=== PATIENT | female | born 1955 | race Caucasian/White ===

== ENCOUNTER 2017-10-26 09:30 | Outpatient (RCR) | payer BC, SELFPAY ==
[2017-10-19 09:32] VITALS: BP 163/73; PULSE 61; RESP 18; TEMP 36.6; BMI 48.4
[2017-10-19 13:07] LABS: Hematocrit 41.7 % (37-47); Hemoglobin 13.5 g/dl (12.0-15.0); Mean Corp Hgb Conc 32.4 g/gl (32-36); Mean Corpuscular Hgb 28.6 pg (27.0-32.0); Mean Corpuscular Volume 88.3 fL (81-99); Mean Platelet Vol. 11.4 fl (6.2-12.0); Platelet Count 340 K/mm3 (150-450); RBC Distribution Width SD 44.8 fl (35.1-43.9); Red Blood Count 4.72 M/mm3 (4.2-5.4); Scan Indicated on CBC? Y/N NO; White Blood Count 7.7 K/mm3 (4.4-11.0)
--- NOTE | 2017-10-19 13:34 | PCM.WC.HP ---
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 History of Wound: Ms. Antony is a 62yo with PMH of Venous Insufficiencys/p vein Stripping in 2005 who present here due to non healing right lower extremity ulcer. She reports right lower extremity blisters which opened up into an ulcer a couple of weeks ago. Initially 2 however they have progressed to 1 big ulcer. She was managed by her primary care physician and was started on antibiotics and Silvadene cream. She was taking these as prescribed however wound healing has not been obtained. Currently uses her compression stockings but not as often because she states that they are tight and impede her circulation. She works at [employer] where she has to stand for long periods of time. She feels well otherwise denies chills, fever, purulent discharge from the site, nausea or vomiting. 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 (Chronic) Morbid (severe) obesity due to excess calories (Chronic) Venous insufficiency (Chronic) Surgical History: no surgical history Allergies/Adverse Reactions: Allergies latex Allergy (Verified 10/19/17 09:50) Rash Home Medications: Ambulatory Orders Medication Instructions Recorded Ergocalciferol [Vitamin D] 50,000 unit PO 11/16/16 Calcium Carb/Vitamin D 1 tab PO DAILY 10/19/17 [Caltrate-600 With Vit D Tab] Clindamycin [Cleocin] 150 mg PO 4X/DAY 10/19/17 Hydrochlorothiazide [Hctz] 25 mg PO DAILY 10/19/17 Ibuprofen 200 mg PO PRN PRN 10/19/17 Loperamide [Imodium] 2 mg PO 4X/DAY PRN PRN 10/19/17 Multivitamin [Daily Multiple 1 each PO DAILY 10/19/17 Vitamin] Sandwich-3 Fatty Acids/Fish Oil 1 each PO DAILY 10/19/17 [Sandwich 3 Fish Oil Softgel] Silver Sulfadiazine 1% Crm 1 applic TOPICAL DAILY 10/19/17 [Silvadene ([facility])] Vit C/E/Zn/Coppr/Lutein/Zeaxan 1 each PO DAILY 10/19/17 [Preservision Areds 2 Softgel] - Family History Maternal No pertinent history Smoking Status: Never smoker Review of Systems Constitutional: Denies: Anorexia, Chills, Fever, Malaise Eyes: Denies: Pain, Redness HEENT: Denies: Difficulty Hearing, Difficulty Swallowing Cardiovascular: Denies: Chest Pain, Chest Pressure, Palpitations Respiratory: Denies: Cough, Hemoptysis Gastrointestinal: Denies: Abdominal Pain, Hematemesis, Vomiting Skin: Denies: Jaundice - Physical Exam Vital Signs Temp Pulse Resp BP 97.8 F 61 18 163/73 H 10/19/17 09:32 10/19/17 09:32 10/19/17 09:32 10/19/17 09:32 General: Alert, Oriented x3, Cooperative, No apparent distress HEENT: Atraumatic, Normocephalic Oral: Moist Mucosa Neck: Supple, No JVD Lungs: Normal air movement Cardiovascular: Regular rate, Regular Rhythm, Normal S1, Normal S2 Abdomen: Soft, Non Tender Extremities: No cyanosis, - - barely pitting edema extending to the knee bilaterally. Stasis Dermatitis. Wound Measurements and Assessment - Nurse 1 - General Ulcer Measurement Start: 10/19/17 09:32 Freq: Status: Active Protocol: Activity Type Activity Date Activity User E-Sign Co-Sign Detail Recorded Client Recorded Date Recorded By Document 10/19/17 09:32 [id number] 10/19/17 09:47 10/19/17 09:32 Wound Center Nurse 1 [Ulcer Assessment Protocol: MAGNOLIA.WD.LOC] #1 Lower Right Leyva -Combined with other wound No -Current Size (cm) - Length 2.6 -Current Size (cm) - Width 2.5 -Current Size (cm) - Depth 0.2 -Total Square Cm 6.50 -Date of Last Picture (Recall this 10/19/17 field) -Photo Taken Yes -Epithelialization None Present -Tunneling No -Undermining/Tunneling No -Circular Undermining No -Classification - Thickness Full Thickness without Exposed Support Structure -Exudate Amt Large (67-100%) -Exudate Type Serous -Wound Margin Fibrotic Scar, Thickened Scar -Granulation Amt None Present (0 %) -Granulation Quality N/A -Slough/Fibrin Yes -Necrosis Amt Large (67-100%) -Necrotic Tissue Type Adherent Slough -Structure Exposed Fascia Fat Layer Exposed -Texture (Jessica-wound Skin Appearance) Localized Edema Scarring -Moisture (Jessica-wound Skin Appearance Weeping ) -Color (Jessica-wound Skin Appearance) Erythema Hemosiderin Staining -Temperature (Jessica-wound Skin No Abnormality Appearance) (Pt Warm) -Tenderness on Palpation (Jessica-wound No Skin Appearance) -Ulcer Cleansing Rinsed/ Irrigated with Saline -Foul Odor after Cleansing No -Anesthetic Used 4% Lidocaine Solution [Edema Assessment] -Lower Limb Edema Present Yes -Right Calf (cm) 42.0 -Right Ankle (cm) 28.0 -Left Calf (cm) 42.0 -Left Ankle (cm) 27.0 WC - Nurse 2 - General Ulcer CM Notes Start: 10/19/17 09:32 Freq: Status: Active Protocol: Activity Type Activity Date Activity User E-Sign Co-Sign Detail Recorded Client Recorded Date Recorded By Document 10/19/17 10:08 DV [id number] 10/19/17 10:21 DV 10/19/17 10:08 Wound Center Nurse 2 [Procedure/Treatment] #1 Lower Right Leyva -Time 10:14 -Correct Patient Yes -Correct Side, Site, Position Yes -Correct Procedure Yes -Procedure Performed Yes -Type of Procedure Debridement -Clinical Debridement Subcutaneous -Post Debridement Size (cm) - Length 2.6 -Post Debridement Size (cm) - Width 2.6 -Post Debridement Size (cm) - Depth 0.2 -Total Square Cm 6.76 -Wound/Ulcer Outcome Not Healed -Ulcer Cleansing Rinsed/ Irrigated with Saline -Foul Odor after Cleansing No -Bioengineered Tissue No -Cetacaine [place] No -Bleeding Controlled with Pressure -Treatment Response Procedure Tolerated Well [See Physician Procedure note for Specifics] Musculoskeletal: No Muscle Wasting Neurological: Cranial nerves II-XII grossly intact Psych/Mental Status: Normal Affect Debridement Note Post-Debridement Measurements/Treatment WC - Nurse 2 - General Ulcer CM Notes Start: 10/19/17 09:32 Freq: Status: Active Protocol: Activity Type Activity Date Activity User E-Sign Co-Sign Detail Recorded Client Recorded Date Recorded By Document 12/21/17 10:08 DV [id number] 10/19/17 10:21 DV 10/19/17 10:08 Wound Center Nurse 2 #1 Lower Right Leyva -Time 10:14 -Correct Patient Yes -Correct Side, Site, Position Yes -Correct Procedure Yes -Procedure Performed Yes -Type of Procedure Debridement -Clinical Debridement Subcutaneous -Post Debridement Size (cm) - Length 2.6 -Post Debridement Size (cm) - Width 2.6 -Post Debridement Size (cm) - Depth 0.2 -Total Square Cm 6.76 -Wound/Ulcer Outcome Not Healed -Ulcer Cleansing Rinsed/ Irrigated with Saline -Foul Odor after Cleansing No -Bioengineered Tissue No -Cetacaine [place] No -Bleeding Controlled with Pressure -Treatment Response Procedure Tolerated Well Wound debrided: Right Lower extremity wound Type of Debridement: Excisional debridement Anesthesia Used: 4% Lidocaine Solution Depth: Down to and including healthy tissue, in the subcutaneous layer Percentage of wound debrided: 100 Instrument Used: 5mm curette Tissue Removed: Slough,Fibrin Amount of bleeding with debridement: Mild Bleeding Controlled with: Pressure Patient tolerated procedure well Assessment/Plan Assessment: Right Lower extremity Ulcer, Possibly venous. Venous Insufficiency Plan: Ms. Antony has a chronic history of venous insufficiency and is s/p vein stripping in 2005. Due to the nature of her job, she has experienced increased leg swelling lately. Conservative measures have not been helpful. Wound debridement was done today. Cultures were also taken. Labs including a CBC, prealbumin and CRP were ordered. I have also ordered venous studies. Apply santyl to wound daily with ABD covering. Light compresison with GILMA wraps. Patient was advised on a high protein diet, elevate lower extremity when in bed and when sitting and to walk around at work instead of standing for long periods. Follow up in 1 week. This note was generated with [employer] dictation software. It may contain incorrect words, spelling, and punctuation that were not noted in checking the note before signing.
--- NOTE | 2017-10-19 13:44 | HP.PCM_ITS ---
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 History of Wound: Ms. Antony is a 62yo with PMH of Venous Insufficiencys/p vein Stripping in 2005 who present here due to non healing right lower extremity ulcer. She reports right lower extremity blisters which opened up into an ulcer a couple of weeks ago. Initially 2 however they have progressed to 1 big ulcer. She was managed by her primary care physician and was started on antibiotics and Silvadene cream. She was taking these as prescribed however wound healing has not been obtained. Currently uses her compression stockings but not as often because she states that they are tight and impede her circulation. She works at [email or web address] where she has to stand for long periods of time. She feels well otherwise denies chills, fever, purulent discharge from the site, nausea or vomiting. 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 (Chronic) Morbid (severe) obesity due to excess calories (Chronic) Venous insufficiency (Chronic) Surgical History: no surgical history Allergies/Adverse Reactions: Allergies latex Allergy (Verified 10/19/17 09:50) Rash Home Medications: Ambulatory Orders Medication Instructions Recorded Ergocalciferol [Vitamin D] 50,000 unit PO 11/16/16 Calcium Carb/Vitamin D 1 tab PO DAILY 10/19/17 [Caltrate-600 With Vit D Tab] Clindamycin [Cleocin] 150 mg PO 4X/DAY 10/19/17 Hydrochlorothiazide [Hctz] 25 mg PO DAILY 10/19/17 Ibuprofen 200 mg PO PRN PRN 10/19/17 Loperamide [Imodium] 2 mg PO 4X/DAY PRN PRN 10/19/17 Multivitamin [Daily Multiple 1 each PO DAILY 10/19/17 Vitamin] [place]ahan-3 Fatty Acids/Fish Oil 1 each PO DAILY 10/19/17 [[place]ahan 3 Fish Oil Softgel] Silver Sulfadiazine 1% Crm 1 applic TOPICAL DAILY 10/19/17 [Silvadene ([facility])] Vit C/E/Zn/Coppr/Lutein/Zeaxan 1 each PO DAILY 10/19/17 [Preservision Areds 2 Softgel] - Family History Maternal No pertinent history Smoking Status: Never smoker Review of Systems Constitutional: Denies: Anorexia, Chills, Fever, Malaise Eyes: Denies: Pain, Redness HEENT: Denies: Difficulty Hearing, Difficulty Swallowing Cardiovascular: Denies: Chest Pain, Chest Pressure, Palpitations Respiratory: Denies: Cough, Hemoptysis Gastrointestinal: Denies: Abdominal Pain, Hematemesis, Vomiting Skin: Denies: Jaundice - Physical Exam Vital Signs Temp Pulse Resp BP 97.8 F 61 18 163/73 H 10/19/17 09:32 10/19/17 09:32 10/19/17 09:32 10/19/17 09:32 General: Alert, Oriented x3, Cooperative, No apparent distress HEENT: Atraumatic, Normocephalic Oral: Moist Mucosa Neck: Supple, No JVD Lungs: Normal air movement Cardiovascular: Regular rate, Regular Rhythm, Normal S1, Normal S2 Abdomen: Soft, Non Tender Extremities: No cyanosis, - - barely pitting edema extending to the knee bilaterally. Stasis Dermatitis. Wound Measurements and Assessment - Nurse 1 - General Ulcer Measurement Start: 10/19/17 09:32 Freq: Status: Active Protocol: Activity Type Activity Date Activity User E-Sign Co-Sign Detail Recorded Client Recorded Date Recorded By Document 10/19/17 09:32 [id number] 10/19/17 09:47 10/19/17 09:32 Wound Center Nurse 1 [Ulcer Assessment Protocol: MAGNOLIA.WD.LOC] #1 Lower Right Leyva -Combined with other wound No -Current Size (cm) - Length 2.6 -Current Size (cm) - Width 2.5 -Current Size (cm) - Depth 0.2 -Total Square Cm 6.50 -Date of Last Picture (Recall this 10/19/17 field) -Photo Taken Yes -Epithelialization None Present -Tunneling No -Undermining/Tunneling No -Circular Undermining No -Classification - Thickness Full Thickness without Exposed Support Structure -Exudate Amt Large (67-100%) -Exudate Type Serous -Wound Margin Fibrotic Scar, Thickened Scar -Granulation Amt None Present (0 %) -Granulation Quality N/A -Slough/Fibrin Yes -Necrosis Amt Large (67-100%) -Necrotic Tissue Type Adherent Slough -Structure Exposed Fascia Fat Layer Exposed -Texture (Jessica-wound Skin Appearance) Localized Edema Scarring -Moisture (Jessica-wound Skin Appearance Weeping ) -Color (Jessica-wound Skin Appearance) Erythema Hemosiderin Staining -Temperature (Jessica-wound Skin No Abnormality Appearance) (Pt Warm) -Tenderness on Palpation (Jessica-wound No Skin Appearance) -Ulcer Cleansing Rinsed/ Irrigated with Saline -Foul Odor after Cleansing No -Anesthetic Used 4% Lidocaine Solution [Edema Assessment] -Lower Limb Edema Present Yes -Right Calf (cm) 42.0 -Right Ankle (cm) 28.0 -Left Calf (cm) 42.0 -Left Ankle (cm) 27.0 WC - Nurse 2 - General Ulcer CM Notes Start: 10/19/17 09:32 Freq: Status: Active Protocol: Activity Type Activity Date Activity User E-Sign Co-Sign Detail Recorded Client Recorded Date Recorded By Document 10/19/17 10:08 DV [id number] 10/19/17 10:21 DV 10/19/17 10:08 Wound Center Nurse 2 [Procedure/Treatment] #1 Lower Right Leyva -Time 10:14 -Correct Patient Yes -Correct Side, Site, Position Yes -Correct Procedure Yes -Procedure Performed Yes -Type of Procedure Debridement -Clinical Debridement Subcutaneous -Post Debridement Size (cm) - Length 2.6 -Post Debridement Size (cm) - Width 2.6 -Post Debridement Size (cm) - Depth 0.2 -Total Square Cm 6.76 -Wound/Ulcer Outcome Not Healed -Ulcer Cleansing Rinsed/ Irrigated with Saline -Foul Odor after Cleansing No -Bioengineered Tissue No -Cetacaine [place] No -Bleeding Controlled with Pressure -Treatment Response Procedure Tolerated Well [See Physician Procedure note for Specifics] Musculoskeletal: No Muscle Wasting Neurological: Cranial nerves II-XII grossly intact Psych/Mental Status: Normal Affect Debridement Note Post-Debridement Measurements/Treatment WC - Nurse 2 - General Ulcer CM Notes Start: 10/19/17 09:32 Freq: Status: Active Protocol: Activity Type Activity Date Activity User E-Sign Co-Sign Detail Recorded Client Recorded Date Recorded By Document 12/21/17 10:08 DV [id number] 10/19/17 10:21 DV 10/19/17 10:08 Wound Center Nurse 2 #1 Lower Right Leyva -Time 10:14 -Correct Patient Yes -Correct Side, Site, Position Yes -Correct Procedure Yes -Procedure Performed Yes -Type of Procedure Debridement -Clinical Debridement Subcutaneous -Post Debridement Size (cm) - Length 2.6 -Post Debridement Size (cm) - Width 2.6 -Post Debridement Size (cm) - Depth 0.2 -Total Square Cm 6.76 -Wound/Ulcer Outcome Not Healed -Ulcer Cleansing Rinsed/ Irrigated with Saline -Foul Odor after Cleansing No -Bioengineered Tissue No -Cetacaine [place] No -Bleeding Controlled with Pressure -Treatment Response Procedure Tolerated Well Wound debrided: Right Lower extremity wound Type of Debridement: Excisional debridement Anesthesia Used: 4% Lidocaine Solution Depth: Down to and including healthy tissue, in the subcutaneous layer Percentage of wound debrided: 100 Instrument Used: 5mm curette Tissue Removed: Slough,Fibrin Amount of bleeding with debridement: Mild Bleeding Controlled with: Pressure Patient tolerated procedure well Assessment/Plan Assessment: Right Lower extremity Ulcer, Possibly venous. Venous Insufficiency Plan: Ms. Antony has a chronic history of venous insufficiency and is s/p vein stripping in 2005. Due to the nature of her job, she has experienced increased leg swelling lately. Conservative measures have not been helpful. Wound debridement was done today. Cultures were also taken. Labs including a CBC, prealbumin and CRP were ordered. I have also ordered venous studies. Apply santyl to wound daily with ABD covering. Light compresison with GILMA wraps. Patient was advised on a high protein diet, elevate lower extremity when in bed and when sitting and to walk around at work instead of standing for long periods. Follow up in 1 week. This note was generated with [employer] dictation software. It may contain incorrect words, spelling, and punctuation that were not noted in checking the note before signing.
[2017-10-19 13:50] LABS: Prealbumin 24.4 mg/dL (20.0-40.0)
[2017-10-26 09:57] VITALS: BP 123/73; PULSE 62; RESP 16; TEMP 36.4; BMI 48.4
== END 2017-10-29 23:59 ==
LOC: WC 09:30
PROVIDERS: Family Provider Internal Medicine; PCP Internal Medicine; Visit Provider Internal Medicine
DX: I83.11 Varicose veins of right lower extremity with inflammation (principal); L97.919 Non-pressure chronic ulcer of unspecified part of right lower leg with unspecified severity; E66.01 Morbid (severe) obesity due to excess calories; Z68.42 Body mass index [BMI] 45.0-49.9, adult; Z71.3 Dietary counseling and surveillance; Z79.899 Other long term (current) drug therapy; I87.2 Venous insufficiency (chronic) (peripheral); M79.89 Other specified soft tissue disorders
CPT/HCPCS: 11042; 84134; 85027; 86140; 87070; 87075; 87077; 87186; 87205; 97602; 99213; G0463

== ENCOUNTER 2017-11-29 09:30 | Outpatient (RCR) | payer BC, SELFPAY ==
[2017-10-30 01:41] VITALS: BP 123/73; PULSE 62; RESP 16; TEMP 36.4; BMI 48.4
[2017-11-02 08:47] VITALS: BP 167/84; PULSE 77; RESP 20; TEMP 36.6; BMI 48.4
--- NOTE | 2017-11-02 10:29 | PCM.WC.PN ---
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 History of Wound: Ms. Antony is a 62yo with PMH of Venous Insufficiencys/p vein Stripping in 2005 who present here due to non healing right lower extremity ulcer. She reports right lower extremity blisters which opened up into an ulcer a couple of weeks ago. Initially 2 however they have progressed to 1 big ulcer. She was managed by her primary care physician and was started on antibiotics and Silvadene cream. She was taking these as prescribed however wound healing has not been obtained. Currently uses her compression stockings but not as often because she states that they are tight and impede her circulation. She works at [employer] where she has to stand for long periods of time. She feels well otherwise denies chills, fever, purulent discharge from the site, nausea or vomiting. Progress of Wound: Stable. No new complaints at this time. Yet to get venous studies done. Still has significant lower extremity edema. - Physical Exam Vital Signs Temp Pulse Resp BP 97.8 F 77 20 H 167/84 H 11/02/17 08:47 11/02/17 08:47 11/02/17 08:47 11/02/17 08:47 General: Alert, Oriented x3, Cooperative, No apparent distress HEENT: Atraumatic, Normocephalic Oral: Moist Mucosa Neck: Supple Lungs: Normal air movement Cardiovascular: Regular rate Extremities: No cyanosis, Edema Skin: Ulcer/ Wound - Right lower extremity Wound Measurements and Assessment WC - Nurse 1 - General Ulcer Measurement Start: 11/02/17 08:47 Freq: Status: Active Protocol: Activity Type Activity Date Activity User E-Sign Co-Sign Detail Recorded Client Recorded Date Recorded By Document 11/02/17 08:47 DL [id number] 11/02/17 08:56 DL 11/02/17 08:47 Wound Center Nurse 1 [Ulcer Assessment Protocol: WC.WD.LOC] #1 Lower Right Leyva -Current Size (cm) - Length 3.2 -Current Size (cm) - Width 2.3 -Current Size (cm) - Depth 0.2 -Total Square Cm 7.36 -Photo Taken No -Exudate Amt Medium (34-66%) -Exudate Type Serosanguineous -Wound Margin Distinct, Outline Attached -Granulation Amt Small (1-33%) -Granulation Quality [place] -Necrosis Amt Large (67-100%) -Necrotic Tissue Type Adherent Slough -Structure Exposed N/A -Texture (Jessica-wound Skin Appearance) Excoriation -Moisture (Jessica-wound Skin Appearance Weeping ) -Color (Jessica-wound Skin Appearance) Hemosiderin Staining -Temperature (Jessica-wound Skin No Abnormality Appearance) (Pt Warm) -Ulcer Cleansing Rinsed/ Irrigated with Saline -Foul Odor after Cleansing No -Anesthetic Used 4% Lidocaine Solution [Edema Assessment] -Right Calf (cm) 45.6 -Right Ankle (cm) 26.5 - Nurse 2 - General Ulcer CM Notes Start: 11/02/17 08:47 Freq: Status: Active Protocol: Activity Type Activity Date Activity User E-Sign Co-Sign Detail Recorded Client Recorded Date Recorded By Document 11/02/17 09:20 DV [id number] 11/02/17 09:23 DV 11/02/17 09:20 Wound Center Nurse 2 [Procedure/Treatment] #1 Lower Right Leyva -Time 09:21 -Correct Patient Yes -Correct Side, Site, Position Yes -Correct Procedure Yes -Procedure Performed Yes -Type of Procedure Debridement -Clinical Debridement Subcutaneous -Post Debridement Size (cm) - Length 3.1 -Post Debridement Size (cm) - Width 2.0 -Post Debridement Size (cm) - Depth 0.2 -Total Square Cm 6.20 -Wound/Ulcer Outcome Not Healed -Ulcer Cleansing Rinsed/ Irrigated with Saline -Foul Odor after Cleansing No -Bioengineered Tissue No -Cetacaine [place] No -Bleeding Controlled with Pressure -Treatment Response Procedure Tolerated Well [See Physician Procedure note for Specifics] Pain Scale: 0-10 Numeric [Pain] -Is Patient Pain Free? Yes Musculoskeletal: No Muscle Wasting Neurological: Cranial nerves II-XII grossly intact Debridement Note Post-Debridement Measurements/Treatment WC - Nurse 2 - General Ulcer CM Notes Start: 11/02/17 08:47 Freq: Status: Active Protocol: Activity Type Activity Date Activity User E-Sign Co-Sign Detail Recorded Client Recorded Date Recorded By Document 11/02/17 09:20 DV [id number] 11/02/17 09:23 DV 11/02/17 09:20 Wound Center Nurse 2 #1 Lower Right Leyva -Time 09:21 -Correct Patient Yes -Correct Side, Site, Position Yes -Correct Procedure Yes -Procedure Performed Yes -Type of Procedure Debridement -Clinical Debridement Subcutaneous -Post Debridement Size (cm) - Length 3.1 -Post Debridement Size (cm) - Width 2.0 -Post Debridement Size (cm) - Depth 0.2 -Total Square Cm 6.20 -Wound/Ulcer Outcome Not Healed -Ulcer Cleansing Rinsed/ Irrigated with Saline -Foul Odor after Cleansing No -Bioengineered Tissue No -Cetacaine [place] No -Bleeding Controlled with Pressure -Treatment Response Procedure Tolerated Well Pain Scale: 0-10 Numeric Is Patient Pain Free? Yes Wound debrided: Right Leg Venous Ulcer Anesthesia Used: 4% Lidocaine Solution Depth: Down to and including healthy tissue, in the subcutaneous layer Percentage of wound debrided: 100 Instrument Used: 5mm curette Tissue Removed: Slough, Biofilm Amount of bleeding with debridement: Mild Bleeding Controlled with: Compression and gauze Patient tolerated procedure well Assessment/Plan Active Problems Chronic venous stasis dermatitis of right lower extremity (Chronic) Venous insufficiency (Chronic) Ulcer of right lower leg (Acute) Assessment: Right Lower extremity Ulcer, Possibly venous. Venous Insufficiency Plan: No significant changes in the wound today. Still has significant slough present on wound. She is yet to have her venous studies done. She is also not dressing the wound as recommended. Continue Santyl with annie thick application to the wound daily with ABD covering due to significant amount of wound seepage. Light compression Rupert wraps until venous studies. Protein supplements daily. A protein rich diet also recommended. Reassess need for antibiotic at next visit, culture with rare growth of organisms. ? Contaminant. Avoid hiatal standing. Exercise and weight loss recommended. Elevate legs while sitting and in bed. Follow-up in 1 week. This note was generated with [employer] software. It may contain incorrect words, spelling, and punctuation that were not noted in checking the note before signing.
--- NOTE | 2017-11-02 10:37 | PN.PCM_ITS ---
(1) Ulcer of right lower leg Status: Acute Current Visit: Yes Code(s): L97.919 - Non-pressure chronic ulcer of unspecified part of right lower leg with unspecified severity (2) Chronic venous stasis dermatitis of right lower extremity Status: Chronic Current Visit: Yes Code(s): I83.11 - Varicose veins of right lower extremity with inflammation (3) Venous insufficiency Status: Chronic Current Visit: Yes Code(s): I87.2 - Venous insufficiency ( chronic) (peripheral) Type of Wound Date of Service: 11/02/17 Chief Complaint: Right Non healing lower extremity ulcer. History of Wound: Ms. Antony is a 62yo with PMH of Venous Insufficiencys/p vein Stripping in 2005 who present here due to non healing right lower extremity ulcer. She reports right lower extremity blisters which opened up into an ulcer a couple of weeks ago. Initially 2 however they have progressed to 1 big ulcer. She was managed by her primary care physician and was started on antibiotics and Silvadene cream. She was taking these as prescribed however wound healing has not been obtained. Currently uses her compression stockings but not as often because she states that they are tight and impede her circulation. She works at [employer] where she has to stand for long periods of time. She feels well otherwise denies chills, fever, purulent discharge from the site, nausea or vomiting. Progress of Wound: Stable. No new complaints at this time. Yet to get venous studies done. Still has significant lower extremity edema. - Physical Exam Vital Signs Temp Pulse Resp BP 97.8 F 77 20 H 167/84 H 11/02/17 08:47 11/02/17 08:47 11/02/17 08:47 11/02/17 08:47 General: Alert, Oriented x3, Cooperative, No apparent distress HEENT: Atraumatic, Normocephalic Oral: Moist Mucosa Neck: Supple Lungs: Normal air movement Cardiovascular: Regular rate Extremities: No cyanosis, Edema Skin: Ulcer/ Wound - Right lower extremity Wound Measurements and Assessment WC - Nurse 1 - General Ulcer Measurement Start: 11/02/17 08:47 Freq: Status: Active Protocol: Activity Type Activity Date Activity User E-Sign Co-Sign Detail Recorded Client Recorded Date Recorded By Document 11/02/17 08:47 DL [id number] 11/02/17 08:56 DL 11/02/17 08:47 Wound Center Nurse 1 [Ulcer Assessment Protocol: WC.WD.LOC] #1 Lower Right Ley[place] -Current Size (cm) - Length 3.2 -Current Size (cm) - Width 2.3 -Current Size (cm) - Depth 0.2 -Total Square Cm 7.36 -Photo Taken No -Exudate Amt Medium (34-66%) -Exudate Type Serosanguineous -Wound Margin Distinct, Outline Attached -Granulation Amt Small (1-33%) -Granulation Quality [place] -Necrosis Amt Large (67-100%) -Necrotic Tissue Type Adherent Slough -Structure Exposed N/A -Texture (Jessica-wound Skin Appearance) Excoriation -Moisture (Jessica-wound Skin Appearance Weeping ) -Color (Jessica-wound Skin Appearance) Hemosiderin Staining -Temperature (Jessica-wound Skin No Abnormality Appearance) (Pt Warm) -Ulcer Cleansing Rinsed/ Irrigated with Saline -Foul Odor after Cleansing No -Anesthetic Used 4% Lidocaine Solution [Edema Assessment] -Right Calf (cm) 45.6 -Right Ankle (cm) 26.5 - Nurse 2 - General Ulcer CM Notes Start: 11/02/17 08:47 Freq: Status: Active Protocol: Activity Type Activity Date Activity User E-Sign Co-Sign Detail Recorded Client Recorded Date Recorded By Document 11/02/17 09:20 DV [id number] 11/02/17 09:23 DV 11/02/17 09:20 Wound Center Nurse 2 [Procedure/Treatment] #1 Lower Right Leyva -Time 09:21 -Correct Patient Yes -Correct Side, Site, Position Yes -Correct Procedure Yes -Procedure Performed Yes -Type of Procedure Debridement -Clinical Debridement Subcutaneous -Post Debridement Size (cm) - Length 3.1 -Post Debridement Size (cm) - Width 2.0 -Post Debridement Size (cm) - Depth 0.2 -Total Square Cm 6.20 -Wound/Ulcer Outcome Not Healed -Ulcer Cleansing Rinsed/ Irrigated with Saline -Foul Odor after Cleansing No -Bioengineered Tissue No -Cetacaine [place] No -Bleeding Controlled with Pressure -Treatment Response Procedure Tolerated Well [See Physician Procedure note for Specifics] Pain Scale: 0-10 Numeric [Pain] -Is Patient Pain Free? Yes Musculoskeletal: No Muscle Wasting Neurological: Cranial nerves II-XII grossly intact Debridement Note Post-Debridement Measurements/Treatment WC - Nurse 2 - General Ulcer CM Notes Start: 11/02/17 08:47 Freq: Status: Active Protocol: Activity Type Activity Date Activity User E-Sign Co-Sign Detail Recorded Client Recorded Date Recorded By Document 11/02/17 09:20 DV [id number] 11/02/17 09:23 DV 11/02/17 09:20 Wound Center Nurse 2 #1 Lower Right [place] -Time 09:21 -Correct Patient Yes -Correct Side, Site, Position Yes -Correct Procedure Yes -Procedure Performed Yes -Type of Procedure Debridement -Clinical Debridement Subcutaneous -Post Debridement Size (cm) - Length 3.1 -Post Debridement Size (cm) - Width 2.0 -Post Debridement Size (cm) - Depth 0.2 -Total Square Cm 6.20 -Wound/Ulcer Outcome Not Healed -Ulcer Cleansing Rinsed/ Irrigated with Saline -Foul Odor after Cleansing No -Bioengineered Tissue No -Cetacaine [place] No -Bleeding Controlled with Pressure -Treatment Response Procedure Tolerated Well Pain Scale: 0-10 Numeric Is Patient Pain Free? Yes Wound debrided: Right Leg Venous Ulcer Anesthesia Used: 4% Lidocaine Solution Depth: Down to and including healthy tissue, in the subcutaneous layer Percentage of wound debrided: 100 Instrument Used: 5mm curette Tissue Removed: Slough, Biofilm Amount of bleeding with debridement: Mild Bleeding Controlled with: Compression and gauze Patient tolerated procedure well Assessment/Plan Active Problems Chronic venous stasis dermatitis of right lower extremity (Chronic) Venous insufficiency (Chronic) Ulcer of right lower leg (Acute) Assessment: Right Lower extremity Ulcer, Possibly venous. Venous Insufficiency Plan: No significant changes in the wound today. Still has significant slough present on wound. She is yet to have her venous studies done. She is also not dressing the wound as recommended. Continue Santyl with annie thick application to the wound daily with ABD covering due to significant amount of wound seepage. Light compression Rupert wraps until venous studies. Protein supplements daily. A protein rich diet also recommended. Reassess need for antibiotic at next visit, culture with rare growth of organisms. ? Contaminant. Avoid hiatal standing. Exercise and weight loss recommended. Elevate legs while sitting and in bed. Follow-up in 1 week. This note was generated with [employer] software. It may contain incorrect words, spelling, and punctuation that were not noted in checking the note before signing.
[2017-11-09 08:52] VITALS: BP 150/80; PULSE 67; RESP 18; TEMP 36.6; BMI 48.4
--- NOTE | 2017-11-09 13:03 | VDLE_ITS ---
Reason For Study: Non-healing wound RIGHT LEFT CFV is compressible, spontaneous, phasic, CFV is compressible, spontaneous, phasic, competent and demonstrates normal competent, and demonstrates normal augmentation. augmentation. FV is compressible, spontaneous, phasic, FV is compressible, spontaneous, phasic, competent and demonstrates normal competent and demonstrates normal augmentation. augmentation. POP V is compressible, spontaneous, phasic, POP V is compressible, spontaneous, phasic, competent and demonstrates normal competent and demonstrates normal augmentation. augmentation. T/P Trunk is compressible. T/P Trunk is compressible. PTV is compressible. PTV is compressible. RT PerV is compressible. LT PerV is compressible. SFJ is INCOMPETENT SFJ INCOMPETENT GSV is INCOMPETENT with reflux greater GSV INCOMPETENT with reflux greater than .5 than .5 sec for short segment mid thigh sec and diameter of .43 x .41 cm remainder of GSV in thigh not visualized. ASV at SFJ is INCOMPETENT with reflux GSV is INCOMPETENTin calf with reflux greater than .5 sec and diameter of .61 greater than .5 sec and diameter of .63 x .64 cm x .65 cm. SSV is not visualized. ASV at SFJ is INCOMPETENT with reflux greater than .5 sec and diameter of .90 x 1.0 cm SSV is competent. Procedure Exam performed in department. A preliminary report was called and/or faxed to [facility]. Interpretation Summary Deep veins of the lower extremities are bilaterally patent and compressible segmentally. There is no evidence of deep vein thrombosis on either side. Valvular competence appears intact within the proximal deep venous systems bilaterally. Sapheno-femoral junctions are bilaterally incompetent . A short segment of the right greater saphenous vein in the thigh is incompetent, though the remainder of the right greater saphenous vein in the thigh is not visualized. The right greater saphenous vein appears incompetent below the knee. The left greater saphenous vein appears segmentally incompetent. The right small saphenous vein is patent and competent. The left small saphenous vein was not visualized. The right accessory saphenous vein at the right sapheno-femoral junction is incompetent. The left accessory saphenous vein at the left sapheno-femoral junction is incompetent. Ordering Physician: Lisseth Briggs Referring Physician: Lisseth Briggs Performed By: Rossi Eubanks RVT
--- NOTE | 2017-11-09 15:37 | PCM.WC.PN ---
(1) Ulcer of right lower leg Status: Acute Current Visit: Yes Code(s): L97.919 - Non-pressure chronic ulcer of unspecified part of right lower leg with unspecified severity (2) Chronic venous stasis dermatitis of right lower extremity Status: Chronic Current Visit: Yes Code(s): I83.11 - Varicose veins of right lower extremity with inflammation (3) Venous insufficiency Status: Chronic Current Visit: Yes Code(s): I87.2 - Venous insufficiency (chronic) (peripheral) Type of Wound Date of Service: 11/09/17 Chief Complaint: Right Non healing lower extremity ulcer. History of Wound: Ms. Antony is a 62yo with PMH of Venous Insufficiencys/p vein Stripping in 2005 who present here due to non healing right lower extremity ulcer. She reports right lower extremity blisters which opened up into an ulcer a couple of weeks ago. Initially 2 however they have progressed to 1 big ulcer. She was managed by her primary care physician and was started on antibiotics and Silvadene cream. She was taking these as prescribed however wound healing has not been obtained. Currently uses her compression stockings but not as often because she states that they are tight and impede her circulation. She works at [employer] where she has to stand for long periods of time. She feels well otherwise denies chills, fever, purulent discharge from the site, nausea or vomiting. Progress of Wound: Stable. No new complaints at this time. Scheduled to have a venous studies done today. - Physical Exam Vital Signs Temp Pulse Resp BP 97.8 F 67 18 150/80 H 11/09/17 08:52 11/09/17 08:52 11/09/17 08:52 11/09/17 08:52 General: Alert, Oriented x3, Cooperative, No apparent distress HEENT: Atraumatic, Normocephalic Oral: Moist Mucosa Neck: Supple Lungs: Normal air movement Cardiovascular: Regular rate Extremities: Edema Skin: Ulcer/ Wound Wound Measurements and Assessment MAGNOLIA - Nurse 1 - General Ulcer Measurement Start: 11/02/17 08:47 Freq: Status: Active Protocol: Activity Type Activity Date Activity User E-Sign Co-Sign Detail Recorded Client Recorded Date Recorded By Document 11/09/17 08:52 DL [id number] 11/09/17 08:59 DL 11/09/17 08:52 Wound Center Nurse 1 [Ulcer Assessment Protocol: MAGNOLIA.WD.LOC] #1 Lower Right [place] -Current Size (cm) - Length 3.2 -Current Size (cm) - Width 2.2 -Current Size (cm) - Depth 0.2 -Total Square Cm 7.04 -Photo Taken No -Exudate Amt Medium (34-66%) -Exudate Type Serosanguineous -Wound Margin Distinct, Outline Attached -Granulation Amt Medium (34-66%) -Granulation Quality Red -Necrosis Amt Medium (34-66%) -Necrotic Tissue Type Adherent Slough -Structure Exposed N/A -Texture (Jessica-wound Skin Appearance) Scarring -Moisture (Jessica-wound Skin Appearance No Abnormality ) -Color (Jessica-wound Skin Appearance) Hemosiderin Staining -Temperature (Jessica-wound Skin No Abnormality Appearance) (Pt Warm) -Ulcer Cleansing Rinsed/ Irrigated with Saline -Foul Odor after Cleansing No -Anesthetic Used 4% Lidocaine Solution [Edema Assessment] -Right Calf (cm) 46.2 -Right Ankle (cm) 24.4 - Nurse 2 - General Ulcer CM Notes Start: 11/02/17 08:47 Freq: Status: Active Protocol: Activity Type Activity Date Activity User E-Sign Co-Sign Detail Recorded Client Recorded Date Recorded By Document 11/09/17 09:37 DV [id number] 11/09/17 09:40 DV 11/09/17 09:37 Wound Center Nurse 2 [Procedure/Treatment] #1 Lower Right Ley[place] -Time 09:39 -Correct Patient Yes -Correct Side, Site, Position Yes -Correct Procedure Yes -Procedure Performed Yes -Type of Procedure Debridement -Clinical Debridement Subcutaneous -Post Debridement Size (cm) - Length 3.1 -Post Debridement Size (cm) - Width 1.6 -Post Debridement Size (cm) - Depth 0.2 -Total Square Cm 4.96 -Wound/Ulcer Outcome Not Healed -Ulcer Cleansing Rinsed/ Irrigated with Saline -Foul Odor after Cleansing No -Bioengineered Tissue No -Cetacaine [place] No -Bleeding Controlled with Pressure -Treatment Response Procedure Tolerated Well [See Physician Procedure note for Specifics] Pain Scale: 0-10 Numeric [Pain] -Is Patient Pain Free? Yes Musculoskeletal: No Muscle Wasting Neurological: Cranial nerves II-XII grossly intact Debridement Note Post-Debridement Measurements/Treatment - Nurse 2 - General Ulcer CM Notes Start: 11/02/17 08:47 Freq: Status: Active Protocol: Activity Type Activity Date Activity User E-Sign Co-Sign Detail Recorded Client Recorded Date Recorded By Document 11/02/17 09:20 DV [id number] 11/02/17 09:23 DV Document 11/09/17 09:37 DV [id number] 11/09/17 09:40 DV 11/02/17 11/09/17 09:20 09:37 Wound Center Nurse 2 #1 Lower Right Ley[place] -Time 09:21 09:39 -Correct Patient Yes Yes -Correct Side, Site, Position Yes Yes -Correct Procedure Yes Yes -Procedure Performed Yes Yes -Type of Procedure Debridement Debridement -Clinical Debridement Subcutaneous Subcutaneous -Post Debridement Size (cm) - Length 3.1 3.1 -Post Debridement Size (cm) - Width 2.0 1.6 -Post Debridement Size (cm) - Depth 0.2 0.2 -Total Square Cm 6.20 4.96 -Wound/Ulcer Outcome Not Healed Not Healed -Ulcer Cleansing Rinsed/ Rinsed/ Irrigated with Irrigated with Saline Saline -Foul Odor after Cleansing No No -Bioengineered Tissue No No -Cetacaine [place] No No -Bleeding Controlled with Pressure Pressure -Treatment Response Procedure Procedure Tolerated Well Tolerated Well Pain Scale: 0-10 Numeric Is Patient Pain Free? Yes Yes Wound debrided: Right leg venous ulcers Type of Debridement: Excisional debridement Anesthesia Used: 4% Lidocaine Solution Depth: Down to and including healthy tissue, in the subcutaneous layer Percentage of wound debrided: 100 Instrument Used: 5mm curette Tissue Removed: Slough, subcutaneous tissue Severity: Fat Layer Exposed Amount of bleeding with debridement: Mild Bleeding Controlled with: Pressure Patient tolerated procedure well Assessment/Plan Active Problems Chronic venous stasis dermatitis of right lower extremity (Chronic) Venous insufficiency (Chronic) Ulcer of right lower leg (Acute) Assessment: Right Lower extremity Ulcer, Possibly venous. Venous Insufficiency Plan: Mild reduction in right lower extremity edema today. Also moderate reduction in wound size. Scheduled to have a venous studies done today. Continue Santyl for 1 more week. Continue ABD over Santyl due to seepage. Avoid idle standing. Exercise and weight loss recommended. Elevate legs while sitting and in bed. Daily protein supplements and protein rich diet. Follow-up in 1 week. This note was generated with [employer] software. It may contain incorrect words, spelling, and punctuation that were not noted in checking the note before signing.
--- NOTE | 2017-11-09 15:42 | PN.PCM_ITS ---
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 History of Wound: Ms. Antony is a 62yo with PMH of Venous Insufficiencys/p vein Stripping in 2005 who present here due to non healing right lower extremity ulcer. She reports right lower extremity blisters which opened up into an ulcer a couple of weeks ago. Initially 2 however they have progressed to 1 big ulcer. She was managed by her primary care physician and was started on antibiotics and Silvadene cream. She was taking these as prescribed however wound healing has not been obtained. Currently uses her compression stockings but not as often because she states that they are tight and impede her circulation. She works at [employer] where she has to stand for long periods of time. She feels well otherwise denies chills, fever, purulent discharge from the site, nausea or vomiting. Progress of Wound: Stable. No new complaints at this time. Scheduled to have a venous studies done today. - Physical Exam Vital Signs Temp Pulse Resp BP 97.8 F 67 18 150/80 H 11/09/17 08:52 11/09/17 08:52 11/09/17 08:52 11/09/17 08:52 General: Alert, Oriented x3, Cooperative, No apparent distress HEENT: Atraumatic, Normocephalic Oral: Moist Mucosa Neck: Supple Lungs: Normal air movement Cardiovascular: Regular rate Extremities: Edema Skin: Ulcer/ Wound Wound Measurements and Assessment MAGNOLIA - Nurse 1 - General Ulcer Measurement Start: 11/02/17 08:47 Freq: Status: Active Protocol: Activity Type Activity Date Activity User E-Sign Co-Sign Detail Recorded Client Recorded Date Recorded By Document 11/09/17 08:52 DL [id number] 11/09/17 08:59 DL 11/09/17 08:52 Wound Center Nurse 1 [Ulcer Assessment Protocol: MAGNOLIA.WD.LOC] #1 Lower Right Ley[place] -Current Size (cm) - Length 3.2 -Current Size (cm) - Width 2.2 -Current Size (cm) - Depth 0.2 -Total Square Cm 7.04 -Photo Taken No -Exudate Amt Medium (34-66%) -Exudate Type Serosanguineous -Wound Margin Distinct, Outline Attached -Granulation Amt Medium (34-66%) -Granulation Quality Red -Necrosis Amt Medium (34-66%) -Necrotic Tissue Type Adherent Slough -Structure Exposed N/A -Texture (Jessica-wound Skin Appearance) Scarring -Moisture (Jessica-wound Skin Appearance No Abnormality ) -Color (Jessica-wound Skin Appearance) Hemosiderin Staining -Temperature (Jessica-wound Skin No Abnormality Appearance) (Pt Warm) -Ulcer Cleansing Rinsed/ Irrigated with Saline -Foul Odor after Cleansing No -Anesthetic Used 4% Lidocaine Solution [Edema Assessment] -Right Calf (cm) 46.2 -Right Ankle (cm) 24.4 - Nurse 2 - General Ulcer CM Notes Start: 11/02/17 08:47 Freq: Status: Active Protocol: Activity Type Activity Date Activity User E-Sign Co-Sign Detail Recorded Client Recorded Date Recorded By Document 11/09/17 09:37 DV [id number] 11/09/17 09:40 DV 11/09/17 09:37 Wound Center Nurse 2 [Procedure/Treatment] #1 Lower Right Leyva -Time 09:39 -Correct Patient Yes -Correct Side, Site, Position Yes -Correct Procedure Yes -Procedure Performed Yes -Type of Procedure Debridement -Clinical Debridement Subcutaneous -Post Debridement Size (cm) - Length 3.1 -Post Debridement Size (cm) - Width 1.6 -Post Debridement Size (cm) - Depth 0.2 -Total Square Cm 4.96 -Wound/Ulcer Outcome Not Healed -Ulcer Cleansing Rinsed/ Irrigated with Saline -Foul Odor after Cleansing No -Bioengineered Tissue No -Cetacaine [place] No -Bleeding Controlled with Pressure -Treatment Response Procedure Tolerated Well [See Physician Procedure note for Specifics] Pain Scale: 0-10 Numeric [Pain] -Is Patient Pain Free? Yes Musculoskeletal: No Muscle Wasting Neurological: Cranial nerves II-XII grossly intact Debridement Note Post-Debridement Measurements/Treatment - Nurse 2 - General Ulcer CM Notes Start: 11/02/17 08:47 Freq: Status: Active Protocol: Activity Type Activity Date Activity User E-Sign Co-Sign Detail Recorded Client Recorded Date Recorded By Document 11/02/17 09:20 DV [id number] 11/02/17 09:23 DV Document 11/09/17 09:37 DV [id number] 11/09/17 09:40 DV 11/02/17 11/09/17 09:20 09:37 Wound Center Nurse 2 #1 Lower Right Leyva -Time 09:21 09:39 -Correct Patient Yes Yes -Correct Side, Site, Position Yes Yes -Correct Procedure Yes Yes -Procedure Performed Yes Yes -Type of Procedure Debridement Debridement -Clinical Debridement Subcutaneous Subcutaneous -Post Debridement Size (cm) - Length 3.1 3.1 -Post Debridement Size (cm) - Width 2.0 1.6 -Post Debridement Size (cm) - Depth 0.2 0.2 -Total Square Cm 6.20 4.96 -Wound/Ulcer Outcome Not Healed Not Healed -Ulcer Cleansing Rinsed/ Rinsed/ Irrigated with Irrigated with Saline Saline -Foul Odor after Cleansing No No -Bioengineered Tissue No No -Cetacaine [place] No No -Bleeding Controlled with Pressure Pressure -Treatment Response Procedure Procedure Tolerated Well Tolerated Well Pain Scale: 0-10 Numeric Is Patient Pain Free? Yes Yes Wound debrided: Right leg venous ulcers Type of Debridement: Excisional debridement Anesthesia Used: 4% Lidocaine Solution Depth: Down to and including healthy tissue, in the subcutaneous layer Percentage of wound debrided: 100 Instrument Used: 5mm curette Tissue Removed: Slough, subcutaneous tissue Severity: Fat Layer Exposed Amount of bleeding with debridement: Mild Bleeding Controlled with: Pressure Patient tolerated procedure well Assessment/Plan Active Problems Chronic venous stasis dermatitis of right lower extremity (Chronic) Venous insufficiency (Chronic) Ulcer of right lower leg (Acute) Assessment: Right Lower extremity Ulcer, Possibly venous. Venous Insufficiency Plan: Mild reduction in right lower extremity edema today. Also moderate reduction in wound size. Scheduled to have a venous studies done today. Continue Santyl for 1 more week. Continue ABD over Santyl due to seepage. Avoid idle standing. Exercise and weight loss recommended. Elevate legs while sitting and in bed. Daily protein supplements and protein rich diet. Follow- up in 1 week. This note was generated with [employer] software. It may contain incorrect words, spelling, and punctuation that were not noted in checking the note before signing.
--- NOTE | 2017-11-11 15:46 | LEAS_ITS ---
Arterial Study - Arterial Study Arterial Study: This is a 62-year-old female with a history of chronic venous insufficiency, morbid obesity, and prior vein stripping and ablation procedures. She presents with a chronic nonhealing wound to the right lower extremity. Suspecting the presence of atherosclerotic peripheral arterial occlusive disease, the patient was brought to the noninvasive vascular laboratory at this time for the purpose of bilateral noninvasive lower extremity arterial assessment. Doppler signal assessment was used to evaluate the pulses at ankle level bilaterally. The posterior tibial and dorsalis pedis pulses were triphasic bilaterally. Segmental limb pressures were obtained at ankle level bilaterally. The right ankle pressure, as determined the posterior tibial pulse, was measured at 157 mmHg. The right ankle pressure, as determined by dorsalis pedis pulse, was measured at 176 mmHg. The left ankle pressure, as determined the posterior tibial pulse, was measured at 180 mmHg. The left ankle pressure, as determined by dorsalis pedis pulse, was measured at 177 mmHg. Pulse-volume recordings were obtained bilaterally and segmentally. Waveform amplitudes appeared to be satisfactory at all levels bilaterally, including low thigh, calf, ankle, and digital levels. Resting ankle-brachial indices were calculated bilaterally. The resting right ankle-brachial index was calculated to be 1.14. The resting left ankle- brachial index was calculated to be 1.17. Impression: Based on the findings of this resting noninvasive lower extremity arterial study, there is no evidence of significant atherosclerotic peripheral arterial occlusive disease in the lower extremities bilaterally. Triphasic waveforms are noted at ankle level bilaterally. Resting ankle-brachial indices were bilaterally normal. In summary, this represents a normal resting noninvasive lower extremity arterial study bilaterally.
[2017-11-16 11:47] VITALS: BP 165/75; PULSE 77; RESP 20; TEMP 36.6; BMI 48.4
--- NOTE | 2017-11-16 12:00 | WC ---
Patient experienced a fall by tripping and injuring Right second toe. Patient did not get the toe examined and the appearance of the toe is completely black and blue
--- NOTE | 2017-11-16 12:29 | PCM.WC.PN ---
(1) Ulcer of right lower leg Status: Acute Code(s): L97.919 - Non-pressure chronic ulcer of unspecified part of right lower leg with unspecified severity (2) Chronic venous stasis dermatitis of right lower extremity Status: Chronic Code(s): I83.11 - Varicose veins of right lower extremity with inflammation (3) Venous insufficiency Status: Chronic Code(s): I87.2 - Venous insufficiency (chronic) (peripheral) Type of Wound Date of Service: 11/16/17 Chief Complaint: Right Non healing lower extremity ulcer. History of Wound: Ms. Antony is a 62yo with PMH of Venous Insufficiencys/p vein Stripping in 2005 who present here due to non healing right lower extremity ulcer. She reports right lower extremity blisters which opened up into an ulcer a couple of weeks ago. Initially 2 however they have progressed to 1 big ulcer. She was managed by her primary care physician and was started on antibiotics and Silvadene cream. She was taking these as prescribed however wound healing has not been obtained. Currently uses her compression stockings but not as often because she states that they are tight and impede her circulation. She works at [employer] where she has to stand for long periods of time. She feels well otherwise denies chills, fever, purulent discharge from the site, nausea or vomiting. Progress of Wound: Stable. Had venous studies last week suggestive of venous incompetence. Normal arterial studies. - Physical Exam Vital Signs Temp Pulse Resp BP 97.8 F 77 20 H 165/75 H 11/16/17 11:47 11/16/17 11:47 11/16/17 11:47 11/16/17 11:47 General: Alert, Oriented x3, Cooperative, No apparent distress HEENT: Atraumatic, Normocephalic Oral: Moist Mucosa Neck: Supple Lungs: Normal air movement Cardiovascular: Regular rate Extremities: No cyanosis, Edema Skin: Ulcer/ Wound Wound Measurements and Assessment MAGNOLIA - Nurse 1 - General Ulcer Measurement Start: 11/02/17 08:47 Freq: Status: Active Protocol: Activity Type Activity Date Activity User E-Sign Co-Sign Detail Recorded Client Recorded Date Recorded By Document 11/16/17 11:47 RB [id number] 11/16/17 11:59 RB 11/16/17 11:47 Wound Center Nurse 1 [Ulcer Assessment Protocol: MAGNOLIA.WD.LOC] #1 Lower Right [place]yva -Combined with other wound No -Current Size (cm) - Length 3 -Current Size (cm) - Width 1.2 -Current Size (cm) - Depth 0.1 -Total Square Cm 3.6 -Photo Taken No -Tunneling No -Circular Undermining No -Classification - Thickness Full Thickness without Exposed Support Structure -Exudate Amt Small (1-33%) -Exudate Type Serosanguineous -Wound Margin Distinct, Outline Attached -Granulation Amt Large (67-100%) -Granulation Quality [place] Red -Slough/Fibrin Yes -Necrosis Amt Small (1-33%) -Necrotic Tissue Type Adherent Slough -Structure Exposed N/A -Texture (Jessica-wound Skin Appearance) Assessed -Moisture (Jessica-wound Skin Appearance Assessed ) -Color (Jessica-wound Skin Appearance) Hemosiderin Staining -Temperature (Jessica-wound Skin No Abnormality Appearance) (Pt Warm) -Tenderness on Palpation (Jessica-wound No Skin Appearance) -Ulcer Cleansing Wound Cleanser -Foul Odor after Cleansing No -Anesthetic Used 4% Lidocaine Solution [Edema Assessment] -Lower Limb Edema Present Yes -Right Calf (cm) 46.5 -Right Ankle (cm) 25.5 11/16/17 12:00 Wound Center by Estelle Santamaria Patient experienced a fall by tripping and injuring Right second toe. Patient did not get the toe examined and the appearance of the toe is completely black and blue Initialized on 11/16/17 12:00 - END OF NOTE WC - Nurse 2 - General Ulcer CM Notes Start: 11/02/17 08:47 Freq: Status: Active Protocol: Activity Type Activity Date Activity User E-Sign Co-Sign Detail Recorded Client Recorded Date Recorded By Document 11/16/17 12:10 DV [id number] 11/16/17 12:13 DV 11/16/17 12:10 Wound Center Nurse 2 [Procedure/Treatment] #1 Lower Right Leyva -Time 12:11 -Correct Patient Yes -Correct Side, Site, Position Yes -Correct Procedure Yes -Procedure Performed Yes -Type of Procedure Debridement -Clinical Debridement Subcutaneous -Post Debridement Size (cm) - Length 3.0 -Post Debridement Size (cm) - Width 1.8 -Post Debridement Size (cm) - Depth 0.2 -Total Square Cm 5.40 -Wound/Ulcer Outcome Not Healed -Ulcer Cleansing Rinsed/ Irrigated with Saline -Foul Odor after Cleansing No -Bioengineered Tissue No -Cetacaine [place] No -Bleeding Controlled with Pressure -Treatment Response Procedure Tolerated Well [See Physician Procedure note for Specifics] Pain Scale: 0-10 Numeric [Pain] -Is Patient Pain Free? Yes Musculoskeletal: No Muscle Wasting Neurological: Cranial nerves II-XII grossly intact Psych/Mental Status: Normal Affect Debridement Note Post-Debridement Measurements/Treatment WC - Nurse 2 - General Ulcer CM Notes Start: 11/02/17 08:47 Freq: Status: Active Protocol: Activity Type Activity Date Activity User E-Sign Co-Sign Detail Recorded Client Recorded Date Recorded By Document 11/02/17 09:20 DV [id number] 11/02/17 09:23 DV Document 11/09/17 09:37 DV [id number] 11/09/17 09:40 DV Document 11/16/17 12:10 DV [id number] 11/16/17 12:13 DV 11/02/17 11/09/17 11/16/17 09:20 09:37 12:10 Wound Center Nurse 2 #1 Lower Right Leyva -Time 09:21 09:39 12:11 -Correct Patient Yes Yes Yes -Correct Side, Site, Position Yes Yes Yes -Correct Procedure Yes Yes Yes -Procedure Performed Yes Yes Yes -Type of Procedure Debridement Debridement Debridement -Clinical Debridement Subcutaneous Subcutaneous Subcutaneous -Post Debridement Size (cm) - Length 3.1 3.1 3.0 -Post Debridement Size (cm) - Width 2.0 1.6 1.8 -Post Debridement Size (cm) - Depth 0.2 0.2 0.2 -Total Square Cm 6.20 4.96 5.40 -Wound/Ulcer Outcome Not Healed Not Healed Not Healed -Ulcer Cleansing Rinsed/ Rinsed/ Rinsed/ Irrigated with Irrigated with Irrigated with Saline Saline Saline -Foul Odor after Cleansing No No No -Bioengineered Tissue No No No -Cetacaine [place] No No No -Bleeding Controlled with Pressure Pressure Pressure -Treatment Response Procedure Procedure Procedure Tolerated Well Tolerated Well Tolerated Well Pain Scale: 0-10 Numeric Is Patient Pain Free? Yes Yes Yes Wound debrided: Right Lower Extremity Type of Debridement: Excisional debridement Anesthesia Used: 4% Lidocaine Solution Depth: Down to and including healthy tissue, in the subcutaneous layer Percentage of wound debrided: 100 Instrument Used: 5mm curette Tissue Removed: Slough Amount of bleeding with debridement: Mild Bleeding Controlled with: Pressure Patient tolerated procedure well Assessment/Plan Assessment: Right Lower extremity Ulcer, Possibly venous. Venous Insufficiency Plan: Venous studies done last week suggestive of venous insufficiency bilaterally. Good granulation tissue formation in the wound. Will switch dressing from Santyl to Aquacel extra with Adaptic over the top. Double layer Tubigrip's bilaterally. Avoid idle standing. Exercise and weight loss recommended. Elevate legs when sitting and in bed. Daily protein supplements and protein rich diet. Follow-up in 1 week. This note was generated with [employer] dictation software. It may contain incorrect words, spelling, and punctuation that were not noted in checking the note before signing.
--- NOTE | 2017-11-16 12:32 | PN.PCM_ITS ---
(1) Ulcer of right lower leg Status: Acute Code(s): L97.919 - Non-pressure chronic ulcer of unspecified part of right lower leg with unspecified severity (2) Chronic venous stasis dermatitis of right lower extremity Status: Chronic Code(s): I83.11 - Varicose veins of right lower extremity with inflammation (3) Venous insufficiency Status: Chronic Code(s): I87.2 - Venous insufficiency (chronic) (peripheral) Type of Wound Date of Service: 11/16/17 Chief Complaint: Right Non healing lower extremity ulcer. History of Wound: Ms. Antony is a 62yo with PMH of Venous Insufficiencys/p vein Stripping in 2005 who present here due to non healing right lower extremity ulcer. She reports right lower extremity blisters which opened up into an ulcer a couple of weeks ago. Initially 2 however they have progressed to 1 big ulcer. She was managed by her primary care physician and was started on antibiotics and Silvadene cream. She was taking these as prescribed however wound healing has not been obtained. Currently uses her compression stockings but not as often because she states that they are tight and impede her circulation. She works at [employer] where she has to stand for long periods of time. She feels well otherwise denies chills, fever, purulent discharge from the site, nausea or vomiting. Progress of Wound: Stable. Had venous studies last week suggestive of venous incompetence. Normal arterial studies. - Physical Exam Vital Signs Temp Pulse Resp BP 97.8 F 77 20 H 165/75 H 11/16/17 11:47 11/16/17 11:47 11/16/17 11:47 11/16/17 11:47 General: Alert, Oriented x3, Cooperative, No apparent distress HEENT: Atraumatic, Normocephalic Oral: Moist Mucosa Neck: Supple Lungs: Normal air movement Cardiovascular: Regular rate Extremities: No cyanosis, Edema Skin: Ulcer/ Wound Wound Measurements and Assessment MAGNOLIA - Nurse 1 - General Ulcer Measurement Start: 11/02/17 08:47 Freq: Status: Active Protocol: Activity Type Activity Date Activity User E-Sign Co-Sign Detail Recorded Client Recorded Date Recorded By Document 11/16/17 11:47 RB [id number] 11/16/17 11:59 RB 11/16/17 11:47 Wound Center Nurse 1 [Ulcer Assessment Protocol: MAGNOLIA.WD.LOC] #1 Lower Right [place]va -Combined with other wound No -Current Size (cm) - Length 3 -Current Size (cm) - Width 1.2 -Current Size (cm) - Depth 0.1 -Total Square Cm 3.6 -Photo Taken No -Tunneling No -Circular Undermining No -Classification - Thickness Full Thickness without Exposed Support Structure -Exudate Amt Small (1-33%) -Exudate Type Serosanguineous -Wound Margin Distinct, Outline Attached -Granulation Amt Large (67-100%) -Granulation Quality [place] Red -Slough/Fibrin Yes -Necrosis Amt Small (1-33%) -Necrotic Tissue Type Adherent Slough -Structure Exposed N/A -Texture (Jessica-wound Skin Appearance) Assessed -Moisture (Jessica-wound Skin Appearance Assessed ) -Color (Jessica-wound Skin Appearance) Hemosiderin Staining -Temperature (Jessica-wound Skin No Abnormality Appearance) (Pt Warm) -Tenderness on Palpation (Jessica-wound No Skin Appearance) -Ulcer Cleansing Wound Cleanser -Foul Odor after Cleansing No -Anesthetic Used 4% Lidocaine Solution [Edema Assessment] -Lower Limb Edema Present Yes -Right Calf (cm) 46.5 -Right Ankle (cm) 25.5 11/16/17 12:00 Wound Center by Estelle Santamaria Patient experienced a fall by tripping and injuring Right second toe. Patient did not get the toe examined and the appearance of the toe is completely black and blue Initialized on 11/16/17 12:00 - END OF NOTE WC - Nurse 2 - General Ulcer CM Notes Start: 11/02/17 08:47 Freq: Status: Active Protocol: Activity Type Activity Date Activity User E-Sign Co-Sign Detail Recorded Client Recorded Date Recorded By Document 11/16/17 12:10 DV [id number] 11/16/17 12:13 DV 11/16/17 12:10 Wound Center Nurse 2 [Procedure/Treatment] #1 Lower Right [place] -Time 12:11 -Correct Patient Yes -Correct Side, Site, Position Yes -Correct Procedure Yes -Procedure Performed Yes -Type of Procedure Debridement -Clinical Debridement Subcutaneous -Post Debridement Size (cm) - Length 3.0 -Post Debridement Size (cm) - Width 1.8 -Post Debridement Size (cm) - Depth 0.2 -Total Square Cm 5.40 -Wound/Ulcer Outcome Not Healed -Ulcer Cleansing Rinsed/ Irrigated with Saline -Foul Odor after Cleansing No -Bioengineered Tissue No -Cetacaine [place] No -Bleeding Controlled with Pressure -Treatment Response Procedure Tolerated Well [See Physician Procedure note for Specifics] Pain Scale: 0-10 Numeric [Pain] -Is Patient Pain Free? Yes Musculoskeletal: No Muscle Wasting Neurological: Cranial nerves II-XII grossly intact Psych/Mental Status: Normal Affect Debridement Note Post-Debridement Measurements/Treatment WC - Nurse 2 - General Ulcer CM Notes Start: 11/02/17 08:47 Freq: Status: Active Protocol: Activity Type Activity Date Activity User E-Sign Co-Sign Detail Recorded Client Recorded Date Recorded By Document 11/02/17 09:20 DV [id number] 11/02/17 09:23 DV Document 11/09/17 09:37 DV [id number] 11/09/17 09:40 DV Document 11/16/17 12:10 DV [id number] 11/16/17 12:13 DV 11/02/17 11/09/17 11/16/17 09:20 09:37 12:10 Wound Center Nurse 2 #1 Lower Right Leyva -Time 09:21 09:39 12:11 -Correct Patient Yes Yes Yes -Correct Side, Site, Position Yes Yes Yes -Correct Procedure Yes Yes Yes -Procedure Performed Yes Yes Yes -Type of Procedure Debridement Debridement Debridement -Clinical Debridement Subcutaneous Subcutaneous Subcutaneous -Post Debridement Size (cm) - Length 3.1 3.1 3.0 -Post Debridement Size (cm) - Width 2.0 1.6 1.8 -Post Debridement Size (cm) - Depth 0.2 0.2 0.2 -Total Square Cm 6.20 4.96 5.40 -Wound/Ulcer Outcome Not Healed Not Healed Not Healed -Ulcer Cleansing Rinsed/ Rinsed/ Rinsed/ Irrigated with Irrigated with Irrigated with Saline Saline Saline -Foul Odor after Cleansing No No No -Bioengineered Tissue No No No -Cetacaine [place] No No No -Bleeding Controlled with Pressure Pressure Pressure -Treatment Response Procedure Procedure Procedure Tolerated Well Tolerated Well Tolerated Well Pain Scale: 0-10 Numeric Is Patient Pain Free? Yes Yes Yes Wound debrided: Right Lower Extremity Type of Debridement: Excisional debridement Anesthesia Used: 4% Lidocaine Solution Depth: Down to and including healthy tissue, in the subcutaneous layer Percentage of wound debrided: 100 Instrument Used: 5mm curette Tissue Removed: Slough Amount of bleeding with debridement: Mild Bleeding Controlled with: Pressure Patient tolerated procedure well Assessment/Plan Assessment: Right Lower extremity Ulcer, Possibly venous. Venous Insufficiency Plan: Venous studies done last week suggestive of venous insufficiency bilaterally. Good granulation tissue formation in the wound. Will switch dressing from Santyl to Aquacel extra with Adaptic over the top. Double layer Tubigrip's bilaterally. Avoid idle standing. Exercise and weight loss recommended. Elevate legs when sitting and in bed. Daily protein supplements and protein rich diet. Follow-up in 1 week. This note was generated with [employer] dictation software. It may contain incorrect words, spelling, and punctuation that were not noted in checking the note before signing.
[2017-11-23 11:31] VITALS: BP 194/92; PULSE 71; RESP 20; TEMP 36.4; BMI 48.4
--- NOTE | 2017-11-23 13:52 | PCM.WC.PN ---
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 History of Wound: Ms. Antony is a 62yo with PMH of Venous Insufficiencys/p vein Stripping in 2005 who present here due to non healing right lower extremity ulcer. She reports right lower extremity blisters which opened up into an ulcer a couple of weeks ago. Initially 2 however they have progressed to 1 big ulcer. She was managed by her primary care physician and was started on antibiotics and Silvadene cream. She was taking these as prescribed however wound healing has not been obtained. Currently uses her compression stockings but not as often because she states that they are tight and impede her circulation. She works at [employer] where she has to stand for long periods of time. She feels well otherwise denies chills, fever, purulent discharge from the site, nausea or vomiting. Progress of Wound: Improving. - Physical Exam Vital Signs Temp Pulse Resp BP 97.5 F L 71 20 H 194/92 H 11/23/17 11:31 11/23/17 11:31 11/23/17 11:31 11/23/17 11:31 General: Alert, Oriented x3, Cooperative, No apparent distress HEENT: Atraumatic, Normocephalic Oral: Moist Mucosa Neck: Supple Lungs: Normal air movement Cardiovascular: Regular rate Abdomen: Non Tender, Obese Extremities: Edema Skin: Ulcer/ Wound Wound Measurements and Assessment MAGNOLIA - Nurse 1 - General Ulcer Measurement Start: 11/02/17 08:47 Freq: Status: Active Protocol: Activity Type Activity Date Activity User E-Sign Co-Sign Detail Recorded Client Recorded Date Recorded By Document 11/23/17 11:31 DL [id number] 11/23/17 11:39 DL 11/23/17 11:31 Wound Center Nurse 1 [Ulcer Assessment Protocol: MAGNOLIA.WD.LOC] #1 Lower Right [place] -Current Size (cm) - Length 2.4 -Current Size (cm) - Width 1.5 -Current Size (cm) - Depth 0.1 -Total Square Cm 3.60 -Photo Taken No -Exudate Amt Small (1-33%) -Exudate Type Serosanguineous -Wound Margin Distinct, Outline Attached -Granulation Amt Medium (34-66%) -Granulation Quality Red -Necrosis Amt Small (1-33%) -Necrotic Tissue Type Adherent Slough -Structure Exposed N/A -Texture (Jessica-wound Skin Appearance) Scarring -Moisture (Jessica-wound Skin Appearance Dry/Scaly ) -Color (Jessica-wound Skin Appearance) Hemosiderin Staining Rubor -Temperature (Jessica-wound Skin No Abnormality Appearance) (Pt Warm) -Tenderness on Palpation (Jessica-wound No Skin Appearance) -Ulcer Cleansing Not Cleansed -Foul Odor after Cleansing No -Anesthetic Used 4% Lidocaine Solution [Edema Assessment] -Right Calf (cm) 40.5 -Right Ankle (cm) 25.5 WC - Nurse 2 - General Ulcer CM Notes Start: 11/02/17 08:47 Freq: Status: Active Protocol: Activity Type Activity Date Activity User E-Sign Co-Sign Detail Recorded Client Recorded Date Recorded By Document 11/23/17 12:37 DV [id number] 11/23/17 12:43 DV 11/23/17 12:37 Wound Center Nurse 2 [Procedure/Treatment] #1 Lower Right Leyva -Time 12:38 -Correct Patient Yes -Correct Side, Site, Position Yes -Correct Procedure Yes -Procedure Performed Yes -Type of Procedure Debridement -Clinical Debridement Subcutaneous -Post Debridement Size (cm) - Length 2.0 -Post Debridement Size (cm) - Width 1.0 -Post Debridement Size (cm) - Depth 0.2 -Total Square Cm 2.00 -Wound/Ulcer Outcome Not Healed -Ulcer Cleansing Rinsed/ Irrigated with Saline -Foul Odor after Cleansing No -Bioengineered Tissue No -Cetacaine [place] No -Bleeding Controlled with Pressure -Treatment Response Procedure Tolerated Well [See Physician Procedure note for Specifics] Pain Scale: 0-10 Numeric [Pain] -Is Patient Pain Free? Yes Musculoskeletal: No Muscle Wasting Neurological: Cranial nerves II-XII grossly intact Psych/Mental Status: Normal Affect Debridement Note Post-Debridement Measurements/Treatment - Nurse 2 - General Ulcer CM Notes Start: 11/02/17 08:47 Freq: Status: Active Protocol: Activity Type Activity Date Activity User E-Sign Co-Sign Detail Recorded Client Recorded Date Recorded By Document 11/02/17 09:20 DV [id number] 11/02/17 09:23 DV Document 11/09/17 09:37 DV [id number] 11/09/17 09:40 DV Document 11/16/17 12:10 DV [id number] 11/16/17 12:13 DV Document 11/23/17 12:37 DV [id number] 11/23/17 12:43 DV 11/02/17 11/09/17 11/16/17 09:20 09:37 12:10 Wound Center Nurse 2 #1 Lower Right Leyva -Time 09:21 09:39 12:11 -Correct Patient Yes Yes Yes -Correct Side, Site, Position Yes Yes Yes -Correct Procedure Yes Yes Yes -Procedure Performed Yes Yes Yes -Type of Procedure Debridement Debridement Debridement -Clinical Debridement Subcutaneous Subcutaneous Subcutaneous -Post Debridement Size (cm) - Length 3.1 3.1 3.0 -Post Debridement Size (cm) - Width 2.0 1.6 1.8 -Post Debridement Size (cm) - Depth 0.2 0.2 0.2 -Total Square Cm 6.20 4.96 5.40 -Wound/Ulcer Outcome Not Healed Not Healed Not Healed -Ulcer Cleansing Rinsed/ Rinsed/ Rinsed/ Irrigated with Irrigated with Irrigated with Saline Saline Saline -Foul Odor after Cleansing No No No -Bioengineered Tissue No No No -Cetacaine Bath No No No -Bleeding Controlled with Pressure Pressure Pressure -Treatment Response Procedure Procedure Procedure Tolerated Well Tolerated Well Tolerated Well Pain Scale: 0-10 Numeric Is Patient Pain Free? Yes Yes Yes 11/23/17 12:37 Wound Center Nurse 2 #1 Lower Right Ley[place] -Time 12:38 -Correct Patient Yes -Correct Side, Site, Position Yes -Correct Procedure Yes -Procedure Performed Yes -Type of Procedure Debridement -Clinical Debridement Subcutaneous -Post Debridement Size (cm) - Length 2.0 -Post Debridement Size (cm) - Width 1.0 -Post Debridement Size (cm) - Depth 0.2 -Total Square Cm 2.00 -Wound/Ulcer Outcome Not Healed -Ulcer Cleansing Rinsed/ Irrigated with Saline -Foul Odor after Cleansing No -Bioengineered Tissue No -Cetacaine Bath No -Bleeding Controlled with Pressure -Treatment Response Procedure Tolerated Well Pain Scale: 0-10 Numeric Is Patient Pain Free? Yes Wound debrided: Right Lower Leg Cluster Ulcer Type of Debridement: Excisional debridement Anesthesia Used: 4% Lidocaine Solution Depth: Down to and including healthy tissue, in the subcutaneous layer Percentage of wound debrided: 100 Instrument Used: 5mm curette Tissue Removed: Slough, Fibrin Severity: Fat Layer Exposed Amount of bleeding with debridement: Mild Bleeding Controlled with: Pressure Patient tolerated procedure well Assessment/Plan Active Problems Chronic venous stasis dermatitis of right lower extremity (Chronic) Venous insufficiency (Chronic) Ulcer of right lower leg (Acute) Assessment: Right Lower extremity Ulcer. Venous Insufficiency Plan: Wound showing continous improvement. Edema also gradually subsiding. Continue aquacel daily with adaptic covering. Continue double layer Tubigrip's bilaterally. Avoid idle standing. Exercise and weight loss recommended. Elevate legs when sitting and in bed. Daily protein supplements and protein rich diet. Follow-up in 1 week. This note was generated with [employer] dictation software. It may contain incorrect words, spelling, and punctuation that were not noted in checking the note before signing.
--- NOTE | 2017-11-23 13:57 | PN.PCM_ITS ---
(1) Ulcer of right lower leg Status: Acute Current Visit: Yes Code(s): L97.919 - Non-pressure chronic ulcer of unspecified part of right lower leg with unspecified severity (2) Chronic venous stasis dermatitis of right lower extremity Status: Chronic Current Visit: Yes Code(s): I83.11 - Varicose veins of right lower extremity with inflammation (3) Venous insufficiency Status: Chronic Current Visit: Yes Code(s): I87.2 - Venous insufficiency ( chronic) (peripheral) Type of Wound Date of Service: 11/23/17 Chief Complaint: Right Non healing lower extremity ulcer. History of Wound: Ms. Antony is a 62yo with PMH of Venous Insufficiencys/p vein Stripping in 2005 who present here due to non healing right lower extremity ulcer. She reports right lower extremity blisters which opened up into an ulcer a couple of weeks ago. Initially 2 however they have progressed to 1 big ulcer. She was managed by her primary care physician and was started on antibiotics and Silvadene cream. She was taking these as prescribed however wound healing has not been obtained. Currently uses her compression stockings but not as often because she states that they are tight and impede her circulation. She works at [employer] where she has to stand for long periods of time. She feels well otherwise denies chills, fever, purulent discharge from the site, nausea or vomiting. Progress of Wound: Improving. - Physical Exam Vital Signs Temp Pulse Resp BP 97.5 F L 71 20 H 194/92 H 11/23/17 11:31 11/23/17 11:31 11/23/17 11:31 11/23/17 11:31 General: Alert, Oriented x3, Cooperative, No apparent distress HEENT: Atraumatic, Normocephalic Oral: Moist Mucosa Neck: Supple Lungs: Normal air movement Cardiovascular: Regular rate Abdomen: Non Tender, Obese Extremities: Edema Skin: Ulcer/ Wound Wound Measurements and Assessment MAGNOLIA - Nurse 1 - General Ulcer Measurement Start: 11/02/17 08:47 Freq: Status: Active Protocol: Activity Type Activity Date Activity User E-Sign Co-Sign Detail Recorded Client Recorded Date Recorded By Document 11/23/17 11:31 DL [id number] 11/23/17 11:39 DL 11/23/17 11:31 Wound Center Nurse 1 [Ulcer Assessment Protocol: MAGNOLIA.WD.LOC] #1 Lower Right [place] -Current Size (cm) - Length 2.4 -Current Size (cm) - Width 1.5 -Current Size (cm) - Depth 0.1 -Total Square Cm 3.60 -Photo Taken No -Exudate Amt Small (1-33%) -Exudate Type Serosanguineous -Wound Margin Distinct, Outline Attached -Granulation Amt Medium (34-66%) -Granulation Quality Red -Necrosis Amt Small (1-33%) -Necrotic Tissue Type Adherent Slough -Structure Exposed N/A -Texture (Jessica-wound Skin Appearance) Scarring -Moisture (Jessica-wound Skin Appearance Dry/Scaly ) -Color (Jessica-wound Skin Appearance) Hemosiderin Staining Rubor -Temperature (Jessica-wound Skin No Abnormality Appearance) (Pt Warm) -Tenderness on Palpation (Jessica-wound No Skin Appearance) -Ulcer Cleansing Not Cleansed -Foul Odor after Cleansing No -Anesthetic Used 4% Lidocaine Solution [Edema Assessment] -Right Calf (cm) 40.5 -Right Ankle (cm) 25.5 WC - Nurse 2 - General Ulcer CM Notes Start: 11/02/17 08:47 Freq: Status: Active Protocol: Activity Type Activity Date Activity User E-Sign Co-Sign Detail Recorded Client Recorded Date Recorded By Document 11/23/17 12:37 DV [id number] 11/23/17 12:43 DV 11/23/17 12:37 Wound Center Nurse 2 [Procedure/Treatment] #1 Lower Right Ley[place] -Time 12:38 -Correct Patient Yes -Correct Side, Site, Position Yes -Correct Procedure Yes -Procedure Performed Yes -Type of Procedure Debridement -Clinical Debridement Subcutaneous -Post Debridement Size (cm) - Length 2.0 -Post Debridement Size (cm) - Width 1.0 -Post Debridement Size (cm) - Depth 0.2 -Total Square Cm 2.00 -Wound/Ulcer Outcome Not Healed -Ulcer Cleansing Rinsed/ Irrigated with Saline -Foul Odor after Cleansing No -Bioengineered Tissue No -Cetacaine [place] No -Bleeding Controlled with Pressure -Treatment Response Procedure Tolerated Well [See Physician Procedure note for Specifics] Pain Scale: 0-10 Numeric [Pain] -Is Patient Pain Free? Yes Musculoskeletal: No Muscle Wasting Neurological: Cranial nerves II-XII grossly intact Psych/Mental Status: Normal Affect Debridement Note Post-Debridement Measurements/Treatment - Nurse 2 - General Ulcer CM Notes Start: 11/02/17 08:47 Freq: Status: Active Protocol: Activity Type Activity Date Activity User E-Sign Co-Sign Detail Recorded Client Recorded Date Recorded By Document 11/02/17 09:20 DV [id number] 11/02/17 09:23 DV Document 11/09/17 09:37 DV [id number] 11/09/17 09:40 DV Document 11/16/17 12:10 DV [id number] 11/16/17 12:13 DV Document 11/23/17 12:37 DV [id number] 11/23/17 12:43 DV 11/02/17 11/09/17 11/16/17 09:20 09:37 12:10 Wound Center Nurse 2 #1 Lower Right [place] -Time 09:21 09:39 12:11 -Correct Patient Yes Yes Yes -Correct Side, Site, Position Yes Yes Yes -Correct Procedure Yes Yes Yes -Procedure Performed Yes Yes Yes -Type of Procedure Debridement Debridement Debridement -Clinical Debridement Subcutaneous Subcutaneous Subcutaneous -Post Debridement Size (cm) - Length 3.1 3.1 3.0 -Post Debridement Size (cm) - Width 2.0 1.6 1.8 -Post Debridement Size (cm) - Depth 0.2 0.2 0.2 -Total Square Cm 6.20 4.96 5.40 -Wound/Ulcer Outcome Not Healed Not Healed Not Healed -Ulcer Cleansing Rinsed/ Rinsed/ Rinsed/ Irrigated with Irrigated with Irrigated with Saline Saline Saline -Foul Odor after Cleansing No No No -Bioengineered Tissue No No No -Cetacaine [place] No No No -Bleeding Controlled with Pressure Pressure Pressure -Treatment Response Procedure Procedure Procedure Tolerated Well Tolerated Well Tolerated Well Pain Scale: 0-10 Numeric Is Patient Pain Free? Yes Yes Yes 11/23/17 12:37 Wound Center Nurse 2 #1 Lower Right Ley[place] -Time 12:38 -Correct Patient Yes -Correct Side, Site, Position Yes -Correct Procedure Yes -Procedure Performed Yes -Type of Procedure Debridement -Clinical Debridement Subcutaneous -Post Debridement Size (cm) - Length 2.0 -Post Debridement Size (cm) - Width 1.0 -Post Debridement Size (cm) - Depth 0.2 -Total Square Cm 2.00 -Wound/Ulcer Outcome Not Healed -Ulcer Cleansing Rinsed/ Irrigated with Saline -Foul Odor after Cleansing No -Bioengineered Tissue No -Cetacaine [place] No -Bleeding Controlled with Pressure -Treatment Response Procedure Tolerated Well Pain Scale: 0-10 Numeric Is Patient Pain Free? Yes Wound debrided: Right Lower Leg Cluster Ulcer Type of Debridement: Excisional debridement Anesthesia Used: 4% Lidocaine Solution Depth: Down to and including healthy tissue, in the subcutaneous layer Percentage of wound debrided: 100 Instrument Used: 5mm curette Tissue Removed: Slough, Fibrin Severity: Fat Layer Exposed Amount of bleeding with debridement: Mild Bleeding Controlled with: Pressure Patient tolerated procedure well Assessment/Plan Active Problems Chronic venous stasis dermatitis of right lower extremity (Chronic) Venous insufficiency (Chronic) Ulcer of right lower leg (Acute) Assessment: Right Lower extremity Ulcer. Venous Insufficiency Plan: Wound showing continous improvement. Edema also gradually subsiding. Continue aquacel daily with adaptic covering. Continue double layer Tubigrip's bilaterally. Avoid idle standing. Exercise and weight loss recommended. Elevate legs when sitting and in bed. Daily protein supplements and protein rich diet. Follow-up in 1 week. This note was generated with [employer] dictation software. It may contain incorrect words, spelling, and punctuation that were not noted in checking the note before signing.
[2017-11-29 09:45] VITALS: BP 130/75; PULSE 64; RESP 20; TEMP 35.8; BMI 48.4
--- NOTE | 2017-11-29 12:04 | PCM.WC.PN ---
(1) Ulcer of right lower leg Status: Acute Current Visit: Yes Code(s): L97.919 - Non-pressure chronic ulcer of unspecified part of right lower leg with unspecified severity (2) Chronic venous stasis dermatitis of right lower extremity Status: Chronic Current Visit: Yes Code(s): I83.11 - Varicose veins of right lower extremity with inflammation (3) Venous insufficiency Status: Chronic Current Visit: Yes Code(s): I87.2 - Venous insufficiency (chronic) (peripheral) Type of Wound Date of Service: 11/29/17 Chief Complaint: Right Non healing lower extremity ulcer. History of Wound: Ms. Antony is a 62yo with PMH of Venous Insufficiencys/p vein Stripping in 2005 who present here due to non healing right lower extremity ulcer. She reports right lower extremity blisters which opened up into an ulcer a couple of weeks ago. Initially 2 however they have progressed to 1 big ulcer. She was managed by her primary care physician and was started on antibiotics and Silvadene cream. She was taking these as prescribed however wound healing has not been obtained. Currently uses her compression stockings but not as often because she states that they are tight and impede her circulation. She works at [employer] where she has to stand for long periods of time. She feels well otherwise denies chills, fever, purulent discharge from the site, nausea or vomiting. Progress of Wound: Improving. - Physical Exam Vital Signs Temp Pulse Resp BP 96.4 F L 64 20 H 130/75 H 11/29/17 09:45 11/29/17 09:45 11/29/17 09:45 11/29/17 09:45 General: Alert, Oriented x3, Cooperative, No apparent distress HEENT: Atraumatic, Normocephalic Oral: Moist Mucosa Neck: Supple Lungs: Normal air movement Cardiovascular: Regular rate Extremities: No cyanosis, Edema Skin: Ulcer/ Wound - Right Leg Wound Measurements and Assessment MAGNOLIA - Nurse 1 - General Ulcer Measurement Start: 11/02/17 08:47 Freq: Status: Active Protocol: Activity Type Activity Date Activity User E-Sign Co-Sign Detail Recorded Client Recorded Date Recorded By Document 11/29/17 09:45 [facility] [id number] 11/29/17 09:54 [facility] 11/29/17 09:45 Wound Center Nurse 1 [Ulcer Assessment Protocol: MAGNOLIA.WD.LOC] #1 Lower Right Ley[place] -Combined with other wound No -Current Size (cm) - Length 1.7 -Current Size (cm) - Width 1.4 -Current Size (cm) - Depth 0.1 -Total Square Cm 2.38 -Epithelialization Small 1-33% -Tunneling No -Undermining/Tunneling No -Exudate Amt Small (1-33%) -Exudate Type Serosanguineous -Wound Margin Distinct, Outline Attached -Granulation Amt Medium (34-66%) -Granulation Quality Red -Slough/Fibrin Yes -Necrosis Amt Small (1-33%) -Necrotic Tissue Type Adherent Slough -Structure Exposed None/Limited to Skin Breakdown -Texture (Jessica-wound Skin Appearance) Scarring -Moisture (Jessica-wound Skin Appearance Dry/Scaly ) -Color (Jessica-wound Skin Appearance) Erythema Hemosiderin Staining -Temperature (Jessica-wound Skin No Abnormality Appearance) (Pt Warm) -Tenderness on Palpation (Jessica-wound No Skin Appearance) -Ulcer Cleansing Rinsed/ Irrigated with Saline -Foul Odor after Cleansing No -Anesthetic Used 5% Lidocaine Gel [Edema Assessment] -Lower Limb Edema Present Yes -Right Calf (cm) 42.5 -Right Ankle (cm) 25 -Left Calf (cm) 44.7 -Left Ankle (cm) 26.4 - Nurse 2 - General Ulcer CM Notes Start: 11/02/17 08:47 Freq: Status: Active Protocol: Activity Type Activity Date Activity User E-Sign Co-Sign Detail Recorded Client Recorded Date Recorded By Document 11/29/17 11:02 DV [id number] 11/29/17 11:07 DV 11/29/17 11:02 Wound Center Nurse 2 [Procedure/Treatment] #1 Lower Right Ley[place] -Time 11:02 -Correct Patient Yes -Correct Side, Site, Position Yes -Correct Procedure Yes -Procedure Performed Yes -Type of Procedure Debridement -Clinical Debridement Subcutaneous -Post Debridement Size (cm) - Length 1.6 -Post Debridement Size (cm) - Width 1.1 -Post Debridement Size (cm) - Depth 0.1 -Total Square Cm 1.76 -Wound/Ulcer Outcome Not Healed -Ulcer Cleansing Rinsed/ Irrigated with Saline -Foul Odor after Cleansing No -Bioengineered Tissue No -Cetacaine [place] No -Bleeding Controlled with Pressure -Treatment Response Procedure Tolerated Well [See Physician Procedure note for Specifics] Pain Scale: 0-10 Numeric [Pain] -Is Patient Pain Free? Yes Musculoskeletal: No Muscle Wasting Neurological: Cranial nerves II-XII grossly intact Psych/Mental Status: Normal Affect Debridement Note Post-Debridement Measurements/Treatment WC - Nurse 2 - General Ulcer CM Notes Start: 11/02/17 08:47 Freq: Status: Active Protocol: Activity Type Activity Date Activity User E-Sign Co-Sign Detail Recorded Client Recorded Date Recorded By Document 11/02/17 09:20 DV [id number] 11/02/17 09:23 DV Document 11/09/17 09:37 DV [id number] 11/09/17 09:40 DV Document 11/16/17 12:10 DV [id number] 11/16/17 12:13 DV Document 11/23/17 12:37 DV [id number] 11/23/17 12:43 DV Document 11/29/17 11:02 DV [id number] 11/29/17 11:07 DV 11/02/17 11/09/17 11/16/17 09:20 09:37 12:10 Wound Center Nurse 2 #1 Lower Right Ley[place] -Time 09:21 09:39 12:11 -Correct Patient Yes Yes Yes -Correct Side, Site, Position Yes Yes Yes -Correct Procedure Yes Yes Yes -Procedure Performed Yes Yes Yes -Type of Procedure Debridement Debridement Debridement -Clinical Debridement Subcutaneous Subcutaneous Subcutaneous -Post Debridement Size (cm) - Length 3.1 3.1 3.0 -Post Debridement Size (cm) - Width 2.0 1.6 1.8 -Post Debridement Size (cm) - Depth 0.2 0.2 0.2 -Total Square Cm 6.20 4.96 5.40 -Wound/Ulcer Outcome Not Healed Not Healed Not Healed -Ulcer Cleansing Rinsed/ Rinsed/ Rinsed/ Irrigated with Irrigated with Irrigated with Saline Saline Saline -Foul Odor after Cleansing No No No -Bioengineered Tissue No No No -Cetacaine [place] No No No -Bleeding Controlled with Pressure Pressure Pressure -Treatment Response Procedure Procedure Procedure Tolerated Well Tolerated Well Tolerated Well Pain Scale: 0-10 Numeric Is Patient Pain Free? Yes Yes Yes 11/23/17 11/29/17 12:37 11:02 Wound Center Nurse 2 #1 Lower Right Ley[place] -Time 12:38 11:02 -Correct Patient Yes Yes -Correct Side, Site, Position Yes Yes -Correct Procedure Yes Yes -Procedure Performed Yes Yes -Type of Procedure Debridement Debridement -Clinical Debridement Subcutaneous Subcutaneous -Post Debridement Size (cm) - Length 2.0 1.6 -Post Debridement Size (cm) - Width 1.0 1.1 -Post Debridement Size (cm) - Depth 0.2 0.1 -Total Square Cm 2.00 1.76 -Wound/Ulcer Outcome Not Healed Not Healed -Ulcer Cleansing Rinsed/ Rinsed/ Irrigated with Irrigated with Saline Saline -Foul Odor after Cleansing No No -Bioengineered Tissue No No -Cetacaine [place] No No -Bleeding Controlled with Pressure Pressure -Treatment Response Procedure Procedure Tolerated Well Tolerated Well Pain Scale: 0-10 Numeric Is Patient Pain Free? Yes Yes Wound debrided: Right Leg Wound Grade/Stage: Stage 2 Type of Debridement: Excisional debridement Anesthesia Used: 5% Lidocaine Gel Depth: Down to and including healthy tissue, in the subcutaneous layer Percentage of wound debrided: 100 Instrument Used: 5mm curette Tissue Removed: Slough, devitalized subcutaneous tissue Severity: Fat Layer Exposed Amount of bleeding with debridement: Mild Bleeding Controlled with: Pressure Patient tolerated procedure well Assessment/Plan Active Problems Chronic venous stasis dermatitis of right lower extremity (Chronic) Venous insufficiency (Chronic) Ulcer of right lower leg (Acute) Assessment: Right Lower extremity Ulcer. Venous Insufficiency Plan: Wound continues to do well with progressive wound healing. Continue moistened Aquacel daily with adaptic covering. Continue double layer Tubigrip's bilaterally. Avoid idle standing. Exercise and weight loss recommended. Elevate legs when sitting and in bed. Daily protein supplements and protein rich diet. Follow-up in 1 week. This note was generated with [employer] dictation software. It may contain incorrect words, spelling, and punctuation that were not noted in checking the note before signing.
--- NOTE | 2017-11-29 12:07 | PN.PCM_ITS ---
(1) Ulcer of right lower leg Status: Acute Current Visit: Yes Code(s): L97.919 - Non-pressure chronic ulcer of unspecified part of right lower leg with unspecified severity (2) Chronic venous stasis dermatitis of right lower extremity Status: Chronic Current Visit: Yes Code(s): I83.11 - Varicose veins of right lower extremity with inflammation (3) Venous insufficiency Status: Chronic Current Visit: Yes Code(s): I87.2 - Venous insufficiency ( chronic) (peripheral) Type of Wound Date of Service: 11/29/17 Chief Complaint: Right Non healing lower extremity ulcer. History of Wound: Ms. Antony is a 62yo with PMH of Venous Insufficiencys/p vein Stripping in 2005 who present here due to non healing right lower extremity ulcer. She reports right lower extremity blisters which opened up into an ulcer a couple of weeks ago. Initially 2 however they have progressed to 1 big ulcer. She was managed by her primary care physician and was started on antibiotics and Silvadene cream. She was taking these as prescribed however wound healing has not been obtained. Currently uses her compression stockings but not as often because she states that they are tight and impede her circulation. She works at [employer] where she has to stand for long periods of time. She feels well otherwise denies chills, fever, purulent discharge from the site, nausea or vomiting. Progress of Wound: Improving. - Physical Exam Vital Signs Temp Pulse Resp BP 96.4 F L 64 20 H 130/75 H 11/29/17 09:45 11/29/17 09:45 11/29/17 09:45 11/29/17 09:45 General: Alert, Oriented x3, Cooperative, No apparent distress HEENT: Atraumatic, Normocephalic Oral: Moist Mucosa Neck: Supple Lungs: Normal air movement Cardiovascular: Regular rate Extremities: No cyanosis, Edema Skin: Ulcer/ Wound - Right Leg Wound Measurements and Assessment MAGNOLIA - Nurse 1 - General Ulcer Measurement Start: 11/02/17 08:47 Freq: Status: Active Protocol: Activity Type Activity Date Activity User E-Sign Co-Sign Detail Recorded Client Recorded Date Recorded By Document 11/29/17 09:45 [facility] [id number] 11/29/17 09:54 [facility] 11/29/17 09:45 Wound Center Nurse 1 [Ulcer Assessment Protocol: MAGNOLIA.WD.LOC] #1 Lower Right Leyva -Combined with other wound No -Current Size (cm) - Length 1.7 -Current Size (cm) - Width 1.4 -Current Size (cm) - Depth 0.1 -Total Square Cm 2.38 -Epithelialization Small 1-33% -Tunneling No -Undermining/Tunneling No -Exudate Amt Small (1-33%) -Exudate Type Serosanguineous -Wound Margin Distinct, Outline Attached -Granulation Amt Medium (34-66%) -Granulation Quality Red -Slough/Fibrin Yes -Necrosis Amt Small (1-33%) -Necrotic Tissue Type Adherent Slough -Structure Exposed None/Limited to Skin Breakdown -Texture (Jessica-wound Skin Appearance) Scarring -Moisture (Jessica-wound Skin Appearance Dry/Scaly ) -Color (Jessica-wound Skin Appearance) Erythema Hemosiderin Staining -Temperature (Jessica-wound Skin No Abnormality Appearance) (Pt Warm) -Tenderness on Palpation (Jessica-wound No Skin Appearance) -Ulcer Cleansing Rinsed/ Irrigated with Saline -Foul Odor after Cleansing No -Anesthetic Used 5% Lidocaine Gel [Edema Assessment] -Lower Limb Edema Present Yes -Right Calf (cm) 42.5 -Right Ankle (cm) 25 -Left Calf (cm) 44.7 -Left Ankle (cm) 26.4 - Nurse 2 - General Ulcer CM Notes Start: 11/02/17 08:47 Freq: Status: Active Protocol: Activity Type Activity Date Activity User E-Sign Co-Sign Detail Recorded Client Recorded Date Recorded By Document 11/29/17 11:02 DV [id number] 11/29/17 11:07 DV 11/29/17 11:02 Wound Center Nurse 2 [Procedure/Treatment] #1 Lower Right Ley[place] -Time 11:02 -Correct Patient Yes -Correct Side, Site, Position Yes -Correct Procedure Yes -Procedure Performed Yes -Type of Procedure Debridement -Clinical Debridement Subcutaneous -Post Debridement Size (cm) - Length 1.6 -Post Debridement Size (cm) - Width 1.1 -Post Debridement Size (cm) - Depth 0.1 -Total Square Cm 1.76 -Wound/Ulcer Outcome Not Healed -Ulcer Cleansing Rinsed/ Irrigated with Saline -Foul Odor after Cleansing No -Bioengineered Tissue No -Cetacaine [place] No -Bleeding Controlled with Pressure -Treatment Response Procedure Tolerated Well [See Physician Procedure note for Specifics] Pain Scale: 0-10 Numeric [Pain] -Is Patient Pain Free? Yes Musculoskeletal: No Muscle Wasting Neurological: Cranial nerves II-XII grossly intact Psych/Mental Status: Normal Affect Debridement Note Post-Debridement Measurements/Treatment WC - Nurse 2 - General Ulcer CM Notes Start: 11/02/17 08:47 Freq: Status: Active Protocol: Activity Type Activity Date Activity User E-Sign Co-Sign Detail Recorded Client Recorded Date Recorded By Document 11/02/17 09:20 DV [id number] 11/02/17 09:23 DV Document 11/09/17 09:37 DV [id number] 11/09/17 09:40 DV Document 11/16/17 12:10 DV [id number] 11/16/17 12:13 DV Document 11/23/17 12:37 DV [id number] 11/23/17 12:43 DV Document 11/29/17 11:02 DV [id number] 11/29/17 11:07 DV 11/02/17 11/09/17 11/16/17 09:20 09:37 12:10 Wound Center Nurse 2 #1 Lower Right [place] -Time 09:21 09:39 12:11 -Correct Patient Yes Yes Yes -Correct Side, Site, Position Yes Yes Yes -Correct Procedure Yes Yes Yes -Procedure Performed Yes Yes Yes -Type of Procedure Debridement Debridement Debridement -Clinical Debridement Subcutaneous Subcutaneous Subcutaneous -Post Debridement Size (cm) - Length 3.1 3.1 3.0 -Post Debridement Size (cm) - Width 2.0 1.6 1.8 -Post Debridement Size (cm) - Depth 0.2 0.2 0.2 -Total Square Cm 6.20 4.96 5.40 -Wound/Ulcer Outcome Not Healed Not Healed Not Healed -Ulcer Cleansing Rinsed/ Rinsed/ Rinsed/ Irrigated with Irrigated with Irrigated with Saline Saline Saline -Foul Odor after Cleansing No No No -Bioengineered Tissue No No No -Cetacaine [place] No No No -Bleeding Controlled with Pressure Pressure Pressure -Treatment Response Procedure Procedure Procedure Tolerated Well Tolerated Well Tolerated Well Pain Scale: 0-10 Numeric Is Patient Pain Free? Yes Yes Yes 11/23/17 11/29/17 12:37 11:02 Wound Center Nurse 2 #1 Lower Right [place] -Time 12:38 11:02 -Correct Patient Yes Yes -Correct Side, Site, Position Yes Yes -Correct Procedure Yes Yes -Procedure Performed Yes Yes -Type of Procedure Debridement Debridement -Clinical Debridement Subcutaneous Subcutaneous -Post Debridement Size (cm) - Length 2.0 1.6 -Post Debridement Size (cm) - Width 1.0 1.1 -Post Debridement Size (cm) - Depth 0.2 0.1 -Total Square Cm 2.00 1.76 -Wound/Ulcer Outcome Not Healed Not Healed -Ulcer Cleansing Rinsed/ Rinsed/ Irrigated with Irrigated with Saline Saline -Foul Odor after Cleansing No No -Bioengineered Tissue No No -Cetacaine [place] No No -Bleeding Controlled with Pressure Pressure -Treatment Response Procedure Procedure Tolerated Well Tolerated Well Pain Scale: 0-10 Numeric Is Patient Pain Free? Yes Yes Wound debrided: Right Leg Wound Grade/Stage: Stage 2 Type of Debridement: Excisional debridement Anesthesia Used: 5% Lidocaine Gel Depth: Down to and including healthy tissue, in the subcutaneous layer Percentage of wound debrided: 100 Instrument Used: 5mm curette Tissue Removed: Slough, devitalized subcutaneous tissue Severity: Fat Layer Exposed Amount of bleeding with debridement: Mild Bleeding Controlled with: Pressure Patient tolerated procedure well Assessment/Plan Active Problems Chronic venous stasis dermatitis of right lower extremity (Chronic) Venous insufficiency (Chronic) Ulcer of right lower leg (Acute) Assessment: Right Lower extremity Ulcer. Venous Insufficiency Plan: Wound continues to do well with progressive wound healing. Continue moistened Aquacel daily with adaptic covering. Continue double layer Tubigrip' s bilaterally. Avoid idle standing. Exercise and weight loss recommended. Elevate legs when sitting and in bed. Daily protein supplements and protein rich diet. Follow-up in 1 week. This note was generated with [employer] dictation software. It may contain incorrect words, spelling, and punctuation that were not noted in checking the note before signing.
== END 2017-11-29 23:59 ==
LOC: WC 09:30
PROVIDERS: Family Provider Internal Medicine; PCP Internal Medicine; Visit Provider Internal Medicine
DX: I83.218 Varicose veins of right lower extremity with both ulcer of other part of lower extremity and inflammation (principal); L97.812 Non-pressure chronic ulcer of other part of right lower leg with fat layer exposed; R60.0 Localized edema; R09.89 Other specified symptoms and signs involving the circulatory and respiratory systems; E66.01 Morbid (severe) obesity due to excess calories; Z68.42 Body mass index [BMI] 45.0-49.9, adult; Z71.3 Dietary counseling and surveillance
CPT/HCPCS: 11042; 93923; 93970

== ENCOUNTER 2017-12-27 10:45 | Outpatient (RCR) | payer BC, SELFPAY ==
[2017-11-29 09:45] VITALS: BP 130/75
[2017-11-30 00:56] VITALS: PULSE 64; RESP 20; TEMP 35.8
[2017-12-06 10:37] VITALS: BP 147/78; PULSE 68; RESP 18; TEMP 36.3; BMI 48.4
--- NOTE | 2017-12-06 14:14 | PCM.WC.PN ---
(1) Ulcer of right lower leg Status: Acute Code(s): L97.919 - Non-pressure chronic ulcer of unspecified part of right lower leg with unspecified severity (2) Chronic venous stasis dermatitis of right lower extremity Status: Chronic Code(s): I83.11 - Varicose veins of right lower extremity with inflammation (3) Venous insufficiency Status: Chronic Code(s): I87.2 - Venous insufficiency (chronic) (peripheral) Type of Wound Date of Service: 12/06/17 Chief Complaint: Right Non healing lower extremity ulcer. History of Wound: Ms. Antony is a 62yo with PMH of Venous Insufficiencys/p vein Stripping in 2005 who present here due to non healing right lower extremity ulcer. She reports right lower extremity blisters which opened up into an ulcer a couple of weeks ago. Initially 2 however they have progressed to 1 big ulcer. She was managed by her primary care physician and was started on antibiotics and Silvadene cream. She was taking these as prescribed however wound healing has not been obtained. Currently uses her compression stockings but not as often because she states that they are tight and impede her circulation. She works at [employer] where she has to stand for long periods of time. She feels well otherwise denies chills, fever, purulent discharge from the site, nausea or vomiting. Progress of Wound: Improving. - Physical Exam Vital Signs Temp Pulse Resp BP 97.3 F L 68 18 147/78 H 12/06/17 10:37 12/06/17 10:37 12/06/17 10:37 12/06/17 10:37 General: Alert, Oriented x3, Cooperative, No apparent distress HEENT: Atraumatic, Normocephalic Oral: Moist Mucosa Neck: Supple Lungs: Normal air movement Cardiovascular: Regular rate Extremities: No cyanosis, Edema Skin: Ulcer/ Wound - Right lower extremity. Wound Measurements and Assessment MAGNOLIA - Nurse 1 - General Ulcer Measurement Start: 12/06/17 10:37 Freq: Status: Active Protocol: Activity Type Activity Date Activity User E-Sign Co-Sign Detail Recorded Client Recorded Date Recorded By Document 12/06/17 10:37 [facility] [id number] 12/06/17 10:47 [facility] 12/06/17 10:37 Wound Center Nurse 1 [Ulcer Assessment Protocol: MAGNOLIA.WD.LOC] #1 Lower Right Leyva -Combined with other wound No -Current Size (cm) - Length 0.6 -Current Size (cm) - Width 0.2 -Current Size (cm) - Depth 0.1 -Total Square Cm 0.12 -Photo Taken No -Epithelialization Medium 34-66% -Tunneling No -Undermining/Tunneling No -Exudate Amt Small (1-33%) -Exudate Type Serosanguineous -Wound Margin Distinct, Outline Attached -Granulation Amt Large (67-100%) -Granulation Quality Red -Slough/Fibrin No -Necrosis Amt None Present (0 %) -Structure Exposed N/A -Texture (Jessica-wound Skin Appearance) Scarring -Moisture (Jessica-wound Skin Appearance Dry/Scaly ) -Color (Jessica-wound Skin Appearance) Hemosiderin Staining -Temperature (Jessica-wound Skin No Abnormality Appearance) (Pt Warm) -Tenderness on Palpation (Jessica-wound No Skin Appearance) -Ulcer Cleansing Rinsed/ Irrigated with Saline -Foul Odor after Cleansing No -Anesthetic Used 5% Lidocaine Gel [Edema Assessment] -Lower Limb Edema Present Yes -Right Calf (cm) 44 -Right Ankle (cm) 25.5 -Left Calf (cm) 44.2 -Left Ankle (cm) 26 Musculoskeletal: No Muscle Wasting Neurological: Cranial nerves II-XII grossly intact Psych/Mental Status: Normal Affect Debridement Note Wound debrided: Right lowr Extremity Ulcer Wound Grade/Stage: Stage II Type of Debridement: Excisional debridement Anesthesia Used: 5% Lidocaine Gel Depth: Down to and including healthy tissue, in the subcutaneous layer Percentage of wound debrided: 100 Instrument Used: 3mm curette Tissue Removed: Slough and Devitalized tisue Severity: Fat Layer Exposed Amount of bleeding with debridement: Mild Bleeding Controlled with: Pressure Patient tolerated procedure well Assessment/Plan Assessment: Right Lower extremity Ulcer. Venous Insufficiency Plan: Wound continues to do well with continous wound healing. Please refer to clinical panel. Debridement done as documeneted above. Procedure was well tolerated. Continue moistened Aquacel daily with adaptic covering. Continue double layer Tubigrip's bilaterally. Avoid idle standing. Exercise and weight loss recommended. Elevate legs when sitting and in bed. Daily protein supplements and protein rich diet. Follow-up in 1 week for Nurse visit and in 3 weeks with me. Scheduled to have shoulder surgery next wednesday. This note was generated with [employer] software. It may contain incorrect words, spelling, and punctuation that were not noted in checking the note before signing.
--- NOTE | 2017-12-06 14:20 | PN.PCM_ITS ---
(1) Ulcer of right lower leg Status: Acute Code(s): L97.919 - Non-pressure chronic ulcer of unspecified part of right lower leg with unspecified severity (2) Chronic venous stasis dermatitis of right lower extremity Status: Chronic Code(s): I83.11 - Varicose veins of right lower extremity with inflammation (3) Venous insufficiency Status: Chronic Code(s): I87.2 - Venous insufficiency (chronic) (peripheral) Type of Wound Date of Service: 12/06/17 Chief Complaint: Right Non healing lower extremity ulcer. History of Wound: Ms. Antony is a 62yo with PMH of Venous Insufficiencys/p vein Stripping in 2005 who present here due to non healing right lower extremity ulcer. She reports right lower extremity blisters which opened up into an ulcer a couple of weeks ago. Initially 2 however they have progressed to 1 big ulcer. She was managed by her primary care physician and was started on antibiotics and Silvadene cream. She was taking these as prescribed however wound healing has not been obtained. Currently uses her compression stockings but not as often because she states that they are tight and impede her circulation. She works at [employer] where she has to stand for long periods of time. She feels well otherwise denies chills, fever, purulent discharge from the site, nausea or vomiting. Progress of Wound: Improving. - Physical Exam Vital Signs Temp Pulse Resp BP 97.3 F L 68 18 147/78 H 12/06/17 10:37 12/06/17 10:37 12/06/17 10:37 12/06/17 10:37 General: Alert, Oriented x3, Cooperative, No apparent distress HEENT: Atraumatic, Normocephalic Oral: Moist Mucosa Neck: Supple Lungs: Normal air movement Cardiovascular: Regular rate Extremities: No cyanosis, Edema Skin: Ulcer/ Wound - Right lower extremity. Wound Measurements and Assessment MAGNOLIA - Nurse 1 - General Ulcer Measurement Start: 12/06/17 10:37 Freq: Status: Active Protocol: Activity Type Activity Date Activity User E-Sign Co-Sign Detail Recorded Client Recorded Date Recorded By Document 12/06/17 10:37 [facility] [id number] 12/06/17 10:47 [facility] 12/06/17 10:37 Wound Center Nurse 1 [Ulcer Assessment Protocol: MAGNOLIA.WD.LOC] #1 Lower Right Leyva -Combined with other wound No -Current Size (cm) - Length 0.6 -Current Size (cm) - Width 0.2 -Current Size (cm) - Depth 0.1 -Total Square Cm 0.12 -Photo Taken No -Epithelialization Medium 34-66% -Tunneling No -Undermining/Tunneling No -Exudate Amt Small (1-33%) -Exudate Type Serosanguineous -Wound Margin Distinct, Outline Attached -Granulation Amt Large (67-100%) -Granulation Quality Red -Slough/Fibrin No -Necrosis Amt None Present (0 %) -Structure Exposed N/A -Texture (Jessica-wound Skin Appearance) Scarring -Moisture (Jessica-wound Skin Appearance Dry/Scaly ) -Color (Jessica-wound Skin Appearance) Hemosiderin Staining -Temperature (Jessica-wound Skin No Abnormality Appearance) (Pt Warm) -Tenderness on Palpation (Jessica-wound No Skin Appearance) -Ulcer Cleansing Rinsed/ Irrigated with Saline -Foul Odor after Cleansing No -Anesthetic Used 5% Lidocaine Gel [Edema Assessment] -Lower Limb Edema Present Yes -Right Calf (cm) 44 -Right Ankle (cm) 25.5 -Left Calf (cm) 44.2 -Left Ankle (cm) 26 Musculoskeletal: No Muscle Wasting Neurological: Cranial nerves II-XII grossly intact Psych/Mental Status: Normal Affect Debridement Note Wound debrided: Right lowr Extremity Ulcer Wound Grade/Stage: Stage II Type of Debridement: Excisional debridement Anesthesia Used: 5% Lidocaine Gel Depth: Down to and including healthy tissue, in the subcutaneous layer Percentage of wound debrided: 100 Instrument Used: 3mm curette Tissue Removed: Slough and Devitalized tisue Severity: Fat Layer Exposed Amount of bleeding with debridement: Mild Bleeding Controlled with: Pressure Patient tolerated procedure well Assessment/Plan Assessment: Right Lower extremity Ulcer. Venous Insufficiency Plan: Wound continues to do well with continous wound healing. Please refer to clinical panel. Debridement done as documeneted above. Procedure was well tolerated. Continue moistened Aquacel daily with adaptic covering. Continue double layer Tubigrip's bilaterally. Avoid idle standing. Exercise and weight loss recommended. Elevate legs when sitting and in bed. Daily protein supplements and protein rich diet. Follow-up in 1 week for Nurse visit and in 3 weeks with me. Scheduled to have shoulder surgery next wednesday. This note was generated with [employer] software. It may contain incorrect words, spelling, and punctuation that were not noted in checking the note before signing.
[2017-12-12 11:09] VITALS: BP 147/69; PULSE 70; RESP 18; TEMP 37; BMI 48.4
[2017-12-27 11:20] VITALS: BP 158/92; PULSE 71; RESP 18; TEMP 35.9; BMI 48.4
--- NOTE | 2017-12-27 17:38 | PCM.WC.PN ---
(1) Ulcer of right lower leg Status: Chronic Code(s): L97.919 - Non-pressure chronic ulcer of unspecified part of right lower leg with unspecified severity (2) Chronic venous stasis dermatitis of right lower extremity Status: Chronic Code(s): I83.11 - Varicose veins of right lower extremity with inflammation (3) Venous insufficiency Status: Chronic Code(s): I87.2 - Venous insufficiency (chronic) (peripheral) Type of Wound Date of Service: 12/27/17 Chief Complaint: Right Non healing lower extremity ulcer. History of Wound: Ms. Antony is a 62yo with PMH of Venous Insufficiencys/p vein Stripping in 2005 who present here due to non healing right lower extremity ulcer. She reports right lower extremity blisters which opened up into an ulcer a couple of weeks ago. Initially 2 however they have progressed to 1 big ulcer. She was managed by her primary care physician and was started on antibiotics and Silvadene cream. She was taking these as prescribed however wound healing has not been obtained. Currently uses her compression stockings but not as often because she states that they are tight and impede her circulation. She works at [employer] where she has to stand for long periods of time. She feels well otherwise denies chills, fever, purulent discharge from the site, nausea or vomiting. Progress of Wound: Healed. - Physical Exam Vital Signs Temp Pulse Resp BP 96.7 F L 71 18 158/92 H 12/27/17 11:20 12/27/17 11:20 12/27/17 11:20 12/27/17 11:20 General: Alert, Oriented x3, Cooperative, No apparent distress HEENT: Atraumatic, Normocephalic Oral: Moist Mucosa Neck: Supple Lungs: Normal air movement Cardiovascular: Regular rate Extremities: Edema Wound Measurements and Assessment WC - Nurse 1 - General Ulcer Measurement Start: 12/06/17 10:37 Freq: Status: Active Protocol: Activity Type Activity Date Activity User E-Sign Co-Sign Detail Recorded Client Recorded Date Recorded By Document 12/27/17 11:20 RB [id number] 12/27/17 11:28 RB 12/27/17 11:20 Wound Center Nurse 1 [Ulcer Assessment] #1 Lower Right Leyva -Combined with other wound No -Current Size (cm) - Length 0.1 -Current Size (cm) - Width 0.1 -Current Size (cm) - Depth 0.1 -Total Square Cm 0.01 -Photo Taken Yes -Epithelialization Large 67-100% -Tunneling No -Undermining/Tunneling No -Circular Undermining No -Classification - Thickness Full Thickness without Exposed Support Structure -Exudate Amt None Present (0 %) -Wound Margin Distinct, Outline Attached -Granulation Amt Large (67-100%) -Granulation Quality [place] -Slough/Fibrin No -Structure Exposed N/A -Texture (Jessica-wound Skin Appearance) Assessed Scarring -Moisture (Jessica-wound Skin Appearance Assessed ) -Color (Jessica-wound Skin Appearance) Assessed Hemosiderin Staining -Temperature (Jessica-wound Skin No Abnormality Appearance) (Pt Warm) -Ulcer Cleansing Rinsed/ Irrigated with Saline -Foul Odor after Cleansing No [Edema Assessment] -Lower Limb Edema Present Yes -Right Calf (cm) 47.5 -Right Ankle (cm) 28 WC - Nurse 2 - General Ulcer CM Notes Start: 12/06/17 10:37 Freq: Status: Active Protocol: Activity Type Activity Date Activity User E-Sign Co-Sign Detail Recorded Client Recorded Date Recorded By Document 12/27/17 11:58 DV [id number] 12/27/17 12:00 DV 12/27/17 11:58 Wound Center Nurse 2 [Procedure/Treatment] #1 Lower Right Leyva -Time 11:59 -Correct Patient Yes -Correct Side, Site, Position Yes -Procedure Performed No -Post Debridement Size (cm) - Length 0 -Post Debridement Size (cm) - Width 0 -Post Debridement Size (cm) - Depth 0 -Total Square Cm 0 -Wound/Ulcer Outcome Healed- Epithelialized [See Physician Procedure note for Specifics] Pain Scale: 0-10 Numeric [Pain] -Is Patient Pain Free? Yes Musculoskeletal: No Muscle Wasting Neurological: Cranial nerves II-XII grossly intact Debridement Note Post-Debridement Measurements/Treatment WC - Nurse 2 - General Ulcer CM Notes Start: 12/06/17 10:37 Freq: Status: Active Protocol: Activity Type Activity Date Activity User E-Sign Co-Sign Detail Recorded Client Recorded Date Recorded By Document 12/06/17 10:20 DV [id number] 12/08/17 14:55 DV Document 12/27/17 11:58 DV [id number] 12/27/17 12:00 DV 12/06/17 12/27/17 10:20 11:58 Wound Center Nurse 2 #1 Lower Right Leyva -Time 14:51 11:59 -Correct Patient Yes Yes -Correct Side, Site, Position Yes Yes -Correct Procedure Yes -Procedure Performed Yes No -Type of Procedure Debridement -Clinical Debridement Subcutaneous -Post Debridement Size (cm) - Length 1.4 0 -Post Debridement Size (cm) - Width 0.4 0 -Post Debridement Size (cm) - Depth 0.1 0 -Total Square Cm 0.56 0 -Wound/Ulcer Outcome Not Healed Healed- Epithelialized -Ulcer Cleansing Rinsed/ Irrigated with Saline -Foul Odor after Cleansing No -Bioengineered Tissue No -Bleeding Controlled with NA -Treatment Response Procedure Tolerated Well Pain Scale: 0-10 Numeric Is Patient Pain Free? Yes Yes No debridement was completed today Assessment/Plan Assessment: Right Lower extremity Ulcer.- Healed. Venous Insufficiency Plan: Wound has healed however, patient still has significant lower extremity edema. 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 Right extremity is in a sling. She also admits to not being complaint with her diet lately as she has not been able to cook. My concern is a re opening of the ulcer due to increased edema. Patient expressed limitaions with all the modalities of edema managmenent discussed. She however is willing to try out [employer] hopefully with help from her sister. She was encouraged to do this. Avoid idle standing. Exercise and weight loss recommended. Elevate legs when sitting and in bed. Daily protein supplements and protein rich diet. Follow up in 1 week. This note was generated with [employer] dictation software. It may contain incorrect words, spelling, and punctuation that were not noted in checking the note before signing.
--- NOTE | 2017-12-27 17:44 | PN.PCM_ITS ---
(1) Ulcer of right lower leg Status: Chronic Code(s): L97.919 - Non-pressure chronic ulcer of unspecified part of right lower leg with unspecified severity (2) Chronic venous stasis dermatitis of right lower extremity Status: Chronic Code(s): I83.11 - Varicose veins of right lower extremity with inflammation (3) Venous insufficiency Status: Chronic Code(s): I87.2 - Venous insufficiency (chronic) (peripheral) Type of Wound Date of Service: 12/27/17 Chief Complaint: Right Non healing lower extremity ulcer. History of Wound: Ms. Antony is a 62yo with PMH of Venous Insufficiencys/p vein Stripping in 2005 who present here due to non healing right lower extremity ulcer. She reports right lower extremity blisters which opened up into an ulcer a couple of weeks ago. Initially 2 however they have progressed to 1 big ulcer. She was managed by her primary care physician and was started on antibiotics and Silvadene cream. She was taking these as prescribed however wound healing has not been obtained. Currently uses her compression stockings but not as often because she states that they are tight and impede her circulation. She works at [employer] where she has to stand for long periods of time. She feels well otherwise denies chills, fever, purulent discharge from the site, nausea or vomiting. Progress of Wound: Healed. - Physical Exam Vital Signs Temp Pulse Resp BP 96.7 F L 71 18 158/92 H 12/27/17 11:20 12/27/17 11:20 12/27/17 11:20 12/27/17 11:20 General: Alert, Oriented x3, Cooperative, No apparent distress HEENT: Atraumatic, Normocephalic Oral: Moist Mucosa Neck: Supple Lungs: Normal air movement Cardiovascular: Regular rate Extremities: Edema Wound Measurements and Assessment WC - Nurse 1 - General Ulcer Measurement Start: 12/06/17 10:37 Freq: Status: Active Protocol: Activity Type Activity Date Activity User E-Sign Co-Sign Detail Recorded Client Recorded Date Recorded By Document 12/27/17 11:20 RB [id number] 12/27/17 11:28 RB 12/27/17 11:20 Wound Center Nurse 1 [Ulcer Assessment] #1 Lower Right Leyva -Combined with other wound No -Current Size (cm) - Length 0.1 -Current Size (cm) - Width 0.1 -Current Size (cm) - Depth 0.1 -Total Square Cm 0.01 -Photo Taken Yes -Epithelialization Large 67-100% -Tunneling No -Undermining/Tunneling No -Circular Undermining No -Classification - Thickness Full Thickness without Exposed Support Structure -Exudate Amt None Present (0 %) -Wound Margin Distinct, Outline Attached -Granulation Amt Large (67-100%) -Granulation Quality [place] -Slough/Fibrin No -Structure Exposed N/A -Texture (Jessica-wound Skin Appearance) Assessed Scarring -Moisture (Jessica-wound Skin Appearance Assessed ) -Color (Jessica-wound Skin Appearance) Assessed Hemosiderin Staining -Temperature (Jessica-wound Skin No Abnormality Appearance) (Pt Warm) -Ulcer Cleansing Rinsed/ Irrigated with Saline -Foul Odor after Cleansing No [Edema Assessment] -Lower Limb Edema Present Yes -Right Calf (cm) 47.5 -Right Ankle (cm) 28 WC - Nurse 2 - General Ulcer CM Notes Start: 12/06/17 10:37 Freq: Status: Active Protocol: Activity Type Activity Date Activity User E-Sign Co-Sign Detail Recorded Client Recorded Date Recorded By Document 12/27/17 11:58 DV [id number] 12/27/17 12:00 DV 12/27/17 11:58 Wound Center Nurse 2 [Procedure/Treatment] #1 Lower Right Leyva -Time 11:59 -Correct Patient Yes -Correct Side, Site, Position Yes -Procedure Performed No -Post Debridement Size (cm) - Length 0 -Post Debridement Size (cm) - Width 0 -Post Debridement Size (cm) - Depth 0 -Total Square Cm 0 -Wound/Ulcer Outcome Healed- Epithelialized [See Physician Procedure note for Specifics] Pain Scale: 0-10 Numeric [Pain] -Is Patient Pain Free? Yes Musculoskeletal: No Muscle Wasting Neurological: Cranial nerves II-XII grossly intact Debridement Note Post-Debridement Measurements/Treatment WC - Nurse 2 - General Ulcer CM Notes Start: 12/06/17 10:37 Freq: Status: Active Protocol: Activity Type Activity Date Activity User E-Sign Co-Sign Detail Recorded Client Recorded Date Recorded By Document 12/06/17 10:20 DV [id number] 12/08/17 14:55 DV Document 12/27/17 11:58 DV [id number] 12/27/17 12:00 DV 12/06/17 12/27/17 10:20 11:58 Wound Center Nurse 2 #1 Lower Right Leyva -Time 14:51 11:59 -Correct Patient Yes Yes -Correct Side, Site, Position Yes Yes -Correct Procedure Yes -Procedure Performed Yes No -Type of Procedure Debridement -Clinical Debridement Subcutaneous -Post Debridement Size (cm) - Length 1.4 0 -Post Debridement Size (cm) - Width 0.4 0 -Post Debridement Size (cm) - Depth 0.1 0 -Total Square Cm 0.56 0 -Wound/Ulcer Outcome Not Healed Healed- Epithelialized -Ulcer Cleansing Rinsed/ Irrigated with Saline -Foul Odor after Cleansing No -Bioengineered Tissue No -Bleeding Controlled with NA -Treatment Response Procedure Tolerated Well Pain Scale: 0-10 Numeric Is Patient Pain Free? Yes Yes No debridement was completed today Assessment/Plan Assessment: Right Lower extremity Ulcer.- Healed. Venous Insufficiency Plan: Wound has healed however, patient still has significant lower extremity edema. 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 Right extremity is in a sling. She also admits to not being complaint with her diet lately as she has not been able to cook. My concern is a re opening of the ulcer due to increased edema. Patient expressed limitaions with all the modalities of edema managmenent discussed. She however is willing to try out [employer] hopefully with help from her sister. She was encouraged to do this. Avoid idle standing. Exercise and weight loss recommended. Elevate legs when sitting and in bed. Daily protein supplements and protein rich diet. Follow up in 1 week. This note was generated with [employer] dictation software. It may contain incorrect words, spelling, and punctuation that were not noted in checking the note before signing.
== END 2017-12-27 23:59 ==
LOC: WC 10:45
PROVIDERS: Family Provider Internal Medicine; PCP Internal Medicine; Visit Provider Internal Medicine
DX: I83.218 Varicose veins of right lower extremity with both ulcer of other part of lower extremity and inflammation (principal); L97.812 Non-pressure chronic ulcer of other part of right lower leg with fat layer exposed; R60.0 Localized edema
CPT/HCPCS: 11042; 99212; 99213; G0463

== ENCOUNTER 2018-07-26 10:00 | Outpatient (RCR) | payer BC, SELFPAY ==
[2018-07-12 10:40] VITALS: BP 168/94; PULSE 74; RESP 18; TEMP 36.6; BMI 55.0
--- NOTE | 2018-07-12 12:24 | PCM.WC.HP ---
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 History of Wound: Ms. Antony is a 63yo with PMH of Venous Insufficiencys/p vein Stripping in 2005 who presents here due to non healing right lower extremity ulcer. She was last seen here about 8 months ago for right lower extremity ulcer which is healed out. She however failed to return for her compression stockings. She noted reopening of the ulcer in April. She has not been using compression since her last visit. Since reopening in April, she has inconsistently applied Santyl to the wound. She also states that she was recently seen by her primary care physician and was started on clindamycin for possible cellulitis. She feels well otherwise and denies chills, fever, nausea, vomiting or change in her bowel habit. 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 (Chronic) Surgical History: no surgical history Allergies/Adverse Reactions: Allergies latex Allergy (Verified 07/12/18 10:57) Rash Home Medications: Ambulatory Orders Medication Instructions Recorded Ergocalciferol [Vitamin D] 50,000 unit PO 11/16/16 Calcium Carb/Vitamin D 1 tab PO DAILY 10/19/17 [Caltrate-600 With Vit D Tab] Clindamycin [Cleocin] 150 mg PO 4X/DAY 10/19/17 Hydrochlorothiazide [Hctz] 25 mg PO DAILY 10/19/17 Loperamide [Imodium] 2 mg PO 4X/DAY PRN PRN 10/19/17 Multivitamin [Daily Multiple 1 each PO DAILY 10/19/17 Vitamin] [place]-3 Fatty Acids/Fish Oil 1 each PO DAILY 10/19/17 [[place] 3 Fish Oil Softgel] Silver Sulfadiazine 1% Crm 1 applic TOPICAL DAILY 10/19/17 [Silvadene ([facility])] Vit C/E/Zn/Coppr/Lutein/Zeaxan 1 each PO DAILY 10/19/17 [Preservision Areds 2 Softgel] Tramadol HCl [Ultram] 50 mg PO Q6H PRN PRN 11/16/17 - Family History Maternal No pertinent history Smoking Status: Never smoker Review of Systems Constitutional: Denies: Anorexia, Malaise, Weakness Eyes: Denies: Blurred vision, Pain, Redness HEENT: Denies: Difficulty Hearing, Difficulty Swallowing Cardiovascular: Denies: Chest Pain, Chest Tightness Respiratory: Denies: Cough, Hemoptysis Gastrointestinal: Denies: Abdominal Pain, Hematemesis, Vomiting Genitourinary: Denies: Hematuria Skin: Denies: Jaundice - Physical Exam Vital Signs Temp Pulse Resp BP 97.8 F 74 18 168/94 H 07/12/18 10:40 07/12/18 10:40 07/12/18 10:40 07/12/18 10:40 General: Alert, Oriented x3, Cooperative, No apparent distress HEENT: Atraumatic Oral: Moist Mucosa Neck: Supple Lungs: Normal air movement Cardiovascular: Regular rate, Regular Rhythm Abdomen: Soft, Non Tender, Obese Extremities: No cyanosis, Edema Skin: Ulcer/ Wound Wound Measurements and Assessment WC - Nurse 1 - General Ulcer Measurement Start: 07/12/18 10:40 Freq: Status: Active Protocol: Activity Type Activity Date Activity User E-Sign Co-Sign Detail Recorded Client Recorded Date Recorded By Document 07/12/18 10:40 DL [id number] 07/12/18 10:54 DL 07/12/18 10:40 Wound Center Nurse 1 [Ulcer Assessment] #2 R Med LE cluster -Current Size (cm) - Length 4 -Current Size (cm) - Width 5.6 -Current Size (cm) - Depth 0.2 -Total Square Cm 22.4 -Photo Taken Yes -Classification - Thickness Full Thickness without Exposed Support Structure -Exudate Amt Large (67-100%) -Exudate Type Serosanguineous -Wound Margin Distinct, Outline Attached -Granulation Amt Small (1-33%) -Granulation Quality [place] -Necrosis Amt Large (67-100%) -Necrotic Tissue Type Adherent Slough -Structure Exposed N/A -Texture (Jessica-wound Skin Appearance) Localized Edema Scarring -Moisture (Jessica-wound Skin Appearance Weeping ) -Color (Jessica-wound Skin Appearance) Erythema Hemosiderin Staining -Temperature (Jessica-wound Skin No Abnormality Appearance) (Pt Warm) -Ulcer Cleansing Wound Cleanser -Foul Odor after Cleansing No -Anesthetic Used 4% Lidocaine Solution [Edema Assessment] -Right Calf (cm) 53 -Right Ankle (cm) 27 -Left Calf (cm) 48.5 -Left Ankle (cm) 28.5 WC - Nurse 2 - General Ulcer CM Notes Start: 07/12/18 10:40 Freq: Status: Active Protocol: Activity Type Activity Date Activity User E-Sign Co-Sign Detail Recorded Client Recorded Date Recorded By Document 07/12/18 11:10 MW [id number] 07/12/18 11:23 MW 07/12/18 11:10 Wound Center Nurse 2 [Procedure/Treatment] #2 R apiOmat cluster -Time 11:10 -Correct Patient Yes -Correct Side, Site, Position Yes -Correct Procedure Yes -Procedure Performed Yes -Type of Procedure Debridement -Clinical Debridement Subcutaneous -Post Debridement Size (cm) - Length 8.0 -Post Debridement Size (cm) - Width 7.0 -Post Debridement Size (cm) - Depth 0.3 -Total Square Cm 56.00 -Wound/Ulcer Outcome Not Healed -Ulcer Cleansing Rinsed/ Irrigated with Saline -Foul Odor after Cleansing No -Bioengineered Tissue No -Bleeding Controlled with Pressure -Treatment Response Procedure Tolerated Well [See Physician Procedure note for Specifics] Pain Scale: 0-10 Numeric [Pain] -Is Patient Pain Free? Yes Musculoskeletal: No Muscle Wasting Neurological: Cranial nerves II-XII grossly intact Psych/Mental Status: Normal Affect Debridement Note Post-Debridement Measurements/Treatment WC - Nurse 2 - General Ulcer CM Notes Start: 07/12/18 10:40 Freq: Status: Active Protocol: Activity Type Activity Date Activity User E-Sign Co-Sign Detail Recorded Client Recorded Date Recorded By Document 07/12/18 11:10 MW [id number] 07/12/18 11:23 MW 07/12/18 11:10 Wound Center Nurse 2 #2 R apiOmat cluster -Time 11:10 -Correct Patient Yes -Correct Side, Site, Position Yes -Correct Procedure Yes -Procedure Performed Yes -Type of Procedure Debridement -Clinical Debridement Subcutaneous -Post Debridement Size (cm) - Length 8.0 -Post Debridement Size (cm) - Width 7.0 -Post Debridement Size (cm) - Depth 0.3 -Total Square Cm 56.00 -Wound/Ulcer Outcome Not Healed -Ulcer Cleansing Rinsed/ Irrigated with Saline -Foul Odor after Cleansing No -Bioengineered Tissue No -Bleeding Controlled with Pressure -Treatment Response Procedure Tolerated Well Pain Scale: 0-10 Numeric Is Patient Pain Free? Yes Wound debrided: Right lower extremity cluster Wound Grade/Stage: Stage III Type of Debridement: Excisional debridement Anesthesia Used: 4% Lidocaine Solution Depth: Down to and including healthy tissue, in the subcutaneous layer Instrument Used: 5mm curette Tissue Removed: Slough and devitalized tissue Severity: Fat Layer Exposed Amount of bleeding with debridement: Mild Bleeding Controlled with: Pressure Patient tolerated procedure well Assessment/Plan Active Problems Ulcer of right lower extremity with fat layer exposed (Chronic) Assessment: Recurrent right lower extremity ulcer due to chronic venous insufficiency and noncompliance with compression. Obesity. Plan: Ms. Antony returns with right lower extremity ulcer likely due to poor compliance with her compression and management of her lower extremity edema. Prior to discharge during her last visit to the wound center, she was strongly advised/ counselled on management of her lower extremity edema however, she failed to follow-up for compression stockings. Debridement done as documented above. Procedure was well-tolerated. Cultures taken. Will request records from her primary care physician. Apply Fibracol with Adaptic over top. Change twice daily due to increased Seepage/drainage from the wound. Double layer Tubigrip for edema management. Advised to elevate lower extremities when seated and in bed. Exercise and weight loss also recommended. Increase protein intake and supplements. She was advised to call with any questions or concerns. Follow-up in 1 week. This note was generated with [employer] software. It may contain incorrect words, spelling, and punctuation that were not noted in checking the note before signing.
--- NOTE | 2018-07-12 12:28 | HP.PCM_ITS ---
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 History of Wound: Ms. Antony is a 63yo with PMH of Venous Insufficiencys/p vein Stripping in 2005 who presents here due to non healing right lower extremity ulcer. She was last seen here about 8 months ago for right lower extremity ulcer which is healed out. She however failed to return for her compression stockings. She noted reopening of the ulcer in April. She has not been using compression since her last visit. Since reopening in April, she has inconsistently applied Santyl to the wound. She also states that she was recently seen by her primary care physician and was started on clindamycin for possible cellulitis. She feels well otherwise and denies chills, fever, nausea , vomiting or change in her bowel habit. 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 (Chronic) Surgical History: no surgical history Allergies/Adverse Reactions: Allergies latex Allergy (Verified 07/12/18 10:57) Rash Home Medications: Ambulatory Orders Medication Instructions Recorded Ergocalciferol [Vitamin D] 50,000 unit PO 11/16/16 Calcium Carb/Vitamin D 1 tab PO DAILY 10/19/17 [Caltrate-600 With Vit D Tab] Clindamycin [Cleocin] 150 mg PO 4X/DAY 10/19/17 Hydrochlorothiazide [Hctz] 25 mg PO DAILY 10/19/17 Loperamide [Imodium] 2 mg PO 4X/DAY PRN PRN 10/19/17 Multivitamin [Daily Multiple 1 each PO DAILY 10/19/17 Vitamin] [place]-3 Fatty Acids/Fish Oil 1 each PO DAILY 10/19/17 [[place] 3 Fish Oil Softgel] Silver Sulfadiazine 1% Crm 1 applic TOPICAL DAILY 10/19/17 [Silvadene ([facility])] Vit C/E/Zn/Coppr/Lutein/Zeaxan 1 each PO DAILY 10/19/17 [Preservision Areds 2 Softgel] Tramadol HCl [Ultram] 50 mg PO Q6H PRN PRN 11/16/17 - Family History Maternal No pertinent history Smoking Status: Never smoker Review of Systems Constitutional: Denies: Anorexia, Malaise, Weakness Eyes: Denies: Blurred vision, Pain, Redness HEENT: Denies: Difficulty Hearing, Difficulty Swallowing Cardiovascular: Denies: Chest Pain, Chest Tightness Respiratory: Denies: Cough, Hemoptysis Gastrointestinal: Denies: Abdominal Pain, Hematemesis, Vomiting Genitourinary: Denies: Hematuria Skin: Denies: Jaundice - Physical Exam Vital Signs Temp Pulse Resp BP 97.8 F 74 18 168/94 H 07/12/18 10:40 07/12/18 10:40 07/12/18 10:40 07/12/18 10:40 General: Alert, Oriented x3, Cooperative, No apparent distress HEENT: Atraumatic Oral: Moist Mucosa Neck: Supple Lungs: Normal air movement Cardiovascular: Regular rate, Regular Rhythm Abdomen: Soft, Non Tender, Obese Extremities: No cyanosis, Edema Skin: Ulcer/ Wound Wound Measurements and Assessment WC - Nurse 1 - General Ulcer Measurement Start: 07/12/18 10:40 Freq: Status: Active Protocol: Activity Type Activity Date Activity User E-Sign Co-Sign Detail Recorded Client Recorded Date Recorded By Document 07/12/18 10:40 DL [id number] 07/12/18 10:54 DL 07/12/18 10:40 Wound Center Nurse 1 [Ulcer Assessment] #2 R Med LE cluster -Current Size (cm) - Length 4 -Current Size (cm) - Width 5.6 -Current Size (cm) - Depth 0.2 -Total Square Cm 22.4 -Photo Taken Yes -Classification - Thickness Full Thickness without Exposed Support Structure -Exudate Amt Large (67-100%) -Exudate Type Serosanguineous -Wound Margin Distinct, Outline Attached -Granulation Amt Small (1-33%) -Granulation Quality [place] -Necrosis Amt Large (67-100%) -Necrotic Tissue Type Adherent Slough -Structure Exposed N/A -Texture (Jessica-wound Skin Appearance) Localized Edema Scarring -Moisture (Jessica-wound Skin Appearance Weeping ) -Color (Jessica-wound Skin Appearance) Erythema Hemosiderin Staining -Temperature (Jessica-wound Skin No Abnormality Appearance) (Pt Warm) -Ulcer Cleansing Wound Cleanser -Foul Odor after Cleansing No -Anesthetic Used 4% Lidocaine Solution [Edema Assessment] -Right Calf (cm) 53 -Right Ankle (cm) 27 -Left Calf (cm) 48.5 -Left Ankle (cm) 28.5 WC - Nurse 2 - General Ulcer CM Notes Start: 07/12/18 10:40 Freq: Status: Active Protocol: Activity Type Activity Date Activity User E-Sign Co-Sign Detail Recorded Client Recorded Date Recorded By Document 07/12/18 11:10 MW [id number] 07/12/18 11:23 MW 07/12/18 11:10 Wound Center Nurse 2 [Procedure/Treatment] #2 R Remember The Member cluster -Time 11:10 -Correct Patient Yes -Correct Side, Site, Position Yes -Correct Procedure Yes -Procedure Performed Yes -Type of Procedure Debridement -Clinical Debridement Subcutaneous -Post Debridement Size (cm) - Length 8.0 -Post Debridement Size (cm) - Width 7.0 -Post Debridement Size (cm) - Depth 0.3 -Total Square Cm 56.00 -Wound/Ulcer Outcome Not Healed -Ulcer Cleansing Rinsed/ Irrigated with Saline -Foul Odor after Cleansing No -Bioengineered Tissue No -Bleeding Controlled with Pressure -Treatment Response Procedure Tolerated Well [See Physician Procedure note for Specifics] Pain Scale: 0-10 Numeric [Pain] -Is Patient Pain Free? Yes Musculoskeletal: No Muscle Wasting Neurological: Cranial nerves II-XII grossly intact Psych/Mental Status: Normal Affect Debridement Note Post-Debridement Measurements/Treatment WC - Nurse 2 - General Ulcer CM Notes Start: 07/12/18 10:40 Freq: Status: Active Protocol: Activity Type Activity Date Activity User E-Sign Co-Sign Detail Recorded Client Recorded Date Recorded By Document 07/12/18 11:10 MW [id number] 07/12/18 11:23 MW 07/12/18 11:10 Wound Center Nurse 2 #2 R Remember The Member cluster -Time 11:10 -Correct Patient Yes -Correct Side, Site, Position Yes -Correct Procedure Yes -Procedure Performed Yes -Type of Procedure Debridement -Clinical Debridement Subcutaneous -Post Debridement Size (cm) - Length 8.0 -Post Debridement Size (cm) - Width 7.0 -Post Debridement Size (cm) - Depth 0.3 -Total Square Cm 56.00 -Wound/Ulcer Outcome Not Healed -Ulcer Cleansing Rinsed/ Irrigated with Saline -Foul Odor after Cleansing No -Bioengineered Tissue No -Bleeding Controlled with Pressure -Treatment Response Procedure Tolerated Well Pain Scale: 0-10 Numeric Is Patient Pain Free? Yes Wound debrided: Right lower extremity cluster Wound Grade/Stage: Stage III Type of Debridement: Excisional debridement Anesthesia Used: 4% Lidocaine Solution Depth: Down to and including healthy tissue, in the subcutaneous layer Instrument Used: 5mm curette Tissue Removed: Slough and devitalized tissue Severity: Fat Layer Exposed Amount of bleeding with debridement: Mild Bleeding Controlled with: Pressure Patient tolerated procedure well Assessment/Plan Active Problems Ulcer of right lower extremity with fat layer exposed (Chronic) Assessment: Recurrent right lower extremity ulcer due to chronic venous insufficiency and noncompliance with compression. Obesity. Plan: Ms. Antony returns with right lower extremity ulcer likely due to poor compliance with her compression and management of her lower extremity edema. Prior to discharge during her last visit to the wound center, she was strongly advised/ counselled on management of her lower extremity edema however, she failed to follow-up for compression stockings. Debridement done as documented above. Procedure was well-tolerated. Cultures taken. Will request records from her primary care physician. Apply Fibracol with Adaptic over top. Change twice daily due to increased Seepage/drainage from the wound. Double layer Tubigrip for edema management. Advised to elevate lower extremities when seated and in bed. Exercise and weight loss also recommended. Increase protein intake and supplements. She was advised to call with any questions or concerns. Follow-up in 1 week. This note was generated with [employer] software. It may contain incorrect words, spelling, and punctuation that were not noted in checking the note before signing.
[2018-07-19 10:39] VITALS: BP 164/79; PULSE 72; RESP 18; TEMP 36.5; BMI 55.0
--- NOTE | 2018-07-19 12:01 | PCM.WC.PN ---
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 History of Wound: Ms. Antony is a 63yo with PMH of Venous Insufficiencys/p vein Stripping in 2005 who presents here due to non healing right lower extremity ulcer. She was last seen here about 8 months ago for right lower extremity ulcer which is healed out. She however failed to return for her compression stockings. She noted reopening of the ulcer in April. She has not been using compression since her last visit. Since reopening in April, she has inconsistently applied Santyl to the wound. She also states that she was recently seen by her primary care physician and was started on clindamycin for possible cellulitis. She feels well otherwise and denies chills, fever, nausea, vomiting or change in her bowel habit. Progress of Wound: Stable Ulcer. Cultures grew Pseudomonas. - Physical Exam Vital Signs Temp Pulse Resp BP 97.7 F L 72 18 164/79 H 07/19/18 10:39 07/19/18 10:39 07/19/18 10:39 07/19/18 10:39 General: Alert, Oriented x3, Cooperative, No apparent distress HEENT: Atraumatic Oral: Moist Mucosa Neck: Supple Lungs: Normal air movement Cardiovascular: Regular rate Abdomen: Non Tender, Obese Extremities: No cyanosis, Edema Skin: Ulcer/ Wound Wound Measurements and Assessment WC - Nurse 1 - General Ulcer Measurement Start: 07/12/18 10:40 Freq: Status: Active Protocol: Activity Type Activity Date Activity User E-Sign Co-Sign Detail Recorded Client Recorded Date Recorded By Document 07/19/18 10:39 [id number] 07/19/18 10:41 TM 07/19/18 10:39 Wound Center Nurse 1 [Ulcer Assessment] #2 R Med LE cluster -Combined with other wound No -Current Size (cm) - Length 3.8 -Current Size (cm) - Width 3.7 -Current Size (cm) - Depth 0.2 -Total Square Cm 14.06 -Photo Taken No -Epithelialization Small 1-33% -Tunneling No -Undermining/Tunneling No -Circular Undermining No -Classification - Thickness Full Thickness without Exposed Support Structure -Exudate Amt Large (67-100%) -Exudate Type Serosanguineous -Wound Margin Distinct, Outline Attached -Granulation Amt None Present (0 %) -Granulation Quality N/A -Slough/Fibrin Yes -Necrosis Amt Large (67-100%) -Necrotic Tissue Type Adherent Slough -Structure Exposed Fascia Fat Layer Exposed -Texture (Jessica-wound Skin Appearance) Assessed Friable Localized Edema -Moisture (Jessica-wound Skin Appearance No Abnormality ) Assessed -Color (Jessica-wound Skin Appearance) Assessed Erythema Hemosiderin Staining -Temperature (Jessica-wound Skin No Abnormality Appearance) (Pt Warm) -Tenderness on Palpation (Jessica-wound Yes Skin Appearance) -Ulcer Cleansing Rinsed/ Irrigated with Saline -Foul Odor after Cleansing No -Anesthetic Used 5% Lidocaine Gel [Edema Assessment] -Lower Limb Edema Present Yes -Right Calf (cm) 42.0 -Right Ankle (cm) 28.5 WC - Nurse 2 - General Ulcer CM Notes Start: 07/12/18 10:40 Freq: Status: Active Protocol: Activity Type Activity Date Activity User E-Sign Co-Sign Detail Recorded Client Recorded Date Recorded By Document 07/19/18 10:47 MW [email or web address] 07/19/18 10:51 MW 07/19/18 10:47 Wound Center Nurse 2 [Procedure/Treatment] #2 R Med LE cluster -Time 10:48 -Correct Patient Yes -Correct Side, Site, Position Yes -Correct Procedure Yes -Procedure Performed Yes -Type of Procedure Debridement -Clinical Debridement Subcutaneous -Post Debridement Size (cm) - Length 5.5 -Post Debridement Size (cm) - Width 6.0 -Post Debridement Size (cm) - Depth 0.3 -Total Square Cm 33.00 -Wound/Ulcer Outcome Not Healed -Ulcer Cleansing Rinsed/ Irrigated with Saline -Foul Odor after Cleansing No -Bioengineered Tissue No -Bleeding Controlled with Pressure -Treatment Response Procedure Tolerated Well [See Physician Procedure note for Specifics] Pain Scale: 0-10 Numeric [Pain] -Is Patient Pain Free? Yes Musculoskeletal: No Muscle Wasting Neurological: Cranial nerves II-XII grossly intact Psych/Mental Status: Normal Affect Debridement Note Post-Debridement Measurements/Treatment WC - Nurse 2 - General Ulcer CM Notes Start: 07/12/18 10:40 Freq: Status: Active Protocol: Activity Type Activity Date Activity User E-Sign Co-Sign Detail Recorded Client Recorded Date Recorded By Document 07/12/18 11:10 MW [id number] 07/12/18 11:23 MW Document 07/19/18 10:47 MW [id number] 07/19/18 10:51 MW 07/12/18 07/19/18 11:10 10:47 Wound Center Nurse 2 #2 R Med LE cluster -Time 11:10 10:48 -Correct Patient Yes Yes -Correct Side, Site, Position Yes Yes -Correct Procedure Yes Yes -Procedure Performed Yes Yes -Type of Procedure Debridement Debridement -Clinical Debridement Subcutaneous Subcutaneous -Post Debridement Size (cm) - Length 8.0 5.5 -Post Debridement Size (cm) - Width 7.0 6.0 -Post Debridement Size (cm) - Depth 0.3 0.3 -Total Square Cm 56.00 33.00 -Wound/Ulcer Outcome Not Healed Not Healed -Ulcer Cleansing Rinsed/ Rinsed/ Irrigated with Irrigated with Saline Saline -Foul Odor after Cleansing No No -Bioengineered Tissue No No -Bleeding Controlled with Pressure Pressure -Treatment Response Procedure Procedure Tolerated Well Tolerated Well Pain Scale: 0-10 Numeric Is Patient Pain Free? Yes Yes Wound debrided: Right lower extremity Wound Grade/Stage: Stage III Type of Debridement: Excisional debridement Anesthesia Used: 4% Lidocaine Solution Depth: Down to and including healthy tissue, in the subcutaneous layer Percentage of wound debrided: 100 Instrument Used: 7mm curette Tissue Removed: Slough and devitalized tissue Severity: Fat Layer Exposed Amount of bleeding with debridement: Mild Bleeding Controlled with: Pressure Patient tolerated procedure well Assessment/Plan Active Problems Ulcer of right lower extremity with fat layer exposed (Chronic) Assessment: Recurrent right lower extremity ulcer due to chronic venous insufficiency and noncompliance with compression. Obesity. Plan: Improving ulcer however, still significant drainage. Continue Fibracol with Adaptic over top. Change twice daily due to increased drainage from the wound. Double layer Tubigrip for edema management. Prescription for Levofloxacin sent for culture growth. Advised to elevate lower extremities when seated and in bed. Exercise and weight loss also recommended. Increase protein intake and supplements. She was advised to call with any questions or concerns. Follow-up in 1 week. This note was generated with [employer] dictation software. It may contain incorrect words, spelling, and punctuation that were not noted in checking the note before signing.
--- NOTE | 2018-07-19 12:09 | PN.PCM_ITS ---
(1) Ulcer of right lower extremity with fat layer exposed Status: Chronic Current Visit: Yes Code(s): L97.912 - Non-pressure chronic ulcer of unspecified part of right lower leg with fat layer exposed (2) Chronic venous stasis dermatitis of right lower extremity Status: Chronic Current Visit: No Code(s): I83.11 - Varicose veins of right lower extremity with inflammation (3) Venous insufficiency Status: Chronic Current Visit: No Code(s): I87.2 - Venous insufficiency ( chronic) (peripheral) Type of Wound Date of Service: 07/19/18 Chief Complaint: Right Non healing lower extremity ulcer. History of Wound: Ms. Antony is a 63yo with PMH of Venous Insufficiencys/p vein Stripping in 2005 who presents here due to non healing right lower extremity ulcer. She was last seen here about 8 months ago for right lower extremity ulcer which is healed out. She however failed to return for her compression stockings. She noted reopening of the ulcer in April. She has not been using compression since her last visit. Since reopening in April, she has inconsistently applied Santyl to the wound. She also states that she was recently seen by her primary care physician and was started on clindamycin for possible cellulitis. She feels well otherwise and denies chills, fever, nausea , vomiting or change in her bowel habit. Progress of Wound: Stable Ulcer. Cultures grew Pseudomonas. - Physical Exam Vital Signs Temp Pulse Resp BP 97.7 F L 72 18 164/79 H 07/19/18 10:39 07/19/18 10:39 07/19/18 10:39 07/19/18 10:39 General: Alert, Oriented x3, Cooperative, No apparent distress HEENT: Atraumatic Oral: Moist Mucosa Neck: Supple Lungs: Normal air movement Cardiovascular: Regular rate Abdomen: Non Tender, Obese Extremities: No cyanosis, Edema Skin: Ulcer/ Wound Wound Measurements and Assessment WC - Nurse 1 - General Ulcer Measurement Start: 07/12/18 10:40 Freq: Status: Active Protocol: Activity Type Activity Date Activity User E-Sign Co-Sign Detail Recorded Client Recorded Date Recorded By Document 07/19/18 10:39 [id number] 07/19/18 10:41 TM 07/19/18 10:39 Wound Center Nurse 1 [Ulcer Assessment] #2 R Med LE cluster -Combined with other wound No -Current Size (cm) - Length 3.8 -Current Size (cm) - Width 3.7 -Current Size (cm) - Depth 0.2 -Total Square Cm 14.06 -Photo Taken No -Epithelialization Small 1-33% -Tunneling No -Undermining/Tunneling No -Circular Undermining No -Classification - Thickness Full Thickness without Exposed Support Structure -Exudate Amt Large (67-100%) -Exudate Type Serosanguineous -Wound Margin Distinct, Outline Attached -Granulation Amt None Present (0 %) -Granulation Quality N/A -Slough/Fibrin Yes -Necrosis Amt Large (67-100%) -Necrotic Tissue Type Adherent Slough -Structure Exposed Fascia Fat Layer Exposed -Texture (Jessica-wound Skin Appearance) Assessed Friable Localized Edema -Moisture (Jessica-wound Skin Appearance No Abnormality ) Assessed -Color (Jessica-wound Skin Appearance) Assessed Erythema Hemosiderin Staining -Temperature (Jessica-wound Skin No Abnormality Appearance) (Pt Warm) -Tenderness on Palpation (Jessica-wound Yes Skin Appearance) -Ulcer Cleansing Rinsed/ Irrigated with Saline -Foul Odor after Cleansing No -Anesthetic Used 5% Lidocaine Gel [Edema Assessment] -Lower Limb Edema Present Yes -Right Calf (cm) 42.0 -Right Ankle (cm) 28.5 WC - Nurse 2 - General Ulcer CM Notes Start: 07/12/18 10:40 Freq: Status: Active Protocol: Activity Type Activity Date Activity User E-Sign Co-Sign Detail Recorded Client Recorded Date Recorded By Document 07/19/18 10:47 MW [id number] 07/19/18 10:51 MW 07/19/18 10:47 Wound Center Nurse 2 [Procedure/Treatment] #2 R Med LE cluster -Time 10:48 -Correct Patient Yes -Correct Side, Site, Position Yes -Correct Procedure Yes -Procedure Performed Yes -Type of Procedure Debridement -Clinical Debridement Subcutaneous -Post Debridement Size (cm) - Length 5.5 -Post Debridement Size (cm) - Width 6.0 -Post Debridement Size (cm) - Depth 0.3 -Total Square Cm 33.00 -Wound/Ulcer Outcome Not Healed -Ulcer Cleansing Rinsed/ Irrigated with Saline -Foul Odor after Cleansing No -Bioengineered Tissue No -Bleeding Controlled with Pressure -Treatment Response Procedure Tolerated Well [See Physician Procedure note for Specifics] Pain Scale: 0-10 Numeric [Pain] -Is Patient Pain Free? Yes Musculoskeletal: No Muscle Wasting Neurological: Cranial nerves II-XII grossly intact Psych/Mental Status: Normal Affect Debridement Note Post-Debridement Measurements/Treatment WC - Nurse 2 - General Ulcer CM Notes Start: 07/12/18 10:40 Freq: Status: Active Protocol: Activity Type Activity Date Activity User E-Sign Co-Sign Detail Recorded Client Recorded Date Recorded By Document 07/12/18 11:10 MW [id number] 07/12/18 11:23 MW Document 07/19/18 10:47 MW [id number] 07/19/18 10:51 MW 07/12/18 07/19/18 11:10 10:47 Wound Center Nurse 2 #2 R Med LE cluster -Time 11:10 10:48 -Correct Patient Yes Yes -Correct Side, Site, Position Yes Yes -Correct Procedure Yes Yes -Procedure Performed Yes Yes -Type of Procedure Debridement Debridement -Clinical Debridement Subcutaneous Subcutaneous -Post Debridement Size (cm) - Length 8.0 5.5 -Post Debridement Size (cm) - Width 7.0 6.0 -Post Debridement Size (cm) - Depth 0.3 0.3 -Total Square Cm 56.00 33.00 -Wound/Ulcer Outcome Not Healed Not Healed -Ulcer Cleansing Rinsed/ Rinsed/ Irrigated with Irrigated with Saline Saline -Foul Odor after Cleansing No No -Bioengineered Tissue No No -Bleeding Controlled with Pressure Pressure -Treatment Response Procedure Procedure Tolerated Well Tolerated Well Pain Scale: 0-10 Numeric Is Patient Pain Free? Yes Yes Wound debrided: Right lower extremity Wound Grade/Stage: Stage III Type of Debridement: Excisional debridement Anesthesia Used: 4% Lidocaine Solution Depth: Down to and including healthy tissue, in the subcutaneous layer Percentage of wound debrided: 100 Instrument Used: 7mm curette Tissue Removed: Slough and devitalized tissue Severity: Fat Layer Exposed Amount of bleeding with debridement: Mild Bleeding Controlled with: Pressure Patient tolerated procedure well Assessment/Plan Active Problems Ulcer of right lower extremity with fat layer exposed (Chronic) Assessment: Recurrent right lower extremity ulcer due to chronic venous insufficiency and noncompliance with compression. Obesity. Plan: Improving ulcer however, still significant drainage. Continue Fibracol with Adaptic over top. Change twice daily due to increased drainage from the wound. Double layer Tubigrip for edema management. Prescription for Levofloxacin sent for culture growth. Advised to elevate lower extremities when seated and in bed. Exercise and weight loss also recommended. Increase protein intake and supplements. She was advised to call with any questions or concerns. Follow-up in 1 week. This note was generated with [employer] dictation software. It may contain incorrect words, spelling, and punctuation that were not noted in checking the note before signing.
[2018-07-26 10:22] VITALS: BP 158/83; PULSE 56; RESP 18; TEMP 36.6; BMI 55.0
--- NOTE | 2018-07-26 10:39 | PCM.WC.PN ---
(1) Ulcer of right lower extremity with fat layer exposed Status: Chronic Current Visit: Yes Code(s): L97.912 - Non-pressure chronic ulcer of unspecified part of right lower leg with fat layer exposed (2) Chronic venous stasis dermatitis of right lower extremity Status: Chronic Current Visit: No Code(s): I83.11 - Varicose veins of right lower extremity with inflammation (3) Venous insufficiency Status: Chronic Current Visit: No Code(s): I87.2 - Venous insufficiency (chronic) (peripheral) Type of Wound Chief Complaint: Right Non healing lower extremity ulcer. History of Wound: Ms. Antony is a 63yo with PMH of Venous Insufficiencys/p vein Stripping in 2005 who presents here due to non healing right lower extremity ulcer. She was last seen here about 8 months ago for right lower extremity ulcer which is healed out. She however failed to return for her compression stockings. She noted reopening of the ulcer in April. She has not been using compression since her last visit. Since reopening in April, she has inconsistently applied Santyl to the wound. She also states that she was recently seen by her primary care physician and was started on clindamycin for possible cellulitis. She feels well otherwise and denies chills, fever, nausea, vomiting or change in her bowel habit. Progress of Wound: Stable Ulcer. No new complaint at this time. - Physical Exam Vital Signs Temp Pulse Resp BP 98 F 56 L 18 158/83 H 07/26/18 10:22 07/26/18 10:22 07/26/18 10:22 07/26/18 10:22 General: Alert, Oriented x3, Cooperative, No apparent distress HEENT: Atraumatic, Normocephalic Oral: Moist Mucosa Neck: Supple Lungs: Normal air movement Abdomen: Soft, Non Tender, Obese Extremities: No cyanosis, Edema Skin: Ulcer/ Wound Wound Measurements and Assessment WC - Nurse 1 - General Ulcer Measurement Start: 07/12/18 10:40 Freq: Status: Active Protocol: Activity Type Activity Date Activity User E-Sign Co-Sign Detail Recorded Client Recorded Date Recorded By Document 07/26/18 10:22 AN [id number] 07/26/18 10:28 AN 07/26/18 10:22 Wound Center Nurse 1 [Ulcer Assessment] #2 R Med LE cluster -Combined with other wound No -Current Size (cm) - Length 5.3 -Current Size (cm) - Width 5.1 -Current Size (cm) - Depth 0.2 -Total Square Cm 27.03 -Tunneling No -Undermining/Tunneling No -Circular Undermining No -Classification - Thickness Full Thickness without Exposed Support Structure -Exudate Amt Medium (34-66%) -Exudate Type Serosanguineous -Wound Margin Thickened & Rolled Under -Granulation Amt Small (1-33%) -Granulation Quality [place] -Slough/Fibrin Yes -Necrosis Amt Large (67-100%) -Necrotic Tissue Type Adherent Slough -Structure Exposed N/A -Texture (Jessica-wound Skin Appearance) Assessed -Moisture (Jessica-wound Skin Appearance Assessed ) -Color (Jessica-wound Skin Appearance) Hemosiderin Staining -Temperature (Jessica-wound Skin No Abnormality Appearance) (Pt Warm) -Tenderness on Palpation (Jessica-wound No Skin Appearance) -Ulcer Cleansing Wound Cleanser -Foul Odor after Cleansing No -Anesthetic Used 5% Lidocaine Gel [Edema Assessment] -Lower Limb Edema Present Yes -Right Calf (cm) 52 -Right Ankle (cm) 27 WC - Nurse 2 - General Ulcer CM Notes Start: 07/12/18 10:40 Freq: Status: Active Protocol: Activity Type Activity Date Activity User E-Sign Co-Sign Detail Recorded Client Recorded Date Recorded By Document 07/26/18 10:34 MW [id number] 07/26/18 10:36 MW 07/26/18 10:34 Wound Center Nurse 2 [Procedure/Treatment] #2 R Med LE cluster -Time 10:35 -Correct Patient Yes -Correct Side, Site, Position Yes -Correct Procedure Yes -Procedure Performed Yes -Type of Procedure Debridement -Clinical Debridement Subcutaneous -Post Debridement Size (cm) - Length 4.2 -Post Debridement Size (cm) - Width 5.5 -Post Debridement Size (cm) - Depth 0.2 -Total Square Cm 23.10 -Wound/Ulcer Outcome Not Healed -Ulcer Cleansing Rinsed/ Irrigated with Saline -Foul Odor after Cleansing No -Bioengineered Tissue No -Bleeding Controlled with Pressure -Treatment Response Procedure Tolerated Well [See Physician Procedure note for Specifics] Pain Scale: 0-10 Numeric [Pain] -Is Patient Pain Free? Yes Musculoskeletal: No Muscle Wasting Neurological: Cranial nerves II-XII grossly intact Psych/Mental Status: Normal Affect Debridement Note Post-Debridement Measurements/Treatment WC - Nurse 2 - General Ulcer CM Notes Start: 07/12/18 10:40 Freq: Status: Active Protocol: Activity Type Activity Date Activity User E-Sign Co-Sign Detail Recorded Client Recorded Date Recorded By Document 07/12/18 11:10 MW [id number] 07/12/18 11:23 MW Document 07/19/18 10:47 MW [id number] 07/19/18 10:51 MW Document 07/26/18 10:34 MW [id number] 07/26/18 10:36 MW 07/12/18 07/19/18 07/26/18 11:10 10:47 10:34 Wound Center Nurse 2 #2 R Med LE cluster -Time 11:10 10:48 10:35 -Correct Patient Yes Yes Yes -Correct Side, Site, Position Yes Yes Yes -Correct Procedure Yes Yes Yes -Procedure Performed Yes Yes Yes -Type of Procedure Debridement Debridement Debridement -Clinical Debridement Subcutaneous Subcutaneous Subcutaneous -Post Debridement Size (cm) - Length 8.0 5.5 4.2 -Post Debridement Size (cm) - Width 7.0 6.0 5.5 -Post Debridement Size (cm) - Depth 0.3 0.3 0.2 -Total Square Cm 56.00 33.00 23.10 -Wound/Ulcer Outcome Not Healed Not Healed Not Healed -Ulcer Cleansing Rinsed/ Rinsed/ Rinsed/ Irrigated with Irrigated with Irrigated with Saline Saline Saline -Foul Odor after Cleansing No No No -Bioengineered Tissue No No No -Bleeding Controlled with Pressure Pressure Pressure -Treatment Response Procedure Procedure Procedure Tolerated Well Tolerated Well Tolerated Well Pain Scale: 0-10 Numeric Is Patient Pain Free? Yes Yes Yes Wound debrided: Right lower extremity Wound Grade/Stage: Stage III Type of Debridement: Excisional debridement Anesthesia Used: 4% Lidocaine Solution, 5% Lidocaine Gel Depth: Down to and including healthy tissue, in the subcutaneous layer Percentage of wound debrided: 100 Instrument Used: 7mm curette Tissue Removed: Slough and devitalized tissue Severity: Fat Layer Exposed Amount of bleeding with debridement: Mild Bleeding Controlled with: Pressure Patient tolerated procedure well Assessment/Plan Active Problems Ulcer of right lower extremity with fat layer exposed (Chronic) Assessment: Recurrent right lower extremity ulcer due to chronic venous insufficiency and noncompliance with compression. Obesity. Plan: Improving ulcer however, minimal drainage. Continue Fibracol with Adaptic over top. Change daily. Double layer Tubigrip for edema management. I believe patient will benefit from Purapply due to chronicity of wound, infection and slough burden. Continue and complete 10 days of levofloxacin. Advised to elevate lower extremities when seated and in bed. Exercise and weight loss also recommended. Increase protein intake and supplements. She was advised to call with any questions or concerns. Follow-up in 1 week. This note was generated with [employer] dictation software. It may contain incorrect words, spelling, and punctuation that were not noted in checking the note before signing.
--- NOTE | 2018-07-26 10:43 | PN.PCM_ITS ---
(1) Ulcer of right lower extremity with fat layer exposed Status: Chronic Current Visit: Yes Code(s): L97.912 - Non-pressure chronic ulcer of unspecified part of right lower leg with fat layer exposed (2) Chronic venous stasis dermatitis of right lower extremity Status: Chronic Current Visit: No Code(s): I83.11 - Varicose veins of right lower extremity with inflammation (3) Venous insufficiency Status: Chronic Current Visit: No Code(s): I87.2 - Venous insufficiency (chronic) (peripheral) Type of Wound Chief Complaint: Right Non healing lower extremity ulcer. History of Wound: Ms. Antony is a 63yo with PMH of Venous Insufficiencys/p vein Stripping in 2005 who presents here due to non healing right lower extremity ulcer. She was last seen here about 8 months ago for right lower extremity ulcer which is healed out. She however failed to return for her compression stockings. She noted reopening of the ulcer in April. She has not been using compression since her last visit. Since reopening in April, she has inconsistently applied Santyl to the wound. She also states that she was recently seen by her primary care physician and was started on clindamycin for possible cellulitis. She feels well otherwise and denies chills, fever, nausea, vomiting or change in her bowel habit. Progress of Wound: Stable Ulcer. No new complaint at this time. - Physical Exam Vital Signs Temp Pulse Resp BP 98 F 56 L 18 158/83 H 07/26/18 10:22 07/26/18 10:22 07/26/18 10:22 07/26/18 10:22 General: Alert, Oriented x3, Cooperative, No apparent distress HEENT: Atraumatic, Normocephalic Oral: Moist Mucosa Neck: Supple Lungs: Normal air movement Abdomen: Soft, Non Tender, Obese Extremities: No cyanosis, Edema Skin: Ulcer/ Wound Wound Measurements and Assessment WC - Nurse 1 - General Ulcer Measurement Start: 07/12/18 10:40 Freq: Status: Active Protocol: Activity Type Activity Date Activity User E-Sign Co-Sign Detail Recorded Client Recorded Date Recorded By Document 07/26/18 10:22 AN [id number] 07/26/18 10:28 AN 07/26/18 10:22 Wound Center Nurse 1 [Ulcer Assessment] #2 R Med LE cluster -Combined with other wound No -Current Size (cm) - Length 5.3 -Current Size (cm) - Width 5.1 -Current Size (cm) - Depth 0.2 -Total Square Cm 27.03 -Tunneling No -Undermining/Tunneling No -Circular Undermining No -Classification - Thickness Full Thickness without Exposed Support Structure -Exudate Amt Medium (34-66%) -Exudate Type Serosanguineous -Wound Margin Thickened & Rolled Under -Granulation Amt Small (1-33%) -Granulation Quality [place] -Slough/Fibrin Yes -Necrosis Amt Large (67-100%) -Necrotic Tissue Type Adherent Slough -Structure Exposed N/A -Texture (Jessica-wound Skin Appearance) Assessed -Moisture (Jessica-wound Skin Appearance Assessed ) -Color (Jessica-wound Skin Appearance) Hemosiderin Staining -Temperature (Jessica-wound Skin No Abnormality Appearance) (Pt Warm) -Tenderness on Palpation (Jessica-wound No Skin Appearance) -Ulcer Cleansing Wound Cleanser -Foul Odor after Cleansing No -Anesthetic Used 5% Lidocaine Gel [Edema Assessment] -Lower Limb Edema Present Yes -Right Calf (cm) 52 -Right Ankle (cm) 27 WC - Nurse 2 - General Ulcer CM Notes Start: 07/12/18 10:40 Freq: Status: Active Protocol: Activity Type Activity Date Activity User E-Sign Co-Sign Detail Recorded Client Recorded Date Recorded By Document 07/26/18 10:34 MW [id number] 07/26/18 10:36 MW 07/26/18 10:34 Wound Center Nurse 2 [Procedure/Treatment] #2 R Med LE cluster -Time 10:35 -Correct Patient Yes -Correct Side, Site, Position Yes -Correct Procedure Yes -Procedure Performed Yes -Type of Procedure Debridement -Clinical Debridement Subcutaneous -Post Debridement Size (cm) - Length 4.2 -Post Debridement Size (cm) - Width 5.5 -Post Debridement Size (cm) - Depth 0.2 -Total Square Cm 23.10 -Wound/Ulcer Outcome Not Healed -Ulcer Cleansing Rinsed/ Irrigated with Saline -Foul Odor after Cleansing No -Bioengineered Tissue No -Bleeding Controlled with Pressure -Treatment Response Procedure Tolerated Well [See Physician Procedure note for Specifics] Pain Scale: 0-10 Numeric [Pain] -Is Patient Pain Free? Yes Musculoskeletal: No Muscle Wasting Neurological: Cranial nerves II-XII grossly intact Psych/Mental Status: Normal Affect Debridement Note Post-Debridement Measurements/Treatment WC - Nurse 2 - General Ulcer CM Notes Start: 07/12/18 10:40 Freq: Status: Active Protocol: Activity Type Activity Date Activity User E-Sign Co-Sign Detail Recorded Client Recorded Date Recorded By Document 07/12/18 11:10 MW [id number] 07/12/18 11:23 MW Document 07/19/18 10:47 MW [id number] 07/19/18 10:51 MW Document 07/26/18 10:34 MW [id number] 07/26/18 10:36 MW 07/12/18 07/19/18 07/26/18 11:10 10:47 10:34 Wound Center Nurse 2 #2 R Med LE cluster -Time 11:10 10:48 10:35 -Correct Patient Yes Yes Yes -Correct Side, Site, Position Yes Yes Yes -Correct Procedure Yes Yes Yes -Procedure Performed Yes Yes Yes -Type of Procedure Debridement Debridement Debridement -Clinical Debridement Subcutaneous Subcutaneous Subcutaneous -Post Debridement Size (cm) - Length 8.0 5.5 4.2 -Post Debridement Size (cm) - Width 7.0 6.0 5.5 -Post Debridement Size (cm) - Depth 0.3 0.3 0.2 -Total Square Cm 56.00 33.00 23.10 -Wound/Ulcer Outcome Not Healed Not Healed Not Healed -Ulcer Cleansing Rinsed/ Rinsed/ Rinsed/ Irrigated with Irrigated with Irrigated with Saline Saline Saline -Foul Odor after Cleansing No No No -Bioengineered Tissue No No No -Bleeding Controlled with Pressure Pressure Pressure -Treatment Response Procedure Procedure Procedure Tolerated Well Tolerated Well Tolerated Well Pain Scale: 0-10 Numeric Is Patient Pain Free? Yes Yes Yes Wound debrided: Right lower extremity Wound Grade/Stage: Stage III Type of Debridement: Excisional debridement Anesthesia Used: 4% Lidocaine Solution, 5% Lidocaine Gel Depth: Down to and including healthy tissue, in the subcutaneous layer Percentage of wound debrided: 100 Instrument Used: 7mm curette Tissue Removed: Slough and devitalized tissue Severity: Fat Layer Exposed Amount of bleeding with debridement: Mild Bleeding Controlled with: Pressure Patient tolerated procedure well Assessment/Plan Active Problems Ulcer of right lower extremity with fat layer exposed (Chronic) Assessment: Recurrent right lower extremity ulcer due to chronic venous insufficiency and noncompliance with compression. Obesity. Plan: Improving ulcer however, minimal drainage. Continue Fibracol with Adaptic over top. Change daily. Double layer Tubigrip for edema management. I believe patient will benefit from Purapply due to chronicity of wound, infection and slough burden. Continue and complete 10 days of levofloxacin. Advised to elevate lower extremities when seated and in bed. Exercise and weight loss also recommended. Increase protein intake and supplements. She was advised to call with any questions or concerns. Follow-up in 1 week. This note was generated with [employer] dictation software. It may contain incorrect words, spelling, and punctuation that were not noted in checking the note before signing.
== END 2018-07-29 23:59 ==
LOC: WC 10:00
PROVIDERS: Family Provider Internal Medicine; PCP Internal Medicine; Visit Provider Internal Medicine
DX: I83.218 Varicose veins of right lower extremity with both ulcer of other part of lower extremity and inflammation (principal); I87.2 Venous insufficiency (chronic) (peripheral); L97.812 Non-pressure chronic ulcer of other part of right lower leg with fat layer exposed; Z68.43 Body mass index [BMI] 50.0-59.9, adult; Z71.3 Dietary counseling and surveillance; E66.01 Morbid (severe) obesity due to excess calories; Z79.899 Other long term (current) drug therapy; Z91.19 Patient's noncompliance with other medical treatment and regimen
CPT/HCPCS: 11042; 11045; 87070; 87075; 87077; 87186; 87205; 99213; G0463

== ENCOUNTER 2018-08-23 11:30 | Outpatient (RCR) | payer BC, SELFPAY ==
[2018-07-30 01:33] VITALS: BP 158/83; PULSE 56; RESP 18; TEMP 36.6
[2018-08-01 11:01] VITALS: BP 152/72; PULSE 73; RESP 18; TEMP 34.4
--- NOTE | 2018-08-01 11:32 | PCM.WC.PN ---
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 History of Wound: Ms. Antony is a 63yo with PMH of Venous Insufficiencys/p vein Stripping in 2005 who presents here due to non healing right lower extremity ulcer. She was last seen here about 8 months ago for right lower extremity ulcer which is healed out. She however failed to return for her compression stockings. She noted reopening of the ulcer in April. She has not been using compression since her last visit. Since reopening in April, she has inconsistently applied Santyl to the wound. She also states that she was recently seen by her primary care physician and was started on clindamycin for possible cellulitis. She feels well otherwise and denies chills, fever, nausea, vomiting or change in her bowel habit. Progress of Wound: Stable Ulcer. No new complaint at this time. - Physical Exam Vital Signs Temp Pulse Resp BP 93.9 F L 73 18 152/72 H 08/01/18 11:01 08/01/18 11:01 08/01/18 11:01 08/01/18 11:01 General: Alert, Oriented x3, Cooperative, No apparent distress HEENT: Atraumatic Oral: Moist Mucosa Neck: Supple Lungs: Normal air movement Abdomen: Non Tender, Obese Extremities: No cyanosis, Edema Skin: Ulcer/ Wound Wound Measurements and Assessment WC - Nurse 1 - General Ulcer Measurement Start: 08/01/18 11:01 Freq: Status: Active Protocol: Activity Type Activity Date Activity User E-Sign Co-Sign Detail Recorded Client Recorded Date Recorded By Document 08/01/18 11:01 DV [id number] 08/01/18 11:06 DV 08/01/18 11:01 Wound Center Nurse 1 [Ulcer Assessment] #2 R Med LE cluster -Combined with other wound No -Current Size (cm) - Length 4.5 -Current Size (cm) - Width 5.5 -Current Size (cm) - Depth 0.2 -Total Square Cm 24.75 -Photo Taken No -Epithelialization Small 1-33% -Tunneling No -Undermining/Tunneling No -Classification - Thickness Full Thickness without Exposed Support Structure -Exudate Amt Medium (34-66%) -Exudate Type Yellow/Green -Wound Margin Distinct, Outline Attached -Granulation Amt Small (1-33%) -Granulation Quality Pale [place] -Slough/Fibrin Yes -Necrosis Amt Large (67-100%) -Necrotic Tissue Type Adherent Slough -Structure Exposed None/Limited to Skin Breakdown -Texture (Jessica-wound Skin Appearance) Assessed Localized Edema Scarring -Moisture (Jessica-wound Skin Appearance Assessed ) Weeping -Color (Jessica-wound Skin Appearance) Assessed Erythema Hemosiderin Staining -Temperature (Jessica-wound Skin No Abnormality Appearance) (Pt Warm) -Tenderness on Palpation (Jessica-wound Yes Skin Appearance) -Ulcer Cleansing Rinsed/ Irrigated with Saline -Foul Odor after Cleansing No -Anesthetic Used 4% Lidocaine Solution [Edema Assessment] -Lower Limb Edema Present Yes -Right Calf (cm) 54.0 -Right Ankle (cm) 27.5 WC - Nurse 2 - General Ulcer CM Notes Start: 08/01/18 11:01 Freq: Status: Active Protocol: Activity Type Activity Date Activity User E-Sign Co-Sign Detail Recorded Client Recorded Date Recorded By Document 08/01/18 11:19 MW [id number] 08/01/18 11:24 MW 08/01/18 11:19 Wound Center Nurse 2 [Procedure/Treatment] #2 R Med LE cluster -Time 11:20 -Correct Patient Yes -Correct Side, Site, Position Yes -Correct Procedure Yes -Procedure Performed Yes -Type of Procedure Debridement -Clinical Debridement Subcutaneous -Post Debridement Size (cm) - Length 4.2 -Post Debridement Size (cm) - Width 5.5 -Post Debridement Size (cm) - Depth 0.3 -Total Square Cm 23.10 -Wound/Ulcer Outcome Not Healed -Ulcer Cleansing Rinsed/ Irrigated with Saline -Foul Odor after Cleansing No -Bioengineered Tissue No -Bleeding Controlled with Pressure -Treatment Response Procedure Tolerated Well [See Physician Procedure note for Specifics] Pain Scale: 0-10 Numeric [Pain] -Is Patient Pain Free? Yes Musculoskeletal: No Muscle Wasting Neurological: Cranial nerves II-XII grossly intact Psych/Mental Status: Normal Affect Debridement Note Post-Debridement Measurements/Treatment WC - Nurse 2 - General Ulcer CM Notes Start: 08/01/18 11:01 Freq: Status: Active Protocol: Activity Type Activity Date Activity User E-Sign Co-Sign Detail Recorded Client Recorded Date Recorded By Document 08/01/18 11:19 MW [id number] 08/01/18 11:24 MW 08/01/18 11:19 Wound Center Nurse 2 #2 R Med LE cluster -Time 11:20 -Correct Patient Yes -Correct Side, Site, Position Yes -Correct Procedure Yes -Procedure Performed Yes -Type of Procedure Debridement -Clinical Debridement Subcutaneous -Post Debridement Size (cm) - Length 4.2 -Post Debridement Size (cm) - Width 5.5 -Post Debridement Size (cm) - Depth 0.3 -Total Square Cm 23.10 -Wound/Ulcer Outcome Not Healed -Ulcer Cleansing Rinsed/ Irrigated with Saline -Foul Odor after Cleansing No -Bioengineered Tissue No -Bleeding Controlled with Pressure -Treatment Response Procedure Tolerated Well Pain Scale: 0-10 Numeric Is Patient Pain Free? Yes Wound debrided: Right lower extremity Wound Grade/Stage: Stage III Type of Debridement: Excisional debridement Anesthesia Used: 4% Lidocaine Solution Depth: Down to and including healthy tissue, in the subcutaneous layer Percentage of wound debrided: 100 Instrument Used: 5mm curette Tissue Removed: Slough and devitalized tissue Severity: Fat Layer Exposed Amount of bleeding with debridement: Mild Bleeding Controlled with: Pressure Patient tolerated procedure well Assessment/Plan Active Problems Ulcer of right lower extremity with fat layer exposed (Chronic) 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 Obesity. Plan: Stable ulcer. No new complaints at this time. Debridement done as documented above. Procedure was well-tolerated. Now approved for Apligraf however. PurApply was denied. Will hold of Apligraf for now due to significant slough burden. Switch to Santyl. Apply nickel thick daily with Adaptic over top. Advised to elevate lower extremities when seated and in bed. Exercise, weight loss, Increased protein intake and supplements also recommended. She was advised to call with any questions or concerns. Follow-up in 1 week. This note was generated with [employer] software. It may contain incorrect words, spelling, and punctuation that were not noted in checking the note before signing.
--- NOTE | 2018-08-01 11:36 | PN.PCM_ITS ---
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 History of Wound: Ms. Antony is a 63yo with PMH of Venous Insufficiencys/p vein Stripping in 2005 who presents here due to non healing right lower extremity ulcer. She was last seen here about 8 months ago for right lower extremity ulcer which is healed out. She however failed to return for her compression stockings. She noted reopening of the ulcer in April. She has not been using compression since her last visit. Since reopening in April, she has inconsistent ly applied Santyl to the wound. She also states that she was recently seen by her primary care physician and was started on clindamycin for possible cellulitis. She feels well otherwise and denies chills, fever, nausea, vomiting or change in her bowel habit. Progress of Wound: Stable Ulcer. No new complaint at this time. - Physical Exam Vital Signs Temp Pulse Resp BP 93.9 F L 73 18 152/72 H 08/01/18 11:01 08/01/18 11:01 08/01/18 11:01 08/01/18 11:01 General: Alert, Oriented x3, Cooperative, No apparent distress HEENT: Atraumatic Oral: Moist Mucosa Neck: Supple Lungs: Normal air movement Abdomen: Non Tender, Obese Extremities: No cyanosis, Edema Skin: Ulcer/ Wound Wound Measurements and Assessment WC - Nurse 1 - General Ulcer Measurement Start: 08/01/18 11:01 Freq: Status: Active Protocol: Activity Type Activity Date Activity User E-Sign Co-Sign Detail Recorded Client Recorded Date Recorded By Document 08/01/18 11:01 DV [id number] 08/01/18 11:06 DV 08/01/18 11:01 Wound Center Nurse 1 [Ulcer Assessment] #2 R Med LE cluster -Combined with other wound No -Current Size (cm) - Length 4.5 -Current Size (cm) - Width 5.5 -Current Size (cm) - Depth 0.2 -Total Square Cm 24.75 -Photo Taken No -Epithelialization Small 1-33% -Tunneling No -Undermining/Tunneling No -Classification - Thickness Full Thickness without Exposed Support Structure -Exudate Amt Medium (34-66%) -Exudate Type Yellow/Green -Wound Margin Distinct, Outline Attached -Granulation Amt Small (1-33%) -Granulation Quality Pale [place] -Slough/Fibrin Yes -Necrosis Amt Large (67-100%) -Necrotic Tissue Type Adherent Slough -Structure Exposed None/Limited to Skin Breakdown -Texture (Jessica-wound Skin Appearance) Assessed Localized Edema Scarring -Moisture (Jessica-wound Skin Appearance Assessed ) Weeping -Color (Jessica-wound Skin Appearance) Assessed Erythema Hemosiderin Staining -Temperature (Jessica-wound Skin No Abnormality Appearance) (Pt Warm) -Tenderness on Palpation (Jessica-wound Yes Skin Appearance) -Ulcer Cleansing Rinsed/ Irrigated with Saline -Foul Odor after Cleansing No -Anesthetic Used 4% Lidocaine Solution [Edema Assessment] -Lower Limb Edema Present Yes -Right Calf (cm) 54.0 -Right Ankle (cm) 27.5 WC - Nurse 2 - General Ulcer CM Notes Start: 08/01/18 11:01 Freq: Status: Active Protocol: Activity Type Activity Date Activity User E-Sign Co-Sign Detail Recorded Client Recorded Date Recorded By Document 08/01/18 11:19 MW [id number] 08/01/18 11:24 MW 08/01/18 11:19 Wound Center Nurse 2 [Procedure/Treatment] #2 R Med LE cluster -Time 11:20 -Correct Patient Yes -Correct Side, Site, Position Yes -Correct Procedure Yes -Procedure Performed Yes -Type of Procedure Debridement -Clinical Debridement Subcutaneous -Post Debridement Size (cm) - Length 4.2 -Post Debridement Size (cm) - Width 5.5 -Post Debridement Size (cm) - Depth 0.3 -Total Square Cm 23.10 -Wound/Ulcer Outcome Not Healed -Ulcer Cleansing Rinsed/ Irrigated with Saline -Foul Odor after Cleansing No -Bioengineered Tissue No -Bleeding Controlled with Pressure -Treatment Response Procedure Tolerated Well [See Physician Procedure note for Specifics] Pain Scale: 0-10 Numeric [Pain] -Is Patient Pain Free? Yes Musculoskeletal: No Muscle Wasting Neurological: Cranial nerves II-XII grossly intact Psych/Mental Status: Normal Affect Debridement Note Post-Debridement Measurements/Treatment WC - Nurse 2 - General Ulcer CM Notes Start: 08/01/18 11:01 Freq: Status: Active Protocol: Activity Type Activity Date Activity User E-Sign Co-Sign Detail Recorded Client Recorded Date Recorded By Document 08/01/18 11:19 MW [id number] 08/01/18 11:24 MW 08/01/18 11:19 Wound Center Nurse 2 #2 R Med LE cluster -Time 11:20 -Correct Patient Yes -Correct Side, Site, Position Yes -Correct Procedure Yes -Procedure Performed Yes -Type of Procedure Debridement -Clinical Debridement Subcutaneous -Post Debridement Size (cm) - Length 4.2 -Post Debridement Size (cm) - Width 5.5 -Post Debridement Size (cm) - Depth 0.3 -Total Square Cm 23.10 -Wound/Ulcer Outcome Not Healed -Ulcer Cleansing Rinsed/ Irrigated with Saline -Foul Odor after Cleansing No -Bioengineered Tissue No -Bleeding Controlled with Pressure -Treatment Response Procedure Tolerated Well Pain Scale: 0-10 Numeric Is Patient Pain Free? Yes Wound debrided: Right lower extremity Wound Grade/Stage: Stage III Type of Debridement: Excisional debridement Anesthesia Used: 4% Lidocaine Solution Depth: Down to and including healthy tissue, in the subcutaneous layer Percentage of wound debrided: 100 Instrument Used: 5mm curette Tissue Removed: Slough and devitalized tissue Severity: Fat Layer Exposed Amount of bleeding with debridement: Mild Bleeding Controlled with: Pressure Patient tolerated procedure well Assessment/Plan Active Problems Ulcer of right lower extremity with fat layer exposed (Chronic) 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 Obesity. Plan: Stable ulcer. No new complaints at this time. Debridement done as documented above. Procedure was well-tolerated. Now approved for Apligraf however. PurApply was denied. Will hold of Apligraf for now due to significant slough burden. Switch to Santyl. Apply nickel thick daily with Adaptic over top. Advised to elevate lower extremities when seated and in bed. Exercise, weight loss, Increased protein intake and supplements also recommended. She was advised to call with any questions or concerns. Follow-up in 1 week. This note was generated with [employer] software. It may contain incorrect words, spelling, and punctuation that were not noted in checking the note before signing.
[2018-08-09 11:19] VITALS: BP 150/72; PULSE 67; RESP 18; TEMP 37
--- NOTE | 2018-08-09 12:18 | PCM.WC.PN ---
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 History of Wound: Ms. Antony is a 63yo with PMH of Venous Insufficiencys/p vein Stripping in 2005 who presents here due to non healing right lower extremity ulcer. She was last seen here about 8 months ago for right lower extremity ulcer which is healed out. She however failed to return for her compression stockings. She noted reopening of the ulcer in April. She has not been using compression since her last visit. Since reopening in April, she has inconsistently applied Santyl to the wound. She also states that she was recently seen by her primary care physician and was started on clindamycin for possible cellulitis. She feels well otherwise and denies chills, fever, nausea, vomiting or change in her bowel habit. Progress of Wound: Stable Ulcer. No new complaint at this time. - Physical Exam Vital Signs Temp Pulse Resp BP 98.6 F 67 18 150/72 H 08/09/18 11:19 08/09/18 11:19 08/09/18 11:19 08/09/18 11:19 General: Alert, Oriented x3, Cooperative, No apparent distress HEENT: Atraumatic Oral: Moist Mucosa Neck: Supple Lungs: Normal air movement Abdomen: Non Tender, Obese Skin: Ulcer/ Wound Wound Measurements and Assessment WC - Nurse 1 - General Ulcer Measurement Start: 08/01/18 11:01 Freq: Status: Active Protocol: Activity Type Activity Date Activity User E-Sign Co-Sign Detail Recorded Client Recorded Date Recorded By Document 08/09/18 11:19 RB [id number] 08/09/18 11:25 RB 08/09/18 11:19 Wound Center Nurse 1 [Ulcer Assessment] #2 R Med LE cluster -Combined with other wound No -Current Size (cm) - Length 5.3 -Current Size (cm) - Width 5.5 -Current Size (cm) - Depth 0.2 -Total Square Cm 29.15 -Photo Taken No -Tunneling No -Undermining/Tunneling No -Circular Undermining No -Exudate Amt Small (1-33%) -Exudate Type Serosanguineous -Wound Margin Thickened & Rolled Under -Granulation Amt Medium (34-66%) -Granulation Quality [place] -Slough/Fibrin Yes -Necrosis Amt Medium (34-66%) -Necrotic Tissue Type Adherent Slough -Structure Exposed N/A -Texture (Jessica-wound Skin Appearance) Assessed -Moisture (Jessica-wound Skin Appearance Assessed ) -Color (Jessica-wound Skin Appearance) Hemosiderin Staining -Temperature (Jessica-wound Skin No Abnormality Appearance) (Pt Warm) -Tenderness on Palpation (Jessica-wound No Skin Appearance) -Ulcer Cleansing Rinsed/ Irrigated with Saline -Foul Odor after Cleansing Yes -Anesthetic Used 5% Lidocaine Gel [Edema Assessment] -Lower Limb Edema Present Yes -Right Calf (cm) 51.5 -Right Ankle (cm) 27 - Nurse 2 - General Ulcer CM Notes Start: 08/01/18 11:01 Freq: Status: Active Protocol: Activity Type Activity Date Activity User E-Sign Co-Sign Detail Recorded Client Recorded Date Recorded By Document 08/09/18 12:06 MW [id number] 08/09/18 12:07 MW 08/09/18 12:06 Wound Center Nurse 2 [Procedure/Treatment] #2 R Med LE cluster -Time 12:06 -Correct Patient Yes -Correct Side, Site, Position Yes -Correct Procedure Yes -Procedure Performed Yes -Type of Procedure Debridement -Clinical Debridement Subcutaneous -Post Debridement Size (cm) - Length 4.3 -Post Debridement Size (cm) - Width 5.6 -Post Debridement Size (cm) - Depth 0.3 -Total Square Cm 24.08 -Wound/Ulcer Outcome Not Healed -Ulcer Cleansing Rinsed/ Irrigated with Saline -Foul Odor after Cleansing No -Bioengineered Tissue No -Bleeding Controlled with Pressure -Treatment Response Procedure Tolerated Well [See Physician Procedure note for Specifics] Pain Scale: 0-10 Numeric [Pain] -Is Patient Pain Free? Yes Musculoskeletal: No Muscle Wasting Neurological: Cranial nerves II-XII grossly intact Psych/Mental Status: Normal Affect Debridement Note Post-Debridement Measurements/Treatment - Nurse 2 - General Ulcer CM Notes Start: 08/01/18 11:01 Freq: Status: Active Protocol: Activity Type Activity Date Activity User E-Sign Co-Sign Detail Recorded Client Recorded Date Recorded By Document 08/01/18 11:19 MW [id number] 08/01/18 11:24 MW Document 08/09/18 12:06 MW [id number] 08/09/18 12:07 MW 08/01/18 08/09/18 11:19 12:06 Wound Center Nurse 2 #2 R Med LE cluster -Time 11:20 12:06 -Correct Patient Yes Yes -Correct Side, Site, Position Yes Yes -Correct Procedure Yes Yes -Procedure Performed Yes Yes -Type of Procedure Debridement Debridement -Clinical Debridement Subcutaneous Subcutaneous -Post Debridement Size (cm) - Length 4.2 4.3 -Post Debridement Size (cm) - Width 5.5 5.6 -Post Debridement Size (cm) - Depth 0.3 0.3 -Total Square Cm 23.10 24.08 -Wound/Ulcer Outcome Not Healed Not Healed -Ulcer Cleansing Rinsed/ Rinsed/ Irrigated with Irrigated with Saline Saline -Foul Odor after Cleansing No No -Bioengineered Tissue No No -Bleeding Controlled with Pressure Pressure -Treatment Response Procedure Procedure Tolerated Well Tolerated Well Pain Scale: 0-10 Numeric Is Patient Pain Free? Yes Yes Wound debrided: Right lower extremity cluster Wound Grade/Stage: Stage II Type of Debridement: Excisional debridement Anesthesia Used: 4% Lidocaine Solution Depth: Down to and including healthy tissue, in the subcutaneous layer Percentage of wound debrided: 100 Instrument Used: 7mm curette Tissue Removed: Slough and devitalized tissue Severity: Fat Layer Exposed Amount of bleeding with debridement: Mild Bleeding Controlled with: Pressure Patient tolerated procedure well Assessment/Plan Active Problems Ulcer of right lower extremity with fat layer exposed (Chronic) 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 Obesity. Plan: Better granulation tissue however still moderate slough. Debridement done as documented above, procedure was well-tolerated. Continue Santyl with nickel thick application daily. Adaptic over top. Advised to elevate lower extremities when seated and in bed. Continue to Tubigrip for edema management. Exercise, weight loss, Increased protein intake and supplements also recommended. She was advised to call with any questions or concerns. Follow-up in 2 weeks. This note was generated with [employer] dictation software. It may contain incorrect words, spelling, and punctuation that were not noted in checking the note before signing.
--- NOTE | 2018-08-09 12:21 | PN.PCM_ITS ---
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 History of Wound: Ms. Antony is a 63yo with PMH of Venous Insufficiencys/p vein Stripping in 2005 who presents here due to non healing right lower extremity ulcer. She was last seen here about 8 months ago for right lower extremity ulcer which is healed out. She however failed to return for her compression stockings. She noted reopening of the ulcer in April. She has not been using compression since her last visit. Since reopening in April, she has inconsistent ly applied Santyl to the wound. She also states that she was recently seen by her primary care physician and was started on clindamycin for possible cellulitis. She feels well otherwise and denies chills, fever, nausea, vomiting or change in her bowel habit. Progress of Wound: Stable Ulcer. No new complaint at this time. - Physical Exam Vital Signs Temp Pulse Resp BP 98.6 F 67 18 150/72 H 08/09/18 11:19 08/09/18 11:19 08/09/18 11:19 08/09/18 11:19 General: Alert, Oriented x3, Cooperative, No apparent distress HEENT: Atraumatic Oral: Moist Mucosa Neck: Supple Lungs: Normal air movement Abdomen: Non Tender, Obese Skin: Ulcer/ Wound Wound Measurements and Assessment WC - Nurse 1 - General Ulcer Measurement Start: 08/01/18 11:01 Freq: Status: Active Protocol: Activity Type Activity Date Activity User E-Sign Co-Sign Detail Recorded Client Recorded Date Recorded By Document 08/09/18 11:19 RB [id number] 08/09/18 11:25 RB 08/09/18 11:19 Wound Center Nurse 1 [Ulcer Assessment] #2 R Med LE cluster -Combined with other wound No -Current Size (cm) - Length 5.3 -Current Size (cm) - Width 5.5 -Current Size (cm) - Depth 0.2 -Total Square Cm 29.15 -Photo Taken No -Tunneling No -Undermining/Tunneling No -Circular Undermining No -Exudate Amt Small (1-33%) -Exudate Type Serosanguineous -Wound Margin Thickened & Rolled Under -Granulation Amt Medium (34-66%) -Granulation Quality [place] -Slough/Fibrin Yes -Necrosis Amt Medium (34-66%) -Necrotic Tissue Type Adherent Slough -Structure Exposed N/A -Texture (Jessica-wound Skin Appearance) Assessed -Moisture (Jessica-wound Skin Appearance Assessed ) -Color (Jessica-wound Skin Appearance) Hemosiderin Staining -Temperature (Jessica-wound Skin No Abnormality Appearance) (Pt Warm) -Tenderness on Palpation (Jessica-wound No Skin Appearance) -Ulcer Cleansing Rinsed/ Irrigated with Saline -Foul Odor after Cleansing Yes -Anesthetic Used 5% Lidocaine Gel [Edema Assessment] -Lower Limb Edema Present Yes -Right Calf (cm) 51.5 -Right Ankle (cm) 27 - Nurse 2 - General Ulcer CM Notes Start: 08/01/18 11:01 Freq: Status: Active Protocol: Activity Type Activity Date Activity User E-Sign Co-Sign Detail Recorded Client Recorded Date Recorded By Document 08/09/18 12:06 MW [id number] 08/09/18 12:07 MW 08/09/18 12:06 Wound Center Nurse 2 [Procedure/Treatment] #2 R Med LE cluster -Time 12:06 -Correct Patient Yes -Correct Side, Site, Position Yes -Correct Procedure Yes -Procedure Performed Yes -Type of Procedure Debridement -Clinical Debridement Subcutaneous -Post Debridement Size (cm) - Length 4.3 -Post Debridement Size (cm) - Width 5.6 -Post Debridement Size (cm) - Depth 0.3 -Total Square Cm 24.08 -Wound/Ulcer Outcome Not Healed -Ulcer Cleansing Rinsed/ Irrigated with Saline -Foul Odor after Cleansing No -Bioengineered Tissue No -Bleeding Controlled with Pressure -Treatment Response Procedure Tolerated Well [See Physician Procedure note for Specifics] Pain Scale: 0-10 Numeric [Pain] -Is Patient Pain Free? Yes Musculoskeletal: No Muscle Wasting Neurological: Cranial nerves II-XII grossly intact Psych/Mental Status: Normal Affect Debridement Note Post-Debridement Measurements/Treatment - Nurse 2 - General Ulcer CM Notes Start: 08/01/18 11:01 Freq: Status: Active Protocol: Activity Type Activity Date Activity User E-Sign Co-Sign Detail Recorded Client Recorded Date Recorded By Document 08/01/18 11:19 MW [id number] 08/01/18 11:24 MW Document 08/09/18 12:06 MW [id number] 08/09/18 12:07 MW 08/01/18 08/09/18 11:19 12:06 Wound Center Nurse 2 #2 R Med LE cluster -Time 11:20 12:06 -Correct Patient Yes Yes -Correct Side, Site, Position Yes Yes -Correct Procedure Yes Yes -Procedure Performed Yes Yes -Type of Procedure Debridement Debridement -Clinical Debridement Subcutaneous Subcutaneous -Post Debridement Size (cm) - Length 4.2 4.3 -Post Debridement Size (cm) - Width 5.5 5.6 -Post Debridement Size (cm) - Depth 0.3 0.3 -Total Square Cm 23.10 24.08 -Wound/Ulcer Outcome Not Healed Not Healed -Ulcer Cleansing Rinsed/ Rinsed/ Irrigated with Irrigated with Saline Saline -Foul Odor after Cleansing No No -Bioengineered Tissue No No -Bleeding Controlled with Pressure Pressure -Treatment Response Procedure Procedure Tolerated Well Tolerated Well Pain Scale: 0-10 Numeric Is Patient Pain Free? Yes Yes Wound debrided: Right lower extremity cluster Wound Grade/Stage: Stage II Type of Debridement: Excisional debridement Anesthesia Used: 4% Lidocaine Solution Depth: Down to and including healthy tissue, in the subcutaneous layer Percentage of wound debrided: 100 Instrument Used: 7mm curette Tissue Removed: Slough and devitalized tissue Severity: Fat Layer Exposed Amount of bleeding with debridement: Mild Bleeding Controlled with: Pressure Patient tolerated procedure well Assessment/Plan Active Problems Ulcer of right lower extremity with fat layer exposed (Chronic) 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 Obesity. Plan: Better granulation tissue however still moderate slough. Debridement done as documented above, procedure was well-tolerated. Continue Santyl with nickel thick application daily. Adaptic over top. Advised to elevate lower extremities when seated and in bed. Continue to Tubigrip for edema management. Exercise, weight loss, Increased protein intake and supplements also recommended. She was advised to call with any questions or concerns. Follow-up in 2 weeks. This note was generated with [employer] dictation software. It may contain incorrect words, spelling, and punctuation that were not noted in checking the note before signing.
[2018-08-23 11:26] VITALS: BP 161/78; PULSE 63; RESP 16; TEMP 36.6
--- NOTE | 2018-08-23 12:18 | PN.PCM_ITS ---
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 History of Wound: Ms. Antony is a 63yo with PMH of Venous Insufficiencys/p vein Stripping in 2005 who presents here due to non healing right lower extremity ulcer. She was last seen here about 8 months ago for right lower extremity ulcer which is healed out. She however failed to return for her compression stockings. She noted reopening of the ulcer in April. She has not been using compression since her last visit. Since reopening in April, she has inconsistent ly applied Santyl to the wound. She also states that she was recently seen by her primary care physician and was started on clindamycin for possible cellulitis. She feels well otherwise and denies chills, fever, nausea, vomiting or change in her bowel habit. Progress of Wound: Stable Ulcer. No new complaint at this time. - Physical Exam Vital Signs Temp Pulse Resp BP 97.8 F 63 16 161/78 H 08/23/18 11:26 08/23/18 11:26 08/23/18 11:26 08/23/18 11:26 General: Alert, Oriented x3, Cooperative, No apparent distress HEENT: Atraumatic Oral: Moist Mucosa Neck: Supple Lungs: Normal air movement Abdomen: Non Tender, Obese Extremities: No cyanosis, Edema Skin: Ulcer/ Wound Wound Measurements and Assessment WC - Nurse 1 - General Ulcer Measurement Start: 08/01/18 11:01 Freq: Status: Active Protocol: Activity Type Activity Date Activity User E-Sign Co-Sign Detail Recorded Client Recorded Date Recorded By Document 08/23/18 11:26 [id number] 08/23/18 11:32 CS 08/23/18 11:26 Wound Center Nurse 1 [Ulcer Assessment] #2 R Med LE cluster -Combined with other wound No -Current Size (cm) - Length 5.2 -Current Size (cm) - Width 4.2 -Current Size (cm) - Depth 0.1 -Total Square Cm 21.84 -Photo Taken No -Epithelialization None Present -Tunneling No -Undermining/Tunneling No -Circular Undermining No -Classification - Thickness Full Thickness without Exposed Support Structure -Exudate Amt Medium (34-66%) -Exudate Type Yellow/Green -Wound Margin Flat & Intact -Granulation Amt Medium (34-66%) -Granulation Quality Pale [place] -Slough/Fibrin Yes -Necrosis Amt Medium (34-66%) -Necrotic Tissue Type Adherent Slough -Structure Exposed Fat Layer Exposed -Texture (Jessica-wound Skin Appearance) Scarring -Moisture (Jessica-wound Skin Appearance Assessed ) -Color (Jessica-wound Skin Appearance) Hemosiderin Staining -Temperature (Jessica-wound Skin No Abnormality Appearance) (Pt Warm) -Tenderness on Palpation (Jessica-wound No Skin Appearance) -Ulcer Cleansing Rinsed/ Irrigated with Saline -Foul Odor after Cleansing No -Anesthetic Used 4% Lidocaine Solution [Edema Assessment] -Right Calf (cm) 44 -Right Ankle (cm) 27 WC - Nurse 2 - General Ulcer CM Notes Start: 08/01/18 11:01 Freq: Status: Active Protocol: Activity Type Activity Date Activity User E-Sign Co-Sign Detail Recorded Client Recorded Date Recorded By Document 08/23/18 11:57 MW [id number] 08/23/18 12:00 MW 08/23/18 11:57 Wound Center Nurse 2 [Procedure/Treatment] #2 R Med LE cluster -Time 11:57 -Correct Patient Yes -Correct Side, Site, Position Yes -Correct Procedure Yes -Procedure Performed Yes -Type of Procedure Debridement -Clinical Debridement Subcutaneous -Post Debridement Size (cm) - Length 4.0 -Post Debridement Size (cm) - Width 5.5 -Post Debridement Size (cm) - Depth 0.2 -Total Square Cm 22.00 -Wound/Ulcer Outcome Not Healed -Ulcer Cleansing Rinsed/ Irrigated with Saline -Foul Odor after Cleansing No -Bioengineered Tissue No -Bleeding Controlled with Pressure -Treatment Response Procedure Tolerated Well [See Physician Procedure note for Specifics] Pain Scale: 0-10 Numeric [Pain] -Is Patient Pain Free? Yes Musculoskeletal: No Muscle Wasting Neurological: Cranial nerves II-XII grossly intact Psych/Mental Status: Normal Affect Debridement Note Post-Debridement Measurements/Treatment WC - Nurse 2 - General Ulcer CM Notes Start: 08/01/18 11:01 Freq: Status: Active Protocol: Activity Type Activity Date Activity User E-Sign Co-Sign Detail Recorded Client Recorded Date Recorded By Document 08/01/18 11:19 MW [id number] 08/01/18 11:24 MW Document 08/09/18 12:06 MW [id number] 08/09/18 12:07 MW Document 08/23/18 11:57 MW [id number] 08/23/18 12:00 MW 08/01/18 08/09/18 08/23/18 11:19 12:06 11:57 Wound Center Nurse 2 #2 R Med LE cluster -Time 11:20 12:06 11:57 -Correct Patient Yes Yes Yes -Correct Side, Site, Position Yes Yes Yes -Correct Procedure Yes Yes Yes -Procedure Performed Yes Yes Yes -Type of Procedure Debridement Debridement Debridement -Clinical Debridement Subcutaneous Subcutaneous Subcutaneous -Post Debridement Size (cm) - Length 4.2 4.3 4.0 -Post Debridement Size (cm) - Width 5.5 5.6 5.5 -Post Debridement Size (cm) - Depth 0.3 0.3 0.2 -Total Square Cm 23.10 24.08 22.00 -Wound/Ulcer Outcome Not Healed Not Healed Not Healed -Ulcer Cleansing Rinsed/ Rinsed/ Rinsed/ Irrigated with Irrigated with Irrigated with Saline Saline Saline -Foul Odor after Cleansing No No No -Bioengineered Tissue No No No -Bleeding Controlled with Pressure Pressure Pressure -Treatment Response Procedure Procedure Procedure Tolerated Well Tolerated Well Tolerated Well Pain Scale: 0-10 Numeric Is Patient Pain Free? Yes Yes Yes Wound debrided: Right lower extremity Wound Grade/Stage: Stage II Type of Debridement: Excisional debridement Anesthesia Used: 4% Lidocaine Solution Depth: Down to and including healthy tissue, in the subcutaneous layer Percentage of wound debrided: 100 Instrument Used: 7mm curette Tissue Removed: Slough and devitalized tissue Severity: Fat Layer Exposed Amount of bleeding with debridement: Mild Bleeding Controlled with: Pressure Patient tolerated procedure well Assessment/Plan Active Problems Ulcer of right lower extremity with fat layer exposed (Chronic) 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 Obesity. Plan: Improving ulcer. Debridement done as documented above, procedure was well-tolerated. Continue Santyl with nickel thick application daily. Adaptic over top. Advised to elevate lower extremities when seated and in bed. Continue to Tubigrip for edema management. Exercise, weight loss, Increased protein intake and supplements also recommended. She was advised to call with any questions or concerns. Follow-up in 1 week. This note was generated with [employer] dictation software. It may contain incorrect words, spelling, and punctuation that were not noted in checking the note before signing.
== END 2018-08-29 23:59 ==
LOC: WC 11:30
PROVIDERS: Family Provider Internal Medicine; PCP Internal Medicine; Visit Provider Internal Medicine
DX: I83.018 Varicose veins of right lower extremity with ulcer other part of lower leg (principal); L97.812 Non-pressure chronic ulcer of other part of right lower leg with fat layer exposed; I87.2 Venous insufficiency (chronic) (peripheral); Z91.19 Patient's noncompliance with other medical treatment and regimen
CPT/HCPCS: 11042; 11045

== ENCOUNTER 2018-09-26 12:30 | Outpatient (RCR) | payer BC, SELFPAY ==
[2018-08-30 01:29] VITALS: BP 161/78; PULSE 63; RESP 16; TEMP 36.6
[2018-08-30 12:32] VITALS: BP 153/71; PULSE 62; RESP 18; TEMP 36.2
--- NOTE | 2018-08-30 13:03 | PCM.WC.PN ---
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 History of Wound: Ms. Antony is a 63yo with PMH of Venous Insufficiencys/p vein Stripping in 2005 who presents here due to non healing right lower extremity ulcer. She was last seen here about 8 months ago for right lower extremity ulcer which is healed out. She however failed to return for her compression stockings. She noted reopening of the ulcer in April. She has not been using compression since her last visit. Since reopening in April, she has inconsistently applied Santyl to the wound. She also states that she was recently seen by her primary care physician and was started on clindamycin for possible cellulitis. She feels well otherwise and denies chills, fever, nausea, vomiting or change in her bowel habit. Progress of Wound: Stable Ulcer. No new complaint at this time. - Physical Exam Vital Signs Temp Pulse Resp BP 97.1 F L 62 18 153/71 H 08/30/18 12:32 08/30/18 12:32 08/30/18 12:32 08/30/18 12:32 General: Alert, Oriented x3, Cooperative, No apparent distress HEENT: Atraumatic Oral: Moist Mucosa Neck: Supple Lungs: Normal air movement Abdomen: Non Tender, Obese Extremities: No cyanosis, Edema Skin: Ulcer/ Wound Wound Measurements and Assessment WC - Nurse 1 - General Ulcer Measurement Start: 08/30/18 12:32 Freq: Status: Active Protocol: Activity Type Activity Date Activity User E-Sign Co-Sign Detail Recorded Client Recorded Date Recorded By Document 08/30/18 12:32 [id number] 08/30/18 12:34 CS 08/30/18 12:32 Wound Center Nurse 1 [Ulcer Assessment] #2 R Med LE cluster -Combined with other wound No -Current Size (cm) - Length 4.9 -Current Size (cm) - Width 2.4 -Current Size (cm) - Depth 0.2 -Total Square Cm 11.76 -Photo Taken No -Epithelialization Small 1-33% -Tunneling No -Undermining/Tunneling No -Circular Undermining No -Exudate Amt Medium (34-66%) -Exudate Type Serosanguineous -Wound Margin Distinct, Outline Attached -Granulation Amt Medium (34-66%) -Granulation Quality Pale [place] -Slough/Fibrin Yes -Necrosis Amt None Present (0 %) -Necrotic Tissue Type Adherent Slough -Structure Exposed None/Limited to Skin Breakdown -Texture (Jessica-wound Skin Appearance) Assessed Scarring -Moisture (Jessica-wound Skin Appearance No Abnormality ) Assessed -Color (Jessica-wound Skin Appearance) No Abnormality Assessed -Temperature (Jessica-wound Skin No Abnormality Appearance) (Pt Warm) -Tenderness on Palpation (Jessica-wound No Skin Appearance) -Ulcer Cleansing Rinsed/ Irrigated with Saline -Foul Odor after Cleansing No -Anesthetic Used 4% Lidocaine Solution [Edema Assessment] -Lower Limb Edema Present No -Right Calf (cm) 46 -Right Ankle (cm) 26.5 WC - Nurse 2 - General Ulcer CM Notes Start: 08/30/18 12:32 Freq: Status: Active Protocol: Activity Type Activity Date Activity User E-Sign Co-Sign Detail Recorded Client Recorded Date Recorded By Document 08/30/18 12:45 MW [id number] 08/30/18 12:48 MW 08/30/18 12:45 Wound Center Nurse 2 [Procedure/Treatment] #2 R Med LE cluster -Time 12:45 -Correct Patient Yes -Correct Side, Site, Position Yes -Correct Procedure Yes -Procedure Performed Yes -Type of Procedure Debridement -Clinical Debridement Subcutaneous -Post Debridement Size (cm) - Length 3.4 -Post Debridement Size (cm) - Width 5.0 -Post Debridement Size (cm) - Depth 0.2 -Total Square Cm 17.00 -Wound/Ulcer Outcome Not Healed -Ulcer Cleansing Rinsed/ Irrigated with Saline -Foul Odor after Cleansing No -Bioengineered Tissue No -Bleeding Controlled with Pressure -Treatment Response Procedure Tolerated Well [See Physician Procedure note for Specifics] Pain Scale: 0-10 Numeric [Pain] -Is Patient Pain Free? Yes Musculoskeletal: No Muscle Wasting Neurological: Cranial nerves II-XII grossly intact Psych/Mental Status: Normal Affect Debridement Note Post-Debridement Measurements/Treatment WC - Nurse 2 - General Ulcer CM Notes Start: 08/30/18 12:32 Freq: Status: Active Protocol: Activity Type Activity Date Activity User E-Sign Co-Sign Detail Recorded Client Recorded Date Recorded By Document 08/30/18 12:45 MW [id number] 08/30/18 12:48 MW 08/30/18 12:45 Wound Center Nurse 2 #2 R Med LE cluster -Time 12:45 -Correct Patient Yes -Correct Side, Site, Position Yes -Correct Procedure Yes -Procedure Performed Yes -Type of Procedure Debridement -Clinical Debridement Subcutaneous -Post Debridement Size (cm) - Length 3.4 -Post Debridement Size (cm) - Width 5.0 -Post Debridement Size (cm) - Depth 0.2 -Total Square Cm 17.00 -Wound/Ulcer Outcome Not Healed -Ulcer Cleansing Rinsed/ Irrigated with Saline -Foul Odor after Cleansing No -Bioengineered Tissue No -Bleeding Controlled with Pressure -Treatment Response Procedure Tolerated Well Pain Scale: 0-10 Numeric Is Patient Pain Free? Yes Wound debrided: Right lower extremity Wound Grade/Stage: Stage II Type of Debridement: Excisional debridement Anesthesia Used: 4% Lidocaine Solution Depth: Down to and including healthy tissue, in the subcutaneous layer Percentage of wound debrided: 100 Instrument Used: 7mm curette Tissue Removed: Slough and devitalized tissue. 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 Obesity. Plan: Stable improvement. Debridement done as documented above, procedure was well-tolerated. Switch to Promogran with Adaptic over top. Change daily. Advised to elevate lower extremities when seated and in bed. Continue Tubigrip for edema management. Exercise, weight loss, Increased protein intake and supplements also recommended. She was advised to call with any questions or concerns. Follow-up in 1 week. This note was generated with [employer] software. It may contain incorrect words, spelling, and punctuation that were not noted in checking the note before signing.
--- NOTE | 2018-08-30 13:07 | PN.PCM_ITS ---
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 History of Wound: Ms. Antony is a 63yo with PMH of Venous Insufficiencys/p vein Stripping in 2005 who presents here due to non healing right lower extremity ulcer. She was last seen here about 8 months ago for right lower extremity ulcer which is healed out. She however failed to return for her compression stockings. She noted reopening of the ulcer in April. She has not been using compression since her last visit. Since reopening in April, she has inconsisten tly applied Santyl to the wound. She also states that she was recently seen by her primary care physician and was started on clindamycin for possible cellulitis. She feels well otherwise and denies chills, fever, nausea, vomiting or change in her bowel habit. Progress of Wound: Stable Ulcer. No new complaint at this time. - Physical Exam Vital Signs Temp Pulse Resp BP 97.1 F L 62 18 153/71 H 08/30/18 12:32 08/30/18 12:32 08/30/18 12:32 08/30/18 12:32 General: Alert, Oriented x3, Cooperative, No apparent distress HEENT: Atraumatic Oral: Moist Mucosa Neck: Supple Lungs: Normal air movement Abdomen: Non Tender, Obese Extremities: No cyanosis, Edema Skin: Ulcer/ Wound Wound Measurements and Assessment WC - Nurse 1 - General Ulcer Measurement Start: 08/30/18 12:32 Freq: Status: Active Protocol: Activity Type Activity Date Activity User E-Sign Co-Sign Detail Recorded Client Recorded Date Recorded By Document 08/30/18 12:32 [id number] 08/30/18 12:34 CS 08/30/18 12:32 Wound Center Nurse 1 [Ulcer Assessment] #2 R Med LE cluster -Combined with other wound No -Current Size (cm) - Length 4.9 -Current Size (cm) - Width 2.4 -Current Size (cm) - Depth 0.2 -Total Square Cm 11.76 -Photo Taken No -Epithelialization Small 1-33% -Tunneling No -Undermining/Tunneling No -Circular Undermining No -Exudate Amt Medium (34-66%) -Exudate Type Serosanguineous -Wound Margin Distinct, Outline Attached -Granulation Amt Medium (34-66%) -Granulation Quality [place] -Slough/Fibrin Yes -Necrosis Amt None Present (0 %) -Necrotic Tissue Type Adherent Slough -Structure Exposed None/Limited to Skin Breakdown -Texture (Jessica-wound Skin Appearance) Assessed Scarring -Moisture (Jessica-wound Skin Appearance No Abnormality ) Assessed -Color (Jessica-wound Skin Appearance) No Abnormality Assessed -Temperature (Jessica-wound Skin No Abnormality Appearance) (Pt Warm) -Tenderness on Palpation (Jessica-wound No Skin Appearance) -Ulcer Cleansing Rinsed/ Irrigated with Saline -Foul Odor after Cleansing No -Anesthetic Used 4% Lidocaine Solution [Edema Assessment] -Lower Limb Edema Present No -Right Calf (cm) 46 -Right Ankle (cm) 26.5 WC - Nurse 2 - General Ulcer CM Notes Start: 08/30/18 12:32 Freq: Status: Active Protocol: Activity Type Activity Date Activity User E-Sign Co-Sign Detail Recorded Client Recorded Date Recorded By Document 08/30/18 12:45 MW [id number] 08/30/18 12:48 MW 08/30/18 12:45 Wound Center Nurse 2 [Procedure/Treatment] #2 R Med LE cluster -Time 12:45 -Correct Patient Yes -Correct Side, Site, Position Yes -Correct Procedure Yes -Procedure Performed Yes -Type of Procedure Debridement -Clinical Debridement Subcutaneous -Post Debridement Size (cm) - Length 3.4 -Post Debridement Size (cm) - Width 5.0 -Post Debridement Size (cm) - Depth 0.2 -Total Square Cm 17.00 -Wound/Ulcer Outcome Not Healed -Ulcer Cleansing Rinsed/ Irrigated with Saline -Foul Odor after Cleansing No -Bioengineered Tissue No -Bleeding Controlled with Pressure -Treatment Response Procedure Tolerated Well [See Physician Procedure note for Specifics] Pain Scale: 0-10 Numeric [Pain] -Is Patient Pain Free? Yes Musculoskeletal: No Muscle Wasting Neurological: Cranial nerves II-XII grossly intact Psych/Mental Status: Normal Affect Debridement Note Post-Debridement Measurements/Treatment WC - Nurse 2 - General Ulcer CM Notes Start: 08/30/18 12:32 Freq: Status: Active Protocol: Activity Type Activity Date Activity User E-Sign Co-Sign Detail Recorded Client Recorded Date Recorded By Document 08/30/18 12:45 MW [id number] 08/30/18 12:48 MW 08/30/18 12:45 Wound Center Nurse 2 #2 R Med LE cluster -Time 12:45 -Correct Patient Yes -Correct Side, Site, Position Yes -Correct Procedure Yes -Procedure Performed Yes -Type of Procedure Debridement -Clinical Debridement Subcutaneous -Post Debridement Size (cm) - Length 3.4 -Post Debridement Size (cm) - Width 5.0 -Post Debridement Size (cm) - Depth 0.2 -Total Square Cm 17.00 -Wound/Ulcer Outcome Not Healed -Ulcer Cleansing Rinsed/ Irrigated with Saline -Foul Odor after Cleansing No -Bioengineered Tissue No -Bleeding Controlled with Pressure -Treatment Response Procedure Tolerated Well Pain Scale: 0-10 Numeric Is Patient Pain Free? Yes Wound debrided: Right lower extremity Wound Grade/Stage: Stage II Type of Debridement: Excisional debridement Anesthesia Used: 4% Lidocaine Solution Depth: Down to and including healthy tissue, in the subcutaneous layer Percentage of wound debrided: 100 Instrument Used: 7mm curette Tissue Removed: Slough and devitalized tissue. 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 Obesity. Plan: Stable improvement. Debridement done as documented above, procedure was well-tolerated. Switch to Promogran with Adaptic over top. Change daily. Advised to elevate lower extremities when seated and in bed. Continue Tubigrip for edema management. Exercise, weight loss, Increased protein intake and supplements also recommended. She was advised to call with any questions or concerns. Follow-up in 1 week. This note was generated with [employer] software. It may contain incorrect words, spelling, and punctuation that were not noted in checking the note before signing.
[2018-09-06 12:03] VITALS: BP 174/77; PULSE 58; RESP 18; TEMP 36.3
--- NOTE | 2018-09-06 16:34 | PCM.WC.PN ---
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 History of Wound: Ms. Antony is a 63yo with PMH of Venous Insufficiencys/p vein Stripping in 2005 who presents here due to non healing right lower extremity ulcer. She was last seen here about 8 months ago for right lower extremity ulcer which is healed out. She however failed to return for her compression stockings. She noted reopening of the ulcer in April. She has not been using compression since her last visit. Since reopening in April, she has inconsistently applied Santyl to the wound. She also states that she was recently seen by her primary care physician and was started on clindamycin for possible cellulitis. She feels well otherwise and denies chills, fever, nausea, vomiting or change in her bowel habit. Progress of Wound: Improving. - Physical Exam Vital Signs Temp Pulse Resp BP 97.3 F L 58 L 18 174/77 H 09/06/18 12:03 09/06/18 12:03 09/06/18 12:03 09/06/18 12:03 General: Alert, Oriented x3, Cooperative, No apparent distress HEENT: Atraumatic Oral: Moist Mucosa Neck: Supple Lungs: Normal air movement Abdomen: Non Tender, Obese Extremities: No cyanosis, Edema Skin: Ulcer/ Wound Wound Measurements and Assessment WC - Nurse 1 - General Ulcer Measurement Start: 08/30/18 12:32 Freq: Status: Active Protocol: Activity Type Activity Date Activity User E-Sign Co-Sign Detail Recorded Client Recorded Date Recorded By Document 09/06/18 12:03 [id number] 09/06/18 12:08 09/06/18 12:03 Wound Center Nurse 1 [Ulcer Assessment] #2 R Med LE cluster -Combined with other wound No -Current Size (cm) - Length 3.5 -Current Size (cm) - Width 2.6 -Current Size (cm) - Depth 0.2 -Total Square Cm 9.10 -Photo Taken No -Epithelialization Medium 34-66% -Tunneling No -Undermining/Tunneling No -Circular Undermining No -Exudate Amt Medium (34-66%) -Exudate Type Serosanguineous -Wound Margin Distinct, Outline Attached -Granulation Amt Medium (34-66%) -Granulation Quality [place] Red -Slough/Fibrin Yes -Necrosis Amt None Present (0 %) -Necrotic Tissue Type Adherent Slough -Structure Exposed None/Limited to Skin Breakdown -Texture (Jessica-wound Skin Appearance) No Abnormality Assessed -Moisture (Jessica-wound Skin Appearance No Abnormality ) Assessed -Color (Jessica-wound Skin Appearance) No Abnormality Assessed -Temperature (Jessica-wound Skin No Abnormality Appearance) (Pt Warm) -Tenderness on Palpation (Jessica-wound No Skin Appearance) -Ulcer Cleansing Rinsed/ Irrigated with Saline -Anesthetic Used 4% Lidocaine Solution Cetacaine [Edema Assessment] -Lower Limb Edema Present Yes -Right Calf (cm) 47.5 -Right Ankle (cm) 26 -Left Calf (cm) 50.5 -Left Ankle (cm) 26 WC - Nurse 2 - General Ulcer CM Notes Start: 08/30/18 12:32 Freq: Status: Active Protocol: Activity Type Activity Date Activity User E-Sign Co-Sign Detail Recorded Client Recorded Date Recorded By Document 09/06/18 12:27 MW [id number] 09/06/18 12:28 MW 09/06/18 12:27 Wound Center Nurse 2 [Procedure/Treatment] #2 R Med LE cluster -Time 12:27 -Correct Patient Yes -Correct Side, Site, Position Yes -Correct Procedure Yes -Procedure Performed Yes -Type of Procedure Debridement -Clinical Debridement Subcutaneous -Post Debridement Size (cm) - Length 3.3 -Post Debridement Size (cm) - Width 3.0 -Post Debridement Size (cm) - Depth 0.2 -Total Square Cm 9.90 -Wound/Ulcer Outcome Not Healed -Ulcer Cleansing Rinsed/ Irrigated with Saline -Foul Odor after Cleansing No -Bioengineered Tissue No -Bleeding Controlled with Pressure -Treatment Response Procedure Tolerated Well [See Physician Procedure note for Specifics] Pain Scale: 0-10 Numeric [Pain] -Is Patient Pain Free? Yes Musculoskeletal: No Muscle Wasting Neurological: Cranial nerves II-XII grossly intact Psych/Mental Status: Normal Affect Debridement Note Post-Debridement Measurements/Treatment WC - Nurse 2 - General Ulcer CM Notes Start: 08/30/18 12:32 Freq: Status: Active Protocol: Activity Type Activity Date Activity User E-Sign Co-Sign Detail Recorded Client Recorded Date Recorded By Document 08/30/18 12:45 MW [id number] 08/30/18 12:48 MW Document 09/06/18 12:27 MW [id number] 09/06/18 12:28 MW 08/30/18 09/06/18 12:45 12:27 Wound Center Nurse 2 #2 R Med LE cluster -Time 12:45 12:27 -Correct Patient Yes Yes -Correct Side, Site, Position Yes Yes -Correct Procedure Yes Yes -Procedure Performed Yes Yes -Type of Procedure Debridement Debridement -Clinical Debridement Subcutaneous Subcutaneous -Post Debridement Size (cm) - Length 3.4 3.3 -Post Debridement Size (cm) - Width 5.0 3.0 -Post Debridement Size (cm) - Depth 0.2 0.2 -Total Square Cm 17.00 9.90 -Wound/Ulcer Outcome Not Healed Not Healed -Ulcer Cleansing Rinsed/ Rinsed/ Irrigated with Irrigated with Saline Saline -Foul Odor after Cleansing No No -Bioengineered Tissue No No -Bleeding Controlled with Pressure Pressure -Treatment Response Procedure Procedure Tolerated Well Tolerated Well Pain Scale: 0-10 Numeric Is Patient Pain Free? Yes Yes Wound debrided: Right lower extremity Wound Grade/Stage: Stage II Type of Debridement: Excisional debridement Anesthesia Used: 4% Lidocaine Solution Depth: Down to and including healthy tissue, in the subcutaneous layer Percentage of wound debrided: 100 Instrument Used: 7mm curette Tissue Removed: Slough and devitalized tissue Severity: Fat Layer Exposed Amount of bleeding with debridement: Mild Bleeding Controlled with: Pressure Patient tolerated procedure well Assessment/Plan Active Problems Ulcer of right lower extremity with fat layer exposed (Chronic) Venous insufficiency (Chronic) 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 Obesity. Plan: Continues to show good improvement. Debridement done as documented above, procedure was well-tolerated. Continue Promogran with Adaptic over top. Change daily. Advised to elevate lower extremities when seated and in bed. Continue Tubigrip for edema management. Exercise, weight loss, Increased protein intake and supplements also recommended. She was advised to call with any questions or concerns. Follow-up in 1 week. This note was generated with [employer] dictation software. It may contain incorrect words, spelling, and punctuation that were not noted in checking the note before signing.
[2018-09-12 11:20] VITALS: BP 147/90; PULSE 70; RESP 18; TEMP 36.2
--- NOTE | 2018-09-12 12:25 | PCM.WC.PN ---
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 History of Wound: Ms. Antony is a 63yo with PMH of Venous Insufficiencys/p vein Stripping in 2005 who presents here due to non healing right lower extremity ulcer. She was last seen here about 8 months ago for right lower extremity ulcer which is healed out. She however failed to return for her compression stockings. She noted reopening of the ulcer in April. She has not been using compression since her last visit. Since reopening in April, she has inconsistently applied Santyl to the wound. She also states that she was recently seen by her primary care physician and was started on clindamycin for possible cellulitis. She feels well otherwise and denies chills, fever, nausea, vomiting or change in her bowel habit. Progress of Wound: Improving. - Physical Exam Vital Signs Temp Pulse Resp BP 97.1 F L 70 18 147/90 H 09/12/18 11:20 09/12/18 11:20 09/12/18 11:20 09/12/18 11:20 General: Alert, Oriented x3, Cooperative, No apparent distress HEENT: Atraumatic Oral: Moist Mucosa Neck: Supple Lungs: Normal air movement Abdomen: Soft, Obese Extremities: No cyanosis, Edema Skin: Ulcer/ Wound Wound Measurements and Assessment WC - Nurse 1 - General Ulcer Measurement Start: 08/30/18 12:32 Freq: Status: Active Protocol: Activity Type Activity Date Activity User E-Sign Co-Sign Detail Recorded Client Recorded Date Recorded By Document 09/12/18 11:20 [facility] [id number] 09/12/18 11:29 [facility] 09/12/18 11:20 Wound Center Nurse 1 [Ulcer Assessment] #2 R Med LE cluster -Combined with other wound No -Current Size (cm) - Length 3.8 -Current Size (cm) - Width 2.3 -Current Size (cm) - Depth 0.2 -Total Square Cm 8.74 -Date of Last Picture (Recall this 09/12/18 field) -Photo Taken Yes -Epithelialization Small 1-33% -Tunneling No -Undermining/Tunneling No -Circular Undermining No -Exudate Amt Small (1-33%) -Exudate Type Serosanguineous -Wound Margin Distinct, Outline Attached -Granulation Amt Small (1-33%) -Granulation Quality Red -Slough/Fibrin Yes -Necrosis Amt Large (67-100%) -Necrotic Tissue Type Adherent Slough -Texture (Jessica-wound Skin Appearance) Scarring -Moisture (Jessica-wound Skin Appearance Dry/Scaly ) -Color (Jessica-wound Skin Appearance) Hemosiderin Staining -Temperature (Jessica-wound Skin No Abnormality Appearance) (Pt Warm) -Tenderness on Palpation (Jessica-wound No Skin Appearance) -Ulcer Cleansing Rinsed/ Irrigated with Saline -Foul Odor after Cleansing No -Anesthetic Used 5% Lidocaine Gel [Edema Assessment] -Lower Limb Edema Present Yes -Right Calf (cm) 44.2 -Right Ankle (cm) 26.5 -Left Calf (cm) 46.6 -Left Ankle (cm) 29.5 WC - Nurse 2 - General Ulcer CM Notes Start: 08/30/18 12:32 Freq: Status: Active Protocol: Activity Type Activity Date Activity User E-Sign Co-Sign Detail Recorded Client Recorded Date Recorded By Document 09/12/18 12:05 [id number] 09/12/18 12:07 09/12/18 12:05 Wound Center Nurse 2 [Procedure/Treatment] #2 R Med LE cluster -Time 12:05 -Correct Patient Yes -Correct Side, Site, Position Yes -Correct Procedure Yes -Procedure Performed Yes -Type of Procedure Debridement -Clinical Debridement Subcutaneous -Post Debridement Size (cm) - Length 3.5 -Post Debridement Size (cm) - Width 1.9 -Post Debridement Size (cm) - Depth 0.2 -Total Square Cm 6.65 -Wound/Ulcer Outcome Not Healed -Ulcer Cleansing Rinsed/ Irrigated with Saline -Foul Odor after Cleansing No -Bioengineered Tissue No -Bleeding Controlled with NA -Treatment Response Procedure Tolerated Well [See Physician Procedure note for Specifics] Pain Scale: 0-10 Numeric [Pain] -Is Patient Pain Free? Yes Musculoskeletal: No Muscle Wasting Neurological: Cranial nerves II-XII grossly intact Psych/Mental Status: Normal Affect Debridement Note Post-Debridement Measurements/Treatment WC - Nurse 2 - General Ulcer CM Notes Start: 08/30/18 12:32 Freq: Status: Active Protocol: Activity Type Activity Date Activity User E-Sign Co-Sign Detail Recorded Client Recorded Date Recorded By Document 08/30/18 12:45 MW [id number] 08/30/18 12:48 MW Document 09/06/18 12:27 MW [id number] 09/06/18 12:28 MW Document 09/12/18 12:05 CS [id number] 09/12/18 12:07 CS 08/30/18 09/06/18 09/12/18 12:45 12:27 12:05 Wound Center Nurse 2 #2 R Lam [place] cluster -Time 12:45 12:27 12:05 -Correct Patient Yes Yes Yes -Correct Side, Site, Position Yes Yes Yes -Correct Procedure Yes Yes Yes -Procedure Performed Yes Yes Yes -Type of Procedure Debridement Debridement Debridement -Clinical Debridement Subcutaneous Subcutaneous Subcutaneous -Post Debridement Size (cm) - Length 3.4 3.3 3.5 -Post Debridement Size (cm) - Width 5.0 3.0 1.9 -Post Debridement Size (cm) - Depth 0.2 0.2 0.2 -Total Square Cm 17.00 9.90 6.65 -Wound/Ulcer Outcome Not Healed Not Healed Not Healed -Ulcer Cleansing Rinsed/ Rinsed/ Rinsed/ Irrigated with Irrigated with Irrigated with Saline Saline Saline -Foul Odor after Cleansing No No No -Bioengineered Tissue No No No -Bleeding Controlled with Pressure Pressure NA -Treatment Response Procedure Procedure Procedure Tolerated Well Tolerated Well Tolerated Well Pain Scale: 0-10 Numeric Is Patient Pain Free? Yes Yes Yes Wound debrided: Right lower extremity Wound Grade/Stage: Stage II Type of Debridement: Excisional debridement Anesthesia Used: 4% Lidocaine Solution Depth: Down to and including healthy tissue, in the subcutaneous layer Percentage of wound debrided: 100 Instrument Used: 3mm curette Tissue Removed: Slough and devitalized tissue Severity: Fat Layer Exposed Amount of bleeding with debridement: Mild Bleeding Controlled with: Pressure Patient tolerated procedure well Assessment/Plan Active Problems Ulcer of right lower extremity with fat layer exposed (Chronic) Venous insufficiency (Chronic) 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 Obesity. Plan: Wound is improving. Still significant edema. Debridement done as documented above, procedure was well-tolerated. Continue Promogran with Adaptic over top. Leave on for a week. 3M wrap for edema management. Advised to elevate lower extremities when seated and in bed. Exercise, weight loss, Increased protein intake and supplements also recommended. She was advised to call with any questions or concerns. Follow-up in 1 week. This note was generated with [employer] dictation software. It may contain incorrect words, spelling, and punctuation that were not noted in checking the note before signing.
--- NOTE | 2018-09-12 12:28 | PN.PCM_ITS ---
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 History of Wound: Ms. Antony is a 63yo with PMH of Venous Insufficiencys/p vein Stripping in 2005 who presents here due to non healing right lower extremity ulcer. She was last seen here about 8 months ago for right lower extremity ulcer which is healed out. She however failed to return for her compression stockings. She noted reopening of the ulcer in April. She has not been using compression since her last visit. Since reopening in April, she has inconsisten tly applied Santyl to the wound. She also states that she was recently seen by her primary care physician and was started on clindamycin for possible cellulitis. She feels well otherwise and denies chills, fever, nausea, vomiting or change in her bowel habit. Progress of Wound: Improving. - Physical Exam Vital Signs Temp Pulse Resp BP 97.1 F L 70 18 147/90 H 09/12/18 11:20 09/12/18 11:20 09/12/18 11:20 09/12/18 11:20 General: Alert, Oriented x3, Cooperative, No apparent distress HEENT: Atraumatic Oral: Moist Mucosa Neck: Supple Lungs: Normal air movement Abdomen: Soft, Obese Extremities: No cyanosis, Edema Skin: Ulcer/ Wound Wound Measurements and Assessment WC - Nurse 1 - General Ulcer Measurement Start: 08/30/18 12:32 Freq: Status: Active Protocol: Activity Type Activity Date Activity User E-Sign Co-Sign Detail Recorded Client Recorded Date Recorded By Document 09/12/18 11:20 [facility] [id number] 09/12/18 11:29 [facility] 09/12/18 11:20 Wound Center Nurse 1 [Ulcer Assessment] #2 R Med LE cluster -Combined with other wound No -Current Size (cm) - Length 3.8 -Current Size (cm) - Width 2.3 -Current Size (cm) - Depth 0.2 -Total Square Cm 8.74 -Date of Last Picture (Recall this 09/12/18 field) -Photo Taken Yes -Epithelialization Small 1-33% -Tunneling No -Undermining/Tunneling No -Circular Undermining No -Exudate Amt Small (1-33%) -Exudate Type Serosanguineous -Wound Margin Distinct, Outline Attached -Granulation Amt Small (1-33%) -Granulation Quality Red -Slough/Fibrin Yes -Necrosis Amt Large (67-100%) -Necrotic Tissue Type Adherent Slough -Texture (Jessica-wound Skin Appearance) Scarring -Moisture (Jessica-wound Skin Appearance Dry/Scaly ) -Color (Jessica-wound Skin Appearance) Hemosiderin Staining -Temperature (Jessica-wound Skin No Abnormality Appearance) (Pt Warm) -Tenderness on Palpation (Jessica-wound No Skin Appearance) -Ulcer Cleansing Rinsed/ Irrigated with Saline -Foul Odor after Cleansing No -Anesthetic Used 5% Lidocaine Gel [Edema Assessment] -Lower Limb Edema Present Yes -Right Calf (cm) 44.2 -Right Ankle (cm) 26.5 -Left Calf (cm) 46.6 -Left Ankle (cm) 29.5 WC - Nurse 2 - General Ulcer CM Notes Start: 08/30/18 12:32 Freq: Status: Active Protocol: Activity Type Activity Date Activity User E-Sign Co-Sign Detail Recorded Client Recorded Date Recorded By Document 09/12/18 12:05 [id number] 09/12/18 12:07 09/12/18 12:05 Wound Center Nurse 2 [Procedure/Treatment] #2 R Med LE cluster -Time 12:05 -Correct Patient Yes -Correct Side, Site, Position Yes -Correct Procedure Yes -Procedure Performed Yes -Type of Procedure Debridement -Clinical Debridement Subcutaneous -Post Debridement Size (cm) - Length 3.5 -Post Debridement Size (cm) - Width 1.9 -Post Debridement Size (cm) - Depth 0.2 -Total Square Cm 6.65 -Wound/Ulcer Outcome Not Healed -Ulcer Cleansing Rinsed/ Irrigated with Saline -Foul Odor after Cleansing No -Bioengineered Tissue No -Bleeding Controlled with NA -Treatment Response Procedure Tolerated Well [See Physician Procedure note for Specifics] Pain Scale: 0-10 Numeric [Pain] -Is Patient Pain Free? Yes Musculoskeletal: No Muscle Wasting Neurological: Cranial nerves II-XII grossly intact Psych/Mental Status: Normal Affect Debridement Note Post-Debridement Measurements/Treatment WC - Nurse 2 - General Ulcer CM Notes Start: 08/30/18 12:32 Freq: Status: Active Protocol: Activity Type Activity Date Activity User E-Sign Co-Sign Detail Recorded Client Recorded Date Recorded By Document 08/30/18 12:45 MW [id number] 08/30/18 12:48 MW Document 09/06/18 12:27 MW [id number] 09/06/18 12:28 MW Document 09/12/18 12:05 CS [id number] 09/12/18 12:07 CS 08/30/18 09/06/18 09/12/18 12:45 12:27 12:05 Wound Center Nurse 2 #2 R Lam LE cluster -Time 12:45 12:27 12:05 -Correct Patient Yes Yes Yes -Correct Side, Site, Position Yes Yes Yes -Correct Procedure Yes Yes Yes -Procedure Performed Yes Yes Yes -Type of Procedure Debridement Debridement Debridement -Clinical Debridement Subcutaneous Subcutaneous Subcutaneous -Post Debridement Size (cm) - Length 3.4 3.3 3.5 -Post Debridement Size (cm) - Width 5.0 3.0 1.9 -Post Debridement Size (cm) - Depth 0.2 0.2 0.2 -Total Square Cm 17.00 9.90 6.65 -Wound/Ulcer Outcome Not Healed Not Healed Not Healed -Ulcer Cleansing Rinsed/ Rinsed/ Rinsed/ Irrigated with Irrigated with Irrigated with Saline Saline Saline -Foul Odor after Cleansing No No No -Bioengineered Tissue No No No -Bleeding Controlled with Pressure Pressure NA -Treatment Response Procedure Procedure Procedure Tolerated Well Tolerated Well Tolerated Well Pain Scale: 0-10 Numeric Is Patient Pain Free? Yes Yes Yes Wound debrided: Right lower extremity Wound Grade/Stage: Stage II Type of Debridement: Excisional debridement Anesthesia Used: 4% Lidocaine Solution Depth: Down to and including healthy tissue, in the subcutaneous layer Percentage of wound debrided: 100 Instrument Used: 3mm curette Tissue Removed: Slough and devitalized tissue Severity: Fat Layer Exposed Amount of bleeding with debridement: Mild Bleeding Controlled with: Pressure Patient tolerated procedure well Assessment/Plan Active Problems Ulcer of right lower extremity with fat layer exposed (Chronic) Venous insufficiency (Chronic) 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 Obesity. Plan: Wound is improving. Still significant edema. Debridement done as documented above, procedure was well-tolerated. Continue Promogran with Adaptic over top. Leave on for a week. 3M wrap for edema management. Advised to elevate lower extremities when seated and in bed. Exercise, weight loss, Increased protein intake and supplements also recommended. She was advised to call with any questions or concerns. Follow-up in 1 week. This note was generated with [employer] dictation software. It may contain incorrect words, spelling, and punctuation that were not noted in checking the note before signing.
[2018-09-26 12:27] VITALS: BP 152/79; PULSE 77; RESP 18; TEMP 35.5
--- NOTE | 2018-09-26 13:12 | PCM.WC.PN ---
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 History of Wound: Ms. Antony is a 63yo with PMH of Venous Insufficiencys/p vein Stripping in 2005 who presents here due to non healing right lower extremity ulcer. She was last seen here about 8 months ago for right lower extremity ulcer which is healed out. She however failed to return for her compression stockings. She noted reopening of the ulcer in April. She has not been using compression since her last visit. Since reopening in April, she has inconsistently applied Santyl to the wound. She also states that she was recently seen by her primary care physician and was started on clindamycin for possible cellulitis. She feels well otherwise and denies chills, fever, nausea, vomiting or change in her bowel habit. Progress of Wound: Improving. No new complaints at this time. Did not have on the wrap for the whole week. - Physical Exam Vital Signs Temp Pulse Resp BP 96 F L 77 18 152/79 H 09/26/18 12:27 09/26/18 12:27 09/26/18 12:27 09/26/18 12:27 General: Alert, Oriented x3, Cooperative, No apparent distress HEENT: Atraumatic, Normocephalic Oral: Moist Mucosa Neck: Supple Lungs: Normal air movement Abdomen: Non Tender, Obese Extremities: No cyanosis, Edema Skin: Ulcer/ Wound Wound Measurements and Assessment WC - Nurse 1 - General Ulcer Measurement Start: 08/30/18 12:32 Freq: Status: Active Protocol: Activity Type Activity Date Activity User E-Sign Co-Sign Detail Recorded Client Recorded Date Recorded By Document 09/26/18 12:27 RB [id number] 09/26/18 12:36 RB 09/26/18 12:27 Wound Center Nurse 1 [Ulcer Assessment] #2 R Med LE cluster -Combined with other wound No -Current Size (cm) - Length 3.7 -Current Size (cm) - Width 2.4 -Current Size (cm) - Depth 0.2 -Total Square Cm 8.88 -Photo Taken No -Tunneling No -Undermining/Tunneling No -Circular Undermining No -Exudate Amt Small (1-33%) -Exudate Type Serosanguineous -Wound Margin Distinct, Outline Attached -Granulation Amt Large (67-100%) -Granulation Quality [place] -Slough/Fibrin Yes -Necrosis Amt Small (1-33%) -Necrotic Tissue Type Adherent Slough -Structure Exposed N/A -Texture (Jessica-wound Skin Appearance) Assessed -Moisture (Jessica-wound Skin Appearance Assessed ) -Color (Jessica-wound Skin Appearance) Assessed -Temperature (Jessica-wound Skin No Abnormality Appearance) (Pt Warm) -Tenderness on Palpation (Jessica-wound No Skin Appearance) -Ulcer Cleansing Rinsed/ Irrigated with Saline -Foul Odor after Cleansing No -Anesthetic Used 4% Lidocaine Solution [Edema Assessment] -Lower Limb Edema Present Yes -Right Calf (cm) 47 -Right Ankle (cm) 26.5 WC - Nurse 2 - General Ulcer CM Notes Start: 08/30/18 12:32 Freq: Status: Active Protocol: Activity Type Activity Date Activity User E-Sign Co-Sign Detail Recorded Client Recorded Date Recorded By Document 09/26/18 12:58 MW [id number] 09/26/18 13:01 MW 09/26/18 12:58 Wound Center Nurse 2 [Procedure/Treatment] #2 R Med LE cluster -Time 12:58 -Correct Patient Yes -Correct Side, Site, Position Yes -Correct Procedure Yes -Procedure Performed Yes -Type of Procedure Debridement -Clinical Debridement Subcutaneous -Post Debridement Size (cm) - Length 1.8 -Post Debridement Size (cm) - Width 2.1 -Post Debridement Size (cm) - Depth 0.1 -Total Square Cm 3.78 -Wound/Ulcer Outcome Not Healed -Ulcer Cleansing Rinsed/ Irrigated with Saline -Foul Odor after Cleansing No -Bioengineered Tissue No -Bleeding Controlled with Pressure -Treatment Response Procedure Tolerated Well [See Physician Procedure note for Specifics] Pain Scale: 0-10 Numeric [Pain] -Is Patient Pain Free? Yes Musculoskeletal: No Muscle Wasting Neurological: Cranial nerves II-XII grossly intact Psych/Mental Status: Normal Affect Debridement Note Post-Debridement Measurements/Treatment WC - Nurse 2 - General Ulcer CM Notes Start: 08/30/18 12:32 Freq: Status: Active Protocol: Activity Type Activity Date Activity User E-Sign Co-Sign Detail Recorded Client Recorded Date Recorded By Document 08/30/18 12:45 MW [id number] 08/30/18 12:48 MW Document 09/06/18 12:27 MW [id number] 09/06/18 12:28 MW Document 09/12/18 12:05 CS [id number] 09/12/18 12:07 CS Document 09/26/18 12:58 MW [id number] 09/26/18 13:01 MW 08/30/18 09/06/18 09/12/18 12:45 12:27 12:05 Wound Center Nurse 2 #2 R [employer] cluster -Time 12:45 12:27 12:05 -Correct Patient Yes Yes Yes -Correct Side, Site, Position Yes Yes Yes -Correct Procedure Yes Yes Yes -Procedure Performed Yes Yes Yes -Type of Procedure Debridement Debridement Debridement -Clinical Debridement Subcutaneous Subcutaneous Subcutaneous -Post Debridement Size (cm) - Length 3.4 3.3 3.5 -Post Debridement Size (cm) - Width 5.0 3.0 1.9 -Post Debridement Size (cm) - Depth 0.2 0.2 0.2 -Total Square Cm 17.00 9.90 6.65 -Wound/Ulcer Outcome Not Healed Not Healed Not Healed -Ulcer Cleansing Rinsed/ Rinsed/ Rinsed/ Irrigated with Irrigated with Irrigated with Saline Saline Saline -Foul Odor after Cleansing No No No -Bioengineered Tissue No No No -Bleeding Controlled with Pressure Pressure NA -Treatment Response Procedure Procedure Procedure Tolerated Well Tolerated Well Tolerated Well Pain Scale: 0-10 Numeric Is Patient Pain Free? Yes Yes Yes 09/26/18 12:58 Wound Center Nurse 2 #2 [employer] cluster -Time 12:58 -Correct Patient Yes -Correct Side, Site, Position Yes -Correct Procedure Yes -Procedure Performed Yes -Type of Procedure Debridement -Clinical Debridement Subcutaneous -Post Debridement Size (cm) - Length 1.8 -Post Debridement Size (cm) - Width 2.1 -Post Debridement Size (cm) - Depth 0.1 -Total Square Cm 3.78 -Wound/Ulcer Outcome Not Healed -Ulcer Cleansing Rinsed/ Irrigated with Saline -Foul Odor after Cleansing No -Bioengineered Tissue No -Bleeding Controlled with Pressure -Treatment Response Procedure Tolerated Well Pain Scale: 0-10 Numeric Is Patient Pain Free? Yes Wound debrided: Right lower extremity Wound Grade/Stage: Stage II Anesthesia Used: 4% Lidocaine Solution Depth: Down to and including healthy tissue, in the subcutaneous layer Percentage of wound debrided: 100 Instrument Used: 3mm curette Tissue Removed: Slough and devitalized tissue Severity: Fat Layer Exposed Amount of bleeding with debridement: Mild Bleeding Controlled with: Pressure Patient tolerated procedure well Assessment/Plan Active Problems Ulcer of right lower extremity with fat layer exposed (Chronic) Venous insufficiency (Chronic) 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 Obesity. Plan: Wound is improving. No new concerns at this time. Debridement done as documented above, procedure was well-tolerated. Continue Promogran with Adaptic over top. Leave on for a week. 3M wrap for edema management. Advised to elevate lower extremities when seated and in bed. Exercise, weight loss, Increased protein intake and supplements also recommended. She was advised to call with any questions or concerns. Follow-up in 1 week for a nurse visit and in 2 weeks with me. This note was generated with [employer] dictation software. It may contain incorrect words, spelling, and punctuation that were not noted in checking the note before signing.
--- NOTE | 2018-09-26 13:20 | PN.PCM_ITS ---
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 History of Wound: Ms. Antony is a 63yo with PMH of Venous Insufficiencys/p vein Stripping in 2005 who presents here due to non healing right lower extremity ulcer. She was last seen here about 8 months ago for right lower extremity ulcer which is healed out. She however failed to return for her compression stockings. She noted reopening of the ulcer in April. She has not been using compression since her last visit. Since reopening in April, she has inconsisten tly applied Santyl to the wound. She also states that she was recently seen by her primary care physician and was started on clindamycin for possible cellulitis. She feels well otherwise and denies chills, fever, nausea, vomiting or change in her bowel habit. Progress of Wound: Improving. No new complaints at this time. Did not have on the wrap for the whole week. - Physical Exam Vital Signs Temp Pulse Resp BP 96 F L 77 18 152/79 H 09/26/18 12:27 09/26/18 12:27 09/26/18 12:27 09/26/18 12:27 General: Alert, Oriented x3, Cooperative, No apparent distress HEENT: Atraumatic, Normocephalic Oral: Moist Mucosa Neck: Supple Lungs: Normal air movement Abdomen: Non Tender, Obese Extremities: No cyanosis, Edema Skin: Ulcer/ Wound Wound Measurements and Assessment WC - Nurse 1 - General Ulcer Measurement Start: 08/30/18 12:32 Freq: Status: Active Protocol: Activity Type Activity Date Activity User E-Sign Co-Sign Detail Recorded Client Recorded Date Recorded By Document 09/26/18 12:27 RB [id number] 09/26/18 12:36 RB 09/26/18 12:27 Wound Center Nurse 1 [Ulcer Assessment] #2 R Med LE cluster -Combined with other wound No -Current Size (cm) - Length 3.7 -Current Size (cm) - Width 2.4 -Current Size (cm) - Depth 0.2 -Total Square Cm 8.88 -Photo Taken No -Tunneling No -Undermining/Tunneling No -Circular Undermining No -Exudate Amt Small (1-33%) -Exudate Type Serosanguineous -Wound Margin Distinct, Outline Attached -Granulation Amt Large (67-100%) -Granulation Quality [place] -Slough/Fibrin Yes -Necrosis Amt Small (1-33%) -Necrotic Tissue Type Adherent Slough -Structure Exposed N/A -Texture (Jessica-wound Skin Appearance) Assessed -Moisture (Jessica-wound Skin Appearance Assessed ) -Color (Jessica-wound Skin Appearance) Assessed -Temperature (Jessica-wound Skin No Abnormality Appearance) (Pt Warm) -Tenderness on Palpation (Jessica-wound No Skin Appearance) -Ulcer Cleansing Rinsed/ Irrigated with Saline -Foul Odor after Cleansing No -Anesthetic Used 4% Lidocaine Solution [Edema Assessment] -Lower Limb Edema Present Yes -Right Calf (cm) 47 -Right Ankle (cm) 26.5 WC - Nurse 2 - General Ulcer CM Notes Start: 08/30/18 12:32 Freq: Status: Active Protocol: Activity Type Activity Date Activity User E-Sign Co-Sign Detail Recorded Client Recorded Date Recorded By Document 09/26/18 12:58 MW [id number] 09/26/18 13:01 MW 09/26/18 12:58 Wound Center Nurse 2 [Procedure/Treatment] #2 R Med LE cluster -Time 12:58 -Correct Patient Yes -Correct Side, Site, Position Yes -Correct Procedure Yes -Procedure Performed Yes -Type of Procedure Debridement -Clinical Debridement Subcutaneous -Post Debridement Size (cm) - Length 1.8 -Post Debridement Size (cm) - Width 2.1 -Post Debridement Size (cm) - Depth 0.1 -Total Square Cm 3.78 -Wound/Ulcer Outcome Not Healed -Ulcer Cleansing Rinsed/ Irrigated with Saline -Foul Odor after Cleansing No -Bioengineered Tissue No -Bleeding Controlled with Pressure -Treatment Response Procedure Tolerated Well [See Physician Procedure note for Specifics] Pain Scale: 0-10 Numeric [Pain] -Is Patient Pain Free? Yes Musculoskeletal: No Muscle Wasting Neurological: Cranial nerves II-XII grossly intact Psych/Mental Status: Normal Affect Debridement Note Post-Debridement Measurements/Treatment WC - Nurse 2 - General Ulcer CM Notes Start: 08/30/18 12:32 Freq: Status: Active Protocol: Activity Type Activity Date Activity User E-Sign Co-Sign Detail Recorded Client Recorded Date Recorded By Document 08/30/18 12:45 MW [id number] 08/30/18 12:48 MW Document 09/06/18 12:27 MW [id number] 09/06/18 12:28 MW Document 09/12/18 12:05 CS [id number] 09/12/18 12:07 CS Document 09/26/18 12:58 MW [id number] 09/26/18 13:01 MW 08/30/18 09/06/18 09/12/18 12:45 12:27 12:05 Wound Center Nurse 2 #2 R [employer] cluster -Time 12:45 12:27 12:05 -Correct Patient Yes Yes Yes -Correct Side, Site, Position Yes Yes Yes -Correct Procedure Yes Yes Yes -Procedure Performed Yes Yes Yes -Type of Procedure Debridement Debridement Debridement -Clinical Debridement Subcutaneous Subcutaneous Subcutaneous -Post Debridement Size (cm) - Length 3.4 3.3 3.5 -Post Debridement Size (cm) - Width 5.0 3.0 1.9 -Post Debridement Size (cm) - Depth 0.2 0.2 0.2 -Total Square Cm 17.00 9.90 6.65 -Wound/Ulcer Outcome Not Healed Not Healed Not Healed -Ulcer Cleansing Rinsed/ Rinsed/ Rinsed/ Irrigated with Irrigated with Irrigated with Saline Saline Saline -Foul Odor after Cleansing No No No -Bioengineered Tissue No No No -Bleeding Controlled with Pressure Pressure NA -Treatment Response Procedure Procedure Procedure Tolerated Well Tolerated Well Tolerated Well Pain Scale: 0-10 Numeric Is Patient Pain Free? Yes Yes Yes 09/26/18 12:58 Wound Center Nurse 2 #2 [employer] cluster -Time 12:58 -Correct Patient Yes -Correct Side, Site, Position Yes -Correct Procedure Yes -Procedure Performed Yes -Type of Procedure Debridement -Clinical Debridement Subcutaneous -Post Debridement Size (cm) - Length 1.8 -Post Debridement Size (cm) - Width 2.1 -Post Debridement Size (cm) - Depth 0.1 -Total Square Cm 3.78 -Wound/Ulcer Outcome Not Healed -Ulcer Cleansing Rinsed/ Irrigated with Saline -Foul Odor after Cleansing No -Bioengineered Tissue No -Bleeding Controlled with Pressure -Treatment Response Procedure Tolerated Well Pain Scale: 0-10 Numeric Is Patient Pain Free? Yes Wound debrided: Right lower extremity Wound Grade/Stage: Stage II Anesthesia Used: 4% Lidocaine Solution Depth: Down to and including healthy tissue, in the subcutaneous layer Percentage of wound debrided: 100 Instrument Used: 3mm curette Tissue Removed: Slough and devitalized tissue Severity: Fat Layer Exposed Amount of bleeding with debridement: Mild Bleeding Controlled with: Pressure Patient tolerated procedure well Assessment/Plan Active Problems Ulcer of right lower extremity with fat layer exposed (Chronic) Venous insufficiency (Chronic) 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 Obesity. Plan: Wound is improving. No new concerns at this time. Debridement done as documented above, procedure was well-tolerated. Continue Promogran with Adaptic over top. Leave on for a week. 3M wrap for edema management. Advised to elevate lower extremities when seated and in bed. Exercise, weight loss, Increased protein intake and supplements also recommended. She was advised to call with any questions or concerns. Follow-up in 1 week for a nurse visit and in 2 weeks with me. This note was generated with [employer] dictation software. It may contain incorrect words, spelling, and punctuation that were not noted in checking the note before signing.
== END 2018-09-28 23:59 ==
LOC: WC 12:30
PROVIDERS: Family Provider Family Medicine; PCP Family Medicine; Visit Provider Internal Medicine
DX: I83.018 Varicose veins of right lower extremity with ulcer other part of lower leg (principal); L97.812 Non-pressure chronic ulcer of other part of right lower leg with fat layer exposed; Z91.19 Patient's noncompliance with other medical treatment and regimen; E66.9 Obesity, unspecified; Z68.43 Body mass index [BMI] 50.0-59.9, adult; Z71.3 Dietary counseling and surveillance
CPT/HCPCS: 11042; 29581

== ENCOUNTER 2018-10-24 10:30 | Outpatient (RCR) | payer BC, SELFPAY ==
[2018-09-29 01:14] VITALS: BP 152/79; PULSE 77; RESP 18; TEMP 35.5
[2018-10-03 11:53] VITALS: BP 150/77; PULSE 64; RESP 18; TEMP 36.2
[2018-10-10 11:41] VITALS: RESP 16; TEMP 36.4
--- NOTE | 2018-10-10 13:22 | PCM.WC.PN ---
(1) Ulcer of right lower extremity with fat layer exposed Status: Chronic Current Visit: Yes Code(s): L97.912 - Non-pressure chronic ulcer of unspecified part of right lower leg with fat layer exposed (2) Venous insufficiency Status: Chronic Current Visit: Yes Code(s): I87.2 - Venous insufficiency (chronic) (peripheral) Type of Wound Chief Complaint: Right Non healing lower extremity ulcer. History of Wound: Ms. Antony is a 63yo with PMH of Venous Insufficiencys/p vein Stripping in 2005 who presents here due to non healing right lower extremity ulcer. She was last seen here about 8 months ago for right lower extremity ulcer which is healed out. She however failed to return for her compression stockings. She noted reopening of the ulcer in April. She has not been using compression since her last visit. Since reopening in April, she has inconsistently applied Santyl to the wound. She also states that she was recently seen by her primary care physician and was started on clindamycin for possible cellulitis. She feels well otherwise and denies chills, fever, nausea, vomiting or change in her bowel habit. Progress of Wound: Improving. No new complaints at this time. - Physical Exam Vital Signs Temp Pulse Resp BP 97.5 F L 64 16 150/77 H 10/10/18 11:41 10/03/18 11:53 10/10/18 11:41 10/03/18 11:53 General: Alert, Oriented x3, Cooperative, No apparent distress HEENT: Atraumatic, Normocephalic Oral: Moist Mucosa Lungs: Normal air movement Abdomen: Non Tender Extremities: No cyanosis, Edema Skin: Ulcer/ Wound Wound Measurements and Assessment - Nurse 1 - General Ulcer Measurement Start: 10/03/18 11:51 Freq: Status: Active Protocol: Activity Type Activity Date Activity User E-Sign Co-Sign Detail Recorded Client Recorded Date Recorded By Document 10/10/18 11:41 [id number] 10/10/18 11:48 10/10/18 11:41 Wound Center Nurse 1 [Ulcer Assessment] #2 R Med LE cluster -Combined with other wound No -Current Size (cm) - Length 2 -Current Size (cm) - Width 2 -Current Size (cm) - Depth 0.1 -Total Square Cm 4 -Photo Taken No -Epithelialization None Present -Tunneling No -Undermining/Tunneling No -Circular Undermining No -Exudate Amt Medium (34-66%) -Exudate Type Serosanguineous -Wound Margin Distinct, Outline Attached -Granulation Amt Large (67-100%) -Granulation Quality Red -Slough/Fibrin Yes -Necrosis Amt None Present (0 %) -Necrotic Tissue Type Adherent Slough -Structure Exposed None/Limited to Skin Breakdown -Texture (Jessica-wound Skin Appearance) No Abnormality Assessed -Moisture (Jessica-wound Skin Appearance No Abnormality ) Assessed -Color (Jessica-wound Skin Appearance) No Abnormality Assessed -Temperature (Jessica-wound Skin No Abnormality Appearance) (Pt Warm) -Tenderness on Palpation (Jessica-wound No Skin Appearance) -Ulcer Cleansing Rinsed/ Irrigated with Saline -Foul Odor after Cleansing No -Anesthetic Used 4% Lidocaine Solution [Edema Assessment] -Lower Limb Edema Present Yes -Right Calf (cm) 45 -Right Ankle (cm) 25.5 -Left Calf (cm) 40 -Left Ankle (cm) 31.8 WC - Nurse 2 - General Ulcer CM Notes Start: 10/03/18 11:51 Freq: Status: Active Protocol: Activity Type Activity Date Activity User E-Sign Co-Sign Detail Recorded Client Recorded Date Recorded By Document 10/10/18 12:11 MW [id number] 10/10/18 12:12 MW 10/10/18 12:11 Wound Center Nurse 2 [Procedure/Treatment] #2 R Med LE cluster -Time 12:11 -Correct Patient Yes -Correct Side, Site, Position Yes -Correct Procedure Yes -Procedure Performed Yes -Type of Procedure Debridement -Clinical Debridement Subcutaneous -Post Debridement Size (cm) - Length 2.0 -Post Debridement Size (cm) - Width 1.8 -Post Debridement Size (cm) - Depth 0.1 -Total Square Cm 3.60 -Wound/Ulcer Outcome Not Healed -Ulcer Cleansing Rinsed/ Irrigated with Saline -Foul Odor after Cleansing No -Bioengineered Tissue No -Bleeding Controlled with Pressure -Offloading No -Treatment Response Procedure Tolerated Well [See Physician Procedure note for Specifics] Musculoskeletal: No Muscle Wasting Neurological: Cranial nerves II-XII grossly intact Psych/Mental Status: Normal Affect Debridement Note Post-Debridement Measurements/Treatment WC - Nurse 2 - General Ulcer CM Notes Start: 10/03/18 11:51 Freq: Status: Active Protocol: Activity Type Activity Date Activity User E-Sign Co-Sign Detail Recorded Client Recorded Date Recorded By Document 10/10/18 12:11 MW [id number] 10/10/18 12:12 MW 10/10/18 12:11 Wound Center Nurse 2 #2 Ryan MALNEY cluster -Time 12:11 -Correct Patient Yes -Correct Side, Site, Position Yes -Correct Procedure Yes -Procedure Performed Yes -Type of Procedure Debridement -Clinical Debridement Subcutaneous -Post Debridement Size (cm) - Length 2.0 -Post Debridement Size (cm) - Width 1.8 -Post Debridement Size (cm) - Depth 0.1 -Total Square Cm 3.60 -Wound/Ulcer Outcome Not Healed -Ulcer Cleansing Rinsed/ Irrigated with Saline -Foul Odor after Cleansing No -Bioengineered Tissue No -Bleeding Controlled with Pressure -Offloading No -Treatment Response Procedure Tolerated Well Wound debrided: Right lower extremity Wound Grade/Stage: Stage III Type of Debridement: Excisional debridement Anesthesia Used: 4% Lidocaine Solution Depth: Down to and including healthy tissue, in the subcutaneous layer Percentage of wound debrided: 100 Instrument Used: 3mm curette Tissue Removed: Slough and devitalized tissue Severity: Fat Layer Exposed Amount of bleeding with debridement: Mild Bleeding Controlled with: Pressure Patient tolerated procedure well Assessment/Plan Active Problems Ulcer of right lower extremity with fat layer exposed (Chronic) Venous insufficiency (Chronic) Assessment: Recurrent right lower extremity ulcer due to chronic venous insufficiency and noncompliance with compression. Obesity. Plan: Stable. Minimal improvement over the past week. Debridement done as documented above, procedure was well-tolerated. Continue Promogran with Adaptic over top. Leave on for a week. 3M wrap for edema management. Advised to elevate lower extremities when seated and in bed. Exercise, weight loss, Increased protein intake and supplements also recommended. She was advised to call with any questions or concerns. Follow-up in 1 week. This note was generated with [employer] dictation software. It may contain incorrect words, spelling, and punctuation that were not noted in checking the note before signing.
--- NOTE | 2018-10-10 13:26 | PN.PCM_ITS ---
(1) Ulcer of right lower extremity with fat layer exposed Status: Chronic Current Visit: Yes Code(s): L97.912 - Non-pressure chronic ulcer of unspecified part of right lower leg with fat layer exposed (2) Venous insufficiency Status: Chronic Current Visit: Yes Code(s): I87.2 - Venous insufficiency (chronic) (peripheral) Type of Wound Chief Complaint: Right Non healing lower extremity ulcer. History of Wound: Ms. Antony is a 63yo with PMH of Venous Insufficiencys/p vein Stripping in 2005 who presents here due to non healing right lower extremity ulcer. She was last seen here about 8 months ago for right lower extremity ulcer which is healed out. She however failed to return for her compression stockings. She noted reopening of the ulcer in April. She has not been using compression since her last visit. Since reopening in April, she has inconsistently applied Santyl to the wound. She also states that she was recent ly seen by her primary care physician and was started on clindamycin for possible cellulitis. She feels well otherwise and denies chills, fever, nausea, vomiting or change in her bowel habit. Progress of Wound: Improving. No new complaints at this time. - Physical Exam Vital Signs Temp Pulse Resp BP 97.5 F L 64 16 150/77 H 10/10/18 11:41 10/03/18 11:53 10/10/18 11:41 10/03/18 11:53 General: Alert, Oriented x3, Cooperative, No apparent distress HEENT: Atraumatic, Normocephalic Oral: Moist Mucosa Lungs: Normal air movement Abdomen: Non Tender Extremities: No cyanosis, Edema Skin: Ulcer/ Wound Wound Measurements and Assessment - Nurse 1 - General Ulcer Measurement Start: 10/03/18 11:51 Freq: Status: Active Protocol: Activity Type Activity Date Activity User E-Sign Co-Sign Detail Recorded Client Recorded Date Recorded By Document 10/10/18 11:41 [id number] 10/10/18 11:48 10/10/18 11:41 Wound Center Nurse 1 [Ulcer Assessment] #2 R Med LE cluster -Combined with other wound No -Current Size (cm) - Length 2 -Current Size (cm) - Width 2 -Current Size (cm) - Depth 0.1 -Total Square Cm 4 -Photo Taken No -Epithelialization None Present -Tunneling No -Undermining/Tunneling No -Circular Undermining No -Exudate Amt Medium (34-66%) -Exudate Type Serosanguineous -Wound Margin Distinct, Outline Attached -Granulation Amt Large (67-100%) -Granulation Quality Red -Slough/Fibrin Yes -Necrosis Amt None Present (0 %) -Necrotic Tissue Type Adherent Slough -Structure Exposed None/Limited to Skin Breakdown -Texture (Jessica-wound Skin Appearance) No Abnormality Assessed -Moisture (Jessica-wound Skin Appearance No Abnormality ) Assessed -Color (Jessica-wound Skin Appearance) No Abnormality Assessed -Temperature (Jessica-wound Skin No Abnormality Appearance) (Pt Warm) -Tenderness on Palpation (Jessica-wound No Skin Appearance) -Ulcer Cleansing Rinsed/ Irrigated with Saline -Foul Odor after Cleansing No -Anesthetic Used 4% Lidocaine Solution [Edema Assessment] -Lower Limb Edema Present Yes -Right Calf (cm) 45 -Right Ankle (cm) 25.5 -Left Calf (cm) 40 -Left Ankle (cm) 31.8 WC - Nurse 2 - General Ulcer CM Notes Start: 10/03/18 11:51 Freq: Status: Active Protocol: Activity Type Activity Date Activity User E-Sign Co-Sign Detail Recorded Client Recorded Date Recorded By Document 10/10/18 12:11 MW [id number] 10/10/18 12:12 MW 10/10/18 12:11 Wound Center Nurse 2 [Procedure/Treatment] #2 R Med LE cluster -Time 12:11 -Correct Patient Yes -Correct Side, Site, Position Yes -Correct Procedure Yes -Procedure Performed Yes -Type of Procedure Debridement -Clinical Debridement Subcutaneous -Post Debridement Size (cm) - Length 2.0 -Post Debridement Size (cm) - Width 1.8 -Post Debridement Size (cm) - Depth 0.1 -Total Square Cm 3.60 -Wound/Ulcer Outcome Not Healed -Ulcer Cleansing Rinsed/ Irrigated with Saline -Foul Odor after Cleansing No -Bioengineered Tissue No -Bleeding Controlled with Pressure -Offloading No -Treatment Response Procedure Tolerated Well [See Physician Procedure note for Specifics] Musculoskeletal: No Muscle Wasting Neurological: Cranial nerves II-XII grossly intact Psych/Mental Status: Normal Affect Debridement Note Post-Debridement Measurements/Treatment WC - Nurse 2 - General Ulcer CM Notes Start: 12/05/18 11:51 Freq: Status: Active Protocol: Activity Type Activity Date Activity User E-Sign Co-Sign Detail Recorded Client Recorded Date Recorded By Document 10/10/18 12:11 MW [id number] 10/10/18 12:12 MW 10/10/18 12:11 Wound Center Nurse 2 #2 Ryan MANLEY cluster -Time 12:11 -Correct Patient Yes -Correct Side, Site, Position Yes -Correct Procedure Yes -Procedure Performed Yes -Type of Procedure Debridement -Clinical Debridement Subcutaneous -Post Debridement Size (cm) - Length 2.0 -Post Debridement Size (cm) - Width 1.8 -Post Debridement Size (cm) - Depth 0.1 -Total Square Cm 3.60 -Wound/Ulcer Outcome Not Healed -Ulcer Cleansing Rinsed/ Irrigated with Saline -Foul Odor after Cleansing No -Bioengineered Tissue No -Bleeding Controlled with Pressure -Offloading No -Treatment Response Procedure Tolerated Well Wound debrided: Right lower extremity Wound Grade/Stage: Stage III Type of Debridement: Excisional debridement Anesthesia Used: 4% Lidocaine Solution Depth: Down to and including healthy tissue, in the subcutaneous layer Percentage of wound debrided: 100 Instrument Used: 3mm curette Tissue Removed: Slough and devitalized tissue Severity: Fat Layer Exposed Amount of bleeding with debridement: Mild Bleeding Controlled with: Pressure Patient tolerated procedure well Assessment/Plan Active Problems Ulcer of right lower extremity with fat layer exposed (Chronic) Venous insufficiency (Chronic) Assessment: Recurrent right lower extremity ulcer due to chronic venous insufficiency and noncompliance with compression. Obesity. Plan: Stable. Minimal improvement over the past week. Debridement done as documented above, procedure was well-tolerated. Continue Promogran with Adaptic over top. Leave on for a week. 3M wrap for edema management. Advised to elevate lower extremities when seated and in bed. Exercise, weight loss, Increased protein intake and supplements also recommended. She was advised to call with any questions or concerns. Follow-up in 1 week. This note was generated with [employer] software. It may contain incorrect words, spelling, and punctuation that were not noted in checking the note before signing.
[2018-10-17 11:32] VITALS: BP 166/59; PULSE 71; RESP 18; TEMP 37
--- NOTE | 2018-10-17 12:18 | PN.PCM_ITS ---
(1) Ulcer of right lower extremity with fat layer exposed Status: Chronic Current Visit: Yes Code(s): L97.912 - Non-pressure chronic ulcer of unspecified part of right lower leg with fat layer exposed (2) Venous insufficiency Status: Chronic Current Visit: Yes Code(s): I87.2 - Venous insufficiency (chronic) (peripheral) Type of Wound Chief Complaint: Right Non healing lower extremity ulcer. History of Wound: Ms. Antony is a 63yo with PMH of Venous Insufficiencys/p vein Stripping in 2005 who presents here due to non healing right lower extremity ulcer. She was last seen here about 8 months ago for right lower extremity ulcer which is healed out. She however failed to return for her compression stockings. She noted reopening of the ulcer in April. She has not been using compression since her last visit. Since reopening in April, she has inconsistently applied Santyl to the wound. She also states that she was recent ly seen by her primary care physician and was started on clindamycin for possible cellulitis. She feels well otherwise and denies chills, fever, nausea, vomiting or change in her bowel habit. Progress of Wound: Improving. No new complaints at this time. - Physical Exam Vital Signs Temp Pulse Resp BP 98.6 F 71 18 166/59 H 10/17/18 11:32 10/17/18 11:32 10/17/18 11:32 10/17/18 11:32 General: Alert, Oriented x3, Cooperative, No apparent distress HEENT: Atraumatic, Normocephalic Oral: Moist Mucosa Neck: Supple Lungs: Normal air movement Abdomen: Non Tender, Obese Extremities: No cyanosis, Edema Skin: Ulcer/ Wound Wound Measurements and Assessment WC - Nurse 1 - General Ulcer Measurement Start: 10/03/18 11:51 Freq: Status: Active Protocol: Activity Type Activity Date Activity User E-Sign Co-Sign Detail Recorded Client Recorded Date Recorded By Document 10/17/18 11:32 RB [id number] 10/17/18 11:40 RB 10/17/18 11:32 Wound Center Nurse 1 [Ulcer Assessment] #2 R Med LE cluster -Combined with other wound No -Current Size (cm) - Length 1.9 -Current Size (cm) - Width 2 -Current Size (cm) - Depth 0.1 -Total Square Cm 3.8 -Photo Taken No -Tunneling No -Undermining/Tunneling No -Circular Undermining No -Exudate Amt Small (1-33%) -Exudate Type Serosanguineous -Wound Margin Distinct, Outline Attached -Granulation Amt Large (67-100%) -Granulation Quality Red -Slough/Fibrin Yes -Necrosis Amt Small (1-33%) -Necrotic Tissue Type Adherent Slough -Structure Exposed N/A -Texture (Jessica-wound Skin Appearance) Assessed -Moisture (Jessica-wound Skin Appearance Assessed ) -Color (Jessica-wound Skin Appearance) Hemosiderin Staining -Temperature (Jessica-wound Skin No Abnormality Appearance) (Pt Warm) -Tenderness on Palpation (Jessica-wound No Skin Appearance) -Ulcer Cleansing Wound Cleanser -Foul Odor after Cleansing No -Anesthetic Used 5% Lidocaine Gel [Edema Assessment] -Lower Limb Edema Present Yes -Right Calf (cm) 49.4 -Right Ankle (cm) 24.6 WC - Nurse 2 - General Ulcer CM Notes Start: 10/03/18 11:51 Freq: Status: Active Protocol: Activity Type Activity Date Activity User E-Sign Co-Sign Detail Recorded Client Recorded Date Recorded By Document 10/17/18 11:51 MW [id number] 10/17/18 11:54 MW 10/17/18 11:51 Wound Center Nurse 2 [Procedure/Treatment] #2 R Med VINEET cluster -Time 11:52 -Correct Patient Yes -Correct Side, Site, Position Yes -Correct Procedure Yes -Procedure Performed Yes -Type of Procedure Debridement -Clinical Debridement Subcutaneous -Post Debridement Size (cm) - Length 1.6 -Post Debridement Size (cm) - Width 1.8 -Post Debridement Size (cm) - Depth 0.1 -Total Square Cm 2.88 -Wound/Ulcer Outcome Not Healed -Ulcer Cleansing Rinsed/ Irrigated with Saline -Foul Odor after Cleansing No -Bioengineered Tissue No -Bleeding Controlled with Pressure -Offloading No -Treatment Response Procedure Tolerated Well [See Physician Procedure note for Specifics] Pain Scale: 0-10 Numeric [Pain] -Is Patient Pain Free? Yes Musculoskeletal: No Muscle Wasting Neurological: Cranial nerves II-XII grossly intact Psych/Mental Status: Normal Affect Debridement Note Post-Debridement Measurements/Treatment WC - Nurse 2 - General Ulcer CM Notes Start: 10/03/18 11:51 Freq: Status: Active Protocol: Activity Type Activity Date Activity User E-Sign Co-Sign Detail Recorded Client Recorded Date Recorded By Document 10/10/18 12:11 MW [id number] 10/10/18 12:12 MW Document 10/17/18 11:51 MW [id number] 10/17/18 11:54 MW 10/10/18 10/17/18 12:11 11:51 Wound Center Nurse 2 #2 R Med LE cluster -Time 12:11 11:52 -Correct Patient Yes Yes -Correct Side, Site, Position Yes Yes -Correct Procedure Yes Yes -Procedure Performed Yes Yes -Type of Procedure Debridement Debridement -Clinical Debridement Subcutaneous Subcutaneous -Post Debridement Size (cm) - Length 2.0 1.6 -Post Debridement Size (cm) - Width 1.8 1.8 -Post Debridement Size (cm) - Depth 0.1 0.1 -Total Square Cm 3.60 2.88 -Wound/Ulcer Outcome Not Healed Not Healed -Ulcer Cleansing Rinsed/ Rinsed/ Irrigated with Irrigated with Saline Saline -Foul Odor after Cleansing No No -Bioengineered Tissue No No -Bleeding Controlled with Pressure Pressure -Offloading No No -Treatment Response Procedure Procedure Tolerated Well Tolerated Well Pain Scale: 0-10 Numeric Is Patient Pain Free? Yes Wound debrided: Right lower extremity Wound Grade/Stage: Stage II Type of Debridement: Excisional debridement Anesthesia Used: 4% Lidocaine Solution Depth: Down to and including healthy tissue, in the subcutaneous layer Percentage of wound debrided: 100 Instrument Used: 3mm curette Tissue Removed: Slough and devitalized tissue Severity: Fat Layer Exposed Amount of bleeding with debridement: Mild Bleeding Controlled with: Pressure Patient tolerated procedure well Assessment/Plan Active Problems Ulcer of right lower extremity with fat layer exposed (Chronic) Venous insufficiency (Chronic) Assessment: Recurrent right lower extremity ulcer due to chronic venous insufficiency and noncompliance with compression. Obesity. Plan: Slowly improving. No new concerns at this time. Debridement done as documented above, procedure was well-tolerated. Continue Promogran with Adaptic over top. Leave on for a week. 3M wrap for edema management. Advised to elevate lower extremities when seated and in bed. Exercise, weight loss, Increased protein intake and supplements also recommended. She was advised to call with any questions or concerns. Follow-up in 1 week. This note was generated with [employer] software. It may contain incorrect words, spelling, and punctuation that were not noted in checking the note before signing.
[2018-10-24 10:50] VITALS: BP 167/77; PULSE 62; RESP 16; TEMP 35.9
--- NOTE | 2018-10-24 11:23 | PN.PCM_ITS ---
(1) Ulcer of right lower extremity with fat layer exposed Status: Chronic Current Visit: Yes Code(s): L97.912 - Non-pressure chronic ulcer of unspecified part of right lower leg with fat layer exposed (2) Venous insufficiency Status: Chronic Current Visit: Yes Code(s): I87.2 - Venous insufficiency (chronic) (peripheral) Type of Wound Chief Complaint: Right Non healing lower extremity ulcer. History of Wound: Ms. Antony is a 63yo with PMH of Venous Insufficiencys/p vein Stripping in 2005 who presents here due to non healing right lower extremity ulcer. She was last seen here about 8 months ago for right lower extremity ulcer which is healed out. She however failed to return for her compression stockings. She noted reopening of the ulcer in April. She has not been using compression since her last visit. Since reopening in April, she has inconsistently applied Santyl to the wound. She also states that she was recent ly seen by her primary care physician and was started on clindamycin for possible cellulitis. She feels well otherwise and denies chills, fever, nausea, vomiting or change in her bowel habit. Progress of Wound: Improving. No new complaints at this time. - Physical Exam Vital Signs Temp Pulse Resp BP 96.6 F L 62 16 167/77 H 10/24/18 10:50 10/24/18 10:50 10/24/18 10:50 10/24/18 10:50 General: Alert, Oriented x3, Cooperative, No apparent distress HEENT: Atraumatic, Normocephalic Oral: Moist Mucosa Neck: Supple Lungs: Normal air movement Abdomen: Non Tender, Obese Extremities: No cyanosis, Edema Skin: Ulcer/ Wound Wound Measurements and Assessment WC - Nurse 1 - General Ulcer Measurement Start: 10/03/18 11:51 Freq: Status: Active Protocol: Activity Type Activity Date Activity User E-Sign Co-Sign Detail Recorded Client Recorded Date Recorded By Document 10/24/18 10:50 [facility] [id number] 10/24/18 10:57 [facility] 10/24/18 10:50 Wound Center Nurse 1 [Ulcer Assessment] #2 R Med LE cluster -Combined with other wound No -Current Size (cm) - Length 1.6 -Current Size (cm) - Width 1.4 -Current Size (cm) - Depth 0.1 -Total Square Cm 2.24 -Photo Taken No -Epithelialization None Present -Tunneling No -Undermining/Tunneling No -Circular Undermining No -Exudate Amt Small (1-33%) -Exudate Type Serosanguineous -Wound Margin Distinct, Outline Attached -Granulation Amt Medium (34-66%) -Granulation Quality Red -Necrosis Amt Medium (34-66%) -Necrotic Tissue Type Adherent Slough -Texture (Jessica-wound Skin Appearance) Scarring -Moisture (Jesisca-wound Skin Appearance Dry/Scaly ) -Color (Jessica-wound Skin Appearance) Erythema -Temperature (Jessica-wound Skin No Abnormality Appearance) (Pt Warm) -Tenderness on Palpation (Jessica-wound No Skin Appearance) -Ulcer Cleansing Rinsed/ Irrigated with Saline -Foul Odor after Cleansing No -Anesthetic Used 5% Lidocaine Gel [Edema Assessment] -Lower Limb Edema Present Yes -Right Calf (cm) 38.1 -Right Ankle (cm) 24.3 WC - Nurse 2 - General Ulcer CM Notes Start: 10/03/18 11:51 Freq: Status: Active Protocol: Activity Type Activity Date Activity User E-Sign Co-Sign Detail Recorded Client Recorded Date Recorded By Document 10/24/18 11:19 KOBI [id number] 10/24/18 11:21 KOBI 10/24/18 11:19 Wound Center Nurse 2 [Procedure/Treatment] #2 R Med LE cluster -Time 11:20 -Correct Patient Yes -Correct Side, Site, Position Yes -Correct Procedure Yes -Procedure Performed Yes -Type of Procedure Debridement -Clinical Debridement Subcutaneous -Post Debridement Size (cm) - Length 1.5 -Post Debridement Size (cm) - Width 1.5 -Post Debridement Size (cm) - Depth 0.1 -Total Square Cm 2.25 -Wound/Ulcer Outcome Not Healed -Ulcer Cleansing Rinsed/ Irrigated with Saline -Foul Odor after Cleansing No -Bioengineered Tissue No -Topical Lidocaine (%) 4 -Lidocaine (ml) 5 -Bleeding Controlled with NA -Offloading No -Treatment Response Procedure Tolerated Well [See Physician Procedure note for Specifics] Pain Scale: 0-10 Numeric [Pain] -Is Patient Pain Free? Yes Musculoskeletal: No Muscle Wasting Neurological: Cranial nerves II-XII grossly intact Psych/Mental Status: Normal Affect Debridement Note Post-Debridement Measurements/Treatment WC - Nurse 2 - General Ulcer CM Notes Start: 10/03/18 11:51 Freq: Status: Active Protocol: Activity Type Activity Date Activity User E-Sign Co-Sign Detail Recorded Client Recorded Date Recorded By Document 10/10/18 12:11 MW [id number] 10/10/18 12:12 MW Document 10/17/18 11:51 MW [id number] 10/17/18 11:54 MW Document 10/24/18 11:19 JS [id number] 10/24/18 11:21 JS 10/10/18 10/17/18 10/24/18 12:11 11:51 11:19 Wound Center Nurse 2 #2 R Med LE cluster -Time 12:11 11:52 11:20 -Correct Patient Yes Yes Yes -Correct Side, Site, Position Yes Yes Yes -Correct Procedure Yes Yes Yes -Procedure Performed Yes Yes Yes -Type of Procedure Debridement Debridement Debridement -Clinical Debridement Subcutaneous Subcutaneous Subcutaneous -Post Debridement Size (cm) - Length 2.0 1.6 1.5 -Post Debridement Size (cm) - Width 1.8 1.8 1.5 -Post Debridement Size (cm) - Depth 0.1 0.1 0.1 -Total Square Cm 3.60 2.88 2.25 -Wound/Ulcer Outcome Not Healed Not Healed Not Healed -Ulcer Cleansing Rinsed/ Rinsed/ Rinsed/ Irrigated with Irrigated with Irrigated with Saline Saline Saline -Foul Odor after Cleansing No No No -Bioengineered Tissue No No No -Topical Lidocaine (%) 4 -Lidocaine (ml) 5 -Bleeding Controlled with Pressure Pressure NA -Offloading No No No -Treatment Response Procedure Procedure Procedure Tolerated Well Tolerated Well Tolerated Well Pain Scale: 0-10 Numeric Is Patient Pain Free? Yes Yes Wound debrided: Right lower extremity Wound Grade/Stage: Stage II Type of Debridement: Excisional debridement Anesthesia Used: 4% Lidocaine Solution Depth: Down to and including healthy tissue, in the subcutaneous layer Percentage of wound debrided: 100 Instrument Used: 7mm curette Tissue Removed: Slough and devitalized tissue Severity: Fat Layer Exposed Amount of bleeding with debridement: Mild Bleeding Controlled with: Pressure Patient tolerated procedure well Assessment/Plan Active Problems Ulcer of right lower extremity with fat layer exposed (Chronic) Venous insufficiency (Chronic) Assessment: Recurrent right lower extremity ulcer due to chronic venous insufficiency and noncompliance with compression. Obesity. Plan: Improving. No new concerns at this time. Debridement done as documented above, procedure was well-tolerated. Continue Promogran with Adaptic over top. Leave on for a week. 3M wrap for edema management. Advised to elevate lower extremities when seated and in bed. Exercise, weight loss, Increased protein intake and supplements also recommended. She was advised to call with any questions or concerns. Follow-up in 1 week for a nurse visit and in 2 weeks with me. This note was generated with [employer] dictation software. It may contain incorrect words, spelling, and punctuation that were not noted in checking the note before signing.
== END 2018-10-29 23:59 ==
LOC: WC 10:30
PROVIDERS: Family Provider Family Medicine; PCP Family Medicine; Visit Provider Internal Medicine
DX: I87.2 Venous insufficiency (chronic) (peripheral) (principal); Z91.19 Patient's noncompliance with other medical treatment and regimen; L97.812 Non-pressure chronic ulcer of other part of right lower leg with fat layer exposed; E66.9 Obesity, unspecified; Z68.43 Body mass index [BMI] 50.0-59.9, adult; Z71.3 Dietary counseling and surveillance
CPT/HCPCS: 11042; 29581; 99213; G0463

== ENCOUNTER 2018-11-21 11:00 | Outpatient (RCR) | payer BC, SELFPAY ==
[2018-10-30 00:53] VITALS: BP 167/77; PULSE 62; RESP 16; TEMP 35.9
[2018-10-31 14:05] VITALS: BP 163/73; PULSE 59; RESP 20; TEMP 35.9
[2018-11-07 11:18] VITALS: BP 156/76; PULSE 72; RESP 22; TEMP 36.8
--- NOTE | 2018-11-07 12:08 | PN.PCM_ITS ---
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 History of Wound: Ms. Antony is a 63yo with PMH of Venous Insufficiencys/p vein Stripping in 2005 who presents here due to non healing right lower extremity ulcer. She was last seen here about 8 months ago for right lower extremity ulcer which is healed out. She however failed to return for her compression stockings. She noted reopening of the ulcer in April. She has not been using compression since her last visit. Since reopening in April, she has inconsisten tly applied Santyl to the wound. She also states that she was recently seen by her primary care physician and was started on clindamycin for possible cellulitis. She feels well otherwise and denies chills, fever, nausea, vomiting or change in her bowel habit. Progress of Wound: Improving. No new complaints at this time. - Physical Exam Vital Signs Temp Pulse Resp BP 98.2 F 72 22 H 156/76 H 11/07/18 11:18 11/07/18 11:18 11/07/18 11:18 11/07/18 11:18 General: Alert, Oriented x3, No apparent distress HEENT: Atraumatic, Normocephalic Oral: Moist Mucosa Neck: Supple Lungs: Normal air movement Abdomen: Non Tender, Obese Extremities: No cyanosis Skin: Ulcer/ Wound Wound Measurements and Assessment WC - Nurse 1 - General Ulcer Measurement Start: 10/31/18 14:03 Freq: Status: Active Protocol: Activity Type Activity Date Activity User E-Sign Co-Sign Detail Recorded Client Recorded Date Recorded By Document 11/07/18 11:18 DL [id number] 11/07/18 11:20 DL 11/07/18 11:18 Wound Center Nurse 1 [Ulcer Assessment] #2 R Med LE cluster -Current Size (cm) - Length 0.1 -Current Size (cm) - Width 0.1 -Current Size (cm) - Depth 0.1 -Total Square Cm 0.01 -Photo Taken No -Exudate Amt None Present -Wound Margin Flat & Intact -Granulation Amt Large (67-100%) -Granulation Quality [place] -Necrosis Amt None Present (0 %) -Structure Exposed N/A -Texture (Jessica-wound Skin Appearance) Scarring -Moisture (Jessica-wound Skin Appearance Dry/Scaly ) -Color (Jessica-wound Skin Appearance) Hemosiderin Staining -Temperature (Jessica-wound Skin No Abnormality Appearance) (Pt Warm) -Ulcer Cleansing Rinsed/ Irrigated with Saline -Foul Odor after Cleansing No [Edema Assessment] -Right Calf (cm) 48.5 -Right Ankle (cm) 23.5 WC - Nurse 2 - General Ulcer CM Notes Start: 10/31/18 14:03 Freq: Status: Active Protocol: Activity Type Activity Date Activity User E-Sign Co-Sign Detail Recorded Client Recorded Date Recorded By Document 11/07/18 11:25 MW [id number] 11/07/18 11:26 MW 11/07/18 11:25 Wound Center Nurse 2 [Procedure/Treatment] #2 R Med LE cluster -Time 11:25 -Correct Patient Yes -Correct Side, Site, Position Yes -Correct Procedure Yes -Procedure Performed Yes -Type of Procedure Debridement -Clinical Debridement Subcutaneous -Post Debridement Size (cm) - Length 0.6 -Post Debridement Size (cm) - Width 0.6 -Post Debridement Size (cm) - Depth 0.1 -Total Square Cm 0.36 -Wound/Ulcer Outcome Not Healed -Ulcer Cleansing Rinsed/ Irrigated with Saline -Foul Odor after Cleansing No -Bioengineered Tissue No -Bleeding Controlled with Pressure -Offloading No -Treatment Response Procedure Tolerated Well [See Physician Procedure note for Specifics] Pain Scale: 0-10 Numeric [Pain] -Is Patient Pain Free? Yes Musculoskeletal: No Muscle Wasting Neurological: Cranial nerves II-XII grossly intact Psych/Mental Status: Normal Affect Debridement Note Post-Debridement Measurements/Treatment WC - Nurse 2 - General Ulcer CM Notes Start: 10/31/18 14:03 Freq: Status: Active Protocol: Activity Type Activity Date Activity User E-Sign Co-Sign Detail Recorded Client Recorded Date Recorded By Document 11/07/18 11:25 MW [id number] 11/07/18 11:26 MW 11/07/18 11:25 Wound Center Nurse 2 #2 R Med LE cluster -Time 11:25 -Correct Patient Yes -Correct Side, Site, Position Yes -Correct Procedure Yes -Procedure Performed Yes -Type of Procedure Debridement -Clinical Debridement Subcutaneous -Post Debridement Size (cm) - Length 0.6 -Post Debridement Size (cm) - Width 0.6 -Post Debridement Size (cm) - Depth 0.1 -Total Square Cm 0.36 -Wound/Ulcer Outcome Not Healed -Ulcer Cleansing Rinsed/ Irrigated with Saline -Foul Odor after Cleansing No -Bioengineered Tissue No -Bleeding Controlled with Pressure -Offloading No -Treatment Response Procedure Tolerated Well Pain Scale: 0-10 Numeric Is Patient Pain Free? 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 Obesity. Plan: Continues to show good improvement. No new concerns at this time. Debridement done as documented above, procedure was well-tolerated. Continue Promogran with Adaptic over top. Leave on for a week. 3M wrap for edema management. Advised to elevate lower extremities when seated and in bed. Exercise, weight loss, Increased protein intake and supplements also recommended. She was advised to call with any questions or concerns. Follow-up in 1 week. This note was generated with [email or web address] dictation software. It may contain incorrect words, spelling, and punctuation that were not noted in checking the note before signing.
[2018-11-09 13:12] VITALS: BP 167/84; PULSE 71; RESP 16; TEMP 36.3
[2018-11-14 11:11] VITALS: BP 163/78; PULSE 64; RESP 18; TEMP 35.9
--- NOTE | 2018-11-14 11:56 | PCM.WC.PN ---
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 History of Wound: Ms. Antony is a 63yo with PMH of Venous Insufficiencys/p vein Stripping in 2005 who presents here due to non healing right lower extremity ulcer. She was last seen here about 8 months ago for right lower extremity ulcer which is healed out. She however failed to return for her compression stockings. She noted reopening of the ulcer in April. She has not been using compression since her last visit. Since reopening in April, she has inconsistently applied Santyl to the wound. She also states that she was recently seen by her primary care physician and was started on clindamycin for possible cellulitis. She feels well otherwise and denies chills, fever, nausea, vomiting or change in her bowel habit. Progress of Wound: Improving. No new complaints at this time. Minimal area left. - Physical Exam Vital Signs Temp Pulse Resp BP 96.6 F L 64 18 163/78 H 11/14/18 11:11 11/14/18 11:11 11/14/18 11:11 11/14/18 11:11 General: Alert, Oriented x3, Cooperative, No apparent distress HEENT: Atraumatic, Normocephalic Oral: Moist Mucosa Neck: Supple Lungs: Normal air movement Abdomen: Non Tender, Obese Extremities: No cyanosis, Edema Skin: Ulcer/ Wound Wound Measurements and Assessment WC - Nurse 1 - General Ulcer Measurement Start: 10/31/18 14:03 Freq: Status: Active Protocol: Activity Type Activity Date Activity User E-Sign Co-Sign Detail Recorded Client Recorded Date Recorded By Document 11/14/18 11:11 MW [id number] 11/14/18 11:13 MW 11/14/18 11:11 Wound Center Nurse 1 [Ulcer Assessment] #2 R Med LE cluster -Combined with other wound No -Current Size (cm) - Length 0.1 -Current Size (cm) - Width 0.1 -Current Size (cm) - Depth 0.1 -Total Square Cm 0.01 -Photo Taken No -Epithelialization Large 67-100% -Tunneling No -Undermining/Tunneling No -Circular Undermining No -Wound Margin Flat & Intact -Granulation Amt None Present (0 %) -Granulation Quality N/A -Slough/Fibrin Yes -Necrosis Amt Small (1-33%) -Necrotic Tissue Type Adherent Slough -Structure Exposed N/A -Texture (Jessica-wound Skin Appearance) Assessed Localized Edema Scarring -Moisture (Jessica-wound Skin Appearance Assessed ) Dry/Scaly -Color (Jessica-wound Skin Appearance) Assessed Hemosiderin Staining -Temperature (Jessica-wound Skin No Abnormality Appearance) (Pt Warm) -Tenderness on Palpation (Jessica-wound No Skin Appearance) -Ulcer Cleansing Rinsed/ Irrigated with Saline -Foul Odor after Cleansing No -Anesthetic Used 4% Lidocaine Solution [Edema Assessment] -Lower Limb Edema Present Yes -Right Calf (cm) 50.4 -Right Ankle (cm) 25.7 WC - Nurse 2 - General Ulcer CM Notes Start: 10/31/18 14:03 Freq: Status: Active Protocol: Activity Type Activity Date Activity User E-Sign Co-Sign Detail Recorded Client Recorded Date Recorded By Document 11/14/18 11:20 MW [id number] 11/14/18 11:21 MW 11/14/18 11:20 Wound Center Nurse 2 [Procedure/Treatment] #2 R Med LE cluster -Time 11:21 -Correct Patient Yes -Correct Side, Site, Position Yes -Correct Procedure Yes -Procedure Performed No -Post Debridement Size (cm) - Length 0.1 -Post Debridement Size (cm) - Width 0.1 -Post Debridement Size (cm) - Depth 0.1 -Total Square Cm 0.01 -Wound/Ulcer Outcome Not Healed -Ulcer Cleansing Rinsed/ Irrigated with Saline -Foul Odor after Cleansing No -Bioengineered Tissue No -Bleeding Controlled with Pressure -Offloading No -Treatment Response Procedure Tolerated Well [See Physician Procedure note for Specifics] Pain Scale: 0-10 Numeric [Pain] -Is Patient Pain Free? Yes Musculoskeletal: No Muscle Wasting Neurological: Cranial nerves II-XII grossly intact Psych/Mental Status: Normal Affect Debridement Note Post-Debridement Measurements/Treatment WC - Nurse 2 - General Ulcer CM Notes Start: 10/31/18 14:03 Freq: Status: Active Protocol: Activity Type Activity Date Activity User E-Sign Co-Sign Detail Recorded Client Recorded Date Recorded By Document 11/07/18 11:25 MW [id number] 11/07/18 11:26 MW Document 11/14/18 11:20 MW [id number] 11/14/18 11:21 MW 11/07/18 11/14/18 11:25 11:20 Wound Center Nurse 2 #2 R Med LE cluster -Time 11:25 11:21 -Correct Patient Yes Yes -Correct Side, Site, Position Yes Yes -Correct Procedure Yes Yes -Procedure Performed Yes No -Type of Procedure Debridement -Clinical Debridement Subcutaneous -Post Debridement Size (cm) - Length 0.6 0.1 -Post Debridement Size (cm) - Width 0.6 0.1 -Post Debridement Size (cm) - Depth 0.1 0.1 -Total Square Cm 0.36 0.01 -Wound/Ulcer Outcome Not Healed Not Healed -Ulcer Cleansing Rinsed/ Rinsed/ Irrigated with Irrigated with Saline Saline -Foul Odor after Cleansing No No -Bioengineered Tissue No No -Bleeding Controlled with Pressure Pressure -Offloading No No -Treatment Response Procedure Procedure Tolerated Well Tolerated Well Pain Scale: 0-10 Numeric Is Patient Pain Free? Yes Yes No debridement was completed today Assessment/Plan Active Problems Ulcer of right lower extremity with fat layer exposed (Chronic) Venous insufficiency (Chronic) 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 Obesity. Plan: Continues to show good improvement. No new concerns at this time. No debridement completed today. Continue Promogran with Adaptic over top. Leave on for a week. 3M wrap for edema management. Advised to elevate lower extremities when seated and in bed. Exercise, weight loss, Increased protein intake and supplements also recommended. She was advised to call with any questions or concerns. Follow-up in 1 week. This note was generated with [employer] software. It may contain incorrect words, spelling, and punctuation that were not noted in checking the note before signing.
--- NOTE | 2018-11-14 12:01 | PN.PCM_ITS ---
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 History of Wound: Ms. Antony is a 63yo with PMH of Venous Insufficiencys/p vein Stripping in 2005 who presents here due to non healing right lower extremity ulcer. She was last seen here about 8 months ago for right lower extremity ulcer which is healed out. She however failed to return for her compression stockings. She noted reopening of the ulcer in April. She has not been using compression since her last visit. Since reopening in April, she has inconsisten tly applied Santyl to the wound. She also states that she was recently seen by her primary care physician and was started on clindamycin for possible cellulitis. She feels well otherwise and denies chills, fever, nausea, vomiting or change in her bowel habit. Progress of Wound: Improving. No new complaints at this time. Minimal area left. - Physical Exam Vital Signs Temp Pulse Resp BP 96.6 F L 64 18 163/78 H 11/14/18 11:11 11/14/18 11:11 11/14/18 11:11 11/14/18 11:11 General: Alert, Oriented x3, Cooperative, No apparent distress HEENT: Atraumatic, Normocephalic Oral: Moist Mucosa Neck: Supple Lungs: Normal air movement Abdomen: Non Tender, Obese Extremities: No cyanosis, Edema Skin: Ulcer/ Wound Wound Measurements and Assessment WC - Nurse 1 - General Ulcer Measurement Start: 10/31/18 14:03 Freq: Status: Active Protocol: Activity Type Activity Date Activity User E-Sign Co-Sign Detail Recorded Client Recorded Date Recorded By Document 11/14/18 11:11 MW [id number] 11/14/18 11:13 MW 11/14/18 11:11 Wound Center Nurse 1 [Ulcer Assessment] #2 R Med LE cluster -Combined with other wound No -Current Size (cm) - Length 0.1 -Current Size (cm) - Width 0.1 -Current Size (cm) - Depth 0.1 -Total Square Cm 0.01 -Photo Taken No -Epithelialization Large 67-100% -Tunneling No -Undermining/Tunneling No -Circular Undermining No -Wound Margin Flat & Intact -Granulation Amt None Present (0 %) -Granulation Quality N/A -Slough/Fibrin Yes -Necrosis Amt Small (1-33%) -Necrotic Tissue Type Adherent Slough -Structure Exposed N/A -Texture (Jessica-wound Skin Appearance) Assessed Localized Edema Scarring -Moisture (Jessica-wound Skin Appearance Assessed ) Dry/Scaly -Color (Jessica-wound Skin Appearance) Assessed Hemosiderin Staining -Temperature (Jessica-wound Skin No Abnormality Appearance) (Pt Warm) -Tenderness on Palpation (Jessica-wound No Skin Appearance) -Ulcer Cleansing Rinsed/ Irrigated with Saline -Foul Odor after Cleansing No -Anesthetic Used 4% Lidocaine Solution [Edema Assessment] -Lower Limb Edema Present Yes -Right Calf (cm) 50.4 -Right Ankle (cm) 25.7 WC - Nurse 2 - General Ulcer CM Notes Start: 10/31/18 14:03 Freq: Status: Active Protocol: Activity Type Activity Date Activity User E-Sign Co-Sign Detail Recorded Client Recorded Date Recorded By Document 11/14/18 11:20 MW [id number] 11/14/18 11:21 MW 11/14/18 11:20 Wound Center Nurse 2 [Procedure/Treatment] #2 R Med LE cluster -Time 11:21 -Correct Patient Yes -Correct Side, Site, Position Yes -Correct Procedure Yes -Procedure Performed No -Post Debridement Size (cm) - Length 0.1 -Post Debridement Size (cm) - Width 0.1 -Post Debridement Size (cm) - Depth 0.1 -Total Square Cm 0.01 -Wound/Ulcer Outcome Not Healed -Ulcer Cleansing Rinsed/ Irrigated with Saline -Foul Odor after Cleansing No -Bioengineered Tissue No -Bleeding Controlled with Pressure -Offloading No -Treatment Response Procedure Tolerated Well [See Physician Procedure note for Specifics] Pain Scale: 0-10 Numeric [Pain] -Is Patient Pain Free? Yes Musculoskeletal: No Muscle Wasting Neurological: Cranial nerves II-XII grossly intact Psych/Mental Status: Normal Affect Debridement Note Post-Debridement Measurements/Treatment WC - Nurse 2 - General Ulcer CM Notes Start: 10/31/18 14:03 Freq: Status: Active Protocol: Activity Type Activity Date Activity User E-Sign Co-Sign Detail Recorded Client Recorded Date Recorded By Document 11/07/18 11:25 MW [id number] 11/07/18 11:26 MW Document 11/14/18 11:20 MW [id number] 11/14/18 11:21 MW 11/07/18 11/14/18 11:25 11:20 Wound Center Nurse 2 #2 R Med LE cluster -Time 11:25 11:21 -Correct Patient Yes Yes -Correct Side, Site, Position Yes Yes -Correct Procedure Yes Yes -Procedure Performed Yes No -Type of Procedure Debridement -Clinical Debridement Subcutaneous -Post Debridement Size (cm) - Length 0.6 0.1 -Post Debridement Size (cm) - Width 0.6 0.1 -Post Debridement Size (cm) - Depth 0.1 0.1 -Total Square Cm 0.36 0.01 -Wound/Ulcer Outcome Not Healed Not Healed -Ulcer Cleansing Rinsed/ Rinsed/ Irrigated with Irrigated with Saline Saline -Foul Odor after Cleansing No No -Bioengineered Tissue No No -Bleeding Controlled with Pressure Pressure -Offloading No No -Treatment Response Procedure Procedure Tolerated Well Tolerated Well Pain Scale: 0-10 Numeric Is Patient Pain Free? Yes Yes No debridement was completed today Assessment/Plan Active Problems Ulcer of right lower extremity with fat layer exposed (Chronic) Venous insufficiency (Chronic) 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 Obesity. Plan: Continues to show good improvement. No new concerns at this time. No debridement completed today. Continue Promogran with Adaptic over top. Leave on for a week. 3M wrap for edema management. Advised to elevate lower extremities when seated and in bed. Exercise, weight loss, Increased protein intake and supplements also recommended. She was advised to call with any questions or concerns. Follow-up in 1 week. This note was generated with [employer] software. It may contain incorrect words, spelling, and punctuation that were not noted in checking the note before signing.
[2018-11-21 10:51] VITALS: BP 166/76; PULSE 63; RESP 18; TEMP 35.2
--- NOTE | 2018-11-21 11:56 | PCM.WC.PN ---
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 History of Wound: Ms. Antony is a 63yo with PMH of Venous Insufficiencys/p vein Stripping in 2005 who presents here due to non healing right lower extremity ulcer. She was last seen here about 8 months ago for right lower extremity ulcer which is healed out. She however failed to return for her compression stockings. She noted reopening of the ulcer in April. She has not been using compression since her last visit. Since reopening in April, she has inconsistently applied Santyl to the wound. She also states that she was recently seen by her primary care physician and was started on clindamycin for possible cellulitis. She feels well otherwise and denies chills, fever, nausea, vomiting or change in her bowel habit. Progress of Wound: Healed. No concerns at this time. - Physical Exam Vital Signs Temp Pulse Resp BP 95.3 F L 63 18 166/76 H 11/21/18 10:51 11/21/18 10:51 11/21/18 10:51 11/21/18 10:51 General: Alert, Oriented x3, Cooperative, No apparent distress HEENT: Atraumatic Oral: Moist Mucosa Neck: Supple Lungs: Normal air movement Abdomen: Non Tender, Obese Extremities: No cyanosis, Edema Wound Measurements and Assessment WC - Nurse 1 - General Ulcer Measurement Start: 10/31/18 14:03 Freq: Status: Active Protocol: Activity Type Activity Date Activity User E-Sign Co-Sign Detail Recorded Client Recorded Date Recorded By Document 11/21/18 10:51 [id number] 11/21/18 10:56 11/21/18 10:51 Wound Center Nurse 1 [Ulcer Assessment] #2 R Med LE cluster -Combined with other wound No -Current Size (cm) - Length 0.1 -Current Size (cm) - Width 0.1 -Current Size (cm) - Depth 0.1 -Total Square Cm 0.01 -Date of Last Picture (Recall this 11/21/18 field) -Photo Taken Yes -Epithelialization Large 67-100% [Edema Assessment] -Lower Limb Edema Present Yes -Right Calf (cm) 49.5 -Right Ankle (cm) 25 WC - Nurse 2 - General Ulcer CM Notes Start: 10/31/18 14:03 Freq: Status: Active Protocol: Activity Type Activity Date Activity User E-Sign Co-Sign Detail Recorded Client Recorded Date Recorded By Document 11/21/18 11:03 MW [id number] 11/21/18 11:04 MW 11/21/18 11:03 Wound Center Nurse 2 [Procedure/Treatment] #2 R Med LE cluster -Time 11:04 -Correct Patient Yes -Correct Side, Site, Position Yes -Correct Procedure Yes -Procedure Performed No -Post Debridement Size (cm) - Length 0 -Post Debridement Size (cm) - Width 0 -Post Debridement Size (cm) - Depth 0 -Total Square Cm 0 -Wound/Ulcer Outcome Healed- Epithelialized [See Physician Procedure note for Specifics] Musculoskeletal: No Muscle Wasting Neurological: Cranial nerves II-XII grossly intact Psych/Mental Status: Normal Affect Debridement Note Post-Debridement Measurements/Treatment WC - Nurse 2 - General Ulcer CM Notes Start: 10/31/18 14:03 Freq: Status: Active Protocol: Activity Type Activity Date Activity User E-Sign Co-Sign Detail Recorded Client Recorded Date Recorded By Document 11/07/18 11:25 MW [id number] 11/07/18 11:26 MW Document 11/14/18 11:20 MW [id number] 11/14/18 11:21 MW Document 11/21/18 11:03 MW [id number] 11/21/18 11:04 MW 11/07/18 11/14/18 11/21/18 11:25 11:20 11:03 Wound Center Nurse 2 #2 R Med LE cluster -Time 11:25 11:21 11:04 -Correct Patient Yes Yes Yes -Correct Side, Site, Position Yes Yes Yes -Correct Procedure Yes Yes Yes -Procedure Performed Yes No No -Type of Procedure Debridement -Clinical Debridement Subcutaneous -Post Debridement Size (cm) - Length 0.6 0.1 0 -Post Debridement Size (cm) - Width 0.6 0.1 0 -Post Debridement Size (cm) - Depth 0.1 0.1 0 -Total Square Cm 0.36 0.01 0 -Wound/Ulcer Outcome Not Healed Not Healed Healed- Epithelialized -Ulcer Cleansing Rinsed/ Rinsed/ Irrigated with Irrigated with Saline Saline -Foul Odor after Cleansing No No -Bioengineered Tissue No No -Bleeding Controlled with Pressure Pressure -Offloading No No -Treatment Response Procedure Procedure Tolerated Well Tolerated Well Pain Scale: 0-10 Numeric Is Patient Pain Free? Yes Yes No debridement was completed today Assessment/Plan Active Problems Ulcer of right lower extremity with fat layer exposed (Chronic) Venous insufficiency (Chronic) 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 Obesity. Plan: Ulcer is healed. Still bilateral lower extremity edema. Scheduled to follow-up at the lymphedema clinic today. She was educated on the need to avoid significant lower extremity swelling subsequent ulceration. She stated understanding. Continue Adaptic over top for 2 weeks. Continue double layer Tubigrip for now until follow-up at the lymphedema clinic. She was advised to call with any questions or concerns. Discharged from the wound center. This note was generated with [employer] dictation software. It may contain incorrect words, spelling, and punctuation that were not noted in checking the note before signing.
--- NOTE | 2018-11-21 11:59 | PN.PCM_ITS ---
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 History of Wound: Ms. Antony is a 63yo with PMH of Venous Insufficiencys/p vein Stripping in 2005 who presents here due to non healing right lower extremity ulcer. She was last seen here about 8 months ago for right lower extremity ulcer which is healed out. She however failed to return for her compression stockings. She noted reopening of the ulcer in April. She has not been using compression since her last visit. Since reopening in April, she has inconsisten tly applied Santyl to the wound. She also states that she was recently seen by her primary care physician and was started on clindamycin for possible cellulitis. She feels well otherwise and denies chills, fever, nausea, vomiting or change in her bowel habit. Progress of Wound: Healed. No concerns at this time. - Physical Exam Vital Signs Temp Pulse Resp BP 95.3 F L 63 18 166/76 H 11/21/18 10:51 11/21/18 10:51 11/21/18 10:51 11/21/18 10:51 General: Alert, Oriented x3, Cooperative, No apparent distress HEENT: Atraumatic Oral: Moist Mucosa Neck: Supple Lungs: Normal air movement Abdomen: Non Tender, Obese Extremities: No cyanosis, Edema Wound Measurements and Assessment WC - Nurse 1 - General Ulcer Measurement Start: 10/31/18 14:03 Freq: Status: Active Protocol: Activity Type Activity Date Activity User E-Sign Co-Sign Detail Recorded Client Recorded Date Recorded By Document 11/21/18 10:51 [id number] 11/21/18 10:56 11/21/18 10:51 Wound Center Nurse 1 [Ulcer Assessment] #2 R Med LE cluster -Combined with other wound No -Current Size (cm) - Length 0.1 -Current Size (cm) - Width 0.1 -Current Size (cm) - Depth 0.1 -Total Square Cm 0.01 -Date of Last Picture (Recall this 11/21/18 field) -Photo Taken Yes -Epithelialization Large 67-100% [Edema Assessment] -Lower Limb Edema Present Yes -Right Calf (cm) 49.5 -Right Ankle (cm) 25 WC - Nurse 2 - General Ulcer CM Notes Start: 10/31/18 14:03 Freq: Status: Active Protocol: Activity Type Activity Date Activity User E-Sign Co-Sign Detail Recorded Client Recorded Date Recorded By Document 11/21/18 11:03 MW [id number] 11/21/18 11:04 MW 11/21/18 11:03 Wound Center Nurse 2 [Procedure/Treatment] #2 R Med LE cluster -Time 11:04 -Correct Patient Yes -Correct Side, Site, Position Yes -Correct Procedure Yes -Procedure Performed No -Post Debridement Size (cm) - Length 0 -Post Debridement Size (cm) - Width 0 -Post Debridement Size (cm) - Depth 0 -Total Square Cm 0 -Wound/Ulcer Outcome Healed- Epithelialized [See Physician Procedure note for Specifics] Musculoskeletal: No Muscle Wasting Neurological: Cranial nerves II-XII grossly intact Psych/Mental Status: Normal Affect Debridement Note Post-Debridement Measurements/Treatment WC - Nurse 2 - General Ulcer CM Notes Start: 10/31/18 14:03 Freq: Status: Active Protocol: Activity Type Activity Date Activity User E-Sign Co-Sign Detail Recorded Client Recorded Date Recorded By Document 11/07/18 11:25 MW [id number] 11/07/18 11:26 MW Document 11/14/18 11:20 MW [id number] 11/14/18 11:21 MW Document 11/21/18 11:03 MW [id number] 11/21/18 11:04 MW 11/07/18 11/14/18 11/21/18 11:25 11:20 11:03 Wound Center Nurse 2 #2 R Med LE cluster -Time 11:25 11:21 11:04 -Correct Patient Yes Yes Yes -Correct Side, Site, Position Yes Yes Yes -Correct Procedure Yes Yes Yes -Procedure Performed Yes No No -Type of Procedure Debridement -Clinical Debridement Subcutaneous -Post Debridement Size (cm) - Length 0.6 0.1 0 -Post Debridement Size (cm) - Width 0.6 0.1 0 -Post Debridement Size (cm) - Depth 0.1 0.1 0 -Total Square Cm 0.36 0.01 0 -Wound/Ulcer Outcome Not Healed Not Healed Healed- Epithelialized -Ulcer Cleansing Rinsed/ Rinsed/ Irrigated with Irrigated with Saline Saline -Foul Odor after Cleansing No No -Bioengineered Tissue No No -Bleeding Controlled with Pressure Pressure -Offloading No No -Treatment Response Procedure Procedure Tolerated Well Tolerated Well Pain Scale: 0-10 Numeric Is Patient Pain Free? Yes Yes No debridement was completed today Assessment/Plan Active Problems Ulcer of right lower extremity with fat layer exposed (Chronic) Venous insufficiency (Chronic) 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 Obesity. Plan: Ulcer is healed. Still bilateral lower extremity edema. Scheduled to follow-up at the lymphedema clinic today. She was educated on the need to avoid significant lower extremity swelling subsequent ulceration. She stated understanding. Continue Adaptic over top for 2 weeks. Continue double layer Tubigrip for now until follow-up at the lymphedema clinic. She was advised to call with any questions or concerns. Discharged from the wound center. This note was generated with [employer] dictation software. It may contain incorrect words, spelling, and punctuation that were not noted in checking the note before signing.
== END 2018-11-29 23:59 ==
LOC: WC 11:00
PROVIDERS: Family Provider Family Medicine; PCP Family Medicine; Visit Provider Internal Medicine
DX: I83.218 Varicose veins of right lower extremity with both ulcer of other part of lower extremity and inflammation (principal); L97.812 Non-pressure chronic ulcer of other part of right lower leg with fat layer exposed; E66.9 Obesity, unspecified; Z68.43 Body mass index [BMI] 50.0-59.9, adult; Z71.3 Dietary counseling and surveillance; Z91.19 Patient's noncompliance with other medical treatment and regimen
CPT/HCPCS: 11042; 29581; 99212; 99213; G0463

== ENCOUNTER 2018-12-26 15:30 | Outpatient (RCR) | payer BC, SELFPAY ==
--- NOTE | 2018-11-21 15:01 | HP.OTEVAL ---
Patient's Visit Information ALLISON GILMORE is a 63 year old F, referred to Occupational Therapy by Lisseth Briggs MD, with a diagnosis of B LE lymphedema. Date of Evaluation: 11/21/18 Occupational Therapist: JESSICA Houston/Doris, CHT - Subjective Subjective: This 63 year old female was seen for initial OT eval. PT states she started at the wound center in Jun/or Jul. due to ulcer on right LE. Pt states she has tried compression socks in the past (about 3 years ago or more) pt states she does not know what brand or compression value. Pt does not measure her own legs. Pt states swelling is worse following a work day (7-8 hours) standing all day. Pt works at [employer]. - Lymphedema (Circumferential Measure) Mid-foot: [id number] left 26cm Ankle: right 32cm left 32cm Lower calf: right 31cm left 33cm Largest calf: right 46cm left 47cm Below knee: right 57cm left 57cm - Lower Limb Functional Index Lower Extremity Functional Score: 47 - Goals Demonstrate a 20% reduction in edema by d/c: Yes Demonstrate adequate knowledge skin care/prec by 2nd week: Yes Demonstrate adequate knowledge therapeutic exercises by d/c: Yes Select approp compression garment w/donning/care/wear by d/c: Yes Voice need to replace compression garment every 4-6mo by dc: Yes - Rehabilitation General Assessment: Pt demo with LE lymphedema and in need of skilled OT services 1x week for 3 weeks to ensure pts understanding of lymphedema mtg of bilateral LE and use of compression devices. Rehabilitation Potential: Questionable - Anticipated Interventions Anticipated Interventions: Education re assistive Equipment, Education re Diagnosis, Manual Lymph Drainage, Education re Life-long lymphedema Management, Education re Skin Care and Precautions, Education re Self Massage Techniques, Education re Correct Donning Tech,Care&Wearing Sched Comp Garments - Visit Plan Frequency: 1x/Week Duration: 3 Weeks TEXT: Thank you for the opportunity to evaluate your patient. For Medicare and Medicare HMO plans, please review the plan of care and approve it. It will need to be FAXED BACK to us at [phone] for Medicare purposes. Please let me know if there are questions or concerns regarding this plan of care. Physician Signature: Date:
--- NOTE | 2018-12-26 15:52 | HP.OTDCSUM ---
HP - OT D/C Summary It has been my pleasure to treat ALLISON GILMORE under orders from Lisseth Briggs MD, for the diagnosis of B LE lymphedema for a total of 2 visit(s). Please see the following information for a summary of their discharge status. - Goals Patient Goals: Learn how to Manage Lymphedema, Learn how to Apply Compression Stockings Demonstrate a 20% reduction in edema by d/c: Yes Demonstrate adequate knowledge skin care/prec by 2nd week: Yes Demonstrate adequate knowledge therapeutic exercises by d/c: Yes Select approp compression garment w/donning/care/wear by d/c: Yes Voice need to replace compression garment every 4-6mo by dc: Yes - Plan Plan: D/C - D/C Information Discharge Comments: pt was seen in OT for 2 visits- therapist ed. pt on lymphedema mtg and ex. pt demo understanding. pt arrives at this last visit with circaide compression garment with velcro closure. pt demo Ind donning and knowledge of HEP .pt has met goals in OT and is D/C at this time. If there are questions or concerns regarding this patient's occupational therapy, please fell free to call me at [phone]. Thank you for the referral of this patient. Sincerely, Joana Ruiz, OTR/L, CHT
== END 2018-12-26 19:00 | disposition home or self-care (01) ==
LOC: OT 15:30
PROVIDERS: Family Provider Family Medicine; PCP Family Medicine; Referring Provider Internal Medicine; Visit Provider Internal Medicine
DX: I89.0 Lymphedema, not elsewhere classified (principal)
CPT/HCPCS: 97166; 97530

== ENCOUNTER 2019-11-20 20:46 | Emergency (ER) | payer BC, SELFPAY ==
[2019-11-20 20:49] VITALS: BP 183/103; PULSE 79; RESP 16; TEMP 36.8; O2SAT 99; BMI 54.9
--- NOTE | 2019-11-20 21:34 | RAD_ITS ---
STUDY: X-RAY - RIGHT WRIST REASON FOR EXAM: Female, 64 years old. Pain. Fall. TECHNIQUE: 3 view(s) of the wrist were obtained. COMPARISON: None. FINDINGS: There is no evidence of fracture or dislocation. There are moderate degenerative changes at the base of the thumb. There are no radiodense foreign bodies. RAD/Wrist min 3 Views IMPRESSION: No fracture or dislocation in the right wrist. Moderate degenerative changes at the base of the thumb. Electronically Signed: Fabian Simms, at 21:50 EST Tel , Service support ,
--- NOTE | 2019-11-20 22:37 | ED.VISSUMM ---
- ER Visit Summary Date of Service: 11/20/19 Chief Complaint: Fall History of Present Illness: The patient is a 64 F who fell earlier today. She tripped on a rug. Her glasses hit her face and nose. She cut her lower lip. She injured her right wrist. No other injuries or complaints. No blood thinners. No loss of consciousness. Vomiting. No weakness or numbness or vision changes. Physical Examination: Patient has abrasions to the bridge of her nose and inner lower lip. Otherwise head and neck are atraumatic and nontender. Nose shows dried blood but no clear drainage/rhinorrhea. Chest and abdomen nontender. Back is nontender. Extremities nontender except for the right wrist which is diffusely tender. Hand is nontender. No snuffbox tenderness. Skin intact. Neurovascular intact. Test Results: Right wrist x-rays were negative. Emergency Department Course and Treatment: Patient will follow up with repeat imaging of her right wrist pain persists. She was placed in a splint. Rest, ice, elevate. Motrin for pain. She does not meet imaging criteria for her head or her neck. Risks versus benefits discussed. Patient will be treated with Motrin. Return for increasing pain, vomiting, or any other concerning symptoms. Patient was discharged. Treatment Plan: As above Disposition: Discharge Impression: 1. Closed head injury 2. Right wrist pain This note was generated with [employer] dictation software. It may contain incorrect words, spelling, and punctuation that were not noted in review of the chart prior to signing ED Disposition - Plan for ED Patient: Referrals: Delfino Guillen MD [Primary Care Provider] -
--- NOTE | 2019-11-20 22:40 | ED.DEP ---
ED Disposition - Plan for ED Patient: Instructions: FALL, Mechanical Referrals: Delfino Guillen MD [Primary Care Provider] -
[2019-11-20] MEDS: Ibuprofen 400 MG Tablet 800 MG PO (22:56)
== END 2019-11-20 23:06 | disposition home or self-care (01) ==
PROVIDERS: Emergency Provider Emergency Medicine; PCP Family Medicine
DX: S01.511A Laceration without foreign body of lip, initial encounter (principal); S00.31XA Abrasion of nose, initial encounter; M25.531 Pain in right wrist; W18.09XA Striking against other object with subsequent fall, initial encounter; Y93.9 Activity, unspecified; Y92.89 Other specified places as the place of occurrence of the external cause; Y99.9 Unspecified external cause status; Z79.899 Other long term (current) drug therapy
CPT/HCPCS: 73110; 99283

== ENCOUNTER 2020-04-22 09:00 | Outpatient (RCR) | payer BC, SELFPAY ==
[2020-04-15 08:36] VITALS: BP 168/61; PULSE 69; RESP 16; TEMP 36.5; BMI 118.0
--- NOTE | 2020-04-15 09:18 | HP.PCM_ITS ---
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 Status: Chronic Current Visit: Yes Code(s): I83.11 - Varicose veins of right lower extremity with inflammation (3) Morbid (severe) obesity due to excess calories Status: Chronic Current Visit: Yes Code(s): E66.01 - Morbid (severe) obesity due to excess calories (4) Ulcer of right lower leg Status: Chronic Current Visit: Yes Qualifiers: Non-pressure ulcer stage: limited to breakdown of skin Qualified Code(s): L97.911 - Non-pressure chronic ulcer of unspecified part of right lower leg limited to breakdown of skin Code(s): L97.919 - Non-pressure chronic ulcer of unspecified part of right lower leg with unspecified severity (5) Venous insufficiency Status: Chronic Current Visit: Yes Code(s): I87.2 - Venous insufficiency (chronic) (peripheral) History of Present Illness Date of Service: 04/15/20 Chief Complaint: Right Non healing lower extremity ulcer. History of Wound: Ms. Antony is a 65yo with PMH of Venous Insufficiencys/p vein Stripping in 2005 who presents here due to non healing righ lower leg . She states this ulcer has been going on for quite a while but did not really want to come in. She works at [employer] and works 12 hours on her feet. She has not been wearing her compression stockings because she states they bother her legs at the knees cutting off circulation. 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 (Chronic) Past Medical History: Chronic open ulcers from peripheral vascular disease right lower leg Surgical History: no surgical history Allergies/Adverse Reactions: Allergies No Known Allergies Allergy (Verified 04/15/20 08:46) Home Medications: Ambulatory Orders Medication Instructions Recorded Ergocalciferol [Vitamin D] 50,000 unit PO MOTH 11/16/16 Hydrochlorothiazide [Hctz] 25 mg PO DAILY 10/19/17 Loperamide [Imodium] 2 mg PO 4X/DAY PRN PRN 10/19/17 Multivitamin [Daily Multiple 1 each PO DAILY 10/19/17 Vitamin] Vit C/E/Zn/Coppr/Lutein/Zeaxan 1 each PO DAILY 10/19/17 [Preservision Areds 2 Softgel] Calcium Carbonate 600 mg PO DAILY 04/15/20 Collagenase [Santyl] 1 applic TOPICAL DAILY 04/15/20 Ibuprofen 200 mg PO Q6H PRN 04/15/20 - Family History Maternal No pertinent history Smoking Status: Never smoker Review of Systems Constitutional: Denies: Chills, Fever Eyes: Denies: Blurred vision, Drainage, Pain HEENT: Denies: Difficulty Hearing, Difficulty Swallowing, Sore Throat, Visual Changes Cardiovascular: Denies: Chest Pain, Palpitations, Syncope Respiratory: Denies: Cough, Shortness of Breath Gastrointestinal: Denies: Abdominal Pain, Nausea, Vomiting Genitourinary: Denies: Dysuria, Frequency Musculoskeletal: Denies: Joint Pain, Muscle pain Skin: Reports: Wounds - Ulcer right lower leg medial from peripheral vascular disease. Denies: Jaundice, Rash Neurological: Denies: Balance problems, Change in Speech, Difficulty swallowing, Focal weakness Psychiatric: Denies: Anxiety, Depression Endocrine: Denies: Change in Body Habitus Hematologic/ Lymphatic: Denies: Adenopathy - Physical Exam Vital Signs Temp Pulse Resp BP 97.7 F L 69 16 168/61 H 04/15/20 08:36 04/15/20 08:36 04/15/20 08:36 04/15/20 08:36 General: Oriented x3, Cooperative, Well developed HEENT: Atraumatic, PERRLA Oral: Moist Mucosa Neck: Supple, No JVD Lungs: Clear to auscultation, Normal air movement Cardiovascular: Regular rate, Regular Rhythm Abdomen: Bowel Sounds Present, Soft, Non Tender, No Hepato-splenomegaly Extremities: No clubbing, No edema Skin: Ulcer/ Wound - Peripheral vascular disease with ulceration right lower leg Wound Measurements and Assessment WC - Nurse 1 - General Ulcer Measurement Start: 04/15/20 08:35 Freq: Status: Active Protocol: Activity Type Activity Date Activity User E-Sign Co-Sign Detail Recorded Client Recorded Date Recorded By Document 04/15/20 08:36 [facility] [id number] 04/15/20 08:45 [facility] 04/15/20 08:36 Wound Center Nurse 1 [Ulcer Assessment] #3- R [facility] -Combined with other wound No -Current Size (cm) - Length 5.3 -Current Size (cm) - Width 5.5 -Current Size (cm) - Depth 0.2 -Total Square Cm 29.15 -Date of Last Picture (Recall this 04/15/20 field) -Photo Taken Yes -Epithelialization None Present -Tunneling No -Undermining/Tunneling No -Circular Undermining No -Exudate Amt Small -Exudate Type Serosanguineous -Wound Margin Flat & Intact -Granulation Amt None Present (0 %) -Slough/Fibrin Yes -Necrosis Amt Large (67-100%) -Necrotic Tissue Type Adherent Slough -Texture (Jessica-wound Skin Appearance) Assessed, Scarring -Moisture (Jessica-wound Skin Appearance Assessed ) -Color (Jessica-wound Skin Appearance) Assessed, Erythema, Hemosiderin Staining -Temperature (Jessica-wound Skin No Abnormality Appearance) (Pt Warm) -Tenderness on Palpation (Jessica-wound Yes Skin Appearance) -Ulcer Cleansing SOAPY WATER -Foul Odor after Cleansing Yes -Anesthetic Used 4% Lidocaine Solution [Edema Assessment] -Lower Limb Edema Present Yes -Right Calf (cm) 46.5 -Right Ankle (cm) 29.8 -Left Calf (cm) 50.5 -Left Ankle (cm) 27.5 WC - Nurse 2 - General Ulcer CM Notes Start: 04/15/20 08:35 Freq: Status: Active Protocol: Activity Type Activity Date Activity User E-Sign Co-Sign Detail Recorded Client Recorded Date Recorded By Document 04/15/20 08:58 [id number] 04/15/20 09:06 04/15/20 08:58 Wound Center Nurse 2 [Procedure/Treatment] #3- R [facility] -Time 08:58 -Correct Patient Yes -Correct Side, Site, Position Yes -Correct Procedure Yes -Procedure Performed Yes -Type of Procedure Debridement -Clinical Debridement Subcutaneous -Post Debridement Size (cm) - Length 9.0 -Post Debridement Size (cm) - Width 6.0 -Post Debridement Size (cm) - Depth 0.2 -Total Square Cm 54.00 -Wound/Ulcer Outcome Not Healed -Ulcer Cleansing Rinsed/ Irrigated with Saline -Foul Odor after Cleansing No -Bioengineered Tissue No -Bleeding Controlled with Pressure -Offloading No -Treatment Response Procedure Tolerated Well [See Physician Procedure note for Specifics] Pain Scale: 0-10 Numeric [Pain] -Is Patient Pain Free? Yes Musculoskeletal: No Tenderness to Palpation of Joints or Extremities Lymphatic: No Cervical, Supraclavicular, or Inguinal Adenopathy Neurological: Cranial nerves II-XII grossly intact, Neuro grossly intact Psych/Mental Status: Normal Affect, Appropriate Debridement Note Post-Debridement Measurements/Treatment WC - Nurse 2 - General Ulcer CM Notes Start: 04/15/20 08:35 Freq: Status: Active Protocol: Activity Type Activity Date Activity User E-Sign Co-Sign Detail Recorded Client Recorded Date Recorded By Document 04/15/20 08:58 MW [id number] 04/15/20 09:06 MW 04/15/20 08:58 Wound Center Nurse 2 #3- R [facility] -Time 08:58 -Correct Patient Yes -Correct Side, Site, Position Yes -Correct Procedure Yes -Procedure Performed Yes -Type of Procedure Debridement -Clinical Debridement Subcutaneous -Post Debridement Size (cm) - Length 9.0 -Post Debridement Size (cm) - Width 6.0 -Post Debridement Size (cm) - Depth 0.2 -Total Square Cm 54.00 -Wound/Ulcer Outcome Not Healed -Ulcer Cleansing Rinsed/ Irrigated with Saline -Foul Odor after Cleansing No -Bioengineered Tissue No -Bleeding Controlled with Pressure -Offloading No -Treatment Response Procedure Tolerated Well Pain Scale: 0-10 Numeric Is Patient Pain Free? Yes Wound debrided: Right lower leg cluster Type of Debridement: Excisional debridement Anesthesia Used: 5% Lidocaine Gel Depth: Down to and including healthy tissue, in the subcutaneous layer Percentage of wound debrided: 100 Instrument Used: 7mm curette Tissue Removed: Slough and fibrin Severity: Limited To Skin Breakdown Amount of bleeding with debridement: Mild Bleeding Controlled with: Compression and gauze Patient tolerated procedure well Assessment/Plan Aerobic and anaerobic cultures obtained Active Problems Ulcer of right lower leg (Chronic) Venous insufficiency (Chronic) Morbid (severe) obesity due to excess calories (Chronic) 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 Obesity. Plan: Wash leg with antibacterial soap. Apply Aquacel extra moistened with Adaptic over top. Gauze dressing and 6 inch Rupert wrap to right leg and double layer Tubigrip to the left leg. Will refer to Dr. Mar for further treatment of her blockages on her AB studies and ultrasound
[2020-04-22 09:01] VITALS: RESP 18; TEMP 36.2; BMI 118.0
--- NOTE | 2020-04-22 09:25 | PN.PCM_ITS ---
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 Status: Chronic Current Visit: Yes Code(s): I83.11 - Varicose veins of right lower extremity with inflammation (3) Morbid (severe) obesity due to excess calories Status: Chronic Current Visit: Yes Code(s): E66.01 - Morbid (severe) obesity due to excess calories (4) Ulcer of right lower leg Status: Chronic Current Visit: Yes Qualifiers: Non-pressure ulcer stage: limited to breakdown of skin Qualified Code(s): L97.911 - Non-pressure chronic ulcer of unspecified part of right lower leg limited to breakdown of skin Code(s): L97.919 - Non-pressure chronic ulcer of unspecified part of right lower leg with unspecified severity (5) Venous insufficiency Status: Chronic Current Visit: Yes Code(s): I87.2 - Venous insufficiency (chronic) (peripheral) Type of Wound Date of Service: 04/22/20 Chief Complaint: Right Non healing lower extremity ulcer. History of Wound: Ms. Antony is a 65yo with PMH of Venous Insufficiencys/p vein Stripping in 2005 who presents here due to non healing righ lower leg . She states this ulcer has been going on for quite a while but did not really want to come in. She works at [employer] and works 12 hours on her feet. She has not been wearing her compression stockings because she states they bother her legs at the knees cutting off circulation. Arterial brachial and ultrasounds have been done recently in the last 2 years and show some blockages in the GS V area with occlusion both legs Progress of Wound: Today the ulcer is smaller. Patient grew 1+ bacteria and her ulcer and is going to be started on antibiotic therapy. We were unable to get through to her all week. Leg still has the cobblestone angry erythematous tissue surrounding the ulcer. Patient has an office visit with Dr. Mar next week for consult - Physical Exam Vital Signs Temp Pulse Resp BP 97.1 F L 69 18 168/61 H 04/22/20 09:01 04/15/20 08:36 04/22/20 09:01 04/15/20 08:36 General: Oriented x3, Cooperative, Well developed HEENT: Atraumatic, PERRLA Oral: Moist Mucosa Neck: Supple, No JVD Lungs: Clear to auscultation, Normal air movement Cardiovascular: Regular rate, Regular Rhythm Abdomen: Bowel Sounds Present, Soft, Non Tender, No Hepato-splenomegaly Extremities: No clubbing, Edema Skin: Ulcer/ Wound - Ulcer on inner aspect of the right medial lower leg Wound Measurements and Assessment WC - Nurse 1 - General Ulcer Measurement Start: 04/15/20 08:35 Freq: Status: Active Protocol: Activity Type Activity Date Activity User E-Sign Co-Sign Detail Recorded Client Recorded Date Recorded By Document 04/22/20 09:01 [facility] [id number] 04/22/20 09:09 [facility] 04/22/20 09:01 Wound Center Nurse 1 [Ulcer Assessment] #3- R [facility]ER -Combined with other wound No -Current Size (cm) - Length 5.3 -Current Size (cm) - Width 4.8 -Current Size (cm) - Depth 0.2 -Total Square Cm 25.44 -Photo Taken No -Epithelialization None Present -Tunneling No -Undermining/Tunneling No -Circular Undermining No -Exudate Amt Small -Exudate Type Serosanguineous -Wound Margin Flat & Intact -Granulation Amt Small (1-33%) -Granulation Quality Red -Slough/Fibrin Yes -Necrosis Amt Large (67-100%) -Necrotic Tissue Type Adherent Slough -Texture (Jessica-wound Skin Appearance) Assessed, Scarring -Moisture (Jessica-wound Skin Appearance Assessed,Dry/ ) Scaly -Color (Jessica-wound Skin Appearance) Assessed, Erythema, Hemosiderin Staining -Temperature (Jessica-wound Skin No Abnormality Appearance) (Pt Warm) -Tenderness on Palpation (Jessica-wound Yes Skin Appearance) -Ulcer Cleansing Rinsed/ Irrigated with Saline -Foul Odor after Cleansing No -Anesthetic Used 4% Lidocaine Solution [Edema Assessment] -Lower Limb Edema Present Yes -Right Calf (cm) 48 -Right Ankle (cm) 26 WC - Nurse 2 - General Ulcer CM Notes Start: 04/15/20 08:35 Freq: Status: Active Protocol: Activity Type Activity Date Activity User E-Sign Co-Sign Detail Recorded Client Recorded Date Recorded By Document 04/22/20 09:16 PL [id number] 04/22/20 09:19 PL 04/22/20 09:16 Wound Center Nurse 2 [Procedure/Treatment] #3- R [facility] -Time 09:14 -Correct Patient Yes -Correct Side, Site, Position Yes -Correct Procedure Yes -Procedure Performed Yes -Type of Procedure Debridement -Clinical Debridement Subcutaneous -Post Debridement Size (cm) - Length 5 -Post Debridement Size (cm) - Width 4.6 -Post Debridement Size (cm) - Depth 0.2 -Total Square Cm 23.0 -Wound/Ulcer Outcome Not Healed -Ulcer Cleansing Rinsed/ Irrigated with Saline -Foul Odor after Cleansing No -Bleeding Controlled with Pressure -Treatment Response Procedure Tolerated Well [See Physician Procedure note for Specifics] Pain Scale: 0-10 Numeric [Pain] -Is Patient Pain Free? Yes Musculoskeletal: No Tenderness to Palpation of Joints or Extremities Lymphatic: No Cervical, Supraclavicular, or Inguinal Adenopathy Neurological: Cranial nerves II-XII grossly intact, Neuro grossly intact Psych/Mental Status: Normal Affect, Appropriate Debridement Note Post-Debridement Measurements/Treatment WC - Nurse 2 - General Ulcer CM Notes Start: 04/15/20 08:35 Freq: Status: Active Protocol: Activity Type Activity Date Activity User E-Sign Co-Sign Detail Recorded Client Recorded Date Recorded By Document 04/15/20 08:58 MW [id number] 04/15/20 09:06 MW Document 04/22/20 09:16 PL [id number] 04/22/20 09:19 PL 04/15/20 04/22/20 08:58 09:16 Wound Center Nurse 2 #3- R [facility] CLUSTER -Time 08:58 09:14 -Correct Patient Yes Yes -Correct Side, Site, Position Yes Yes -Correct Procedure Yes Yes -Procedure Performed Yes Yes -Type of Procedure Debridement Debridement -Clinical Debridement Subcutaneous Subcutaneous -Post Debridement Size (cm) - Length 9.0 5 -Post Debridement Size (cm) - Width 6.0 4.6 -Post Debridement Size (cm) - Depth 0.2 0.2 -Total Square Cm 54.00 23.0 -Wound/Ulcer Outcome Not Healed Not Healed -Ulcer Cleansing Rinsed/ Rinsed/ Irrigated with Irrigated with Saline Saline -Foul Odor after Cleansing No No -Bioengineered Tissue No -Bleeding Controlled with Pressure Pressure -Offloading No -Treatment Response Procedure Procedure Tolerated Well Tolerated Well Pain Scale: 0-10 Numeric Is Patient Pain Free? Yes Yes Wound debrided: Peripheral vascular disease with ulcer right lower leg Type of Debridement: Excisional debridement Anesthesia Used: 5% Lidocaine Gel Depth: Down to and including healthy tissue, in the subcutaneous layer Percentage of wound debrided: 100 Instrument Used: 5mm curette Tissue Removed: Slough Severity: Limited To Skin Breakdown Amount of bleeding with debridement: Mild Bleeding Controlled with: Compression and gauze Patient tolerated procedure well Assessment/Plan Active Problems Ulcer of right lower leg (Chronic) Venous insufficiency (Chronic) Morbid (severe) obesity due to excess calories (Chronic) 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 Obesity. Plan: Wash leg with antibacterial soap. Apply Aquacel extra moistened with Adaptic over top. Gauze dressing and double layer Tubigrip to bilateral lower legs. Dr. Mar appointment next Monday for further treatment of her blockages on her AB studies and ultrasound. Ciprofloxacin 500 mg p.o. twice daily for 14 days
== END 2020-04-28 23:59 ==
LOC: WC 09:00
PROVIDERS: PCP Family Medicine; Referring Provider Nurse Practitioner; Visit Provider Nurse Practitioner
DX: I83.218 Varicose veins of right lower extremity with both ulcer of other part of lower extremity and inflammation (principal); L97.811 Non-pressure chronic ulcer of other part of right lower leg limited to breakdown of skin; L03.115 Cellulitis of right lower limb; E66.01 Morbid (severe) obesity due to excess calories; Z91.19 Patient's noncompliance with other medical treatment and regimen
CPT/HCPCS: 11042; 11045; 87070; 87075; 87077; 87186; 87205; 99213; G0463

== ENCOUNTER 2020-05-13 11:00 | Outpatient (RCR) | payer BC, SELFPAY ==
[2020-04-29 00:38] VITALS: BP 168/61; PULSE 69; RESP 18; TEMP 36.2
[2020-04-29 11:36] VITALS: BP 160/53; PULSE 65; RESP 18; TEMP 36.4; BMI 118.0
--- NOTE | 2020-04-29 11:57 | PCM.WC.PN ---
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 Status: Chronic Current Visit: Yes Code(s): I83.11 - Varicose veins of right lower extremity with inflammation (3) Morbid (severe) obesity due to excess calories Status: Chronic Current Visit: Yes Code(s): E66.01 - Morbid (severe) obesity due to excess calories (4) Ulcer of right lower extremity with fat layer exposed Status: Chronic Current Visit: Yes Code(s): L97.912 - Non-pressure chronic ulcer of unspecified part of right lower leg with fat layer exposed (5) Ulcer of right lower leg Status: Chronic Current Visit: Yes Qualifiers: Code(s): L97.919 - Non-pressure chronic ulcer of unspecified part of right lower leg with unspecified severity (6) Venous insufficiency Status: Chronic Current Visit: Yes Code(s): I87.2 - Venous insufficiency (chronic) (peripheral) Type of Wound Date of Service: 04/29/20 Chief Complaint: Right Non healing lower extremity ulcer. History of Wound: Ms. Antony is a 65yo with PMH of Venous Insufficiencys/p vein Stripping in 2005 who presents here due to non healing righ lower leg . She states this ulcer has been going on for quite a while but did not really want to come in. She works at [employer] and works 12 hours on her feet. She has not been wearing her compression stockings because she states they bother her legs at the knees cutting off circulation. Arterial brachial and ultrasounds have been done recently in the last 2 years and show some blockages in the GS V area with occlusion both legs Progress of Wound: Today the ulcer is smaller. Patient grew 1+ bacteria and her ulcer and is going to be started on antibiotic therapy. We were unable to get through to her all week. Leg still has the cobblestone angry erythematous tissue surrounding the ulcer. Patient met with Dr. Mar and will proceed with some surgical intervention. - Physical Exam Vital Signs Temp Pulse Resp BP 97.6 F L 65 18 160/53 H 04/29/20 11:36 04/29/20 11:36 04/29/20 11:36 04/29/20 11:36 General: Oriented x3, Cooperative, Well developed HEENT: Atraumatic, PERRLA Oral: Moist Mucosa Neck: Supple, No JVD Lungs: Clear to auscultation, Normal air movement Cardiovascular: Regular rate, Regular Rhythm Abdomen: Bowel Sounds Present, Soft, Non Tender, No Hepato-splenomegaly Extremities: No clubbing, No edema Skin: Ulcer/ Wound - Right peripheral vascular disease ulcer of the ankle area Wound Measurements and Assessment WC - Nurse 1 - General Ulcer Measurement Start: 04/29/20 11:36 Freq: Status: Active Protocol: Activity Type Activity Date Activity User E-Sign Co-Sign Detail Recorded Client Recorded Date Recorded By Document 04/29/20 11:36 RB [id number] 04/29/20 11:38 RB 04/29/20 11:36 Wound Center Nurse 1 [Ulcer Assessment] #3- R [facility] CLUSTER -Combined with other wound No -Current Size (cm) - Length 4.5 -Current Size (cm) - Width 5 -Current Size (cm) - Depth 0.1 -Total Square Cm 22.5 -Tunneling No -Undermining/Tunneling No -Circular Undermining No -Exudate Amt Small -Exudate Type Serosanguineous -Wound Margin Flat & Intact -Granulation Amt Medium (34-66%) -Granulation Quality [place] -Slough/Fibrin Yes -Necrosis Amt Small (1-33%) -Necrotic Tissue Type Adherent Slough -Structure Exposed N/A -Texture (Jessica-wound Skin Appearance) Assessed, Excoriation, Friable -Moisture (Jessica-wound Skin Appearance Assessed ) -Color (Jessica-wound Skin Appearance) Assessed -Temperature (Jessica-wound Skin No Abnormality Appearance) (Pt Warm) -Tenderness on Palpation (Jessica-wound No Skin Appearance) -Ulcer Cleansing Wound Cleanser -Foul Odor after Cleansing No -Anesthetic Used 4% Lidocaine Solution [Edema Assessment] -Lower Limb Edema Present Yes -Right Calf (cm) 49 -Right Ankle (cm) 27.5 WC - Nurse 2 - General Ulcer CM Notes Start: 04/29/20 11:36 Freq: Status: Active Protocol: Activity Type Activity Date Activity User E-Sign Co-Sign Detail Recorded Client Recorded Date Recorded By Document 04/29/20 11:46 MW [id number] 04/29/20 11:49 MW 04/29/20 11:46 Wound Center Nurse 2 [Procedure/Treatment] #3- R [facility] CL[facility] -Time 11:47 -Correct Patient Yes -Correct Side, Site, Position Yes -Correct Procedure Yes -Procedure Performed Yes -Type of Procedure Debridement -Clinical Debridement Subcutaneous -Post Debridement Size (cm) - Length 3.0 -Post Debridement Size (cm) - Width 5.0 -Post Debridement Size (cm) - Depth 0.2 -Total Square Cm 15.00 -Wound/Ulcer Outcome Not Healed -Ulcer Cleansing Rinsed/ Irrigated with Saline -Foul Odor after Cleansing No -Bioengineered Tissue No -Bleeding Controlled with Pressure -Offloading No -Treatment Response Procedure Tolerated Well [See Physician Procedure note for Specifics] Pain Scale: 0-10 Numeric [Pain] -Is Patient Pain Free? Yes Musculoskeletal: No Tenderness to Palpation of Joints or Extremities Lymphatic: No Cervical, Supraclavicular, or Inguinal Adenopathy Neurological: Cranial nerves II-XII grossly intact, Neuro grossly intact Psych/Mental Status: Normal Affect, Appropriate Debridement Note Post-Debridement Measurements/Treatment WC - Nurse 2 - General Ulcer CM Notes Start: 04/29/20 11:36 Freq: Status: Active Protocol: Activity Type Activity Date Activity User E-Sign Co-Sign Detail Recorded Client Recorded Date Recorded By Document 04/29/20 11:46 MW [id number] 04/29/20 11:49 MW 04/29/20 11:46 Wound Center Nurse 2 #3- R [facility] CL[facility] -Time 11:47 -Correct Patient Yes -Correct Side, Site, Position Yes -Correct Procedure Yes -Procedure Performed Yes -Type of Procedure Debridement -Clinical Debridement Subcutaneous -Post Debridement Size (cm) - Length 3.0 -Post Debridement Size (cm) - Width 5.0 -Post Debridement Size (cm) - Depth 0.2 -Total Square Cm 15.00 -Wound/Ulcer Outcome Not Healed -Ulcer Cleansing Rinsed/ Irrigated with Saline -Foul Odor after Cleansing No -Bioengineered Tissue No -Bleeding Controlled with Pressure -Offloading No -Treatment Response Procedure Tolerated Well Pain Scale: 0-10 Numeric Is Patient Pain Free? Yes Wound debrided: Right medial ankle Type of Debridement: Excisional debridement Anesthesia Used: 5% Lidocaine Gel Depth: Down to and including healthy tissue, in the subcutaneous layer, to muscle Percentage of wound debrided: 100 Instrument Used: 5mm curette Tissue Removed: Fibrin and slough Severity: Fat Layer Exposed Amount of bleeding with debridement: Mild Bleeding Controlled with: Compression and gauze Patient tolerated procedure well Assessment/Plan Active Problems Ulcer of right lower extremity with fat layer exposed (Chronic) Ulcer of right lower leg (Chronic) Venous insufficiency (Chronic) Morbid (severe) obesity due to excess calories (Chronic) 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 Obesity. Plan: Wash leg with antibacterial soap. Apply Aquacel extra moistened with Adaptic over top. Gauze dressing and double layer Tubigrip to bilateral lower legs. Ciprofloxacin 500 mg p.o. twice daily for 14 days
[2020-05-06 10:55] VITALS: RESP 18; TEMP 36.8; BMI 118.0
--- NOTE | 2020-05-06 11:30 | PCM.WC.PN ---
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 Status: Chronic Current Visit: Yes Code(s): I83.11 - Varicose veins of right lower extremity with inflammation (3) Morbid (severe) obesity due to excess calories Status: Chronic Current Visit: Yes Code(s): E66.01 - Morbid (severe) obesity due to excess calories (4) Ulcer of right lower extremity with fat layer exposed Status: Chronic Current Visit: Yes Code(s): L97.912 - Non-pressure chronic ulcer of unspecified part of right lower leg with fat layer exposed (5) Ulcer of right lower leg Status: Chronic Current Visit: Yes Qualifiers: Code(s): L97.919 - Non-pressure chronic ulcer of unspecified part of right lower leg with unspecified severity (6) Venous insufficiency Status: Chronic Current Visit: Yes Code(s): I87.2 - Venous insufficiency (chronic) (peripheral) Type of Wound Date of Service: 05/06/20 Chief Complaint: Right Non healing lower extremity ulcer. History of Wound: Ms. Antony is a 65yo with PMH of Venous Insufficiencys/p vein Stripping in 2005 who presents here due to non healing righ lower leg . She states this ulcer has been going on for quite a while but did not really want to come in. She works at [employer] and works 12 hours on her feet. She has not been wearing her compression stockings because she states they bother her legs at the knees cutting off circulation. Arterial brachial and ultrasounds have been done recently in the last 2 years and show some blockages in the GS V area with occlusion both legs Progress of Wound: Today the ulcer is smaller. Patient grew 1+ bacteria and her ulcer and is going to be started on antibiotic therapy. Ulcer is looking commercial cleaner and less angry. Patient met with Dr. Mar and will proceed with some surgical intervention. We will continue to answer questions and give reassurance. Patient is doing well with care will follow-up in 1 week - Physical Exam Vital Signs Temp Pulse Resp BP 98.3 F 65 18 160/53 H 05/06/20 10:55 04/29/20 11:36 05/06/20 10:55 04/29/20 11:36 General: Oriented x3, Cooperative, Well developed HEENT: Atraumatic, PERRLA Oral: Moist Mucosa Neck: Supple, No JVD Lungs: Clear to auscultation, Normal air movement Cardiovascular: Regular rate, Regular Rhythm Abdomen: Bowel Sounds Present, Soft, Non Tender, No Hepato-splenomegaly Extremities: No clubbing, No edema Skin: Ulcer/ Wound - Right medial lower extremity ulcer Wound Measurements and Assessment WC - Nurse 1 - General Ulcer Measurement Start: 04/29/20 11:36 Freq: Status: Active Protocol: Activity Type Activity Date Activity User E-Sign Co-Sign Detail Recorded Client Recorded Date Recorded By Document 05/06/20 10:55 CS [id number] 05/06/20 11:02 CS 05/06/20 10:55 Wound Center Nurse 1 [Ulcer Assessment] #3- R MEDIAL LE CLUSTER -Combined with other wound No -Current Size (cm) - Length 3.4 -Current Size (cm) - Width 4.3 -Current Size (cm) - Depth 0.2 -Total Square Cm 14.62 -Photo Taken No -Epithelialization None Present -Tunneling No -Undermining/Tunneling No -Circular Undermining No -Exudate Amt Small -Exudate Type Serosanguineous -Wound Margin Distinct, Outline Attached -Granulation Amt Large (67-100%) -Granulation Quality Red -Slough/Fibrin Yes -Necrosis Amt None Present (0 %) -Necrotic Tissue Type Adherent Slough -Structure Exposed N/A -Texture (Jessica-wound Skin Appearance) Scarring -Moisture (Jessica-wound Skin Appearance Dry/Scaly ) -Color (Jessica-wound Skin Appearance) Erythema -Temperature (Jessica-wound Skin No Abnormality Appearance) (Pt Warm) -Tenderness on Palpation (Jessica-wound No Skin Appearance) -Ulcer Cleansing Rinsed/ Irrigated with Saline -Foul Odor after Cleansing No -Anesthetic Used 4% Lidocaine Solution [Edema Assessment] -Lower Limb Edema Present Yes -Right Calf (cm) 41.3 -Right Ankle (cm) 27.5 - Nurse 2 - General Ulcer CM Notes Start: 04/29/20 11:36 Freq: Status: Active Protocol: Activity Type Activity Date Activity User E-Sign Co-Sign Detail Recorded Client Recorded Date Recorded By Document 05/06/20 11:19 MW [id number] 05/06/20 11:21 MW 05/06/20 11:19 Wound Center Nurse 2 [Procedure/Treatment] #3- R MEDIAL LE CLUSTER -Time 11:19 -Correct Patient Yes -Correct Side, Site, Position Yes -Correct Procedure Yes -Procedure Performed Yes -Type of Procedure Debridement -Clinical Debridement Subcutaneous -Post Debridement Size (cm) - Length 3.3 -Post Debridement Size (cm) - Width 4.6 -Post Debridement Size (cm) - Depth 0.3 -Total Square Cm 15.18 -Wound/Ulcer Outcome Not Healed -Ulcer Cleansing Rinsed/ Irrigated with Saline -Foul Odor after Cleansing No -Bioengineered Tissue No -Bleeding Controlled with Pressure -Offloading No -Treatment Response Procedure Tolerated Well [See Physician Procedure note for Specifics] Pain Scale: 0-10 Numeric [Pain] -Is Patient Pain Free? Yes Musculoskeletal: No Tenderness to Palpation of Joints or Extremities Lymphatic: No Cervical, Supraclavicular, or Inguinal Adenopathy Neurological: Cranial nerves II-XII grossly intact, Neuro grossly intact Psych/Mental Status: Normal Affect, Appropriate Debridement Note Post-Debridement Measurements/Treatment WC - Nurse 2 - General Ulcer CM Notes Start: 04/29/20 11:36 Freq: Status: Active Protocol: Activity Type Activity Date Activity User E-Sign Co-Sign Detail Recorded Client Recorded Date Recorded By Document 04/29/20 11:46 MW [id number] 04/29/20 11:49 MW Document 05/06/20 11:19 MW [id number] 05/06/20 11:21 MW 04/29/20 05/06/20 11:46 11:19 Wound Center Nurse 2 #3- R MEDIAL LE CLUSTER -Time 11:47 11:19 -Correct Patient Yes Yes -Correct Side, Site, Position Yes Yes -Correct Procedure Yes Yes -Procedure Performed Yes Yes -Type of Procedure Debridement Debridement -Clinical Debridement Subcutaneous Subcutaneous -Post Debridement Size (cm) - Length 3.0 3.3 -Post Debridement Size (cm) - Width 5.0 4.6 -Post Debridement Size (cm) - Depth 0.2 0.3 -Total Square Cm 15.00 15.18 -Wound/Ulcer Outcome Not Healed Not Healed -Ulcer Cleansing Rinsed/ Rinsed/ Irrigated with Irrigated with Saline Saline -Foul Odor after Cleansing No No -Bioengineered Tissue No No -Bleeding Controlled with Pressure Pressure -Offloading No No -Treatment Response Procedure Procedure Tolerated Well Tolerated Well Pain Scale: 0-10 Numeric Is Patient Pain Free? Yes Yes Wound debrided: Right medial ankle ulcer from venous insufficiency Type of Debridement: Excisional debridement Anesthesia Used: 5% Lidocaine Gel Depth: Down to and including healthy tissue Percentage of wound debrided: 100 Instrument Used: 7mm curette Severity: Limited To Skin Breakdown Amount of bleeding with debridement: Mild Bleeding Controlled with: Compression and gauze Patient tolerated procedure well Assessment/Plan Active Problems Ulcer of right lower extremity with fat layer exposed (Chronic) Ulcer of right lower leg (Chronic) Venous insufficiency (Chronic) Morbid (severe) obesity due to excess calories (Chronic) 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 Obesity. Plan: Wash leg with antibacterial soap. Apply Aquacel extra moistened with Adaptic over top. Gauze dressing and double layer Tubigrip to bilateral lower legs. Metronidazole 250 mg 3 times a day for 14 days with food. Follow-up in 1 week
[2020-05-13 11:12] VITALS: BP 175/57; PULSE 69; RESP 18; TEMP 36.8; BMI 118.0
--- NOTE | 2020-05-13 12:48 | PN.PCM_ITS ---
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 Status: Chronic Current Visit: Yes Code(s): I83.11 - Varicose veins of right lower extremity with inflammation (3) Morbid (severe) obesity due to excess calories Status: Chronic Current Visit: Yes Code(s): E66.01 - Morbid (severe) obesity due to excess calories (4) Ulcer of right lower extremity with fat layer exposed Status: Chronic Current Visit: Yes Code(s): L97.912 - Non-pressure chronic ulcer of unspecified part of right lower leg with fat layer exposed (5) Ulcer of right lower leg Status: Chronic Current Visit: Yes Qualifiers: Code(s): L97.919 - Non-pressure chronic ulcer of unspecified part of right lower leg with unspecified severity (6) Venous insufficiency Status: Chronic Current Visit: Yes Code(s): I87.2 - Venous insufficiency (chronic) (peripheral) Type of Wound Date of Service: 05/13/20 Chief Complaint: Right Non healing lower extremity ulcer. History of Wound: Ms. Antony is a 65yo with PMH of Venous Insufficiencys/p vein Stripping in 2005 who presents here due to non healing righ lower leg . She states this ulcer has been going on for quite a while but did not really want to come in. She works at [employer] and works 12 hours on her feet. She has not been wearing her compression stockings because she states they bother her legs at the knees cutting off circulation. Arterial brachial and ultrasounds have been done recently in the last 2 years and show some blockages in the GS V area with occlusion both legs Progress of Wound: Today the ulcer is smaller. Patient grew 1+ bacteria and she was started on antibiotic therapy . Ulcer is looking mercury cell cleaner and less angry. Patient met with Dr. Mar and will proceed with some surgical intervention. Patient not sure if she wants to do this now have the surgical intervention she wants to wait. We will continue to answer questions and give reassurance. Patient is doing well with care will follow-up in 1 week - Physical Exam Vital Signs Temp Pulse Resp BP 98.2 F 69 18 175/57 H 05/13/20 11:12 05/13/20 11:12 05/13/20 11:12 05/13/20 11:12 General: Oriented x3, Cooperative, Well developed HEENT: Atraumatic, PERRLA Oral: Moist Mucosa Neck: Supple, No JVD Lungs: Clear to auscultation, Normal air movement Cardiovascular: Regular rate, Regular Rhythm Abdomen: Bowel Sounds Present, Soft, Non Tender, No Hepato-splenomegaly Extremities: No clubbing, Diminished Peripheral Pulses, Edema, - - Right medial lower leg ulcer Skin: Ulcer/ Wound Wound Measurements and Assessment WC - Nurse 1 - General Ulcer Measurement Start: 04/29/20 11:36 Freq: Status: Active Protocol: Activity Type Activity Date Activity User E-Sign Co-Sign Detail Recorded Client Recorded Date Recorded By Document 05/13/20 11:12 RB [id number] 05/13/20 11:14 RB 05/13/20 11:12 Wound Center Nurse 1 [Ulcer Assessment] #3- R MEDIAL LE CLUSTER -Combined with other wound No -Current Size (cm) - Length 2.9 -Current Size (cm) - Width 4.3 -Current Size (cm) - Depth 0.1 -Total Square Cm 12.47 -Tunneling No -Undermining/Tunneling No -Circular Undermining No -Exudate Amt Medium -Exudate Type Serosanguineous -Wound Margin Flat & Intact -Granulation Quality [place] -Slough/Fibrin Yes -Necrosis Amt Small (1-33%) -Necrotic Tissue Type Adherent Slough -Structure Exposed N/A -Texture (Jessica-wound Skin Appearance) Assessed, Scarring -Moisture (Jessica-wound Skin Appearance Assessed, ) Maceration -Color (Jessica-wound Skin Appearance) Assessed, Hemosiderin Staining -Temperature (Jessica-wound Skin No Abnormality Appearance) (Pt Warm) -Tenderness on Palpation (Jessica-wound No Skin Appearance) -Ulcer Cleansing Wound Cleanser -Foul Odor after Cleansing No -Anesthetic Used 4% Lidocaine Solution [Edema Assessment] -Lower Limb Edema Present Yes -Right Calf (cm) 46.5 -Right Ankle (cm) 26.5 WC - Nurse 2 - General Ulcer CM Notes Start: 04/29/20 11:36 Freq: Status: Active Protocol: Activity Type Activity Date Activity User E-Sign Co-Sign Detail Recorded Client Recorded Date Recorded By Document 05/13/20 11:23 MW [id number] 05/13/20 11:25 MW 05/13/20 11:23 Wound Center Nurse 2 [Procedure/Treatment] #3- R MEDIAL LE CLUSTER -Time 11:24 -Correct Patient Yes -Correct Side, Site, Position Yes -Correct Procedure Yes -Procedure Performed Yes -Type of Procedure Debridement -Clinical Debridement Subcutaneous -Post Debridement Size (cm) - Length 3.2 -Post Debridement Size (cm) - Width 4.0 -Post Debridement Size (cm) - Depth 0.2 -Total Square Cm 12.80 -Wound/Ulcer Outcome Not Healed -Ulcer Cleansing Rinsed/ Irrigated with Saline -Foul Odor after Cleansing No -Bioengineered Tissue No -Bleeding Controlled with Pressure -Offloading No -Treatment Response Procedure Tolerated Well [See Physician Procedure note for Specifics] Pain Scale: 0-10 Numeric [Pain] -Is Patient Pain Free? Yes Musculoskeletal: No Tenderness to Palpation of Joints or Extremities Lymphatic: No Cervical, Supraclavicular, or Inguinal Adenopathy Neurological: Cranial nerves II-XII grossly intact, Neuro grossly intact Psych/Mental Status: Normal Affect, Appropriate, Alert and oriented to time, place, person, mood and affect Debridement Note Post-Debridement Measurements/Treatment WC - Nurse 2 - General Ulcer CM Notes Start: 04/29/20 11:36 Freq: Status: Active Protocol: Activity Type Activity Date Activity User E-Sign Co-Sign Detail Recorded Client Recorded Date Recorded By Document 04/29/20 11:46 MW [id number] 04/29/20 11:49 MW Document 05/06/20 11:19 MW [id number] 05/06/20 11:21 MW Document 05/13/20 11:23 MW [id number] 05/13/20 11:25 MW 04/29/20 05/06/20 05/13/20 11:46 11:19 11:23 Wound Center Nurse 2 #3- R MEDIAL LE CLUSTER -Time 11:47 11:19 11:24 -Correct Patient Yes Yes Yes -Correct Side, Site, Position Yes Yes Yes -Correct Procedure Yes Yes Yes -Procedure Performed Yes Yes Yes -Type of Procedure Debridement Debridement Debridement -Clinical Debridement Subcutaneous Subcutaneous Subcutaneous -Post Debridement Size (cm) - Length 3.0 3.3 3.2 -Post Debridement Size (cm) - Width 5.0 4.6 4.0 -Post Debridement Size (cm) - Depth 0.2 0.3 0.2 -Total Square Cm 15.00 15.18 12.80 -Wound/Ulcer Outcome Not Healed Not Healed Not Healed -Ulcer Cleansing Rinsed/ Rinsed/ Rinsed/ Irrigated with Irrigated with Irrigated with Saline Saline Saline -Foul Odor after Cleansing No No No -Bioengineered Tissue No No No -Bleeding Controlled with Pressure Pressure Pressure -Offloading No No No -Treatment Response Procedure Procedure Procedure Tolerated Well Tolerated Well Tolerated Well Pain Scale: 0-10 Numeric Is Patient Pain Free? Yes Yes Yes Wound debrided: Right medial lower leg ulcer Type of Debridement: Excisional debridement Anesthesia Used: 5% Lidocaine Gel Depth: Down to and including healthy tissue, in the subcutaneous layer Percentage of wound debrided: 100 Instrument Used: 5mm curette Tissue Removed: Devitalized tissue and fibrin Severity: Limited To Skin Breakdown Amount of bleeding with debridement: Mild Bleeding Controlled with: Compression and gauze Patient tolerated procedure well Assessment/Plan Active Problems Ulcer of right lower extremity with fat layer exposed (Chronic) Ulcer of right lower leg (Chronic) Venous insufficiency (Chronic) Morbid (severe) obesity due to excess calories (Chronic) 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 Obesity. Plan: Wash leg with antibacterial soap. Apply Aquacel extra moistened with Adaptic over top. Gauze dressing and double layer Tubigrip to bilateral lower legs. Continue metronidazole 250 mg 3 times a day for 14 days with food. Follow-up in 1 week
== END 2020-05-29 23:59 ==
LOC: WC 11:00
PROVIDERS: PCP Family Medicine; Referring Provider Nurse Practitioner; Visit Provider Nurse Practitioner
DX: I83.11 Varicose veins of right lower extremity with inflammation (principal); L97.912 Non-pressure chronic ulcer of unspecified part of right lower leg with fat layer exposed; E66.01 Morbid (severe) obesity due to excess calories; L03.115 Cellulitis of right lower limb; Z91.19 Patient's noncompliance with other medical treatment and regimen
CPT/HCPCS: 11042

== ENCOUNTER → 2020-05-19 10:10 | Outpatient (CLI) | payer BC, SELFPAY ==
[2020-05-13 11:12] VITALS: BMI 118.0
== END ==
PROVIDERS: PCP Family Medicine; Referring Provider Registered Nurse; Visit Provider Registered Nurse
DX: Z20.828 Contact with and (suspected) exposure to other viral communicable diseases (principal)
CPT/HCPCS: 87635; G2023; U0003

== ENCOUNTER 2020-06-17 10:30 | Outpatient (RCR) | payer BC, SELFPAY ==
[2020-05-30 00:35] VITALS: BP 175/57; PULSE 69; RESP 18; TEMP 36.8
[2020-06-03 11:01] VITALS: RESP 16; TEMP 36.1; BMI 118.0
--- NOTE | 2020-06-03 12:00 | PCM.WC.PN ---
(1) Chronic venous stasis dermatitis of right lower extremity Status: Chronic Current Visit: No Code(s): I83.11 - Varicose veins of right lower extremity with inflammation (2) Ulcer of right lower extremity with fat layer exposed Status: Chronic Current Visit: Yes Code(s): L97.912 - Non-pressure chronic ulcer of unspecified part of right lower leg with fat layer exposed (3) Ulcer of right lower leg Status: Chronic Current Visit: Yes Qualifiers: Code(s): L97.919 - Non-pressure chronic ulcer of unspecified part of right lower leg with unspecified severity (4) Venous insufficiency Status: Chronic Current Visit: Yes Code(s): I87.2 - Venous insufficiency (chronic) (peripheral) Type of Wound Date of Service: 06/03/20 Chief Complaint: Right Non healing lower extremity ulcer. History of Wound: Ms. Antony is a 65yo with PMH of Venous Insufficiencys/p vein Stripping in 2005 who presents here due to non healing righ lower leg . She states this ulcer has been going on for quite a while but did not really want to come in. She works at [employer] and works 12 hours on her feet. She has not been wearing her compression stockings because she states they bother her legs at the knees cutting off circulation. Arterial brachial and ultrasounds have been done recently in the last 2 years and show some blockages in the GS V area with occlusion both legs Progress of Wound: Today the ulcer is much smaller. Patient grew 1+ bacteria and she was started on antibiotic therapy . She has currently finished all antibiotic therapy ulcer is looking oil tank car cleaner and less angry. Patient met with Dr. Mar and will proceed with some surgical intervention. Patient not sure if she wants to do this now have the surgical intervention she wants to wait. We will continue to answer questions and give reassurance. Patient is doing well with care will follow-up in 1 week - Physical Exam Vital Signs Temp Pulse Resp BP 97 F L 69 16 175/57 H 06/03/20 11:01 05/30/20 00:35 06/03/20 11:05/30/20 00:35 General: Oriented x3, Cooperative, Well developed HEENT: Atraumatic, PERRLA Oral: Moist Mucosa Neck: Supple, No JVD Lungs: Clear to auscultation, Normal air movement Cardiovascular: Regular rate, Regular Rhythm Abdomen: Bowel Sounds Present, Soft, Non Tender, No Hepato-splenomegaly Extremities: No clubbing, Edema Skin: Ulcer/ Wound - Peripheral vascular disease ulcers of the right [place] area Wound Measurements and Assessment - Nurse 1 - General Ulcer Measurement Start: 06/03/20 08:49 Freq: Status: Active Protocol: Activity Type Activity Date Activity User E-Sign Co-Sign Detail Recorded Client Recorded Date Recorded By Document 06/03/20 11:01 BM [id number] 06/03/20 11:09 BMF 06/03/20 11:01 Wound Center Nurse 1 [Ulcer Assessment] #3- R MEDIAL LE CLUSTER -Combined with other wound No -Current Size (cm) - Length 2 -Current Size (cm) - Width 2.7 -Current Size (cm) - Depth 0.3 -Total Square Cm 5.4 -Date of Last Picture (Recall this 06/03/20 field) -Photo Taken Yes -Epithelialization None Present -Tunneling No -Undermining/Tunneling No -Circular Undermining No -Exudate Amt Small -Exudate Type Serosanguineous -Wound Margin Distinct, Outline Attached -Granulation Amt Small (1-33%) -Granulation Quality Red -Slough/Fibrin Yes -Necrosis Amt Large (67-100%) -Necrotic Tissue Type Adherent Slough -Texture (Jessica-wound Skin Appearance) Assessed, Scarring -Moisture (Jessica-wound Skin Appearance Assessed,Dry/ ) Scaly -Color (Jessica-wound Skin Appearance) Assessed -Temperature (Jessica-wound Skin No Abnormality Appearance) (Pt Warm) -Tenderness on Palpation (Jessica-wound No Skin Appearance) -Ulcer Cleansing Rinsed/ Irrigated with Saline -Foul Odor after Cleansing No -Anesthetic Used 5% Lidocaine Gel [Edema Assessment] -Lower Limb Edema Present Yes -Right Calf (cm) 46.8 -Right Ankle (cm) 25 WC - Nurse 2 - General Ulcer CM Notes Start: 06/03/20 08:49 Freq: Status: Active Protocol: Activity Type Activity Date Activity User E-Sign Co-Sign Detail Recorded Client Recorded Date Recorded By Document 06/03/20 11:32 MW [id number] 06/03/20 11:34 MW 06/03/20 11:32 Wound Center Nurse 2 [Procedure/Treatment] #3- R MEDIAL LE CLUSTER -Time 11:32 -Correct Patient Yes -Correct Side, Site, Position Yes -Correct Procedure Yes -Procedure Performed Yes -Type of Procedure Debridement -Clinical Debridement Subcutaneous -Post Debridement Size (cm) - Length 1.9 -Post Debridement Size (cm) - Width 3.0 -Post Debridement Size (cm) - Depth 0.2 -Total Square (cm) 5.70 -Wound/Ulcer Outcome Not Healed -Ulcer Cleansing Rinsed/ Irrigated with Saline -Foul Odor after Cleansing No -Bioengineered Tissue No -Bleeding Controlled with Pressure -Offloading No -Treatment Response Procedure Tolerated Well [See Physician Procedure note for Specifics] Pain Scale: 0-10 Numeric [Pain] -Is Patient Pain Free? Yes Musculoskeletal: No Tenderness to Palpation of Joints or Extremities Lymphatic: No Cervical, Supraclavicular, or Inguinal Adenopathy Neurological: Cranial nerves II-XII grossly intact, Neuro grossly intact Psych/Mental Status: Normal Affect, Appropriate Debridement Note Post-Debridement Measurements/Treatment WC - Nurse 2 - General Ulcer CM Notes Start: 06/03/20 08:49 Freq: Status: Active Protocol: Activity Type Activity Date Activity User E-Sign Co-Sign Detail Recorded Client Recorded Date Recorded By Document 06/03/20 11:32 MW [id number] 06/03/20 11:34 MW 06/03/20 11:32 Wound Center Nurse 2 #3- R MEDIAL LE CLUSTER -Time 11:32 -Correct Patient Yes -Correct Side, Site, Position Yes -Correct Procedure Yes -Procedure Performed Yes -Type of Procedure Debridement -Clinical Debridement Subcutaneous -Post Debridement Size (cm) - Length 1.9 -Post Debridement Size (cm) - Width 3.0 -Post Debridement Size (cm) - Depth 0.2 -Total Square (cm) 5.70 -Wound/Ulcer Outcome Not Healed -Ulcer Cleansing Rinsed/ Irrigated with Saline -Foul Odor after Cleansing No -Bioengineered Tissue No -Bleeding Controlled with Pressure -Offloading No -Treatment Response Procedure Tolerated Well Pain Scale: 0-10 Numeric Is Patient Pain Free? Yes Wound debrided: Right medial cluster ulcer Type of Debridement: Excisional debridement Anesthesia Used: 5% Lidocaine Gel Depth: Down to and including healthy tissue Percentage of wound debrided: 100 Instrument Used: 5mm curette Tissue Removed: Fibrin and some devitalized tissue Severity: Limited To Skin Breakdown Amount of bleeding with debridement: Mild Bleeding Controlled with: Pressure Patient tolerated procedure well Assessment/Plan Active Problems Ulcer of right lower extremity with fat layer exposed (Chronic) Ulcer of right lower leg (Chronic) Venous insufficiency (Chronic) Assessment: Recurrent right lower extremity ulcer due to chronic venous insufficiency and noncompliance with compression. Obesity. Plan: Wash leg with antibacterial soap. Apply Aquacel extra moistened with Adaptic over top. Gauze dressing and double layer Tubigrip to bilateral lower legs. Follow-up in 1 week
[2020-06-10 10:07] VITALS: BP 165/63; PULSE 63; RESP 18; TEMP 36.2; BMI 118.0
--- NOTE | 2020-06-10 10:32 | PN.PCM_ITS ---
(1) Chronic venous stasis dermatitis of right lower extremity Status: Chronic Current Visit: Yes Code(s): I83.11 - Varicose veins of right lower extremity with inflammation (2) Ulcer of right lower extremity with fat layer exposed Status: Chronic Current Visit: Yes Code(s): L97.912 - Non-pressure chronic ulcer of unspecified part of right lower leg with fat layer exposed (3) Ulcer of right lower leg Status: Chronic Current Visit: Yes Qualifiers: Code(s): L97.919 - Non-pressure chronic ulcer of unspecified part of right lower leg with unspecified severity (4) Venous insufficiency Status: Chronic Current Visit: Yes Code(s): I87.2 - Venous insufficiency (chronic) (peripheral) Type of Wound Date of Service: 06/10/20 Chief Complaint: Right Non healing lower extremity ulcer. History of Wound: Ms. Antony is a 65yo with PMH of Venous Insufficiencys/p vein Stripping in 2005 who presents here due to non healing righ lower leg . She states this ulcer has been going on for quite a while but did not really want to come in. She works at [employer] and works 12 hours on her feet. She has not been wearing her compression stockings because she states they bother her legs at the knees cutting off circulation. Arterial brachial and ultrasounds have been done recently in the last 2 years and show some blockages in the GS V area with occlusion both legs Progress of Wound: Today the ulcer is healed. Patient met with Dr. Mar and will proceed with some surgical intervention. Patient not sure if she wants to do this now have the surgical intervention she wants to wait. We will continue to answer questions and give reassurance. Patient is doing well with care will follow-up in 1 week - Physical Exam Vital Signs Temp Pulse Resp BP 97.2 F L 63 18 165/63 H 06/10/20 10:07 06/10/20 10:07 06/10/20 10:06/10/20 10:07 General: Oriented x3, Cooperative, Well developed HEENT: Atraumatic, PERRLA Oral: Moist Mucosa Neck: Supple, No JVD Lungs: Clear to auscultation, Normal air movement Cardiovascular: Regular rate, Regular Rhythm Abdomen: Bowel Sounds Present, Soft, Non Tender, No Hepato-splenomegaly Extremities: No clubbing, No edema Skin: Ulcer/ Wound - Right medial lower leg ulcer Wound Measurements and Assessment WC - Nurse 1 - General Ulcer Measurement Start: 06/03/20 08:49 Freq: Status: Active Protocol: Activity Type Activity Date Activity User E-Sign Co-Sign Detail Recorded Client Recorded Date Recorded By Document 06/10/20 10:07 BM [id number] 06/10/20 10:11 BM 06/10/20 10:07 Wound Center Nurse 1 [Ulcer Assessment] #3- R MEDIAL LE CLUSTER -Combined with other wound No -Current Size (cm) - Length 1.1 -Current Size (cm) - Width 2.6 -Current Size (cm) - Depth 0.1 -Total Square Cm 2.86 -Tunneling No -Undermining/Tunneling No -Circular Undermining No -Exudate Amt Small -Exudate Type Serosanguineous -Wound Margin Flat & Intact -Granulation Amt Large (67-100%) -Granulation Quality [place] -Slough/Fibrin Yes -Necrosis Amt Small (1-33%) -Necrotic Tissue Type Adherent Slough -Structure Exposed N/A -Texture (Jessica-wound Skin Appearance) Assessed, Excoriation -Moisture (Jessica-wound Skin Appearance Assessed ) -Color (Jessica-wound Skin Appearance) Assessed, Hemosiderin Staining -Temperature (Jessica-wound Skin No Abnormality Appearance) (Pt Warm) -Tenderness on Palpation (Jessica-wound No Skin Appearance) -Ulcer Cleansing Wound Cleanser -Foul Odor after Cleansing No -Anesthetic Used 5% Lidocaine Gel [Edema Assessment] -Lower Limb Edema Present Yes -Right Calf (cm) 48.6 -Right Ankle (cm) 26.6 - Nurse 2 - General Ulcer CM Notes Start: 06/03/20 08:49 Freq: Status: Active Protocol: Activity Type Activity Date Activity User E-Sign Co-Sign Detail Recorded Client Recorded Date Recorded By Document 06/10/20 10:20 MW [id number] 06/10/20 10:25 MW 06/10/20 10:20 Wound Center Nurse 2 [Procedure/Treatment] #3- R MEDIAL LE CLUSTER -Time 10:21 -Correct Patient Yes -Correct Side, Site, Position Yes -Correct Procedure Yes -Procedure Performed Yes -Type of Procedure Debridement -Clinical Debridement Selective -Post Debridement Size (cm) - Length 0.5 -Post Debridement Size (cm) - Width 0.3 -Post Debridement Size (cm) - Depth 0.1 -Total Square (cm) 0.15 -Wound/Ulcer Outcome Not Healed -Ulcer Cleansing Rinsed/ Irrigated with Saline -Foul Odor after Cleansing No -Bioengineered Tissue No -Bleeding Controlled with Pressure -Offloading No -Treatment Response Procedure Tolerated Well [See Physician Procedure note for Specifics] Pain Scale: 0-10 Numeric [Pain] -Is Patient Pain Free? Yes Musculoskeletal: No Tenderness to Palpation of Joints or Extremities Lymphatic: No Cervical, Supraclavicular, or Inguinal Adenopathy Neurological: Cranial nerves II-XII grossly intact, Neuro grossly intact Psych/Mental Status: Normal Affect, Appropriate Debridement Note Post-Debridement Measurements/Treatment WC - Nurse 2 - General Ulcer CM Notes Start: 06/03/20 08:49 Freq: Status: Active Protocol: Activity Type Activity Date Activity User E-Sign Co-Sign Detail Recorded Client Recorded Date Recorded By Document 06/03/20 11:32 MW [id number] 06/03/20 11:34 MW Document 06/10/20 10:20 MW [id number] 06/10/20 10:25 MW 06/03/20 06/10/20 11:32 10:20 Wound Center Nurse 2 #3- R MEDIAL LE CLUSTER -Time 11:32 10:21 -Correct Patient Yes Yes -Correct Side, Site, Position Yes Yes -Correct Procedure Yes Yes -Procedure Performed Yes Yes -Type of Procedure Debridement Debridement -Clinical Debridement Subcutaneous Selective -Post Debridement Size (cm) - Length 1.9 0.5 -Post Debridement Size (cm) - Width 3.0 0.3 -Post Debridement Size (cm) - Depth 0.2 0.1 -Total Square (cm) 5.70 0.15 -Wound/Ulcer Outcome Not Healed Not Healed -Ulcer Cleansing Rinsed/ Rinsed/ Irrigated with Irrigated with Saline Saline -Foul Odor after Cleansing No No -Bioengineered Tissue No No -Bleeding Controlled with Pressure Pressure -Offloading No No -Treatment Response Procedure Procedure Tolerated Well Tolerated Well Pain Scale: 0-10 Numeric Is Patient Pain Free? Yes Yes Wound debrided: Medial lower leg ulcer Type of Debridement: Selective debridement Anesthesia Used: 5% Lidocaine Gel Depth: Down to and including healthy tissue Percentage of wound debrided: 100 Instrument Used: - - Using gauze Tissue Removed: Devitalized tissue and fibrin Severity: Limited To Skin Breakdown Amount of bleeding with debridement: None Bleeding Controlled with: Pressure Assessment/Plan Active Problems Ulcer of right lower extremity with fat layer exposed (Chronic) Ulcer of right lower leg (Chronic) Venous insufficiency (Chronic) 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 Obesity. Plan: Wash leg with antibacterial soap. Apply Promogran with Adaptic over top. Gauze dressing and double layer Tubigrip to bilateral lower legs. Follow-up in 1 week
[2020-06-17 10:31] VITALS: BP 130/81; PULSE 77; RESP 16; TEMP 36.3; BMI 118.0
--- NOTE | 2020-06-17 10:53 | PCM.WC.PN ---
(1) Chronic venous stasis dermatitis of right lower extremity Status: Chronic Current Visit: Yes Code(s): I83.11 - Varicose veins of right lower extremity with inflammation (2) Ulcer of right lower extremity with fat layer exposed Status: Chronic Current Visit: Yes Code(s): L97.912 - Non-pressure chronic ulcer of unspecified part of right lower leg with fat layer exposed (3) Ulcer of right lower leg Status: Chronic Current Visit: Yes Qualifiers: Code(s): L97.919 - Non-pressure chronic ulcer of unspecified part of right lower leg with unspecified severity (4) Venous insufficiency Status: Chronic Current Visit: Yes Code(s): I87.2 - Venous insufficiency (chronic) (peripheral) Type of Wound Date of Service: 06/17/20 Chief Complaint: Right Non healing lower extremity ulcer. History of Wound: Ms. Antony is a 65yo with PMH of Venous Insufficiencys/p vein Stripping in 2005 who presents here due to non healing righ lower leg . She states this ulcer has been going on for quite a while but did not really want to come in. She works at [employer] and works 12 hours on her feet. She has not been wearing her compression stockings because she states they bother her legs at the knees cutting off circulation. Arterial brachial and ultrasounds have been done recently in the last 2 years and show some blockages in the GS V area with occlusion both legs Progress of Wound: Today the ulcer is healed. Patient met with Dr. Mar and will need proceed with some surgical intervention. Patient not sure if she wants to do this now have the surgical intervention she wants to wait. We will continue to answer questions and give reassurance. Patient is discharged from the wound center and can follow-up as needed - Physical Exam Vital Signs Temp Pulse Resp BP 97.3 F L 77 16 130/81 H 06/17/20 10:31 06/17/20 10:31 06/17/20 10:31 06/17/20 10:31 General: Oriented x3, Cooperative, Well developed HEENT: Atraumatic, PERRLA Oral: Moist Mucosa Neck: Supple, No JVD Lungs: Clear to auscultation, Normal air movement Cardiovascular: Regular rate, Regular Rhythm Abdomen: Bowel Sounds Present, Soft, Non Tender, No Hepato-splenomegaly Extremities: No clubbing, No edema Skin: Ulcer/ Wound - Venous ulcers right medial lower extremity Wound Measurements and Assessment WC - Nurse 1 - General Ulcer Measurement Start: 06/03/20 08:49 Freq: Status: Active Protocol: Activity Type Activity Date Activity User E-Sign Co-Sign Detail Recorded Client Recorded Date Recorded By Document 06/17/20 10:31 BM [id number] 06/17/20 10:37 BMF 06/17/20 10:31 Wound Center Nurse 1 [Ulcer Assessment] #3- R MEDIAL LE CLUSTER -Combined with other wound No -Current Size (cm) - Length 0.1 -Current Size (cm) - Width 0.1 -Current Size (cm) - Depth 0.1 -Total Square Cm 0.01 -Photo Taken No -Epithelialization Large 67-100% -Tunneling No -Undermining/Tunneling No -Circular Undermining No -Exudate Amt None Present -Texture (Jessica-wound Skin Appearance) Assessed, Scarring -Moisture (Jessica-wound Skin Appearance Assessed,Dry/ ) Scaly -Color (Jessica-wound Skin Appearance) Assessed -Temperature (Jessica-wound Skin No Abnormality Appearance) (Pt Warm) -Tenderness on Palpation (Jessica-wound No Skin Appearance) -Ulcer Cleansing Rinsed/ Irrigated with Saline -Foul Odor after Cleansing No -Anesthetic Used 4% Lidocaine Solution [Edema Assessment] -Lower Limb Edema Present Yes -Right Calf (cm) 42.6 -Right Ankle (cm) 25 WC - Nurse 2 - General Ulcer CM Notes Start: 06/16/20 19:32 Freq: Status: Active Protocol: Activity Type Activity Date Activity User E-Sign Co-Sign Detail Recorded Client Recorded Date Recorded By Document 06/17/20 10:46 MW [id number] 06/17/20 10:47 MW 06/17/20 10:46 Wound Center Nurse 2 [Procedure/Treatment] #3- R MEDIAL LE CLUSTER -Time 10:46 -Correct Patient Yes -Correct Side, Site, Position Yes -Correct Procedure Yes -Procedure Performed No -Post Debridement (cm) - Length 0 -Post Debridement (cm) - Width 0 -Post Debridement (cm) - Depth 0 -Total Square (Post) (cm) 0 -Wound/Ulcer Outcome Healed- Epithelialized [See Physician Procedure note for Specifics] Pain Scale: 0-10 Numeric [Pain] -Is Patient Pain Free? Yes MAGNOLIA - Nurse 3 - General Ulcer D/C NN Start: 06/16/20 19:32 Freq: Status: Active Protocol: Activity Type Activity Date Activity User E-Sign Co-Sign Detail Recorded Client Recorded Date Recorded By Document 06/17/20 10:48 MW [id number] 06/17/20 10:49 MW 06/17/20 10:48 Wound Care Nurse 3 [Compression Applied] Right -Lotion applied to leg before No compression wrap -Other tubigrip [Post Procedure Tolerated] -Treatment Response Procedure Tolerated Well Pain Scale: 0-10 Numeric [Pain] -Is Patient Pain Free? Yes Teaching: Wound Center [Wound Center Education] (Items with an * have Printed Materials Available- Please identify what is given to patient under the Teaching materials given to patient and caregiver Section. Discharge Instructions -Person Taught Patient -Teaching Method Discussion -Response to teaching Verbalize understanding WC - Visit Discharge [Visit Discharge Information] -Discharge Condition Stable -Ambulatory Status Ambulatory -Transportation Private Auto -Accompanied by self -Medication Reconcilliation completed No & provided to patient/care provider -Clinical Summary of Care Provided Yes Musculoskeletal: No Tenderness to Palpation of Joints or Extremities Lymphatic: No Cervical, Supraclavicular, or Inguinal Adenopathy Neurological: Cranial nerves II-XII grossly intact, Neuro grossly intact Psych/Mental Status: Normal Affect, Appropriate Debridement Note Post-Debridement Measurements/Treatment WC - Nurse 2 - General Ulcer CM Notes Start: 06/16/20 19:32 Freq: Status: Active Protocol: Activity Type Activity Date Activity User E-Sign Co-Sign Detail Recorded Client Recorded Date Recorded By Document 06/17/20 10:46 MW [id number] 06/17/20 10:47 MW 06/17/20 10:46 Wound Center Nurse 2 #3- R MEDIAL LE CLUSTER -Time 10:46 -Correct Patient Yes -Correct Side, Site, Position Yes -Correct Procedure Yes -Procedure Performed No -Post Debridement (cm) - Length 0 -Post Debridement (cm) - Width 0 -Post Debridement (cm) - Depth 0 -Total Square (Post) (cm) 0 -Wound/Ulcer Outcome Healed- Epithelialized Pain Scale: 0-10 Numeric Is Patient Pain Free? Yes MAGNOLIA - Nurse 3 - General Ulcer D/C NN Start: 06/16/20 19:32 Freq: Status: Active Protocol: Activity Type Activity Date Activity User E-Sign Co-Sign Detail Recorded Client Recorded Date Recorded By Document 06/17/20 10:48 MW [id number] 06/17/20 10:49 MW 06/17/20 10:48 Wound Care Nurse 3 Right -Lotion applied to leg before No compression wrap -Other tubigrip Treatment Response Procedure Tolerated Well Pain Scale: 0-10 Numeric Is Patient Pain Free? Yes Teaching: Wound Center Discharge Instructions -Person Taught Patient -Teaching Method Discussion -Response to teaching Verbalize understanding WC - Visit Discharge Discharge Condition Stable Ambulatory Status Ambulatory Transportation Private Auto Accompanied by self Medication Reconcilliation completed & No provided to patient/care provider Clinical Summary of Care Provided Yes No debridement was completed today Assessment/Plan Active Problems Ulcer of right lower extremity with fat layer exposed (Chronic) Ulcer of right lower leg (Chronic) Venous insufficiency (Chronic) Chronic venous stasis dermatitis of right lower extremity (Chronic) Assessment: Recurrent right lower extremity ulcer resolved. due to chronic venous insufficiency and noncompliance with compression. Obesity. Plan: Discharge from the wound center and follow-up as needed\. Follow-up with Dr. 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
== END 2020-06-18 08:13 | disposition home or self-care (01) ==
LOC: WC 10:30
PROVIDERS: PCP Family Medicine; Referring Provider Nurse Practitioner; Visit Provider Nurse Practitioner
DX: I83.11 Varicose veins of right lower extremity with inflammation (principal); L97.912 Non-pressure chronic ulcer of unspecified part of right lower leg with fat layer exposed; Z91.19 Patient's noncompliance with other medical treatment and regimen; E66.9 Obesity, unspecified; I87.8 Other specified disorders of veins
CPT/HCPCS: 11042; 97597; 99212; G0463

== ENCOUNTER 2020-08-01 19:07 | Emergency (ER) | payer BC, OTHER, SELFPAY ==
[2020-08-01 19:08] VITALS: BP 157/81; PULSE 71; RESP 17; TEMP 36.2; O2SAT 99; BMI 50.3
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
[2020-08-01 21:06] VITALS: BP 149/78; PULSE 88; RESP 16; O2SAT 98
== END 2020-08-01 21:06 | disposition home or self-care (01) ==
PROVIDERS: Emergency Provider Emergency Medicine; PCP Family Medicine
DX: S20.219A Contusion of unspecified front wall of thorax, initial encounter (principal); E66.01 Morbid (severe) obesity due to excess calories; V89.2XXA Person injured in unspecified motor-vehicle accident, traffic, initial encounter
CPT/HCPCS: 71046; 99282

== ENCOUNTER → 2020-08-27 10:39 | Outpatient (CLI) | payer BC, SELFPAY ==
[2020-08-01 19:08] VITALS: BMI 50.3
== END ==
PROVIDERS: PCP Family Medicine; Referring Provider Family Medicine; Visit Provider Family Medicine
DX: Z20.828 Contact with and (suspected) exposure to other viral communicable diseases (principal)
CPT/HCPCS: 87635; C9803; U0003

== ENCOUNTER 2022-08-28 13:09 | Emergency (ER) | payer BC, SELFPAY ==
[2022-08-28 13:09] VITALS: BP 152/68; PULSE 88; RESP 21; O2SAT 92
[2022-08-28 13:10] VITALS: BP 136/55; PULSE 95; RESP 16; TEMP 36.8; O2SAT 91; BMI 51.5
--- NOTE | 2022-08-28 14:49 | ED.VIS.FALL ---
HPI HPI - Fall History of Present Illness Chief Complaint: Fall Informant: patient Occured/Mechanism Occurred: Today Pain/Injury Location: Sacrum and right lower leg Pain Location: back and lower extremity Quality of Pain: Dull Worsened by: Nothing Relieved by: Nothing Associated Symptoms Associated Symptoms: Positive for Parasthesias; Negative for Weakness, Loss of function, Inability to ambulate, Loss of consciousness or Amnesia Narrative Narrative: Patient presents after a fall that occurred today. Patient actually fell twice today. Patient states she got up this morning and felt dizzy. Patient states she landed on her tailbone. Patient states that later this afternoon she fell again. Patient denies any dizziness with the second fall. Patient complains of pain in her buttock and right lower leg. Patient has a chronic ulcer to her right lower leg. Patient denies any new laceration or bleeding. Patient admits to some mild pain in her chest today. Patient states this has resolved. Patient denies any shortness of breath. Patient did have an episode of nausea and vomiting in the ambulance. Patient states nothing makes her pain better nothing makes it worse. Patient admits to some intermittent tingling in her right foot. Patient is unsure of her last tetanus. Tetanus Immunization: Unknown [facility] Medical History (Updated 08/28/22 @ 16:[address] Sheldon Walker, DO) Chronic cutaneous venous stasis ulcer Home Medications ergocalciferol (vitamin D2) 1,250 mcg (50,000 unit) capsule (Vitamin D2) 50,000 unit PO MOTH 11/16/16 [History Last Taken Unknown] hydrochlorothiazide 25 mg tablet 25 mg PO DAILY 10/19/17 [History Last Taken Unknown] loperamide 2 mg capsule 2 mg PO 4X/DAY PRN PRN Diarrhea 10/19/17 [History Last Taken Unknown] multivitamin (Daily Multiple tablet) 1 ea PO DAILY 10/19/17 [History Last Taken Unknown] vit C 250 mg-vit E 90 mg-zinc 40 mg-copper 1 [id number] capsule (PreserVision AREDS-2) 1 ea PO DAILY 10/19/17 [History Last Taken Unknown] calcium carbonate 600 mg calcium (1,500 mg) tablet 600 mg PO DAILY 04/15/20 [History Last Taken Unknown] collagenase clostridium histo. 250 unit/gram topical ointment 1 applic topical DAILY 04/15/20 [History Last Taken Unknown] ibuprofen 200 mg capsule 200 mg PO Q6H PRN Pain Or Fever 04/15/20 [History Last Taken Unknown] Allergy/AdvReac Type Severity Reaction Status Date / Time No Known Allergies Allergy Verified 08/28/22 13:10 Surgical History (Updated 08/28/22 @ 14:[address] Sheldon Walker, DO) Hx of repair of rotator cuff Social History Smoking Status: Never smoker ROS ROS ED Constitutional Constitutional ED: Denies chills or fever(s) Eyes Eyes: Denies blurry vision or change in vision ENT ENT ED: Denies rhinorrhea or sore throat Cardiovascular Cardiovascular: Reports chest pain; Denies palpitations Respiratory/Chest Respiratory/Chest: Denies cough or dyspnea Gastrointestinal Gastrointestinal: Reports nausea and vomiting Genitourinary Genitourinary ED: Denies dysuria or hematuria Musculoskeletal Musculoskeletal: Reports back pain; Denies neck pain Integumentary Denies abscess or rash Neurologic Neurologic: Denies headache(s) or weakness Allergic/Immunologic Allergic/Immunologic ED: Denies mouth swelling or urticaria EXAM Physical Exam Const Vital Signs: 08/28/22 13:10 08/28/22 13:09 08/28/22 14:07 Temperature 98.2 F Temperature Source Temporal Pulse Rate 95 88 Respiratory Rate 16 21 H Respiratory Pattern Normal Blood Pressure 136/55 H 152/68 H Blood Pressure Mean 82 96 Pulse Ox 91 92 Oxygen Delivery Method Room Air Room Air 08/28/22 15:23 Temperature Temperature Source Pulse Rate 80 Respiratory Rate 18 Respiratory Pattern Blood Pressure 133/42 H Blood Pressure Mean 72 Pulse Ox 97 Oxygen Delivery Method Room Air Positive well nourished, well developed and obese General Appearance ED: well developed and NAD Nutritional Appearance: obese HEENT Reports moist mucous membranes Neck supple and no JVD Resp normal respiratory effort and clear to auscultation bilaterally Cardio regular rate, regular rhythm and no murmurs GI normal to inspection, nondistended, normoactive bowel sounds and non-tender Palpation: soft Extremity normal to inspection Extremity Narrative: There is tenderness and a superficial ulcer over the anterior aspect of the right lower leg. There is no bony crepitance or step-off. There is no deformity. Range of motion was slightly limited in all motions of the right lower leg and ankle secondary to pain. Sensation was intact to light touch in all digits. Capillary refill was less than 2 seconds in all digits. Pedal pulses are equal bilaterally. Neuro oriented x3, CN's II-XII intact bilaterally and no sensory deficits noted Sensorium / Orientation: alert Motor Exam: strength 5/5 throughout Psych mental status grossly normal Skin no rashes or lesions noted MDM MDM MDM Narrative Medical decision making narrative: X-rays of the sacrum and coccyx were obtained. There are 3 views. On my interpretation, there is no acute fracture. There is no soft tissue swelling. Radiologist also interpreted the x-rays and agrees. X-rays of the right tibia and fibula were obtained. There are 2 views. On my interpretation, there is no acute fracture. There is no soft tissue swelling. There is no evidence of osteomyelitis. Radiologist also interpreted the x-rays and agrees. Patient was advised of her findings. Patient was instructed to use her cane. Patient was also advised to obtain a walker and use that if her cane is not able to support her. Patient was instructed to follow-up with her primary care physician in 5 to 7 days. Patient understood and was agreeable with the plan. All questions were answered. Radiography Diagnostic Testing: Clinical Impression(s) from Imaging Studies Sacrum and Coccyx X-Ray 08/28/22 14:55 IMPRESSION: There is scoliosis of the lumbar spine. Electronically Signed: Vinnie Wasserman MD at 15:23 EDT , Tibia/Fibula X-Ray 08/28/22 14:56 IMPRESSION: No acute findings in the right tibia and fibula or surrounding soft tissues. Electronically Signed: Vinnie Wasserman MD at 15:22 EDT , Discharge Plan Triage Chief Complaint: Fall ED Provider: Sheldon Walker Dx/Rx/DC Orders Clinical Impression: Contusion of sacrum, Contusion of right lower leg Instructions: ED Coccyx or Sacrum Contusion, ED Contusion, Lower Extremity Prescriptions: No Action ergocalciferol (vitamin D2) [Vitamin D2] 50,000 UNIT capsule 50,000 unit PO MOTH Label Comments: TWICE A WEEK multivitamin [Daily Multiple] 1 EACH tablet 1 ea PO DAILY loperamide 2 MG capsule 2 mg PO 4X/DAY PRN PRN (Reason: Diarrhea) hydrochlorothiazide 25 MG tablet 25 mg PO DAILY vit C,[id number]-Wu-etpzs-lutein-zeaxan [PreserVision AREDS-2] 1 EACH capsule 1 ea PO DAILY ibuprofen 200 MG capsule 200 mg PO Q6H PRN (Reason: Pain Or Fever) calcium carbonate 600 MG tablet 600 mg PO DAILY collagenase clostridium histo. 1 APPLIC ointment 1 applic topical DAILY Stand Alone Forms: ED Work / School Excuse Primary Care Provider: Delfino Guillen Referrals: Delfino Guillen MD [Primary Care Provider] - 3-5 Days Disposition Disposition: Home, Self Care
--- NOTE | 2022-08-28 14:55 | RAD_ITS ---
EXAM: XR SACRUM AND COCCYX, 2 OR MORE VIEWS CLINICAL INDICATION: Fall pain TECHNIQUE: Frontal and lateral views of the sacrum and coccyx. This report was created using [employer] report generation technology. COMPARISON: None. FINDINGS: SACRUM/COCCYX: Unremarkable. No displaced fracture. No destructive or sclerotic lesions. Note that overlapping bowel shadows may however obscure fine detail in the frontal view. Sacroiliac joints are unremarkable. VERTEBRAE: There is scoliosis of the lumbar spine. SOFT TISSUES: Unremarkable. No soft tissue swelling or gas. RAD/Sacrum-Coccyx min 2 Views IMPRESSION: There is scoliosis of the lumbar spine. Electronically Signed: Vinnie Wasserman MD at 15:23 EDT ,
--- NOTE | 2022-08-28 14:56 | RAD_ITS ---
EXAM: XR RIGHT TIBIA AND FIBULA, 2 VIEWS CLINICAL INDICATION: Injury/Pain TECHNIQUE: Frontal and lateral views of the right tibia and fibula. This report was created using [employer] report generation technology. COMPARISON: None. FINDINGS: BONES/JOINTS: There is a calcaneal spur. No acute fracture. No subluxation. Normal alignment. Preservation of the joint space. No sclerotic or destructive changes observed. SOFT TISSUES: Unremarkable. No soft tissue swelling or gas. No radiopaque foreign body. RAD/Tibia & Fibula 2 Views IMPRESSION: No acute findings in the right tibia and fibula or surrounding soft tissues. Electronically Signed: Vinnie Wasserman MD at 15:22 EDT ,
[2022-08-28] MEDS: Diphth,Pertuss(Acell),Tet Vac 0.5 ML Vial IM (15:17)
[2022-08-28] MEDS: HYDROcodone Bitartrate/Apap 5/325 Tablet PO (15:18)
[2022-08-28 15:23] VITALS: BP 133/42; PULSE 80; RESP 18; O2SAT 97
[2022-08-28 16:48] VITALS: BP 133/47; PULSE 61; RESP 18
--- NOTE | 2022-08-28 16:51 | NURSING ---
pt incont of stool and attends placed with paper scrubs. dc instructions given. family went to by walker to help with weakness. dc to home via wc.
== END 2022-08-28 16:52 | disposition home or self-care (01) ==
PROVIDERS: Emergency Provider Emergency Medicine; PCP Family Medicine; Visit Provider Emergency Medicine
DX: S30.0XXA Contusion of lower back and pelvis, initial encounter (principal); S80.11XA Contusion of right lower leg, initial encounter; E66.9 Obesity, unspecified; W19.XXXA Unspecified fall, initial encounter; Z23 Encounter for immunization
CPT/HCPCS: 72220; 73590; 90471; 90715; 99283; A4216

== ENCOUNTER 2022-09-02 13:18 | Inpatient (IN) | payer BC, SELFPAY ==
[2022-09-02 13:19] VITALS: BP 153/70; PULSE 78; RESP 14; TEMP 36.7; O2SAT 97; BMI 51.5
--- NOTE | 2022-09-02 13:45 | EDS_ITS ---
HPI History of Present Illness HPI Narrative: Right lower leg redness. Chief Complaint: Wound Informant: patient and family Occured/Mechanism Mechanism/Context: No injury and No blunt trauma Onset/Context/Timing Onset: Days Context: Gradual Onset Timing: Continuous Quality of Pain: Dull Current Severity: Mild Maximum Severity: Mild Narrative Narrative: 67-year-old female right lower extremity cellulitis was started on she believes Keflex on Monday by her physician operator assistant i cementing, Andre Gamble at the [facility]. The redness is progressively gotten worse. He sent her back in today to be admitted for IV antibiotics. She is reportedly not diabetic. Prior similar symptoms: No Recent Illness/Hospitalization: No PFSH PFSH Medical History Chronic cutaneous venous stasis ulcer Venous insufficiency Home Medications ergocalciferol (vitamin D2) 1,250 mcg (50,000 unit) capsule (Vitamin D2) 50,000 unit PO MOTH 11/16/16 [History Last Taken Unknown] loperamide 2 mg capsule 2 mg PO 4X/DAY PRN PRN Diarrhea 10/19/17 [History Last Taken Unknown] multivitamin (Daily Multiple tablet) 1 ea PO DAILY 10/19/17 [History Last Taken Unknown] vit C 250 mg-vit E 90 mg-zinc 40 mg-copper 1 [id number] capsule (PreserVision AREDS-2) 1 ea PO DAILY 10/19/17 [History Last Taken Unknown] calcium carbonate 600 mg calcium (1,500 mg) tablet 600 mg PO DAILY 04/15/20 [History Last Taken Unknown] collagenase clostridium histo. 250 unit/gram topical ointment 1 applic topical DAILY 04/15/20 [History Last Taken Unknown] ibuprofen 200 mg capsule 200 mg PO Q6H PRN Pain Or Fever 04/15/20 [History Last Taken Unknown] Allergy/AdvReac Type Severity Reaction Status Date / Time No Known Allergies Allergy Verified 09/02/22 13:19 Surgical History Hx of repair of rotator cuff Social History Smoking Status: Never smoker ROS ROS ED ROS Narrative Denies fever or chills. Review of Systems ROS Unobtainable: Denies due to encephalopathy Constitutional Constitutional ED: Denies chills or fever(s) Eyes Eyes: Denies blurry vision ENT ENT ED: Denies ear pain Cardiovascular Cardiovascular: Denies chest pain Respiratory/Chest Respiratory/Chest: Denies cough or dyspnea Gastrointestinal Gastrointestinal: Denies abdominal pain Genitourinary Genitourinary ED: Denies dysuria or hematuria Musculoskeletal Musculoskeletal: Denies arthralgias Integumentary Denies abscess Neurologic Neurologic: Denies headache(s) Psychiatric Psychiatric: Denies anxiety Endocrine Endocrinology: Denies polydipsia Hematologic/Lymphatic Hematologic/Lymphatic: Denies easy bleeding or easy bruising Allergic/Immunologic Allergic/Immunologic ED: Denies mouth swelling or tongue swelling EXAM Physical Exam Narrative Exam Narrative: 7-year-old female. Vital signs stable afebrile. Does not look septic or toxic. No distress. H EENT exam unremarkable. Neck nontender no lymphadenopathy. Lungs clear to auscultation bilaterally. Heart regular rate and rhythm no murmur. Chest wall nontender. Abdomen soft nontender. Back and spine nontender. Pelvic girdle intact. Right lower leg between the ankle and just below the knee she has cellulitis. Chronic wound. It shiny and red. Mildly uncomfortable to the touch. Dorsi and plantar flexion intact. There is no lymphangitic streaking. There is no inguinal lymphadenopathy. Left lower extremity unremarkable. Const Vital Signs: 09/02/22 13:19 Temperature 98.1 F Temperature Source Temporal Pulse Rate 78 Respiratory Rate 14 Blood Pressure 153/70 H Blood Pressure Mean 97 Pulse Ox 97 Oxygen Delivery Method Room Air Positive well nourished, well developed and obese; Negative for cachectic, contractures or unkempt General Appearance ED: well developed and NAD; Negative for unkempt, cachectic or contractures Nutritional Appearance: obese; Negative for cachectic HEENT Reports moist mucous membranes; Denies other normocephalic and atraumatic; Negative for trauma, tenderness or other Eyes PERRL General Eye ED: Negative for other Neck full ROM and supple Thyroid: Negative for tender or other Lymph Lymphatic: Negative for other Chest Wall inspection of chest normal and palpation of chest normal Chest: Negative for other Resp normal respiratory effort, no retractions and clear to auscultation bilaterally Effort and Inspection: Negative for pain with movement Auscultation: Negative for rales or rhonchi Percussion: Negative for other Cardio regular rate, regular rhythm, S1 normal heart sound, S2 normal heart sound and no murmurs Rate: Negative for bradycardia or tachycardic Rhythm: Negative for abnormal rhythm Bruits: Negative for other GI non-tender, non-distended and no masses Inspection: Negative for abdominal distention Auscultation: normoactive bowel sounds Palpation: soft; Negative for tender, guarding or rebound tenderness present Back/Spine no CVA tenderness General Back: Negative for CVA tenderness Cervical Spine: Negative for cervical spine tenderness Thoracic Spine / Upper Back: Negative for thoracic spinal tenderness Lumbar Spine / Lower Back: Negative for lumbar spinal tenderness Extremity normal to inspection and full ROM Extremity Narrative: Aches except right lower leg chronic ulceration. Right lower leg cellulitis. Red and shiny. Warm to the touch. No inguinal lymphadenopathy. No lymphangitic streaking. General Extremety ED: Yes edema; Negative for cyanosis General Extremity: edema; Negative for cyanosis Neuro oriented x3 and moves all extremities Sensorium / Orientation: alert, oriented to person, oriented to place and oriented to time; Negative for orientation impaired, confused, lethargic, stuporous or other Motor Exam: strength 5/5 throughout Psych mental status grossly normal Appearance: Negative for unkempt Speech: No other Mood & Affect: Negative for anxious Skin no wounds Lesions: no lesions Rashes: No no rashes Trauma: Negative for abrasion or laceration MDM MDM MDM Narrative Medical decision making narrative: 67-year-old female with right lower extremity cellulitis that its been resistant to home oral antibiotic therapy reportedly. She has been on antibiotics at home now for 3 days is progressively getting worse. Sent to the emergency department by her primary care provider for IV antibiotics and admission. She will be started on IV Unasyn. Screening labs to be obtained. She does not look septic or toxic. I do not believe she needs blood cultures or lactic acid. Hospitalist is on page for admission. Patient discussed with the hospitalist Dr. Tesha Charlton she will be down to evaluate the patient for [facility] for admit. Patient doing well. Lab Data Attestation: I reviewed the patient's lab results. Lab results narrative: CBC shows an elevated white count of 16.1. H&H 11.9 and 37.3. Platelets 295. Chemistries potassium 3.2 gap of 8 normal BUN and creatinine. Glucose 122. Labs: Laboratory Results - last 24 hr 09/02/22 09/02/22 13:54 13:54 WBC 16.1 H RBC 4.26 Hgb 11.9 L Hct 37.3 MCV 87.6 MCH 27.9 MCHC 31.9 L RDW Std Deviation 44.4 H RDW Coeff of Sammie 13.9 Plt Count 295 MPV 10.2 Immature Gran % (Auto) 1.100 H Neut % (Auto) 81.4 H Lymph % (Auto) 11.0 L [place] % (Auto) 5.7 Eos % (Auto) 0.5 Baso % (Auto) 0.3 Absolute Neuts (auto) 13.1 H Absolute Lymphs (auto) 1.77 Nucleated RBC % 0 Sodium 139 Potassium 3.2 L Chloride 102 Carbon Dioxide 29.0 Anion Gap 8 BUN 7 Creatinine 0.48 L Estim Creat Clear Calc 47.14 Est GFR (MDRD) Af Amer 166 Est GFR (MDRD) Non-Af 137 BUN/Creatinine Ratio 14.6 Glucose 122 H Calcium 8.7 Discharge Plan Dx/Rx/DC Orders Clinical Impression: Cellulitis of right leg, Ulcer of right lower leg Disposition Disposition: Acute Care [facility]
[2022-09-02 14:00] LABS: Absolute Lymphocyte Count 1.77 X10^3/uL (0.83-4.51); Absolute Neutrophil Count 13.1 X10^3/uL (2.0-7.7); Basophil# 0.05 X10^3/uL; Basophil% 0.3 % (0-1); Eosinophil# 0.08 X10^3/uL; Eosinophils% 0.5 % (0-5); Hematocrit 37.3 % (37-47); Hemoglobin 11.9 g/dL (12.0-15.0); Lymphocyte # 1.77 X10^3/ul (0.83-4.51); Mean Corp Hgb Conc 31.9 g/dL (32-36); Mean Corpuscular Hgb 27.9 pg (27.0-32.0); Mean Corpuscular Volume 87.6 fL (81-99); Mean Platelet Vol. 10.2 fl (6.2-12.0); Monocyte# 0.91 X10^3/uL; Monocyte% 5.7 % (0-10); NRBC Flagged by Analyzer 0 % (0-5); Neutrophil # 13.09 X10^3/uL (2.7-7.7); Neutrophil % 81.4 % (47-70); Platelet Count 295 K/mm3 (150-450); RBC Distribution Width CV 13.9 % (11.6-14.6); RBC Distribution Width SD 44.4 fl (35.1-43.9); Red Blood Count 4.26 M/mm3 (4.2-5.4); White Blood Count 16.1 K/mm3 (4.4-11.0)
--- NOTE | 2022-09-02 14:13 | PCM.HP.STD ---
HPI - General General Date of Admission: 09/02/22 Date of Service: 09/02/22 Chief Complaint: RLE pain, erythema, not improving despite outpatient abx therapy. HPI Narrative The patient is a 67 y/o F w/ PMHx: Morbid obesity, PVD/Chronic venous stasis disease w/ Hx prior chronic LE wounds who presents to the [facility] ED with increased RLE erythema, edema and pain recently evaluated 4 days prior with initiate on Kelfex at that time for acute cellulitis concerns; however, upon repeat evaluation despite abx therapy patient had no marked improvement with referral per her PCP office to the ED for admission for IV abx therapy. She notes if the leg is not touched her pain is minimal, 1-2/10 however, if you touch near the wound it is 4-6/10 in severity, sharp, aching. Work-up in the ED included T98.1, heart rate 78, BP 153/70, respiratory rate 14, 97% on room air, CBC with WBC 16.1, hemoglobin 11.9, MCV 87.6, platelet 295 with left shift, BMP with potassium 3.2, glucose 122 otherwise not marked. In the ED patient ministered IV Unasyn therapy. [facility] Medical History (Updated 09/02/22 @ 14:[address] Tesha Charlton MD) Chronic cutaneous venous stasis ulcer Morbid obesity Venous insufficiency Home Medications ergocalciferol (vitamin D2) 1,250 mcg (50,000 unit) capsule (Vitamin D2) 50,000 unit PO MOTH 11/16/16 [History Last Taken 08/26/22] multivitamin (Daily Multiple tablet) 1 ea PO DAILY 10/19/17 [History Last Taken 08/28/22] vit C 250 mg-vit E 90 mg-zinc 40 mg-copper 1 [id number] capsule (PreserVision AREDS-2) 1 ea PO DAILY 10/19/17 [History Last Taken 08/28/22] calcium carbonate 600 mg calcium (1,500 mg) tablet 600 mg PO DAILY 04/15/20 [History Last Taken 08/28/22] collagenase clostridium histo. 250 unit/gram topical ointment 1 applic topical DAILY 04/15/20 [History Last Taken 09/02/22] methylcellulose (with sugar) oral powder (Citrucel (sucrose) oral powder) 1 tbsp PO DAILY SUPPLEMENT 09/02/22 [History Last Taken 08/31/22] Allergy/AdvReac Type Severity Reaction Status Date / Time No Known Allergies Allergy Verified 09/02/22 13:19 Family History (Updated 09/02/22 @ 14:[address] Tesha Charlton MD) Mother Hypertension Uterine cancer Father CAD (coronary artery disease) CVA (cerebral vascular accident) Surgical History (Updated 09/02/22 @ 14:[address] Tesha Charlton MD) H/O total hysterectomy Hx of repair of rotator cuff Social History (Updated 09/02/22 @ 14:[address] Tesha Charlton MD) household members: none Smoking Status: Never smoker alcohol intake: never substance use type: does not use ROS ROS Narrative Admission Review of Systems: CONSTITUTIONAL: No weight loss, fever, chills, + weakness or fatigue. HEENT: Eyes: No visual loss, blurred vision, double vision or yellow sclerae. Ears, Nose, Throat: No hearing loss, sneezing, congestion, runny nose or sore throat. SKIN: + Significant right lower extremity stasis wound, worse in appearance, discharge, erythema to the right lower extremity. CARDIOVASCULAR: No chest pain, chest pressure or chest discomfort, palpitations, edema, orthopnea, syncopal events. RESPIRATORY: No shortness of breath, cough or sputum, wheezing, hemoptysis. GASTROINTESTINAL: No anorexia, nausea, vomiting or diarrhea, abdominal pain, melena, BRBPR. GENITOURINARY: No dysuria, frequency, urgency or retention. NEUROLOGICAL: No headache, dizziness, syncope, paralysis, ataxia, numbness or tingling in the extremities, focal weakness, change in bowel or bladder control, seizure. MUSCULOSKELETAL: + muscle, back pain, joint pain or stiffness. HEMATOLOGIC: No anemia, bleeding or bruising. LYMPHATICS: No enlarged nodes. No history of splenectomy. PSYCHIATRIC: No history of depression or anxiety. ENDOCRINOLOGIC: No reports of sweating, cold or heat intolerance. No polyuria or polydipsia. ALLERGIES: No history of asthma, hives, eczema or rhinitis. Vital Signs Vital Signs Vital Signs: 09/02/22 13:19 Temperature 98.1 F Temperature Source Temporal Pulse Rate 78 Respiratory Rate 14 Blood Pressure 153/70 H Blood Pressure Mean 97 Pulse Ox 97 Oxygen Delivery Method Room Air Weight Weight: 300 lb Body Mass Index (BMI) 51.5 Physical Exam Narrative Physical Examination: General: Awake, alert, oriented x 3 and cooperative, seated upright in the ED bed, fatigued appearing. Skin: Normal color, normal turgor, no icterus, no cyanosis except very evidence RLE cellulitis, R medial distal murrell stasis wound with mildly foul discharge, slough noted, warm to touch, edematous/pitting, 3+ pedal to proximal murrell RLE. HEENT: AT/NC, EOMI, PERRLA, MMM, no carotid bruits or JVD noted; however, thickened neck makes evaluation difficult. Lungs: Mildly diminished, > bases, appropriate effort, no rales, ronchi or wheezing. Heart: Regular rate and rhythm; no gallop, rub audible. Abdomen: Soft, morbidly obese, NTTP, ND, distant normal BS, no obvious evidence HSM however habitus makes evaluation difficult. Extremities: No cyanosis, no clubbing, see skin. Neurological: Patient awake, alert, oriented as noted, cognitive function intact; pupils equally reactive to light and accommodation, cranial nerves II-XII grossly normal, moving all 4 extremities except limited RLE secondary to pain, no focal deficits, strength moderately globally decreased secondary to acute presentation as noted. Psychiatric: Affect appears fatigued, uncomfortable with exam, no acute evidence of depressive or anxiety feelings. Results Lab / Micro Data Result Diagrams: 09/02/22 13:54 09/02/22 13:54 Labs: Laboratory Results - last 24 hr 09/02/22 13:54: WBC 16.1 H, RBC 4.26, Hgb 11.9 L, Hct 37.3, MCV 87.6, MCH 27.9, MCHC 31.9 L, RDW Std Deviation 44.4 H, RDW Coeff of Sammie 13.9, Plt Count 295, MPV 10.2, Immature Gran % (Auto) 1.100 H, Neut % (Auto) 81.4 H, Lymph % (Auto) 11.0 L, [place] % (Auto) 5.7, Eos % (Auto) 0.5, Baso % (Auto) 0.3, Absolute Neuts (auto) 13.1 H, Absolute Lymphs (auto) 1.77, Nucleated RBC % 0 Assessment & Plan Assessment/Plan (1) Cellulitis of right leg: PLAN: Plan The patient is a 67 y/o F w/ PMHx: Morbid obesity, PVD/Chronic venous stasis disease w/ Hx prior chronic LE wounds who presents to the [facility] ED with increased RLE erythema, edema and pain recently evaluated 4 days prior with initiate on Kelfex at that time for acute cellulitis concerns; however, upon repeat evaluation despite abx therapy patient had no marked improvement with referral per her PCP office to the ED for admission for IV abx therapy. #1. RL Extremity Cellulitis complicated by BL LE venous stasis disease w/ Infected Stasis Wound (R medial murrell), Failed Outpatient Antibiotic therapy: Will admit to [facility], maintain on IV Unasyn w/ pending MRSA wound and wound Cx, will request Podiatry evaluation, will request Wound RN involvement, will place snug GILMA wraps with elevation, repeat CBC in AM, continue affected extremity elevation above heart when seated and in bed, monitor erythema outline with VS checks, will obtain RLE duplex US to be cautious and also will obtain SENA/PVR, NPO after midnight in case Podiatric intervention preference, PRN pain regimen. #2. Anemia, normocytic: Admission Hgb 11.9, prior baseline 12-13 range however this was from [id number], MCV normal range, will obtain Fe panel, ferritin, guiac, trend CBC, recommend continued evaluation outpatient. #3. Elevated BP without hypertensive diagnosis: Admission ED BP 153/70, elevated above goal with no prior history not on any hypertensive regimen per review of current list, will continue to monitor is certainly could be related with acute presentation #1, add oral regimen if appropriate otherwise in the interim as needed IV hydralazine. #4. Morbid Obesity: Weight loss and lifestyle changes encouraged. #5. Hypokalemia: Admission K+ 3.2, magnesium level request, supplementation given, repeat level in AM. #6. DVT prophylaxis: SCDs, Lovenox with duplex right lower extremity pending. Charges/Coding Visit Charges Inpatient E&M: 96983 Init Hosp L3
[2022-09-02 14:16] LABS: BUN 7 mg/dL (7-18); Creatinine, Serum 0.48 mg/dL (0.55-1.02); Estimated Creatinine Clearance 47.14 ml/min; Glucose 122 mg/dL (74-106)
[2022-09-02 14:17] LABS: Anion Gap 8 (5-15); BUN/Creat Ratio 14.6 RATIO (10-20); Calcium,Total 8.7 mg/dL (8.5-10.1); Chloride 102 mmol/L (98-107); EST Glomerular Filtration Rate 137 mL/min (>60); Est Glom Filt Rate - Afr Amer 166 mL/min (>60); Potassium 3.2 mmol/L (3.5-5.1); Sodium Level 139 mmol/L (136-145)
--- NOTE | 2022-09-02 14:20 | NURSING ---
DR BRAVO FOR DR COELHO
--- NOTE | 2022-09-02 14:24 | NURSING ---
MED SURG WHITE RT LEG CELLULITIS, FAILED OUTPATIENT ANTIBIOTICS
[2022-09-02 14:30] VITALS: BP 161/80; PULSE 73; RESP 18; TEMP 36.9; O2SAT 98
[2022-09-02 14:49] LABS: Magnesium 2.3 mg/dL (1.6-2.6)
--- NOTE | 2022-09-02 15:15 | VDLE_ITS ---
Reason For Study: LEG PAIN RIGHT GSV is normal. CFV is compressible, spontaneous, phasic, competent and demonstrates normal augmentation. FV is compressible, spontaneous, phasic, competent and demonstrates normal augmentation. POP V is compressible, spontaneous, phasic, competent and demonstrates normal augmentation. T/P Trunk is compressible. PTV is compressible. RT PerV is compressible. Edema noted throughout Rt. Calf. Procedure Exam performed in department. This is a venous duplex using B-mode, color flow and spectral Doppler. The exam was diagnostic. A preliminary report was called and/or faxed to Med Surg Nurse. VL/Venous Duplex US, Unilateral Interpretation Summary There is no evidence of right lower extremity deep vein thrombosis. Right great saphenous vein appears patent and compressible segmentally. Edema noted in the right calf. Ordering Physician: Tesha Charlton Performed By: Storm Zuniga RVT
--- NOTE | 2022-09-02 15:15 | ART_ITS ---
Reason For Study: Nonhealing wound RLE Procedure A bilateral lower extremity continuous wave Doppler with analog waveform analysis and ankle brachial indexes. Left Segmental Pressures Left posterior tibial artery = 200mmHg. Left dorsalis pedis artery = 173mmHg. Left digit = 148 mmHg. The left dorsalis pedis waveforms are triphasic. The left posterior tibial artery waveforms are triphasic. Right Segmental Pressures Right brachial= 160mmHg. Right posterior tibial artery = 160mmHg. Right dorsalis pedis artery = 149mmHg. Right digit = 120 mmHg. The right dorsalis pedis waveforms are triphasic. The right posterior tibial artery waveforms are triphasic. Indices The right ankle brachial index by the dorsalis pedis is 0.93. The right ankle brachial index by the posterior tibial artery is 1.00. The right digital-brachial index is 0.75. The left ankle brachial index by the dorsalis pedis is 1.08. The left ankle brachial index by the posterior tibial artery is 1.25. The left digital-brachial index is 0.93. VL/Ankle Brachial Index Interpretation Summary Right ankle-brachial indices of the dorsalis pedis and posterior tibialis are 0 .93 and 1 respectively with triphasic Doppler waveforms which is normal. The right digita l brachial index is borderline normal at 0.75 The left ankle-brachial index of the dorsalis pedis and posterior tibialis are 1.08 and 1.25 respectively with normal triphasic Doppler waveforms. The left digital brachial index is normal at 0.93 Ordering Physician: Tesha Charlton Referring Physician: Delfino Guillen Performed By: Sana Perez RVT
[2022-09-02 15:19] VITALS: BP 148/46; PULSE 72; RESP 18; TEMP 36.7; O2SAT 98; BMI 50.3
[2022-09-02 15:55] LABS: Ferritin 578 ng/mL (8-252); Iron 24 ug/dL (50-170); Iron Binding Capacity,Total 230 ug/dL (250-450); PERCENT IRON SATURATION 10.4 % (15.0-55.0)
[2022-09-02 16:16] LABS: M R Staph aureus DNA By PCR Negative (Negative); Probe Check PASS; Specimen Processing Control PASS; Staph aureus DNA By PCR POSITIVE (Negative)
[2022-09-02] MEDS: 0.9% Normal Saline 1,000 ML 100 ML IV (16:38)
[2022-09-02] MEDS: Enoxaparin 40 MG/0.4 ML Syringe SC (16:38)
[2022-09-02] MEDS: Potassium Chloride Oral Tablet 20 MEQ 40 MEQ PO (16:38)
[2022-09-02 17:29] VITALS: O2SAT 98
[2022-09-02 18:02] VITALS: BP 148/46; PULSE 72; RESP 18; TEMP 36.7; O2SAT 98
--- NOTE | 2022-09-02 18:56 | CON.PCM_ITS ---
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 Patient currently follows with me in office. She has history of noncompliance of compression stockings stating they feel like they cut off my circulation. I have attempted several times to get the patient to remain compliant with Tubigrip compression however she is inconsistent and often chooses not to wear them. I have previously discussed with her before that compression is essential to controlling her lower extremity edema and preventing venous ulcerations that which she currently has. Patient voices understanding of this discussion today. Vascular: LEAS performed 09/02/2022 demonstrate normal waveforms on the right and triphasic Doppler waveforms on the left. Venous studies were also performed and negative for DVT. Radiographs: Radiographs obtained 09/02/2022 of the right lower extremity negative for osteomyelitis with no acute findings of the surrounding soft tissue. I discussed performing debridement of the 2 ulcerative sites to the right lower extremity. Patient voices agreement and gives verbal consent. The 2 [place] stage I ulcerative sites to the right lower extremity underwent excisional debridement and were sharply debrided with a #3 curette to the level of the subcutaneous tissue. 100% of the ulceration was debrided. Ulcerative site was debrided of fibrous, devitalized subcutaneous, biofilm, slough. Hemostasis achieved with pressure and gauze. Patient tolerated the procedure well due to her lack of sensation secondary to peripheral polyneuropathy. Infection: Ulceration to the right lower extremity x2. Ulcerative sites anterior proximal medial and distal medial. There is erythema about the ulcerative site extending proximally just distal to the knee and extending distally to the medial ankle and foot. There is increased warmth about the right lower extremity. No purulent drainage, no malodor, no palpable fluctuance, no palpable bogginess, no visible abscess. Wound is superficial in nature. There is an area of friable skin that appears milky white in color secondary to edema that may have previously been a site of blister. The site currently has epithelialization noted with no underlying fluctuance or bogginess. WBC currently 16.1. Currently on IV Unasyn. Wound cultures pending. Staph aureus protein A positive, MRSA PCR negative. Dressing: Ulcerative sites painted with Betadine and dressed with 4 x 4 gauze, Kerlix, 4 inch Rupert wrap, and 6 inch Rupert wrap to the right lower extremity. Left lower extremity dressed with 4 inch Rupert wrap and 6 inch Rupert wrap. Nursing to change dressing daily. Recommend continued compression via Rupert to control bi lateral lower extremity edema. Look to return to double Tubigrip to maintain edema control following discharge. Edema: Patient to elevate lower extremities at all times of rest. Host factors: DM type II with peripheral polyneuropathy, chronic venous insufficiency, and morbid obesity Medicine team currently following for medical management. This is greatly appreciated Podiatry will continue to follow while in house. No planned surgical intervention at this time. Please do not hesitate to call for any questions or concerns. Jr. Cristine ReyesPPolly. [facility] [phone] Note: IntraStage speech recognition pressing machine operator software was used to create portions of this document. Sound-alike and misspelled words, as well as other pressing machine operator errors may be contained in the documentation. HPI Consult Data Date of Consult: 09/02/22 HPI Narrative Reason for Consultation: Right lower extremity cellulitis HPI Narrative: ALLISON GILMORE, is a 67 F who presents to the [place] ED on 09/02/2022 with right lower extremity cellulitis secondary to chronic venous insufficiency with small ulceration. Patient stated that she had developed erythema, edema, and pain and was evaluated 4 days prior by her primary care physician who placed her on Keflex at the time for his acute cellulitis concern. Patient returns for follow-up with PCP which was noted no marked improvement with worsening of cellu litis. She was sent to the ED for IV antibiotics and admission. She states increasing pain about the ulcerative site when touched or pressed upon, however pain is minimal otherwise. She did receive IV Unasyn in the ED. Patient was consulted to podiatry for chronic venous stasis with ulceration and worsening cellulitis of the right lower extremity. [facility] Medical History (Updated 09/02/22 @ 14:[address] Tesha Charlton MD) Chronic cutaneous venous stasis ulcer Morbid obesity Venous insufficiency Home Medications ergocalciferol (vitamin D2) 1,250 mcg (50,000 unit) capsule (Vitamin D2) 50,000 unit PO MOFR supplement 11/16/16 [History Last Taken 08/26/22] multivitamin (Daily Multiple tablet) 1 ea PO DAILY 10/19/17 [History Last Taken 08/28/22] vit C 250 mg-vit E 90 mg-zinc 40 mg-copper 1 [id number] capsule (PreserVision AREDS-2) 1 ea PO DAILY 10/19/17 [History Last Taken 08/28/22] calcium carbonate 600 mg calcium (1,500 mg) tablet 600 mg PO DAILY 04/15/20 [History Last Taken 08/28/22] collagenase clostridium histo. 250 unit/gram topical ointment 1 applic topical DAILY leg 04/15/20 [History Last Taken 09/02/22] methylcellulose (with sugar) oral powder (Citrucel (sucrose) oral powder) 1 tbsp PO DAILY SUPPLEMENT 09/02/22 [History Last Taken 08/31/22] Allergy/AdvReac Type Severity Reaction Status Date / Time No Known Allergies Allergy Verified 09/02/22 13:19 Family History (Updated 09/02/22 @ 14:[address] Tesha Chralton MD) Mother Hypertension Uterine cancer Father CAD (coronary artery disease) CVA (cerebral vascular accident) Surgical History (Updated 09/02/22 @ 14:[address] Tesha Charlton MD) H/O total hysterectomy Hx of repair of rotator cuff Social History (Updated 09/02/22 @ 14:[address] Tesha Charlton MD) household members: none Smoking Status: Never smoker alcohol intake: never substance use type: does not use ROS Constitutional Constitutional: Denies anorexia, body ache(s), chills, fever(s) or malaise Eyes Eyes: Denies blurry vision, diplopia or erythema ENT HEENT: Denies dysphagia, nasal discharge, sore throat or throat swelling Cardiovascular Cardiovascular: Denies chest pain, claudication or dyspnea Respiratory/Chest Respiratory/Chest: Denies chest tightness, cough, dyspnea or wheezing Gastrointestinal Gastrointestinal: Denies abdominal pain, constipation, diarrhea, nausea or vomiting Genitourinary Genitourinary: Denies urinary frequency, urinary hesitancy, urinary incontinence or urinary urgency Musculoskeletal Musculoskeletal: Denies joint pain, joint stiffness or joint swelling Integumentary Integumentary: Denies lesions, pruritus or rash Neurologic Neurologic: Denies confusion, dizziness or seizures Endocrine Endocrinology: Denies polydipsia, polyphagia or polyuria Physical Exam Const alert, oriented x3 and no apparent distress General Appearance: cooperative and comfortable HEENT normocephalic Eyes General Eye: normal appearance of both eyes Neck General: normal visual inspection Lymph Lymphatic: no lymphadenopathy noted and no lymphedema noted Resp normal respiratory effort Cardio regular rate and regular rhythm Extremity normal capillary refill, no joint enlargement and no calf tenderness Extremity Narrative: DP and PT nonpalpable bilateral secondary to edema. +3 pitting edema noted bilateral Skin no rashes or lesions noted, skin turgor normal and no jaundice General Skin Exam: erythema, venous stasis and dermatitis Wound Narrative: Ulceration to the right lower extremity x2. Ulcerative sites anterior proximal medial and distal medial. There is erythema about the ulcerative site extending proximally just distal to the knee and extending distally to the medial ankle and foot. There is increased warmth about the right lower extremity. No purulent drainage, no malodor, no palpable fluctuance, no palpable bogginess, no visible abscess. Wound is superficial in nature. There is an area of friable skin that appears milky white in color secondary to edema that may have previously been a site of blister. The site currently has epithelialization noted with no underlying fluctuance or bogginess. Neuro moves all extremities Neuro Narrative: Lack of sensation to bilateral lower extremity consistent with diabetic peripheral polyneuropathy Lab / Micro Data Result Diagrams: 09/02/22 13:54 09/02/22 13:54 Labs: Laboratory Results - last 24 hr 09/02/22 13:54: WBC 16.1 H, RBC 4.26, Hgb 11.9 L, Hct 37.3, MCV 87.6, MCH 27.9, MCHC 31.9 L, RDW Std Deviation 44.4 H, RDW Coeff of Sammie 13.9, Plt Count 295, MPV 10.2, Immature Gran % (Auto) 1.100 H, Neut % (Auto) 81.4 H, Lymph % (Auto) 11.0 L, [place] % (Auto) 5.7, Eos % (Auto) 0.5, Baso % (Auto) 0.3, Absolute Neuts (auto) 13.1 H, Absolute Lymphs (auto) 1.77, Nucleated RBC % 0 09/02/22 13:54: Sodium 139, Potassium 3.2 L, Chloride 102, Carbon Dioxide 29.0, Anion Gap 8, BUN 7, Creatinine 0.48 L, Estim Creat Clear Calc 47.14, Est GFR (MDRD) Af Amer 166, Est GFR (MDRD) Non-Af 137, BUN/Creatinine Ratio 14.6, Glucose 122 H, Calcium 8.7 09/02/22 13:54: Magnesium 2.3 09/02/22 13:54: Iron 24 L, TIBC 230 L, Iron Saturation 10.4 L, Ferritin 578 H 09/02/22 14:40: S.aureus Protein A PCR POSITIVE H, MRSA (PCR) Negative Radiology Impression Ankle Brachial Index 09/02/22 15:15 Interpretation Summary Right ankle-brachial indices of the dorsalis pedis and posterior tibialis are 0.93 and 1 respectively with triphasic Doppler waveforms which is normal. The right digital brachial index is borderline normal at 0.75 The left ankle-brachial index of the dorsalis pedis and posterior tibialis are 1.08 and 1.25 respectively with normal triphasic Doppler waveforms. The left digital brachial index is normal at 0.93 Ordering Physician: Tesha Charlton Referring Physician: Delfino Guillen Performed By: Sana Perez RVT Venous Doppler Study 09/02/22 15:15 Interpretation Summary There is no evidence of right lower extremity deep vein thrombosis. Right great saphenous vein appears patent and compressible segmentally. Edema noted in the right calf. Ordering Physician: Tesha Charlton Performed By: Storm Zuniga RVT
[2022-09-02 19:55] VITALS: BP 124/64; PULSE 80; RESP 16; TEMP 36.7; O2SAT 95
[2022-09-03] VITALS (8 sets, daily range): BP systolic 140–156; BP diastolic 54–79; PULSE 71–79; RESP 17–18; TEMP 36.8–37.1; O2SAT 94–97
[2022-09-03 06:40] LABS: Absolute Lymphocyte Count 1.58 X10^3/uL (0.83-4.51); Absolute Neutrophil Count 9.4 X10^3/uL (2.0-7.7); Basophil# 0.06 X10^3/uL; Basophil% 0.5 % (0-1); Eosinophil# 0.16 X10^3/uL; Eosinophils% 1.3 % (0-5); Lymphocyte # 1.58 X10^3/ul (0.83-4.51); Lymphocyte % 13.2 % (19-41); Mean Corp Hgb Conc 32.4 g/dL (32-36); Mean Corpuscular Hgb 28.1 pg (27.0-32.0); Mean Corpuscular Volume 86.7 fL (81-99); Mean Platelet Vol. 10.4 fl (6.2-12.0); Monocyte# 0.68 X10^3/uL; Monocyte% 5.7 % (0-10); NRBC Flagged by Analyzer 0 % (0-5); Neutrophil # 9.39 X10^3/uL (2.7-7.7); Neutrophil % 78.3 % (47-70); Platelet Count 349 K/mm3 (150-450); RBC Distribution Width SD 44.1 fl (35.1-43.9); Red Blood Count 3.92 M/mm3 (4.2-5.4)
[2022-09-03 07:30] LABS: ALB/GLOB Ratio 0.5 RATIO (0.9-2.4); AST(SGOT) 13 U/L (15-37); Alanine Aminotransfer ALT/SGPT 22 U/L (13-56); Albumin, Serum 1.9 g/dL (3.2-5.0); Alkaline Phosphatase 183 U/L (45-117); Anion Gap 7 (5-15); BUN 6 mg/dL (7-18); BUN/Creat Ratio 15.1 RATIO (10-20); Calcium,Total 8.4 mg/dL (8.5-10.1); Chloride 107 mmol/L (98-107); EST Glomerular Filtration Rate 170 mL/min (>60); Est Glom Filt Rate - Afr Amer 206 mL/min (>60); Estimated Creatinine Clearance 47.14 ml/min; Globulin 4.1 g/dL (2.2-4.2); Glucose 117 mg/dL (74-106); Potassium 2.7 mmol/L (3.5-5.1); Sodium Level 143 mmol/L (136-145)
--- NOTE | 2022-09-03 08:00 | PN.HOSP_ITS ---
Subjective Subjective Follow-up for right lower extremity venous ulcer and cellulitis. Patient was seen by supervisor poultry hatchery. Local wound debridement done. Rupert wrap bandage on. Objective Data Objective Data Vital Signs: Vital Signs Temp Pulse Resp BP Pulse Ox O2 Del Method 98.4 F 77 17 141/54 H 94 Room Air 09/03/22 03:32 09/03/22 03:32 09/03/22 03:32 09/03/22 03:32 09/03/22 03:32 09/03/22 03:32 Oxygen Delivery Method Room Air Weight: 292 lb 1.8 oz Body Mass Index (BMI) 50.3 Intake & Output: Intake and Output for Last 24 Hours 09/01/22 09/02/22 09/03/22 23:59 23:59 23:59 Intake Total 224 / 874 2674 / 2674 Balance 224 / 874 2674 / 2674 Lab / Micro Data Result Diagrams: 09/03/22 05:30 09/03/22 05:30 Labs: Laboratory Results - last 24 hr 09/02/22 13:54: WBC 16.1 H, RBC 4.26, Hgb 11.9 L, Hct 37.3, MCV 87.6, MCH 27.9, MCHC 31.9 L, RDW Std Deviation 44.4 H, RDW Coeff of Sammie 13.9, Plt Count 295, MPV 10.2, Immature Gran % (Auto) 1.100 H, Neut % (Auto) 81.4 H, Lymph % (Auto) 11.0 L, [place] % (Auto) 5.7, Eos % (Auto) 0.5, Baso % (Auto) 0.3, Absolute Neuts (auto) 13.1 H, Absolute Lymphs (auto) 1.77, Nucleated RBC % 0 09/02/22 13:54: Sodium 139, Potassium 3.2 L, Chloride 102, Carbon Dioxide 29.0, Anion Gap 8, BUN 7, Creatinine 0.48 L, Estim Creat Clear Calc 47.14, Est GFR (MDRD) Af Amer 166, Est GFR (MDRD) Non-Af 137, BUN/Creatinine Ratio 14.6, Glucose 122 H, Calcium 8.7 09/02/22 13:54: Magnesium 2.3 09/02/22 13:54: Iron 24 L, TIBC 230 L, Iron Saturation 10.4 L, Ferritin 578 H 09/02/22 14:40: S.aureus Protein A PCR POSITIVE H, MRSA (PCR) Negative 09/03/22 05:30: WBC 12.0 H, RBC 3.92 L, Hgb 11.0 L, Hct 34.0 L, MCV 86.7, MCH 28.1, MCHC 32.4, RDW Std Deviation 44.1 H, RDW Coeff of Sammie 14.0, Plt Count 349, MPV 10.4, Immature Gran % (Auto) 1.000 H, Neut % (Auto) 78.3 H, Lymph % (Auto) 13.2 L, [place] % (Auto) 5.7, Eos % (Auto) 1.3, Baso % (Auto) 0.5, Absolute Neuts (auto) 9.4 H, Absolute Lymphs (auto) 1.58, Nucleated RBC % 0 09/03/22 05:30: Sodium 143, Potassium 2.7 L*, Chloride 107, Carbon Dioxide 29.0, Anion Gap 7, BUN 6 L, Creatinine 0.40 L, Estim Creat Clear Calc 47.14, Est GFR (MDRD) Af Amer 206, Est GFR (MDRD) Non-Af 170, BUN/Creatinine Ratio 15.1, Glucose 117 H, Calcium 8.4 L, Total Bilirubin 0.60, AST 13 L, ALT 22, Alkaline Phosphatase 183 H, Total Protein 6.0 L, Albumin 1.9 L, Globulin 4.1, Albumin/Globulin Ratio 0.5 L Radiography Diagnostic Testing: Radiology Impression Ankle Brachial Index 09/02/22 15:15 Interpretation Summary Right ankle-brachial indices of the dorsalis pedis and posterior tibialis are 0.93 and 1 respectively with triphasic Doppler waveforms which is normal. The right digital brachial index is borderline normal at 0.75 The left ankle-brachial index of the dorsalis pedis and posterior tibialis are 1.08 and 1.25 respectively with normal triphasic Doppler waveforms. The left digital brachial index is normal at 0.93 Ordering Physician: Tesha Charlton Referring Physician: Delfino Guillen Performed By: Sana Perez, NEHEMIAS Venous Doppler Study 09/02/22 15:15 Interpretation Summary There is no evidence of right lower extremity deep vein thrombosis. Right great saphenous vein appears patent and compressible segmentally. Edema noted in the right calf. Ordering Physician: Tesha Charlton Performed By: Storm Zuniga RVT Physical Exam Narrative Physical exam General: Alert, Oriented x3, Cooperative, BMI 50.1 kg/m? HEENT: Atraumatic, PERRLA, EOMI, Normocephalic Oral: No Gingival or Mucosal Lesions/ Ulcerations Neck: Supple, No JVD, Negative Carotid Bruits Lungs: Air entry diminished in bilateral lung bases. No crepitation/rhonchi Cardiovascular: Regular rate, Regular Rhythm, Normal S1, Normal S2, No murmurs Abdomen: Bowel Sounds Present, Soft, Non Tender, Non-Distended : No renal angle tenderness. No suprapubic tenderness. Extremities: Mild bilateral ankle edema, Capillary Refill Less than 3 Seconds Skin: 2 small venous ulcer On medial aspect of right leg. One proximal to the other. Mild erythema surrounding the venous ulcer from knee to ankle. No purulent drainage or palpable abscess. Superficial wound. Rupert wrap bandage on. Bilateral chronic venous insufficiency Musculoskeletal: No Tenderness to Palpation of Joints or Extremities. Muscle strength 4+/5. ROM restricted. Neurological: Cranial nerves II-XII grossly intact, DTR 2+/4 and Symmetrical, Neuro grossly intact Psych/Mental Status: Normal Affect, Appropriate. Assessment & Plan Assessment/Plan (1) Cellulitis of right leg: PLAN: Plan The patient is a 67-year-old female was admitted with increased right lower leg erythema, edema, pain, failed 4 days of outpatient antibiotic, Keflex treatment for RLE cellulitis was admitted for further management: #1. Right lower leg extremity Cellulitis complicated by right medial murrell venous ulcer with bilateral chronic venous insufficiency/hypertension, failed outpatient antibiotic treatment: Patient not febrile, did not look toxic or septic. Patient admitted on [facility] floor. Arterial Doppler done reported right SENA 1 with triphasic Doppler wave. Right DBI 0.75. Left SENA 1.25 with normal triphasic Doppler waveform. Left DBI 0.93. Overall LES suggestive of small right distal digital artery PAD. Venous duplex study negative for DVT. MRSA nasal screen negative. Patient seen by supervisor poultry hatchery. Patient has 2 ulcer sites. Excisional debridement was done at bedside. Patient is on IV Unasyn. #2. Chronic normocytic normochromic anemia due to anemia of chronic disease/inflammatory anemia: Admission Hgb 11.9, prior baseline 12-13 range however this was from 7547-1335, MCV normal range, iron studies consistent with inflammatory anemia. Ferritin is elevated. #3. Elevated BP without hypertensive diagnosis: Admission ED BP 153/70, most recent 140/72 #4. Morbid Obesity: Weight loss and lifestyle changes encouraged. BMI 50.1 kg/m? #5. Hypokalemia: Admission K+ 3.2, potassium replacement ordered. Serum magnesium and phosphorus level normal. #6. DVT prophylaxis: SCDs, Lovenox Charges/Coding Visit Charges Inpatient E&M: 56948 Subs Hosp L2
--- NOTE | 2022-09-03 08:01 | NURSING ---
Dr. Meyers aware of potassium level.
[2022-09-03] MEDS: Potassium Chloride Oral Tablet 20 MEQ 40 MEQ PO ×2 (08:30→12:00)
[2022-09-03] MEDS: Potassium Chloride 10mEq/100mL 10 MEQ/100 ML IV.SOLN. 100 MEQ IV BOLUS ×2 (09:04→10:10)
[2022-09-03 09:14] LABS: Phosphorus 3.4 mg/dL (2.5-4.9)
[2022-09-03] MEDS: Enoxaparin 40 MG/0.4 ML Syringe SC ×2 (10:15→21:57)
--- NOTE | 2022-09-03 12:15 | CASEMGMT ---
RN CM RN ADMIT CM to room to meet with patient for initial transition planning/care coordination assessment. NEETA BRADLEY introduced self and role at [facility]. Pt voices understanding and consents to assessment at this time. Pt sitting in recliner chair in no distress at this time. Pt is A/O at this time and answers all questions appropriately. Care providers, pharmacy, and demographics verified/updated at this time. PCP: Dr Guillen. ROLAN, Andre Gamble Specialists: [facility] @ 10 AM Preferred [facility]acy: [facility] Insurance: [place] Prescription Benefit: Yes Living Will/HPOA: Pt does not currently have LW/HCPOA and declines info at this time. Pt made aware that she can contact as an out-pt and make appt in the future if she decides she would like to talk with someone about this or would like to utilize [facility] social work for advanced directive completion. Given Enforcement Safety Officer Rac card with information and contact number. Pt expresses understanding. LNOK: 2 sons. One son's name is Jona Antony Living Arrangements: Lives alone in 2nd floor apt w/total of about 14 steps to enter w/railing on both sides. Pt states does okay with the stairs. She states she is independent w/ADL's and IADL's. She works full-time @ [employer]. She states she completes her own daily dressing changes. Transportation: Pt states drives self and states no transportation concerns at this time. DME: States has the following DME: 2 quad canes and a walker Pt states no need for further DME at this time. HHC/SNF: No hx of either. Pt declines need for HHC. She states she did have 2 falls @ home on Monday and mostly uses a cane @ baseline, but did have to use a walker last week. She states is interested in getting script for OP therapy @ d/c. She is not sure if she will do OP therapy, yet, as she wants to check into any [id number] cost first. Script obtained from Dr Meyers and provided to pt. She is aware she can take to any location of choice. She voices appreciation. Pt wishes to return home and states has no concerns with going home at time of discharge. CM to follow for any further discharge planning/needs. Pt voices no further concerns/needs at this time. Advised pt to ask for CM if any further questions/concerns/needs arise. Voices understanding. PLAN: Home w/script for OP therapy. Malachi CARVAJALN RN CM
[2022-09-03] MEDS: Juven (unflavored) Packet 1 PACKET PO (16:30)
[2022-09-04] VITALS (9 sets, daily range): BP systolic 139–156; BP diastolic 63–73; PULSE 69–79; RESP 14–18; TEMP 36.6–36.7; O2SAT 94–100
[2022-09-04] MEDS: 0.9% Saline Lock 10 ML Syringe IV (00:18)
--- NOTE | 2022-09-04 07:15 | PCM.PN.HOSP ---
Objective Data Objective Data Vital Signs: Vital Signs Temp Pulse Resp BP Pulse Ox O2 Del Method 97.9 F 78 14 139/63 H 95 Room Air 09/04/22 03:00 09/04/22 03:00 09/04/22 03:00 09/04/22 03:00 09/04/22 03:00 09/04/22 03:00 Oxygen Delivery Method Room Air Weight: 292 lb 1.8 oz Body Mass Index (BMI) 50.3 Intake & Output: Intake and Output for Last 24 Hours 09/02/22 09/03/22 09/04/22 23:59 23:59 22:59 Intake Total 224 / 874 4458 / 4458 112 / 112 Output Total 200 / 200 Balance 224 / 874 4458 / 4258 -88 / -88 Lab / Micro Data Result Diagrams: 09/03/22 05:30 09/03/22 05:30 Labs: Laboratory Results - last 24 hr 09/03/22 05:30: Phosphorus 3.4 Micro: Microbiology 09/02/22 14:40 Wound - Leg Gram Stain - Final 09/02/22 14:40 Wound - Leg Wound Culture - Preliminary Gram negative meka Physical Exam Narrative Physical exam General: Alert, Oriented x3, Cooperative, BMI 50.1 kg/m? HEENT: Atraumatic, PERRLA, EOMI, Normocephalic Oral: No Gingival or Mucosal Lesions/ Ulcerations Neck: Supple, No JVD, Negative Carotid Bruits Lungs: Air entry diminished in bilateral lung bases. No crepitation/rhonchi Cardiovascular: Regular rate, Regular Rhythm, Normal S1, Normal S2, No murmurs Abdomen: Bowel Sounds Present, Soft, Non Tender, Non-Distended : No renal angle tenderness. No suprapubic tenderness. Extremities: Mild bilateral ankle edema, Capillary Refill Less than 3 Seconds Skin: 2 small venous ulcer On medial aspect of right leg. One proximal to the other. Mild erythema surrounding the venous ulcer from knee to ankle. No purulent drainage or palpable abscess. Superficial wound. Rupert wrap bandage on. Bilateral chronic venous insufficiency Musculoskeletal: No Tenderness to Palpation of Joints or Extremities. Muscle strength 4+/5. ROM restricted. Neurological: Cranial nerves II-XII grossly intact, DTR 2+/4 and Symmetrical, Neuro grossly intact Psych/Mental Status: Normal Affect, Appropriate. Assessment & Plan Assessment/Plan (1) Cellulitis of right leg: PLAN: Plan The patient is a 67-year-old female was admitted with increased right lower leg erythema, edema, pain, failed 4 days of outpatient antibiotic, Keflex treatment for RLE cellulitis was admitted for further management: #1. Right lower leg extremity Cellulitis complicated by right medial murrell venous ulcer with bilateral chronic venous insufficiency/hypertension, failed outpatient antibiotic treatment: Patient not febrile, did not look toxic or septic. [facility] Arterial Doppler done reported right SENA 1 with triphasic Doppler wave. Right DBI 0.75. Left SENA 1.25 with normal triphasic Doppler waveform. Left DBI 0.93. Overall LES suggestive of small right distal digital artery PAD. Venous duplex study negative for DVT. MRSA nasal screen negative. Patient seen by quality compliance consultant. Patient has 2 ulcer sites. Excisional debridement was done at bedside. Patient is on IV Unasyn. #2. Chronic normocytic normochromic anemia due to anemia of chronic disease/inflammatory anemia: Admission Hgb 11.9, prior baseline 12-13 range however this was from [id number], MCV normal range, iron studies consistent with inflammatory anemia. Ferritin is elevated. #3. Elevated BP without hypertensive diagnosis: Admission ED BP 153/70, most recent 140/72 #4. Morbid Obesity: Weight loss and lifestyle changes encouraged. BMI 50.1 kg/m? #5. Hypokalemia: Admission K+ 3.2, potassium replacement ordered. Serum magnesium and phosphorus level normal. #6. DVT prophylaxis: SCDs, Lovenox
[2022-09-04 08:02] LABS: Absolute Lymphocyte Count 1.77 X10^3/uL (0.83-4.51); Absolute Neutrophil Count 6.9 X10^3/uL (2.0-7.7); Basophil# 0.05 X10^3/uL; Basophil% 0.5 % (0-1); Hemoglobin 12.1 g/dL (12.0-15.0); Lymphocyte # 1.77 X10^3/ul (0.83-4.51); Lymphocyte % 17.9 % (19-41); Mean Corp Hgb Conc 31.8 g/dL (32-36); Mean Corpuscular Hgb 27.9 pg (27.0-32.0); Mean Corpuscular Volume 87.8 fL (81-99); Mean Platelet Vol. 9.9 fl (6.2-12.0); Monocyte% 7.1 % (0-10); NRBC Flagged by Analyzer 0 % (0-5); Neutrophil # 6.92 X10^3/uL (2.7-7.7); Neutrophil % 70.2 % (47-70); Platelet Count 409 K/mm3 (150-450); RBC Distribution Width CV 14.2 % (11.6-14.6); Red Blood Count 4.33 M/mm3 (4.2-5.4); White Blood Count 9.9 K/mm3 (4.4-11.0)
[2022-09-04] MEDS: Enoxaparin 40 MG/0.4 ML Syringe SC ×2 (08:17→22:02)
[2022-09-04] MEDS: Juven (unflavored) Packet 1 PACKET PO ×2 (08:17→17:37)
[2022-09-04 08:19] LABS: ALB/GLOB Ratio 0.4 RATIO (0.9-2.4); AST(SGOT) 12 U/L (15-37); Alanine Aminotransfer ALT/SGPT 24 U/L (13-56); Albumin, Serum 1.9 g/dL (3.2-5.0); Alkaline Phosphatase 200 U/L (45-117); Anion Gap 8 (5-15); BUN 7 mg/dL (7-18); BUN/Creat Ratio 18.1 RATIO (10-20); Calcium,Total 8.6 mg/dL (8.5-10.1); Chloride 105 mmol/L (98-107); Creatinine, Serum 0.39 mg/dL (0.55-1.02); EST Glomerular Filtration Rate 176 mL/min (>60); Est Glom Filt Rate - Afr Amer 212 mL/min (>60); Estimated Creatinine Clearance 47.14 ml/min; Globulin 4.7 g/dL (2.2-4.2); Glucose 112 mg/dL (74-106); Potassium 3.6 mmol/L (3.5-5.1); Protein, Total 6.6 g/dL (6.4-8.2); Sodium Level 143 mmol/L (136-145)
--- NOTE | 2022-09-04 11:34 | PCM.PN.HOSP ---
Subjective Subjective Follow-up for Infected venous ulcer with surrounding cellulitis. Swelling is improved. No fever. Objective Data Objective Data Vital Signs: Vital Signs Temp Pulse Resp BP Pulse Ox O2 Del Method 97.8 F 69 16 156/73 H 100 Room Air 09/04/22 08:15 09/04/22 08:15 09/04/22 08:15 09/04/22 08:15 09/04/22 08:15 09/04/22 08:15 Oxygen Delivery Method Room Air Weight: 292 lb 1.8 oz Body Mass Index (BMI) 50.3 Intake & Output: Intake and Output for Last 24 Hours 09/02/22 09/03/22 09/04/22 23:59 23:59 22:59 Intake Total 224 / 874 4458 / 4458 224 / 224 Output Total 200 / 200 Balance 224 / 874 4458 / 4258 Lab / Micro Data Result Diagrams: 09/04/22 07:50 09/04/22 07:50 Labs: Laboratory Results - last 24 hr 09/04/22 07:50: WBC 9.9, RBC 4.33, Hgb 12.1, Hct 38.0, MCV 87.8, MCH 27.9, MCHC 31.8 L, RDW Std Deviation 46.0 H, RDW Coeff of Sammie 14.2, Plt Count 409, MPV 9.9, Immature Gran % (Auto) 1.300 H, Neut % (Auto) 70.2 H, Lymph % (Auto) 17.9 L, [place] % (Auto) 7.1, Eos % (Auto) 3.0, Baso % (Auto) 0.5, Absolute Neuts (auto) 6.9, Absolute Lymphs (auto) 1.77, Nucleated RBC % 0 09/04/22 07:50: Sodium 143, Potassium 3.6, Chloride 105, Carbon Dioxide 30.0, Anion Gap 8, BUN 7, Creatinine 0.39 L, Estim Creat Clear Calc 47.14, Est GFR (MDRD) Af Amer 212, Est GFR (MDRD) Non-Af 176, BUN/Creatinine Ratio 18.1, Glucose 112 H, Calcium 8.6, Total Bilirubin 0.50, AST 12 L, ALT 24, Alkaline Phosphatase 200 H, Total Protein 6.6, Albumin 1.9 L, Globulin 4.7 H, Albumin/Globulin Ratio 0.4 L Micro: Microbiology 09/02/22 14:40 Wound - Leg Gram Stain - Final 09/02/22 14:40 Wound - Leg Wound Culture - Preliminary Gram negative meka 09/04/22 08:59 Stool Stool Occult Blood (LAUREANO) - Final Physical Exam Narrative Physical exam General: Alert, Oriented x3, Cooperative, BMI 50.1 kg/m? HEENT: Atraumatic, PERRLA, EOMI, Normocephalic Oral: No Gingival or Mucosal Lesions/ Ulcerations Neck: Supple, No JVD, Negative Carotid Bruits Lungs: Air entry diminished in bilateral lung bases. No crepitation/rhonchi Cardiovascular: Regular rate, Regular Rhythm, Normal S1, Normal S2, No murmurs Abdomen: Bowel Sounds Present, Soft, Non Tender, Non-Distended : No renal angle tenderness. No suprapubic tenderness. Extremities: Mild bilateral ankle edema, Capillary Refill Less than 3 Seconds Skin: 2 small venous ulcer On medial aspect of right leg, one proximal to the other. Patient had bedside debridement. Superficial wound. Rupert wrap bandage on. Bilateral chronic venous insufficiency Musculoskeletal: No Tenderness to Palpation of Joints or Extremities. Muscle strength 4+/5. ROM restricted. Neurological: Cranial nerves II-XII grossly intact, DTR 2+/4 and Symmetrical, Neuro grossly intact Psych/Mental Status: Normal Affect, Appropriate. Assessment & Plan Assessment/Plan (1) Cellulitis of right leg: PLAN: Plan The patient is a 67-year-old female was admitted with increased right lower leg erythema, edema, pain, failed 4 days of outpatient antibiotic, Keflex treatment for RLE cellulitis was admitted for further management: #1. Right lower leg extremity Cellulitis complicated by right medial murrell venous ulcer with bilateral chronic venous insufficiency/hypertension, failed outpatient antibiotic treatment: Patient not febrile, did not look toxic or septic. Patient admitted on MedSurg floor. Arterial Doppler done reported right SENA 1 with triphasic Doppler wave. Right DBI 0.75. Left SENA 1.25 with normal triphasic Doppler waveform. Left DBI 0.93. Overall LES suggestive of small right distal digital artery PAD. Venous duplex study negative for DVT. MRSA nasal screen negative. Patient seen by rehab director occupational therapist. Patient has 2 ulcer sites. Excisional debridement was done at bedside. Patient is on IV Unasyn. 09/04: Wound culture shows gram-negative rods rare, preliminary yesterday. Follow-up culture. Continue broad-spectrum antibiotic IV Unasyn. #2. Chronic normocytic normochromic anemia due to anemia of chronic disease/inflammatory anemia: Admission Hgb 11.9, prior baseline 12-13 range however this was from [id number], MCV normal range, iron studies consistent with inflammatory anemia. Ferritin is elevated. #3. Elevated BP without hypertensive diagnosis: Admission ED BP 153/70, most recent 140/72 #4. Morbid Obesity: Weight loss and lifestyle changes encouraged. BMI 50.1 kg/m? #5. Hypokalemia: Admission K+ 3.2, potassium replacement ordered. Serum magnesium and phosphorus level normal. 09/04: Repeat potassium 3.6. 1 dose of K-Dur 40 M EQ given. #6. DVT prophylaxis: SCDs Lovenox Charges/Coding Visit Charges Inpatient E&M: 70688 Subs Hosp L2
--- NOTE | 2022-09-04 13:13 | PCM.PROGNOTE ---
Subjective Subjective Patient is a 67-year-old female seen bedside this AM for right lower extremity wound x2 with cellulitis. Patient denies any acute events overnight. She denies any constitutional symptoms. She does admit to some pain in the right lower extremity but states this is only when touched. She has no further complaints today. Objective Data Objective Data Vital Signs: Vital Signs Temp Pulse Resp BP Pulse Ox O2 Del Method 97.8 F 69 16 156/73 H 100 Room Air 09/04/22 09:00 09/04/22 09:00 09/04/22 09:00 09/04/22 09:00 09/04/22 09:00 09/04/22 09:00 Oxygen Delivery Method Room Air Weight: 132.5 kg Body Mass Index (BMI) 50.3 Intake & Output: Intake and Output for Last 24 Hours 09/02/22 09/03/22 09/04/22 23:59 23:59 22:59 Intake Total 224 / 874 4458 / 4458 224 / 224 Output Total 200 / 200 Balance 224 / 874 4458 / 4258 Lab / Micro Data Result Diagrams: 09/04/22 07:50 09/04/22 07:50 Labs: Laboratory Results - last 24 hr 09/04/22 07:50: WBC 9.9, RBC 4.33, Hgb 12.1, Hct 38.0, MCV 87.8, MCH 27.9, MCHC 31.8 L, RDW Std Deviation 46.0 H, RDW Coeff of Sammie 14.2, Plt Count 409, MPV 9.9, Immature Gran % (Auto) 1.300 H, Neut % (Auto) 70.2 H, Lymph % (Auto) 17.9 L, [place] % (Auto) 7.1, Eos % (Auto) 3.0, Baso % (Auto) 0.5, Absolute Neuts (auto) 6.9, Absolute Lymphs (auto) 1.77, Nucleated RBC % 0 09/04/22 07:50: Sodium 143, Potassium 3.6, Chloride 105, Carbon Dioxide 30.0, Anion Gap 8, BUN 7, Creatinine 0.39 L, Estim Creat Clear Calc 47.14, Est GFR (MDRD) Af Amer 212, Est GFR (MDRD) Non-Af 176, BUN/Creatinine Ratio 18.1, Glucose 112 H, Calcium 8.6, Total Bilirubin 0.50, AST 12 L, ALT 24, Alkaline Phosphatase 200 H, Total Protein 6.6, Albumin 1.9 L, Globulin 4.7 H, Albumin/Globulin Ratio 0.4 L Micro: Microbiology 09/02/22 14:40 Wound - Leg Gram Stain - Final 09/02/22 14:40 Wound - Leg Wound Culture - Preliminary Gram negative meka 09/04/22 08:59 Stool Stool Occult Blood (LAUREANO) - Final Physical Exam Const alert, oriented x3 and no apparent distress General Appearance: cooperative and comfortable HEENT normocephalic Eyes General Eye: normal appearance of both eyes Neck General: normal visual inspection Lymph Lymphatic: no lymphadenopathy noted and no lymphedema noted Resp normal respiratory effort Cardio regular rate and regular rhythm Extremity normal capillary refill, no joint enlargement and no calf tenderness Extremity Narrative: DP and PT nonpalpable bilateral secondary to edema. +3 pitting edema noted bilateral -improving Skin no rashes or lesions noted, skin turgor normal and no jaundice General Skin Exam: erythema, venous stasis and dermatitis Wound Narrative: Ulceration to the right lower extremity x2. Ulcerative sites anterior proximal medial and distal medial. There is erythema about the ulcerative site extending proximally just distal to the mid calf and extending distally to the lower calf. There is increased warmth about the right lower extremity, however this is improved. No purulent drainage, no malodor, no palpable fluctuance, no palpable bogginess, no visible abscess. Wound is superficial in nature. There is an area of friable skin that appears milky white in color secondary to edema that may have previously been a site of blister. The site currently has epithelialization noted with no underlying fluctuance or bogginess. Neuro moves all extremities Neuro Narrative: Lack of sensation to bilateral lower extremity consistent with diabetic peripheral polyneuropathy Assessment & Plan Assessment/Plan (1) Cellulitis of right leg: (2) Chronic venous stasis dermatitis of right lower extremity: (3) Morbid (severe) obesity due to excess calories: (4) Venous insufficiency: (5) Ulcer of right lower leg: (6) Ulcer of right lower extremity with fat layer exposed: PLAN: Plan Patient seen and evaluated I discussed her case of chronic venous insufficiency. Patient currently follows with me in office. She has history of noncompliance of compression stockings stating they feel like they cut off my circulation. I have attempted several times to get the patient to remain compliant with Tubigrip compression however she is inconsistent and often chooses not to wear them. I have previously discussed with her before that compression is essential to controlling her lower extremity edema and preventing venous ulcerations that which she currently has. Patient voices understanding of this previous discussion. Her son was present today and I also discussed this with him. Vascular: LEAS performed 09/02/2022 demonstrate normal waveforms on the right and triphasic Doppler waveforms on the left. Venous studies were also performed and negative for DVT. Radiographs: Radiographs obtained 09/02/2022 of the right lower extremity negative for osteomyelitis with no acute findings of the surrounding soft tissue. She underwent debridement of 2 ulcerative sites of the right lower extremity on 09/02/2022. Infection: Ulceration to the right lower extremity x2. Ulcerative sites anterior proximal medial and distal medial. There is erythema about the ulcerative site. Erythema has subsided to just proximal to the ulcerative site and just distal to the ulcerative site. There is increased warmth about the right lower extremity, however this is continued to improve since admission. No purulent drainage, no malodor, no palpable fluctuance, no palpable bogginess, no visible abscess. Wound is superficial in nature. There is an area of friable skin that appears milky white in color secondary to edema that may have previously been a site of blister. The site currently has epithelialization noted with no underlying fluctuance or bogginess. WBC decreased from 16.1 and currently 9.9. Currently on IV Unasyn. Wound cultures demonstrate rare gram-negative meka. Staph aureus protein A positive, MRSA PCR negative. Dressing: Ulcerative sites painted with Betadine and dressed with 4 x 4 gauze, Kerlix, 4 inch Rupert wrap, and 6 inch Rupert wrap to the right lower extremity. Left lower extremity dressed with 4 inch Rupert wrap and 6 inch Rupert wrap. Nursing to change dressing daily. Recommend continued compression via Rupert to control bilateral lower extremity edema. Look to return to double Tubigrip to maintain edema control following discharge. Edema: Patient to elevate lower extremities at all times of rest. Edema decreasing/improving with current compression dressing via Rupert wrap. Host factors: DM type II with peripheral polyneuropathy, chronic venous insufficiency, and morbid obesity Medicine team currently following for medical management. This is greatly appreciated Podiatry will continue to follow while in house. No planned surgical intervention at this time. Her erythema and edema are continuing to improve. I recommend continued IV Unasyn with pending discharge tomorrow home on oral antibiotics for 10 days. Recommend follow-up with her primary care and with myself in office upon discharge. Please do not hesitate to call for any questions or concerns. Jr. Britt Reyes.[facility] [phone] Note: [employer] speech recognition strategic buyer software was used to create portions of this document. Sound-alike and misspelled words, as well as other strategic buyer errors may be contained in the documentation.
[2022-09-04] MEDS: Potassium Chloride Oral Tablet 20 MEQ 40 MEQ PO (15:01)
[2022-09-05] VITALS (8 sets, daily range): BP systolic 147–164; BP diastolic 60–79; PULSE 71–84; RESP 14–18; TEMP 36.8–37; O2SAT 94–97
[2022-09-05 06:04] LABS: Absolute Lymphocyte Count 2.05 X10^3/uL (0.83-4.51); Absolute Neutrophil Count 6.8 X10^3/uL (2.0-7.7); Basophil# 0.07 X10^3/uL; Basophil% 0.7 % (0-1); Eosinophils% 3.9 % (0-5); Hematocrit 34.8 % (37-47); Hemoglobin 11.2 g/dL (12.0-15.0); Lymphocyte # 2.05 X10^3/ul (0.83-4.51); Lymphocyte % 19.8 % (19-41); Mean Corp Hgb Conc 32.2 g/dL (32-36); Mean Corpuscular Hgb 28.4 pg (27.0-32.0); Mean Corpuscular Volume 88.1 fL (81-99); Mean Platelet Vol. 9.8 fl (6.2-12.0); Monocyte# 0.81 X10^3/uL; Monocyte% 7.8 % (0-10); NRBC Flagged by Analyzer 0 % (0-5); Neutrophil # 6.83 X10^3/uL (2.7-7.7); Neutrophil % 66.1 % (47-70); Platelet Count 467 K/mm3 (150-450); RBC Distribution Width CV 14.4 % (11.6-14.6); RBC Distribution Width SD 46.5 fl (35.1-43.9); Red Blood Count 3.95 M/mm3 (4.2-5.4); White Blood Count 10.3 K/mm3 (4.4-11.0)
[2022-09-05 06:34] LABS: Anion Gap 5 (5-15); BUN 10 mg/dL (7-18); BUN/Creat Ratio 24.7 RATIO (10-20); Calcium,Total 8.2 mg/dL (8.5-10.1); Chloride 105 mmol/L (98-107); EST Glomerular Filtration Rate 167 mL/min (>60); Est Glom Filt Rate - Afr Amer 202 mL/min (>60); Estimated Creatinine Clearance 47.14 ml/min; Glucose 101 mg/dL (74-106); Potassium 3.6 mmol/L (3.5-5.1); Sodium Level 141 mmol/L (136-145)
--- NOTE | 2022-09-05 08:07 | WOUNDNOTE ---
wound photo: right medial lower leg
[2022-09-05] MEDS: Enoxaparin 40 MG/0.4 ML Syringe SC ×2 (08:20→21:30)
[2022-09-05] MEDS: Juven (unflavored) Packet 1 PACKET PO ×2 (08:20→17:06)
--- NOTE | 2022-09-05 13:13 | PN_ITS ---
Subjective Subjective Patient was seen today for follow up on right LE cellulitis and wound. She is resting comfortably in bed. She is afebrile, WBC is normal. Antibiotic was switched to Levofloxacin today. Objective Data Objective Data Vital Signs: Vital Signs Temp Pulse Resp BP Pulse Ox O2 Del Method 98.6 F 71 18 147/79 H 97 Room Air 09/05/22 09:00 09/05/22 09:00 09/05/22 09:00 09/05/22 09:00 09/05/22 09:28 09/05/22 09:00 Oxygen Delivery Method Room Air Weight: 132.4 kg Body Mass Index (BMI) 50.3 Intake & Output: Intake and Output for Last 24 Hours 09/04/22 09/04/22 09/05/22 00:59 23:59 23:59 Intake Total 224 / 224 Output Total Balance 224 / 224 Lab / Micro Data Result Diagrams: 09/05/22 04:28 09/05/22 04:28 Labs: Laboratory Results - last 24 hr 09/05/22 04:28: WBC 10.3, RBC 3.95 L, Hgb 11.2 L, Hct 34.8 L, MCV 88.1, MCH 28.4, MCHC 32.2, RDW Std Deviation 46.5 H, RDW Coeff of Sammie 14.4, Plt Count 467 H, MPV 9.8, Immature Gran % (Auto) 1.700 H, Neut % (Auto) 66.1, Lymph % (Auto) 19.8, [place] % (Auto) 7.8, Eos % (Auto) 3.9, Baso % (Auto) 0.7, Absolute Neuts (auto) 6.8, Absolute Lymphs (auto) 2.05, Nucleated RBC % 0 09/05/22 04:28: Sodium 141, Potassium 3.6, Chloride 105, Carbon Dioxide 31.0, Anion Gap 5, BUN 10, Creatinine 0.40 L, Estim Creat Clear Calc 47.14, Est GFR (MDRD) Af Amer 202, Est GFR (MDRD) Non-Af 167, BUN/Creatinine Ratio 24.7 H, Glucose 101, Calcium 8.2 L Micro: Microbiology 09/02/22 14:40 Wound - Leg Gram Stain - Final 09/02/22 14:40 Wound - Leg Wound Culture - Final Morganella morganii sp morgani Gram positive meka 09/04/22 08:59 Stool Stool Occult Blood (LAUREANO) - Final Physical Exam Const alert, oriented x3 and no apparent distress General Appearance: cooperative and comfortable Extremity normal capillary refill, no joint enlargement and no calf tenderness Extremity Narrative: DP and PT nonpalpable bilateral secondary to edema. pitting edema noted bilateral -improving Skin no rashes or lesions noted, skin turgor normal and no jaundice General Skin Exam: erythema, venous stasis and dermatitis Wound Narrative: Ulceration to the right lower extremity x2. Ulcerative sites anterior proximal medial and distal medial. There is erythema about the ulcerative site extending proximally just distal to the mid calf and extending distally to the lower calf. No purulent drainage, no malodor, no palpable fluctuance, no palpable bogginess, no visible abscess. Wound is superficial in nature. The site currently has epithelialization noted with no underlying fluctuance or bogginess. Neuro moves all extremities Neuro Narrative: Lack of sensation to bilateral lower extremity consistent with diabetic p eripheral polyneuropathy Assessment & Plan Assessment/Plan (1) Cellulitis of right leg: (2) Chronic venous stasis dermatitis of right lower extremity: (3) Morbid (severe) obesity due to excess calories: (4) Venous insufficiency: (5) Ulcer of right lower leg: (6) Ulcer of right lower extremity with fat layer exposed: PLAN: Plan Patient seen and evaluated. Patient afebrile. WBC normal. Reviewed culture results - gram negative meka and Morganella morganii sp morgani Vascular: LEAS performed 09/02/2022 demonstrate normal waveforms on the right and triphasic Doppler waveforms on the left. Venous studies were also performed and negative for DVT. Radiographs: Updated right tib/fib xrays ordered. She underwent debridement of 2 ulcerative sites of the right lower extremity on 09/02/2022. Dressing: Ulcerative sites painted with Betadine and dressed with 4 x 4 gauze, Kerlix, 4 inch Rupert wrap, and 6 inch Rupert wrap to the right lower extremity. Left lower extremity dressed with 4 inch Rupert wrap and 6 inch Rupert wrap. Nursing to change dressing daily. Recommend continued compression via Rupert to control bilateral lower extremity edema. Look to return to double Tubigrip to maintain edema control following discharge. Edema: Patient to elevate lower extremities at all times of rest. Edema decreasing/improving with current compression dressing via Rupert wrap. Host factors: DM type II with peripheral polyneuropathy, chronic venous insufficiency, and morbid obesity Medicine team currently following for medical management. This is greatly appreciated Podiatry will continue to follow while in house. No planned surgical intervention at this time. Her erythema and edema are overall are continuing to improve. I recommend continued antibiotic therapy with pending discharge tomorrow home on oral antibiotics for 10 days.
--- NOTE | 2022-09-05 13:15 | PCM.PN.HOSP ---
Subjective Subjective Follow-up on bilateral lower extremity cellulitis: Patient was seen and examined. Denied any new complaints. Denies any fever or chills. Objective Data Objective Data Vital Signs: Vital Signs Temp Pulse Resp BP Pulse Ox O2 Del Method 98.6 F 71 18 147/79 H 97 Room Air 09/05/22 09:00 09/05/22 09:00 09/05/22 09:00 09/05/22 09:00 09/05/22 09:28 09/05/22 09:00 Oxygen Delivery Method Room Air Weight: 132.4 kg Body Mass Index (BMI) 50.3 Intake & Output: Intake and Output for Last 24 Hours 09/04/22 09/04/22 09/05/22 00:59 23:59 23:59 Intake Total 224 / 224 Output Total Balance 224 / 224 Lab / Micro Data Result Diagrams: 09/05/22 04:28 09/05/22 04:28 Labs: Laboratory Results - last 24 hr 09/05/22 04:28: WBC 10.3, RBC 3.95 L, Hgb 11.2 L, Hct 34.8 L, MCV 88.1, MCH 28.4, MCHC 32.2, RDW Std Deviation 46.5 H, RDW Coeff of Sammie 14.4, Plt Count 467 H, MPV 9.8, Immature Gran % (Auto) 1.700 H, Neut % (Auto) 66.1, Lymph % (Auto) 19.8, [place] % (Auto) 7.8, Eos % (Auto) 3.9, Baso % (Auto) 0.7, Absolute Neuts (auto) 6.8, Absolute Lymphs (auto) 2.05, Nucleated RBC % 0 09/05/22 04:28: Sodium 141, Potassium 3.6, Chloride 105, Carbon Dioxide 31.0, Anion Gap 5, BUN 10, Creatinine 0.40 L, Estim Creat Clear Calc 47.14, Est GFR (MDRD) Af Amer 202, Est GFR (MDRD) Non-Af 167, BUN/Creatinine Ratio 24.7 H, Glucose 101, Calcium 8.2 L Micro: Microbiology 09/02/22 14:40 Wound - Leg Gram Stain - Final 09/02/22 14:40 Wound - Leg Wound Culture - Final Morganella morganii sp morgani Gram positive meka 09/04/22 08:59 Stool Stool Occult Blood (LAUREANO) - Final Physical Exam Narrative Physical exam: General: Alert, Oriented x3, Cooperative, morbidly obese HEENT: Atraumatic Oral: Moist Mucosa Neck: Supple Lungs: Clear to auscultation Cardiovascular: HS I+II, regular, no murmurs Abdomen: Bowel Sounds Present, Soft, Non Tender Extremities: Bilateral lower extremity with Rupert wraps, +1 edema, with erythema, dressing in place medial right lower extremity Skin: Chronic venous ulcers Neurological: Grossly intact Psych/Mental Status: Appropriate Assessment & Plan Assessment/Plan (1) Cellulitis of right leg: (2) Chronic venous stasis dermatitis of right lower extremity: (3) Morbid (severe) obesity due to excess calories: PLAN: Plan 1. Acute bilateral lower extremity cellulitis/right venous ulcerations/blister rupture Patient with underlying bilateral chronic venous insufficiency Status post failed outpatient antibiotic treatment for cellulitis Wound cultures on 09/02/2022 growing Morganella morganii We will switch from Zosyn to Levaquin Possible discharge in a.m. on oral Levaquin 2. Hypertension, fairly uncontrolled, will start patient on losartan 25 mg p.o. daily Repeat CMP in a.m. 3. Anemia of chronic disease, hemoglobin is stable, continue to trend 4. Morbid obesity, BMI 50.1, lifestyle modification recommended, patient may be a candidate for bariatric surgery 5. Hypokalemia, resolved 6. DVT prophylaxis?Lovenox subcu Charges/Coding Visit Charges Inpatient E&M: 74416 Subs Hosp L2
[2022-09-05] MEDS: levoFLOXacin IV 500 MG/100 ML BAG 100 MG IV (13:50)
[2022-09-05] MEDS: Losartan Potassium 25 MG Tablet PO (13:51)
--- NOTE | 2022-09-05 17:50 | RAD_ITS ---
EXAM: XR RIGHT TIBIA AND FIBULA, 2 VIEWS CLINICAL INDICATION: cellulitis TECHNIQUE: Frontal and lateral views of the right tibia and fibula. This report was created using [employer] report generation technology. COMPARISON: 08.28.22 FINDINGS: BONES/JOINTS: There is a calcaneal spur. There is an enthesophyte involving the posterior superior calcaneus at the site of insertion of the Achilles tendon. No acute fracture. No subluxation. Normal alignment. Preservation of the joint space. No sclerotic or destructive changes observed. SOFT TISSUES: Diffuse soft tissue edema around the leg. No radiopaque foreign body. RAD/Tibia & Fibula 2 Views IMPRESSION: Diffuse soft tissue edema around the leg. Electronically Signed: Vinnie Wasserman MD at 18:48 EST ,
[2022-09-06] VITALS (8 sets, daily range): BP systolic 114–170; BP diastolic 59–90; PULSE 72–83; RESP 16–18; TEMP 36.5–36.9; O2SAT 94–100
[2022-09-06 06:09] LABS: Absolute Lymphocyte Count 2.59 X10^3/uL (0.83-4.51); Absolute Neutrophil Count 7.7 X10^3/uL (2.0-7.7); Basophil# 0.06 X10^3/uL; Basophil% 0.5 % (0-1); Eosinophil# 0.44 X10^3/uL; Eosinophils% 3.8 % (0-5); Hematocrit 36.3 % (37-47); Hemoglobin 11.7 g/dL (12.0-15.0); Lymphocyte # 2.59 X10^3/ul (0.83-4.51); Lymphocyte % 22.1 % (19-41); Mean Corp Hgb Conc 32.2 g/dL (32-36); Mean Corpuscular Hgb 28.6 pg (27.0-32.0); Mean Corpuscular Volume 88.8 fL (81-99); Mean Platelet Vol. 9.7 fl (6.2-12.0); Monocyte# 0.77 X10^3/uL; Monocyte% 6.6 % (0-10); NRBC Flagged by Analyzer 0 % (0-5); Neutrophil # 7.68 X10^3/uL (2.7-7.7); Neutrophil % 65.4 % (47-70); Platelet Count 528 K/mm3 (150-450); RBC Distribution Width CV 14.3 % (11.6-14.6); RBC Distribution Width SD 46.1 fl (35.1-43.9); Red Blood Count 4.09 M/mm3 (4.2-5.4); White Blood Count 11.7 K/mm3 (4.4-11.0)
--- NOTE | 2022-09-06 07:02 | NURSING ---
Patient up to chair in AM, when patient got to chair the abdominal dressing became saturated. This RN changed dressing.
[2022-09-06 07:11] LABS: ALB/GLOB Ratio 0.4 RATIO (0.9-2.4); AST(SGOT) 15 U/L (15-37); Alanine Aminotransfer ALT/SGPT 26 U/L (13-56); Albumin, Serum 1.9 g/dL (3.2-5.0); Alkaline Phosphatase 191 U/L (45-117); Anion Gap 7 (5-15); BUN 11 mg/dL (7-18); BUN/Creat Ratio 22.1 RATIO (10-20); Calcium,Total 8.6 mg/dL (8.5-10.1); Chloride 102 mmol/L (98-107); EST Glomerular Filtration Rate 132 mL/min (>60); Est Glom Filt Rate - Afr Amer 159 mL/min (>60); Estimated Creatinine Clearance 47.14 ml/min; Globulin 4.7 g/dL (2.2-4.2); Glucose 93 mg/dL (74-106); Protein, Total 6.6 g/dL (6.4-8.2); Sodium Level 140 mmol/L (136-145)
--- NOTE | 2022-09-06 07:20 | PN_ITS ---
Subjective Subjective Patient was seen this morning for follow up on right LE cellulitis and wound. Patient is resting in bed. Patient is afebrile. WBC is 11.7. Objective Data Objective Data Vital Signs: Vital Signs Temp Pulse Resp BP Pulse Ox O2 Del Method 98.1 F 74 16 170/90 H 95 Room Air 09/06/22 04:10 09/06/22 04:10 09/06/22 04:10 09/06/22 04:10 09/06/22 04:10 09/06/22 04:10 Oxygen Delivery Method Room Air Weight: 132 kg Body Mass Index (BMI) 50.3 Intake & Output: Intake and Output for Last 24 Hours 09/04/22 09/05/22 09/06/22 23:59 23:59 23:59 Intake Total 1174 / 1524 500 / 500 Balance 1174 / 1524 500 / 500 Lab / Micro Data Result Diagrams: 09/06/22 04:28 09/06/22 04:28 Labs: Laboratory Results - last 24 hr 09/06/22 04:28: WBC 11.7 H, RBC 4.09 L, Hgb 11.7 L, Hct 36.3 L, MCV 88.8, MCH 28.6, MCHC 32.2, RDW Std Deviation 46.1 H, RDW Coeff of Sammie 14.3, Plt Count 528 H, MPV 9.7, Immature Gran % (Auto) 1.600 H, Neut % (Auto) 65.4, Lymph % (Auto) 22.1, [place] % (Auto) 6.6, Eos % (Auto) 3.8, Baso % (Auto) 0.5, Absolute Neuts (auto) 7.7, Absolute Lymphs (auto) 2.59, Nucleated RBC % 0 09/06/22 04:28: Sodium 140, Potassium 4.0, Chloride 102, Carbon Dioxide 31.0, Anion Gap 7, BUN 11, Creatinine 0.50 L, Estim Creat Clear Calc 47.14, Est GFR (MDRD) Af Amer 159, Est GFR (MDRD) Non-Af 132, BUN/Creatinine Ratio 22.1 H, Glucose 93, Calcium 8.6, Total Bilirubin 0.40, AST 15, ALT 26, Alkaline Phosphatase 191 H, Total Protein 6.6, Albumin 1.9 L, Globulin 4.7 H, Albumin/Globulin Ratio 0.4 L Micro: Microbiology 09/02/22 14:40 Wound - Leg Gram Stain - Final 09/02/22 14:40 Wound - Leg Wound Culture - Final Morganella morganii sp morgani Gram positive meka 09/04/22 08:59 Stool Stool Occult Blood (LAUREANO) - Final Radiography Diagnostic Testing: Radiology Impression Tibia/Fibula X-Ray 09/05/22 17:50 IMPRESSION: Diffuse soft tissue edema around the leg. Electronically Signed: Vinnie Wasserman MD at 18:48 EST Reading Location ID and State: [facility] / [place] , Service support , Physical Exam Const alert, oriented x3 and no apparent distress General Appearance: cooperative and comfortable HEENT normocephalic Eyes General Eye: normal appearance of both eyes Neck General: normal visual inspection Lymph Lymphatic: no lymphadenopathy noted and no lymphedema noted Resp normal respiratory effort Cardio regular rate and regular rhythm Extremity normal capillary refill, no joint enlargement and no calf tenderness Extremity Narrative: DP and PT nonpalpable bilateral secondary to edema. pitting edema noted bilateral -improving Skin no rashes or lesions noted, skin turgor normal and no jaundice General Skin Exam: erythema, venous stasis and dermatitis Wound Narrative: Ulceration to the right lower extremity. Ulcerative sites anterior proximal medial and distal medial. There is erythema about the ulcerative site extending proximally to below knee, no foot or ankle cellulitis. No purulent drainage, no malodor, no palpable fluctuance, no palpable bogginess, no visible abscess. Wound is superficial in nature. The site currently has epithelialization noted with no underlying fluctuance or bogginess. Neuro moves all extremities Neuro Narrative: Lack of sensation to bilateral lower extremity consistent with diabetic peripheral polyneuropathy Assessment & Plan Assessment/Plan (1) Cellulitis of right leg: (2) Chronic venous stasis dermatitis of right lower extremity: (3) Morbid (severe) obesity due to excess calories: (4) Venous insufficiency: (5) Ulcer of right lower leg: (6) Ulcer of right lower extremity with fat layer exposed: PLAN: Plan Patient seen and evaluated. Patient afebrile. WBC elevated to 11.7l. Reviewed culture results - gram negative meka and Morganella morganii sp morgani Cellulitis to right foot doing well, but there is still cellulitis to the right leg. Patient is currently on IV Levofloxacin. Vascular: LEAS performed 09/02/2022 demonstrate normal waveforms on the right and triphasic Doppler waveforms on the left. Venous studies were also performed and negative for DVT. Radiographs: Updated right tib/fib xrays ordered and reviewed. No acute osseous changes, no gas in the tissues. She underwent debridement of 2 ulcerative sites of the right lower extremity on 09/02/2022. Dressing: Dressed adaptic with 4 x 4 gauze, Kerlix, 4 inch Rupert wrap, and 6 inch Rupert wrap to the right lower extremity. Will proceed with santyl to ulcer site. Left lower extremity dressed with 4 inch Rupert wrap and 6 inch Rupert wrap. Nursing to change dressing daily. Recommend continued compression via Rupert to control bilateral lower extremity edema. Edema: Patient to elevate lower extremities at all times of rest. Edema decreasing/improving with current compression dressing via Rupert wrap. Host factors: DM type II with peripheral polyneuropathy, chronic venous insufficiency, and morbid obesity Medicine team currently following for medical management. This is greatly appreciated Podiatry will continue to follow while in house. No planned surgical intervention at this time.
[2022-09-06] MEDS: Losartan Potassium 50 MG Tablet PO (08:20)
[2022-09-06] MEDS: Juven (unflavored) Packet 1 PACKET PO ×2 (08:20→16:51)
[2022-09-06] MEDS: Enoxaparin 40 MG/0.4 ML Syringe SC ×2 (08:20→20:38)
--- NOTE | 2022-09-06 10:27 | PN.HOSP_ITS ---
Subjective Subjective Follow-up on bilateral lower extremity cellulitis: Patient was seen and examined. Denied any new complaints. Denies any fever or chills. Discussed with podiatry, patient's leg and wound still looks erythematous. Objective Data Objective Data Vital Signs: Vital Signs Temp Pulse Resp BP Pulse Ox O2 Del Method 97.7 F L 72 18 159/82 H 97 Room Air 09/06/22 09:34 09/06/22 09:34 09/06/22 09:34 09/06/22 09:34 09/06/22 09:34 09/06/22 09:34 Oxygen Delivery Method Room Air Weight: 132 kg Body Mass Index (BMI) 50.3 Intake & Output: Intake and Output for Last 24 Hours 09/04/22 09/05/22 09/06/22 23:59 23:59 23:59 Intake Total 1174 / 1524 500 / 500 Balance 1174 / 1524 500 / 500 Lab / Micro Data Result Diagrams: 09/06/22 04:28 09/06/22 04:28 Labs: Laboratory Results - last 24 hr 09/06/22 04:28: WBC 11.7 H, RBC 4.09 L, Hgb 11.7 L, Hct 36.3 L, MCV 88.8, MCH 28.6, MCHC 32.2, RDW Std Deviation 46.1 H, RDW Coeff of Sammie 14.3, Plt Count 528 H, MPV 9.7, Immature Gran % (Auto) 1.600 H, Neut % (Auto) 65.4, Lymph % (Auto) 22.1, [place] % (Auto) 6.6, Eos % (Auto) 3.8, Baso % (Auto) 0.5, Absolute Neuts (auto) 7.7, Absolute Lymphs (auto) 2.59, Nucleated RBC % 0 09/06/22 04:28: Sodium 140, Potassium 4.0, Chloride 102, Carbon Dioxide 31.0, Anion Gap 7, BUN 11, Creatinine 0.50 L, Estim Creat Clear Calc 47.14, Est GFR (MDRD) Af Amer 159, Est GFR (MDRD) Non-Af 132, BUN/Creatinine Ratio 22.1 H, Glucose 93, Calcium 8.6, Total Bilirubin 0.40, AST 15, ALT 26, Alkaline Phosphatase 191 H, Total Protein 6.6, Albumin 1.9 L, Globulin 4.7 H, Albumin/Globulin Ratio 0.4 L Micro: Microbiology 09/02/22 14:40 Wound - Leg Gram Stain - Final 09/02/22 14:40 Wound - Leg Wound Culture - Final Morganella morganii sp morgani Gram positive meka 09/04/22 08:59 Stool Stool Occult Blood (LAUREANO) - Final Radiography Diagnostic Testing: Radiology Impression Tibia/Fibula X-Ray 09/05/22 17:50 IMPRESSION: Diffuse soft tissue edema around the leg. Electronically Signed: Vinnie Wasserman MD at 18:48 EST Reading Location ID and State: [facility] / [place] , Service support , Physical Exam Narrative Physical exam: General: Alert, Oriented x3, Cooperative, morbidly obese HEENT: Atraumatic Oral: Moist Mucosa Neck: Supple Lungs: Clear to auscultation Cardiovascular: HS I+II, regular, no murmurs Abdomen: Bowel Sounds Present, Soft, Non Tender Extremities: Bilateral lower extremity with Rupert wraps, +1 edema, with erythema, dressing in place medial right lower extremity Skin: Chronic venous ulcers Neurological: Grossly intact Psych/Mental Status: Appropriate Assessment & Plan Assessment/Plan (1) Cellulitis of right leg: (2) Chronic venous stasis dermatitis of right lower extremity: (3) Morbid (severe) obesity due to excess calories: PLAN: Plan 1. Acute bilateral lower extremity cellulitis/right venous ulcerations/blister rupture Patient with underlying bilateral chronic venous insufficiency Status post failed outpatient antibiotic treatment for cellulitis Wound cultures on 09/02/2022 growing Morganella morganii Continue on Levaquin 2. Hypertension, uncontrolled, Losartan increased to 50mg daily Repeat CMP in a.m. 3. Anemia of chronic disease, hemoglobin is stable, continue to trend 4. Morbid obesity, BMI 50.1, lifestyle modification recommended, patient may be a candidate for bariatric surgery 5. Hypokalemia, resolved 6. DVT prophylaxis?Lovenox subcu Charges/Coding Visit Charges Inpatient E&M: 09199 Subs Hosp L2
[2022-09-06] MEDS: levoFLOXacin IV 500 MG/100 ML BAG 100 MG IV (10:58)
[2022-09-06] MEDS: Furosemide 40 MG/4 ML Vial IV (12:39)
[2022-09-06] MEDS: 0.9% Saline Lock 10 ML Syringe IV (12:39)
--- NOTE | 2022-09-06 14:00 | CASEMGMT ---
NEETA BRADLEY in to pt room, pt states she has an appt at the [facility] tomorrow and will reschedule as she will be in the hospital overnight tonight. Pt states she performs her own dressing changes at home. She has a script for outpt therapy and states she will attend. Pt denies any further homegoing needs.
[2022-09-07 02:00] VITALS: BP 164/89; PULSE 80; RESP 17; TEMP 36.7; O2SAT 95
[2022-09-07 06:30] LABS: Absolute Lymphocyte Count 2.46 X10^3/uL (0.83-4.51); Absolute Neutrophil Count 8.6 X10^3/uL (2.0-7.7); Basophil# 0.06 X10^3/uL; Basophil% 0.5 % (0-1); Eosinophil# 0.44 X10^3/uL; Eosinophils% 3.5 % (0-5); Hematocrit 37.5 % (37-47); Hemoglobin 12.1 g/dL (12.0-15.0); Lymphocyte # 2.46 X10^3/ul (0.83-4.51); Lymphocyte % 19.6 % (19-41); Mean Corp Hgb Conc 32.3 g/dL (32-36); Mean Corpuscular Hgb 28.3 pg (27.0-32.0); Mean Corpuscular Volume 87.8 fL (81-99); Mean Platelet Vol. 9.6 fl (6.2-12.0); Monocyte# 0.84 X10^3/uL; Monocyte% 6.7 % (0-10); NRBC Flagged by Analyzer 0 % (0-5); Neutrophil # 8.58 X10^3/uL (2.7-7.7); Neutrophil % 68.5 % (47-70); Platelet Count 536 K/mm3 (150-450); RBC Distribution Width CV 14.4 % (11.6-14.6); RBC Distribution Width SD 46.2 fl (35.1-43.9); Red Blood Count 4.27 M/mm3 (4.2-5.4); White Blood Count 12.5 K/mm3 (4.4-11.0)
[2022-09-07 06:58] LABS: ALB/GLOB Ratio 0.4 RATIO (0.9-2.4); AST(SGOT) 17 U/L (15-37); Alanine Aminotransfer ALT/SGPT 26 U/L (13-56); Albumin, Serum 1.9 g/dL (3.2-5.0); Alkaline Phosphatase 192 U/L (45-117); Anion Gap 5 (5-15); BUN 15 mg/dL (7-18); Calcium,Total 8.6 mg/dL (8.5-10.1); Chloride 104 mmol/L (98-107); Creatinine, Serum 0.54 mg/dL (0.55-1.02); EST Glomerular Filtration Rate 121 mL/min (>60); Est Glom Filt Rate - Afr Amer 146 mL/min (>60); Estimated Creatinine Clearance 47.14 ml/min; Globulin 4.8 g/dL (2.2-4.2); Glucose 102 mg/dL (74-106); Protein, Total 6.7 g/dL (6.4-8.2); Sodium Level 139 mmol/L (136-145)
[2022-09-07 07:54] VITALS: BP 134/55; PULSE 79; RESP 18; TEMP 36.7; O2SAT 97
--- NOTE | 2022-09-07 08:03 | WOUNDNOTE ---
wound photo: right medial lower leg
[2022-09-07] MEDS: Juven (unflavored) Packet 1 PACKET PO ×2 (08:10→16:45)
[2022-09-07] MEDS: Furosemide 40 MG/4 ML Vial IV (09:37)
[2022-09-07] MEDS: Cefazolin 2 GM in 0.9% Normal Saline 100 ML IV (09:37)
[2022-09-07] MEDS: Enoxaparin 40 MG/0.4 ML Syringe SC ×2 (09:56→20:59)
[2022-09-07] MEDS: Losartan Potassium 50 MG Tablet PO (09:56)
[2022-09-07 10:00] VITALS: BP 135/55; PULSE 80; RESP 18; TEMP 36.7; O2SAT 97
--- NOTE | 2022-09-07 10:05 | PCM.PN.HOSP ---
Subjective Subjective Follow-up on bilateral lower extremity cellulitis: Patient was seen and examined. She admits she feels weak. She is a 1 person assist in her room. Denies any fever or chills. Discussed with podiatry, patient's redness persists. Objective Data Objective Data Vital Signs: Vital Signs Temp Pulse Resp BP Pulse Ox O2 Del Method 98.0 F 79 18 134/55 H 97 Room Air 09/07/22 07:54 09/07/22 07:54 09/07/22 07:54 09/07/22 07:54 09/07/22 07:54 09/07/22 07:54 Oxygen Delivery Method Room Air Weight: 129.7 kg Body Mass Index (BMI) 50.3 Intake & Output: Intake and Output for Last 24 Hours 09/05/22 09/06/22 09/07/22 23:59 23:59 23:59 Intake Total 1174 / 1524 2200 / 2550 500 / 500 Output Total 2 / 2 Balance 1174 / 1524 2198 / 2548 500 / 500 Lab / Micro Data Result Diagrams: 09/07/22 05:22 09/07/22 05:22 Labs: Laboratory Results - last 24 hr 09/07/22 05:22: WBC 12.5 H, RBC 4.27, Hgb 12.1, Hct 37.5, MCV 87.8, MCH 28.3, MCHC 32.3, RDW Std Deviation 46.2 H, RDW Coeff of Sammie 14.4, Plt Count 536 H, MPV 9.6, Immature Gran % (Auto) 1.200 H, Neut % (Auto) 68.5, Lymph % (Auto) 19.6, [place] % (Auto) 6.7, Eos % (Auto) 3.5, Baso % (Auto) 0.5, Absolute Neuts (auto) 8.6 H, Absolute Lymphs (auto) 2.46, Nucleated RBC % 0 09/07/22 05:22: Sodium 139, Potassium 4.0, Chloride 104, Carbon Dioxide 30.0, Anion Gap 5, BUN 15, Creatinine 0.54 L, Estim Creat Clear Calc 47.14, Est GFR (MDRD) Af Amer 146, Est GFR (MDRD) Non-Af 121, BUN/Creatinine Ratio 28.0 H, Glucose 102, Calcium 8.6, Total Bilirubin 0.40, AST 17, ALT 26, Alkaline Phosphatase 192 H, Total Protein 6.7, Albumin 1.9 L, Globulin 4.8 H, Albumin/Globulin Ratio 0.4 L Micro: Microbiology 09/02/22 14:40 Wound - Leg Gram Stain - Final 09/02/22 14:40 Wound - Leg Wound Culture - Final Morganella morganii sp morgani Gram positive meka 09/04/22 08:59 Stool Stool Occult Blood (LAUREANO) - Final Physical Exam Narrative Physical exam: General: Alert, Oriented x3, Cooperative, morbidly obese HEENT: Atraumatic Oral: Moist Mucosa Neck: Supple Lungs: Clear to auscultation Cardiovascular: HS I+II, regular, no murmurs Abdomen: Bowel Sounds Present, Soft, Non Tender Extremities: Bilateral lower extremity with Rupert wraps, +1 edema, with erythema, dressing in place medial right lower extremity Skin: Chronic venous ulcers Neurological: Grossly intact Psych/Mental Status: Appropriate Assessment & Plan Assessment/Plan (1) Cellulitis of right leg: (2) Chronic venous stasis dermatitis of right lower extremity: (3) Morbid (severe) obesity due to excess calories: PLAN: Plan 1. Acute bilateral lower extremity cellulitis/right venous ulcerations/blister rupture Patient with underlying bilateral chronic venous insufficiency Status post failed outpatient antibiotic treatment for cellulitis Wound cultures on 09/02/2022 growing Morganella morganii Continue on Levaquin 2. Hypertension, controlled, Continue Losartan 50mg daily Repeat CMP in a.m. 3. Anemia of chronic disease, Hb is stable at 12.1 Continue to trend 4. Morbid obesity, BMI 50.1, lifestyle modification recommended, patient may be a candidate for bariatric surgery 5. Hypokalemia, resolved 6. DVT prophylaxis?Lovenox subcu Charges/Coding Visit Charges Inpatient E&M: 06117 Subs Hosp L2
[2022-09-07] MEDS: levoFLOXacin IV 500 MG/100 ML BAG 100 MG IV (11:19)
--- NOTE | 2022-09-07 12:18 | CASEMGMT ---
Addendum entered by Gretchen Edward 09/07/22 13:32: SW in to meet with pt following update from and RNCM that pt will need placement at nursing facility. Pt agreeable to discussing discharge planning. Pt reports has spoken to son's and is now agreeable to SNF. A list of SNF providers including quality and resource use data and consistent with the patient?s preferred geographic region, medical needs, and insurance network were provided from the [employer] Guide. Pt reviewed list and provided choices. Pt first preference is [facility], second choice would be [facility]. PLAN: [place], Pending acceptance and precert [facility]? Original Note: Social Work SW notified by RNCM Josef, that pt considering TCU. SW reached out to Anita at TCU to check on bed availability. Anita stated no beds open for [facility] pt's at TCU at this time. MELINA informed pt and pt's sons of no beds at TCU and discussed alternative options for SNFs in the community. Pt and family requesting time to consider this. SW to follow and check back with pt later this day. PLAN: HHC vs. SNF [facility]
--- NOTE | 2022-09-07 13:36 | PCM.CONS.GEN ---
Assessment & Plan Assessment/Plan (1) Cellulitis of right leg: PLAN: Wound cx with rare morganella and GPR; gram stain showed rare wbc and no orgs. On levaquin, cefazolin added this AM. Feeling ok, reviewed photos, podiatry following. Has only been on effective therapy with the levaquin since 09/05. Will stop cefazolin; suspect it will just take time for redness to improve given chronic edema and vascular insufficiency. Will follow, thank you (2) Chronic venous stasis dermatitis of right lower extremity: HPI Consult Data Date of Consult: 09/07/22 HPI Narrative Reason for Consultation: cellulitis HPI Narrative: ALLISON GILMORE, is a 67 F with chronic edema, presented with chronic R lower ext ulcer. Developed surrounding redness and warmth about 10-14 days ago. Mild soreness, no fever, no chills. Saw PCP, given a po antibiotic, sx worsened, sent to ED. Admitted on unasyn, changed to levaquin once wound cx came back, now cefazolin added due to persistent redness. Feeling better overall. Full ROS performed and neg except as noted above. [facility] Medical History Chronic cutaneous venous stasis ulcer Morbid obesity Venous insufficiency Home Medications ergocalciferol (vitamin D2) 1,250 mcg (50,000 unit) capsule (Vitamin D2) 50,000 unit PO MOFR supplement 11/16/16 [History Last Taken 08/26/22] multivitamin (Daily Multiple tablet) 1 ea PO DAILY 10/19/17 [History Last Taken 08/28/22] vit C 250 mg-vit E 90 mg-zinc 40 mg-copper 1 [id number] capsule (PreserVision AREDS-2) 1 ea PO DAILY 10/19/17 [History Last Taken 08/28/22] calcium carbonate 600 mg calcium (1,500 mg) tablet 600 mg PO DAILY 04/15/20 [History Last Taken 08/28/22] collagenase clostridium histo. 250 unit/gram topical ointment 1 applic topical DAILY leg 04/15/20 [History Last Taken 09/02/22] methylcellulose (with sugar) oral powder (Citrucel (sucrose) oral powder) 1 tbsp PO DAILY SUPPLEMENT 09/02/22 [History Last Taken 08/31/22] Allergy/AdvReac Type Severity Reaction Status Date / Time No Known Allergies Allergy Verified 09/02/22 13:19 Family History (Updated 09/02/22 @ 14:[address] Tesha Charlton MD) Mother Hypertension Uterine cancer Father CAD (coronary artery disease) CVA (cerebral vascular accident) Surgical History (Updated 09/02/22 @ 14:[address] Tesha Charlton MD) H/O total hysterectomy Hx of repair of rotator cuff Social History (Updated 09/02/22 @ 14:[address] Tesha Charlton MD) household members: none Smoking Status: Never smoker alcohol intake: never substance use type: does not use Physical Exam Const alert, oriented x3 and no apparent distress General Appearance: cooperative HEENT normocephalic and head/scalp atraumatic Eyes PERRL and EOMs intact bilaterally Neck supple and No nodes Resp normal air movement and clear to auscultation bilaterally Cardio regular rate and regular rhythm GI soft to palpation, non-tender and non-distended Extremity General Extremity: edema Skin Skin Narrative: Reviewed photos Neuro CN's II-XII intact bilaterally Lab / Micro Data Attestation: I reviewed the patient's lab results. Result Diagrams: 09/07/22 05:22 09/07/22 05:22 Labs: Laboratory Results - last 24 hr 09/07/22 05:22: WBC 12.5 H, RBC 4.27, Hgb 12.1, Hct 37.5, MCV 87.8, MCH 28.3, MCHC 32.3, RDW Std Deviation 46.2 H, RDW Coeff of Sammie 14.4, Plt Count 536 H, MPV 9.6, Immature Gran % (Auto) 1.200 H, Neut % (Auto) 68.5, Lymph % (Auto) 19.6, [place] % (Auto) 6.7, Eos % (Auto) 3.5, Baso % (Auto) 0.5, Absolute Neuts (auto) 8.6 H, Absolute Lymphs (auto) 2.46, Nucleated RBC % 0 09/07/22 05:22: Sodium 139, Potassium 4.0, Chloride 104, Carbon Dioxide 30.0, Anion Gap 5, BUN 15, Creatinine 0.54 L, Estim Creat Clear Calc 47.14, Est GFR (MDRD) Af Amer 146, Est GFR (MDRD) Non-Af 121, BUN/Creatinine Ratio 28.0 H, Glucose 102, Calcium 8.6, Total Bilirubin 0.40, AST 17, ALT 26, Alkaline Phosphatase 192 H, Total Protein 6.7, Albumin 1.9 L, Globulin 4.8 H, Albumin/Globulin Ratio 0.4 L
[2022-09-07 13:53] VITALS: BP 139/53; PULSE 84; RESP 16; TEMP 36.6; O2SAT 96
--- NOTE | 2022-09-07 13:54 | CASEMGMT ---
Discharge Hyperbaric Nurse This song writer sent referral to [facility] via [facility]. Lee LUX Roughener
[2022-09-07 16:00] VITALS: BP 136/60; PULSE 84; RESP 18; TEMP 36.6; O2SAT 96
--- NOTE | 2022-09-07 17:27 | PN_ITS ---
Subjective Subjective Patient was seen today. She is sitting in chair with legs up. WBC slightly elevated today. Patient with no complaints of fever, chills, nausea or vomiting. Objective Data Objective Data Vital Signs: Vital Signs Temp Pulse Resp BP Pulse Ox O2 Del Method 97.9 F 84 18 136/60 H 96 Room Air 09/07/22 16:00 09/07/22 16:00 09/07/22 16:00 09/07/22 16:00 09/07/22 16:00 09/07/22 16:00 Oxygen Delivery Method Room Air Weight: 129.7 kg Body Mass Index (BMI) 50.3 Intake & Output: Intake and Output for Last 24 Hours 09/05/22 09/06/22 09/07/22 23:59 23:59 23:59 Intake Total 1174 / 1524 2200 / 2550 1215 / 1215 Output Total 2 / 2 Balance 1174 / 1524 2198 / 2548 1215 / 1215 Lab / Micro Data Result Diagrams: 09/07/22 05:22 09/07/22 05:22 Labs: Laboratory Results - last 24 hr 09/07/22 05:22: WBC 12.5 H, RBC 4.27, Hgb 12.1, Hct 37.5, MCV 87.8, MCH 28.3, MCHC 32.3, RDW Std Deviation 46.2 H, RDW Coeff of Sammie 14.4, Plt Count 536 H, MPV 9.6, Immature Gran % (Auto) 1.200 H, Neut % (Auto) 68.5, Lymph % (Auto) 19.6, [place] % (Auto) 6.7, Eos % (Auto) 3.5, Baso % (Auto) 0.5, Absolute Neuts (auto) 8.6 H, Absolute Lymphs (auto) 2.46, Nucleated RBC % 0 09/07/22 05:22: Sodium 139, Potassium 4.0, Chloride 104, Carbon Dioxide 30.0, Anion Gap 5, BUN 15, Creatinine 0.54 L, Estim Creat Clear Calc 47.14, Est GFR (MDRD) Af Amer 146, Est GFR (MDRD) Non-Af 121, BUN/Creatinine Ratio 28.0 H, Glucose 102, Calcium 8.6, Total Bilirubin 0.40, AST 17, ALT 26, Alkaline Phosphatase 192 H, Total Protein 6.7, Albumin 1.9 L, Globulin 4.8 H, Albumin/Globulin Ratio 0.4 L Micro: Microbiology 09/02/22 14:40 Wound - Leg Gram Stain - Final 09/02/22 14:40 Wound - Leg Wound Culture - Final Morganella morganii sp morgani Gram positive meka 09/04/22 08:59 Stool Stool Occult Blood (LAUREANO) - Final Physical Exam Const alert, oriented x3 and no apparent distress General Appearance: cooperative and comfortable Extremity normal capillary refill, no joint enlargement and no calf tenderness Extremity Narrative: DP and PT nonpalpable bilateral secondary to edema. pitting edema noted bilateral -improving Skin no rashes or lesions noted, skin turgor normal and no jaundice General Skin Exam: erythema, venous stasis and dermatitis Wound Narrative: Ulceration to the right lower extremity. Ulcerative sites anterior proximal medial and distal medial. There is erythema about the ulcerative site extending proximally to below knee, no foot or ankle cellulitis. No purulent drainage, no malodor, no palpable fluctuance, no palpable bogginess, no visible abscess. Wound is superficial in nature. The site currently has epithelialization noted with no underlying fluctuance or bogginess. Assessment & Plan Assessment/Plan (1) Cellulitis of right leg: (2) Chronic venous stasis dermatitis of right lower extremity: (3) Morbid (severe) obesity due to excess calories: (4) Venous insufficiency: (5) Ulcer of right lower leg: (6) Ulcer of right lower extremity with fat layer exposed: PLAN: Plan Patient seen and evaluated. Patient afebrile. WBC elevated. Reviewed culture results - gram negative meka and Morganella morganii sp morgani Cellulitis to right foot doing well, but there is still cellulitis to the right leg. Patient is currently on IV Levofloxacin. Dr. Alvarez/Infectious Disease on consult. Vascular: LEAS performed 09/02/2022 demonstrate normal waveforms on the right and triphasic Doppler waveforms on the left. Venous studies were also performed and negative for DVT. Radiographs: Updated right tib/fib xrays ordered and reviewed. No acute osseous changes, no gas in the tissues. She underwent debridement of 2 ulcerative sites of the right lower extremity on 09/02/2022. Dressing: Dressed adaptic with 4 x 4 gauze, Kerlix, 4 inch Rupert wrap, and 6 inch Rupert wrap to the right lower extremity. Will proceed with santyl to ulcer site. Left lower extremity dressed with 4 inch Rupert wrap and 6 inch Rupert wrap. Nursing to change dressing daily. Recommend continued compression via Rupert to control bilateral lower extremity edema. Edema: Patient to elevate lower extremities at all times of rest. Edema decreasing/improving with current compression dressing via Rupert wrap. Host factors: DM type II with peripheral polyneuropathy, chronic venous ins ufficiency, and morbid obesity Medicine team currently following for medical management. This is greatly appreciated Podiatry will continue to follow while in house. No planned surgical interventi on at this time. Spoke with Dr. Faria today.
[2022-09-07 20:55] VITALS: BP 129/65; PULSE 79; RESP 18; TEMP 36.8; O2SAT 93
[2022-09-08 03:00] VITALS: BP 163/59; PULSE 76; RESP 18; TEMP 36.7; O2SAT 95
[2022-09-08 06:28] LABS: Absolute Lymphocyte Count 2.12 X10^3/uL (0.83-4.51); Absolute Neutrophil Count 6.3 X10^3/uL (2.0-7.7); Basophil# 0.03 X10^3/uL; Basophil% 0.3 % (0-1); Eosinophil# 0.44 X10^3/uL; Eosinophils% 4.5 % (0-5); Hematocrit 37.7 % (37-47); Hemoglobin 12.1 g/dL (12.0-15.0); Lymphocyte # 2.12 X10^3/ul (0.83-4.51); Lymphocyte % 21.7 % (19-41); Mean Corp Hgb Conc 32.1 g/dL (32-36); Mean Corpuscular Hgb 28.4 pg (27.0-32.0); Mean Corpuscular Volume 88.5 fL (81-99); Mean Platelet Vol. 9.2 fl (6.2-12.0); Monocyte# 0.74 X10^3/uL; Monocyte% 7.6 % (0-10); NRBC Flagged by Analyzer 0 % (0-5); Neutrophil # 6.33 X10^3/uL (2.7-7.7); Neutrophil % 64.8 % (47-70); Platelet Count 547 K/mm3 (150-450); RBC Distribution Width CV 14.4 % (11.6-14.6); RBC Distribution Width SD 46.2 fl (35.1-43.9); Red Blood Count 4.26 M/mm3 (4.2-5.4); White Blood Count 9.8 K/mm3 (4.4-11.0)
[2022-09-08 06:57] LABS: ALB/GLOB Ratio 0.4 RATIO (0.9-2.4); AST(SGOT) 22 U/L (15-37); Alanine Aminotransfer ALT/SGPT 28 U/L (13-56); Albumin, Serum 1.9 g/dL (3.2-5.0); Alkaline Phosphatase 197 U/L (45-117); Anion Gap 5 (5-15); BUN 17 mg/dL (7-18); Calcium,Total 8.7 mg/dL (8.5-10.1); Chloride 101 mmol/L (98-107); Creatinine, Serum 0.59 mg/dL (0.55-1.02); EST Glomerular Filtration Rate 109 mL/min (>60); Est Glom Filt Rate - Afr Amer 132 mL/min (>60); Estimated Creatinine Clearance 47.14 ml/min; Globulin 4.8 g/dL (2.2-4.2); Glucose 103 mg/dL (74-106); Potassium 4.4 mmol/L (3.5-5.1); Protein, Total 6.7 g/dL (6.4-8.2); Sodium Level 137 mmol/L (136-145)
--- NOTE | 2022-09-08 07:05 | PN_ITS ---
Subjective Subjective Patient was seen this morning for follow up on right leg ulcer and cellulitis. She is resting in bed with no complaints. No fevers, and WBC is normal today. Objective Data Objective Data Vital Signs: Vital Signs Temp Pulse Resp BP Pulse Ox O2 Del Method 98.1 F 76 18 163/59 H 95 Room Air 09/08/22 03:00 09/08/22 03:00 09/08/22 03:00 09/08/22 03:00 09/08/22 03:00 09/08/22 03:00 Oxygen Delivery Method Room Air Weight: 129.5 kg Body Mass Index (BMI) 50.3 Intake & Output: Intake and Output for Last 24 Hours 09/06/22 09/07/22 09/08/22 23:59 23:59 23:59 Intake Total 2200 / 2550 1215 / 1515 450 / 450 Output Total 250 / 250 Balance 2198 / 2548 1215 / 1515 200 / 200 Lab / Micro Data Result Diagrams: 09/08/22 05:55 09/08/22 05:55 Labs: Laboratory Results - last 24 hr 09/08/22 05:55: WBC 9.8, RBC 4.26, Hgb 12.1, Hct 37.7, MCV 88.5, MCH 28.4, MCHC 32.1, RDW Std Deviation 46.2 H, RDW Coeff of Sammie 14.4, Plt Count 547 H, MPV 9.2, Immature Gran % (Auto) 1.100 H, Neut % (Auto) 64.8, Lymph % (Auto) 21.7, [place] % (Auto) 7.6, Eos % (Auto) 4.5, Baso % (Auto) 0.3, Absolute Neuts (auto) 6.3, Absolute Lymphs (auto) 2.12, Nucleated RBC % 0 09/08/22 05:55: Sodium 137, Potassium 4.4, Chloride 101, Carbon Dioxide 31.0, Anion Gap 5, BUN 17, Creatinine 0.59, Estim Creat Clear Calc 47.14, Est GFR (MDRD) Af Amer 132, Est GFR (MDRD) Non-Af 109, BUN/Creatinine Ratio 29.0 H, Glucose 103, Calcium 8.7, Total Bilirubin 0.50, AST 22, ALT 28, Alkaline Phosphatase 197 H, Total Protein 6.7, Albumin 1.9 L, Globulin 4.8 H, Albumin /Globulin Ratio 0.4 L Micro: Microbiology 09/02/22 14:40 Wound - Leg Gram Stain - Final 09/02/22 14:40 Wound - Leg Wound Culture - Final Morganella morganii sp morgani Gram positive meka 09/04/22 08:59 Stool Stool Occult Blood (LAUREANO) - Final Physical Exam Const alert, oriented x3 and no apparent distress General Appearance: cooperative and comfortable Extremity normal capillary refill, no joint enlargement and no calf tenderness Extremity Narrative: DP and PT nonpalpable bilateral secondary to edema. pitting edema noted bilateral -improving Skin no rashes or lesions noted, skin turgor normal and no jaundice General Skin Exam: erythema, venous stasis and dermatitis Wound Narrative: Ulceration to the right lower extremity. Ulcerative site is improving, there is fibrogranular base, there is some residual erythema about the ulcerative site extending proximally to below knee but much improved. No purulent drainage, no malodor, no palpable fluctuance, no palpable bogginess, no visible abscess. Wo und is superficial in nature. The site currently has epithelialization noted with no underlying fluctuance or bogginess. Assessment & Plan Assessment/Plan (1) Cellulitis of right leg: (2) Chronic venous stasis dermatitis of right lower extremity: (3) Morbid (severe) obesity due to excess calories: (4) Venous insufficiency: (5) Ulcer of right lower leg: (6) Ulcer of right lower extremity with fat layer exposed: PLAN: Plan Patient seen and evaluated. Patient afebrile. WBC normal. Reviewed culture results - gram negative meka and Morganella morganii sp morgani Cellulitis to right LE is much improved today. Patient is currently on IV Levofloxacin. Dr. Alvarez/Infectious Disease on consult. Vascular: LEAS performed 09/02/2022 demonstrate normal waveforms on the right and triphasic Doppler waveforms on the left. Venous studies were also performed and negative for DVT. Radiographs: Updated right tib/fib xrays ordered and reviewed. No acute osseous changes, no gas in the tissues. She underwent debridement of 2 ulcerative sites of the right lower extremity on 09/02/2022. Dressing: Dressed adaptic with 4 x 4 gauze, Kerlix, 4 inch Rupert wrap, and 6 inch Rupert wrap to the right lower extremity. Will proceed with santyl to ulcer site. Left lower extremity dressed with 4 inch Rupert wrap and 6 inch Rupert wrap. Nursing to change dressing daily. Recommend continued compression via Rupert to control bilateral lower extremity edema. Edema: Patient to elevate lower extremities at all times of rest. Edema decreasing/improving with current compression dressing via Rupert wrap. Host factors: DM type II with peripheral polyneuropathy, chronic venous insufficiency, and morbid obesity Medicine team currently following for medical management. This is greatly emma reciated Podiatry will continue to follow while in house. No planned surgical intervention at this time.
--- NOTE | 2022-09-08 07:48 | CASEMGMT ---
Addendum entered by Sharon Vargas 09/08/22 09:38: Discharge Wire Worker Fanta from [facility] is starting pre-cert. Lee LUX Prn Occupational Therapist Original Note: Discharge Wire Worker Fanta reached out. Patient has been accepted at [facility]. Lee LUX Prn Occupational Therapist
[2022-09-08 08:46] VITALS: BP 146/66; PULSE 77; RESP 18; TEMP 36.4; O2SAT 97
--- NOTE | 2022-09-08 09:52 | PCM.PN.ID ---
Physical Exam Narrative Feeling better, leg less sore and red. No fever, no n/v/d. Const alert and no apparent distress Resp normal air movement and clear to auscultation bilaterally Cardio regular rate and regular rhythm GI soft to palpation, non-tender and non-distended Extremity General Extremity: edema Skin Skin Narrative: RLE less red ID ID: Route of nutrition/ use of supplements: [] Nutritional Intake: [] IV Site: [] Ness Catheter: [] Assessment & Plan Assessment/Plan (1) Cellulitis of right leg: PLAN: Wound cx with rare morganella and GPR; gram stain showed rare wbc and no orgs. On levaquin, improving. Feeling ok, reviewed photos, podiatry following. Has only been on effective therapy with the levaquin since 09/05. Will change to po levaquin, plan on one more week of abx. Will follow (2) Chronic venous stasis dermatitis of right lower extremity:
[2022-09-08] MEDS: Juven (unflavored) Packet 1 PACKET PO ×2 (10:20→18:11)
[2022-09-08] MEDS: Losartan Potassium 50 MG Tablet PO (10:20)
[2022-09-08] MEDS: levoFLOXacin 500 MG Tablet PO (10:20)
[2022-09-08] MEDS: Enoxaparin 40 MG/0.4 ML Syringe SC ×2 (10:20→21:17)
[2022-09-08 10:23] VITALS: BP 146/66; PULSE 77; RESP 18; TEMP 36.4; O2SAT 97
--- NOTE | 2022-09-08 12:16 | PCM.PN.HOSP ---
Subjective Subjective Follow-up on bilateral lower extremity cellulitis: Patient was seen and examined. Patient is agreeable to discharge to [facility] facility. Leg cellulitis is mildly improved. Denies any fever and chills. Objective Data Objective Data Vital Signs: Vital Signs Temp Pulse Resp BP Pulse Ox O2 Del Method 97.6 F L 77 18 146/66 H 97 Room Air 09/08/22 10:23 09/08/22 10:23 09/08/22 10:23 09/08/22 10:23 09/08/22 10:23 09/08/22 10:23 Oxygen Delivery Method Room Air Weight: 129.5 kg Body Mass Index (BMI) 50.3 Intake & Output: Intake and Output for Last 24 Hours 09/06/22 09/07/22 09/08/22 23:59 23:59 23:59 Intake Total 2200 / 2550 1215 / 1515 450 / 450 Output Total 250 / 250 Balance 2198 / 2548 1215 / 1515 200 / 200 Lab / Micro Data Result Diagrams: 09/08/22 05:55 09/08/22 05:55 Labs: Laboratory Results - last 24 hr 09/08/22 05:55: WBC 9.8, RBC 4.26, Hgb 12.1, Hct 37.7, MCV 88.5, MCH 28.4, MCHC 32.1, RDW Std Deviation 46.2 H, RDW Coeff of Sammie 14.4, Plt Count 547 H, MPV 9.2, Immature Gran % (Auto) 1.100 H, Neut % (Auto) 64.8, Lymph % (Auto) 21.7, [place] % (Auto) 7.6, Eos % (Auto) 4.5, Baso % (Auto) 0.3, Absolute Neuts (auto) 6.3, Absolute Lymphs (auto) 2.12, Nucleated RBC % 0 09/08/22 05:55: Sodium 137, Potassium 4.4, Chloride 101, Carbon Dioxide 31.0, Anion Gap 5, BUN 17, Creatinine 0.59, Estim Creat Clear Calc 47.14, Est GFR (MDRD) Af Amer 132, Est GFR (MDRD) Non-Af 109, BUN/Creatinine Ratio 29.0 H, Glucose 103, Calcium 8.7, Total Bilirubin 0.50, AST 22, ALT 28, Alkaline Phosphatase 197 H, Total Protein 6.7, Albumin 1.9 L, Globulin 4.8 H, Albumin/Globulin Ratio 0.4 L Micro: Microbiology 09/02/22 14:40 Wound - Leg Gram Stain - Final 09/02/22 14:40 Wound - Leg Wound Culture - Final Morganella morganii sp morgani Gram positive meka 09/04/22 08:59 Stool Stool Occult Blood (LAUREANO) - Final Physical Exam Narrative Physical exam: General: Alert, Oriented x3, Cooperative, morbidly obese HEENT: Atraumatic Oral: Moist Mucosa Neck: Supple Lungs: Clear to auscultation Cardiovascular: HS I+II, regular, no murmurs Abdomen: Bowel Sounds Present, Soft, Non Tender Extremities: Bilateral lower extremity with Rupert wraps, trace cherelle, with erythema, dressing in place medial right lower extremity Skin: Chronic venous ulcers Neurological: Grossly intact Psych/Mental Status: Appropriate Assessment & Plan Assessment/Plan (1) Cellulitis of right leg: (2) Chronic venous stasis dermatitis of right lower extremity: (3) Morbid (severe) obesity due to excess calories: PLAN: Plan 1. Acute bilateral lower extremity cellulitis/right venous ulcerations/blister rupture Patient with underlying bilateral chronic venous insufficiency Status post failed outpatient antibiotic treatment for cellulitis Wound cultures on 09/02/2022 growing Morganella morganii Continue on Levaquin ID following - plan for 1 more week on Levaquin 2. Hypertension, controlled, continue Losartan 50mg daily 3. Anemia of chronic disease, Hb is stable at 12.1 Continue to trend 4. Morbid obesity, BMI 50.1, lifestyle modification recommended, patient may be a candidate for bariatric surgery 5.DVT prophylaxis?Lovenox subcu Charges/Coding Visit Charges Inpatient E&M: 78334 Subs Hosp L2
[2022-09-08 15:04] VITALS: BP 123/62; PULSE 80; RESP 18; TEMP 36.6; O2SAT 95
--- NOTE | 2022-09-08 15:05 | CASEMGMT ---
Social Work SW met with pt and informed that [facility] has accepted pt and precert has been started. SW answered pt questions and explained insurance process during SNF stay. Pt expressing understanding and agreeable to d/c to [facility]. Pt requesting her sons transport her at time of discharge. Plan: [facility], Pending precert ESTEFANI Castellano
[2022-09-08 15:06] VITALS: BP 123/62; PULSE 80; RESP 18; TEMP 36.6; O2SAT 95
[2022-09-08 20:20] VITALS: BP 154/55; PULSE 79; RESP 18; TEMP 36.8; O2SAT 95
[2022-09-09 02:14] VITALS: BP 135/58; PULSE 74; RESP 16; TEMP 36.6; O2SAT 96
[2022-09-09] MEDS: levoFLOXacin 500 MG Tablet PO (05:15)
--- NOTE | 2022-09-09 07:06 | PN_ITS ---
Subjective Subjective Patient was seen this morning for follow up on right LE. She is awaiting discharge to nursing facility. She is sitting up in chair with feet up. She is afebrile and no new complaints at this time. Objective Data Objective Data Vital Signs: Vital Signs Temp Pulse Resp BP Pulse Ox O2 Del Method 97.8 F 74 16 135/58 H 96 Room Air 09/09/22 02:14 09/09/22 02:14 09/09/22 02:14 09/09/22 02:14 09/09/22 02:14 09/09/22 02:14 Oxygen Delivery Method Room Air Weight: 130 kg Body Mass Index (BMI) 50.3 Intake & Output: Intake and Output for Last 24 Hours 09/07/22 09/08/22 09/09/22 23:59 23:59 23:59 Intake Total 1215 / 1515 450 / 450 Output Total 250 / 250 400 / 400 Balance 1215 / 1515 200 / 200 -400 / -400 Lab / Micro Data Result Diagrams: 09/08/22 05:55 09/08/22 05:55 Micro: Microbiology 09/02/22 14:40 Wound - Leg Gram Stain - Final 09/02/22 14:40 Wound - Leg Wound Culture - Final Morganella morganii sp morgani Gram positive meka 09/04/22 08:59 Stool Stool Occult Blood (LAUREANO) - Final Physical Exam Const alert, oriented x3 and no apparent distress General Appearance: cooperative and comfortable Extremity normal capillary refill, no joint enlargement and no calf tenderness Extremity Narrative: DP and PT nonpalpable bilateral secondary to edema. pitting edema noted bilateral -improving Skin no rashes or lesions noted, skin turgor normal and no jaundice General Skin Exam: erythema, venous stasis and dermatitis Wound Narrative: Ulceration to the right lower extremity. Ulcerative site is improving, there is fibrogranular base - more granular healthy tissues noted, there is some residual erythema about the ulcerative site, but overall there is less erytema and is resolving. No purulent drainage, no malodor, no palpable fluctuance, no palpable bogginess, no visible abscess. Wound is superficial in nature. The site currently has epithelialization noted with no underlying fluctuance or boggine ss. Assessment & Plan Assessment/Plan (1) Cellulitis of right leg: (2) Chronic venous stasis dermatitis of right lower extremity: (3) Morbid (severe) obesity due to excess calories: (4) Venous insufficiency: (5) Ulcer of right lower leg: (6) Ulcer of right lower extremity with fat layer exposed: PLAN: Plan Patient seen and evaluated. Patient afebrile. WBC normal yesterday. Reviewed culture results - gram negative meka and Morganella morganii sp morgani Cellulitis to right LE continues to improve. Patient is currently on IV Levofloxacin. Dr. Alvarez/Infectious Disease on consult. Vascular: LEAS performed 09/02/2022 demonstrate normal waveforms on the right and triphasic Doppler waveforms on the left. Venous studies were also performed and negative for DVT. Radiographs: Updated right tib/fib xrays ordered and reviewed. No acute osseous changes, no gas in the tissues. She underwent debridement of 2 ulcerative sites of the right lower extremity on 09/02/2022. Dressing: Dressed adaptic with 4 x 4 gauze, Kerlix, 4 inch Rupert wrap, and 6 inch Rupert wrap to the right lower extremity.Continue with santyl to ulcer site for enzymatic debridement. Left lower extremity dressed with 4 inch Rupert wrap and 6 inch Rupert wrap. Nursing to change dressing daily. Recommend continued compression via Rupert to control bilateral lower extremity edema. Edema: Patient to elevate lower extremities at all times of rest. Edema decreasing/improving with current compression dressing via Rupert wrap. Host factors: DM type II with peripheral polyneuropathy, chronic venous i nsufficiency, and morbid obesity Medicine team currently following for medical management. This is greatly appreciated Podiatry will continue to follow while in house. No planned surgical interven tion at this time.
[2022-09-09 07:25] VITALS: BP 134/60; PULSE 77; RESP 18; TEMP 36.7; O2SAT 93
[2022-09-09] MEDS: Juven (unflavored) Packet 1 PACKET PO (07:36)
[2022-09-09] MEDS: Losartan Potassium 50 MG Tablet PO (09:12)
[2022-09-09] MEDS: Enoxaparin 40 MG/0.4 ML Syringe SC (09:13)
[2022-09-09 11:15] VITALS: O2SAT 98
--- NOTE | 2022-09-09 11:23 | CASEMGMT ---
Social Work SW met with pt and informed that precert has not yet been obtained. Pt requesting FMLA papers be faxed to PCP. SW faxed documents to [facility] and returned originals to pt. Plan: [facility], pending precert S ESTEFANI Rice
[2022-09-09 11:45] VITALS: O2SAT 98
--- NOTE | 2022-09-09 13:13 | CASEMGMT ---
Discharge Flumer Fanta from [facility] reached out. Pre-cert has been obtained. MELINA Claros notified. Lee [facility]
--- NOTE | 2022-09-09 13:17 | TREXTCAR_ITS ---
Diet Diet Order/Speech Therapy: 09/03/22 10:07 Diet: Consistent Carb - Calorie Controlled Food consistency:: Regular Liquid Consistency:: Regular/Thin Dietary Modifications:: Sodium Restricted Is pt able to select menu?: Yes Diet Comments: 1 yogurt on each tray. How many daily calories?: 1800 calorie Routine Orders/Code Status Suppository Type: Dulcolax 10mg Suppository Frequency: Daily PRN Keep PO Greater than or Equal to (%): 94 Routine Lab Work: CBC (within 3 days) and - (within 3 days) Wound(s) RIGHT LOWER LEG: Wound Type: Stasis Ulcer Dressing Change: santyl with Adaptic Therapies Weight Bearing: Weight bearing as tolerated Physical Therapy: Eval and Treat Occupational Therapy: Eval and Treat Problem/Diagnosis (1) Cellulitis of right leg: Status: Acute Code(s): L03.115 - Cellulitis of right lower limb (2) Chronic venous stasis dermatitis of right lower extremity: Status: Chronic Code(s): I83.11 - Varicose veins of right lower extremity with inflammation (3) Morbid (severe) obesity due to excess calories: Status: Chronic Code(s): E66.01 - Morbid (severe) obesity due to excess calories (4) Venous insufficiency: Status: Chronic Code(s): I87.2 - Venous insufficiency (chronic) (peripheral) (5) Ulcer of right lower leg: Status: Chronic Code(s): L97.919 - Non-pressure chronic ulcer of unspecified part of right lower leg with unspecified severity (6) Ulcer of right lower extremity with fat layer exposed: Status: Chronic Code(s): L97.912 - Non-pressure chronic ulcer of unspecified part of right lower leg with fat layer exposed Plan 1. Acute bilateral lower extremity cellulitis/right venous ulcerations/blister rupture 2. Hypertension 3. Anemia of chronic disease 4. Morbid obesity, BMI 50.1 Allergies/Procedures Done in Hospital Allergies No Known Allergies Allergy (Verified 09/02/22 13:19) Procedures: None Type of Care/Length of Stay Estimated LOS: Convalescent Care Less Than 30 days Type of Care Needed: Skilled Rehab Potential: Good Prognosis: Good Additional Orders/Day of Discharge Day of Discharge: 09/09/22 Dietary and Speech Recommendations Dietitian Recommendations/Changes: Will continue 1800 michelle controlled/sodium restricted diet Will continue Rene bid to help w/ wound healing Discharge Plan Admission Admit Date/Time: 09/02/22 14:15 Primary Reason for Your Visit: Acute cellulitis of right leg/venous ulcers Attending Provider: Madhuri Faria Primary Care Provider: Delfino Guillen Consulting Providers: Lee Morales ; Tesha Charlton ; Winston Meyers ; Roosevelt Alvarez Discharge Orders/Prescriptions Prescriptions: New Rene (with collagen) 7-7-1.5 gram Powder In Packet 1 packet PO BIDCM 15 Days Qty: 0 0RF acidophilus-pectin, citrus 25 million cell -100 mg Tablet 2 tab PO 4X/DAY 7 Days Qty: 0 0RF losartan 50 mg Tablet 50 mg PO DAILY 30 Days Qty: 0 0RF levofloxacin 500 mg Tablet 500 mg PO DAILY@0600 5 Days Qty: 0 0RF Rx Instructions: last dose is 09/14/22 Continued ergocalciferol (vitamin D2) [Vitamin D2] 50,000 UNIT capsule 50,000 unit PO MOFR Label Comments: TWICE A WEEK multivitamin [Daily Multiple] 1 EACH tablet 1 ea PO DAILY PreserVision AREDS-2 1 EACH capsule 1 ea PO DAILY calcium carbonate 600 MG tablet 600 mg PO DAILY collagenase clostridium histo. 1 APPLIC ointment 1 applic topical DAILY Citrucel (sucrose) Powder 1 tbsp PO DAILY Referrals / Follow Up: Delfino Guillen MD [Primary Care Provider] - In 1 Week Disposition Disposition (needs filled in before D/C Order can be placed): Intermediate Facility
--- NOTE | 2022-09-09 13:31 | DS.PCM_ITS ---
Providers Date of Admission: 09/02/22 Date of Discharge: 09/09/22 Primary Care Physician: Dr. Delfino Guillen MD Consultations 09/02/22 14:29 Consult: Podiatry Routine Consulting Provider: Lee Morales Reason for Consult: RLE stasis ulcer, infected, cellulitis EMERGENT Consult: No Notified: Yes Date Notified: 09/02/22 Time Notified: 14:30 Method of Notification: Text 09/07/22 08:42 Consult: Infectious Disease Routine Consulting Provider: Roosevelt Alvarez Reason for Consult: Cellulitis EMERGENT Consult: No Notified: Yes Date Notified: 09/07/22 Time Notified: 08:42 Method of Notification: Answering Service Method of Consult:: In-Person 09/07/22 15:23 Consult: Onc/Wound/growth media mixer mushroom Routine Comment: Reason for Consult:: right lower leg Reason For Visit: CELLULITIS, FAILED OUTPATIENT ABX Diagnosis Discharge Diagnosis (1) Cellulitis of right leg: Status: Acute Code(s): L03.115 - Cellulitis of right lower limb (2) Chronic venous stasis dermatitis of right lower extremity: Status: Chronic Code(s): I83.11 - Varicose veins of right lower extremity with inflammation (3) Morbid (severe) obesity due to excess calories: Status: Chronic Code(s): E66.01 - Morbid (severe) obesity due to excess calories (4) Venous insufficiency: Status: Chronic Code(s): I87.2 - Venous insufficiency (chronic) (peripheral) (5) Ulcer of right lower leg: Status: Chronic Code(s): L97.919 - Non-pressure chronic ulcer of unspecified part of right lower leg with unspecified severity (6) Ulcer of right lower extremity with fat layer exposed: Status: Chronic Code(s): L97.912 - Non-pressure chronic ulcer of unspecified part of right lower leg with fat layer exposed Plan 1. Acute bilateral lower extremity cellulitis/right venous ulcerations/blister rupture 2. Hypertension 3. Anemia of chronic disease 4. Morbid obesity, BMI 50.1 Medications at Discharge Home Medications ergocalciferol (vitamin D2) 1,250 mcg (50,000 unit) capsule (Vitamin D2) 50,000 unit PO MOFR supplement 11/16/16 multivitamin (Daily Multiple tablet) 1 ea PO DAILY 10/19/17 vit C 250 mg-vit E 90 mg-zinc 40 mg-copper 1 [id number] capsule (PreserVision AREDS-2) 1 ea PO DAILY 10/19/17 calcium carbonate 600 mg calcium (1,500 mg) tablet 600 mg PO DAILY 04/15/20 collagenase clostridium histo. 250 unit/gram topical ointment 1 applic topical DAILY leg 04/15/20 methylcellulose (with sugar) oral powder (Citrucel (sucrose) oral powder) 1 tbsp PO DAILY SUPPLEMENT 09/02/22 acidophilus 25 million cell-pectin, citrus 100 mg tablet 2 tab PO 4X/DAY 7 days #0 tabs 09/09/22 arginine 7 gram-glutam 7 gram-CaHMB 1.5 [id number] oral pwd pkt (Rene (with collagen)) 1 packet PO BIDCM 15 days #0 ea 09/09/22 levofloxacin 500 mg tablet 500 mg PO DAILY@0600 5 days #0 tabs 09/09/22 losartan 50 mg tablet 50 mg PO DAILY 30 days #0 tabs 09/09/22 Hospital Course Operations None Procedures None Summary of Care Provided Minutes Spent on Discharge: 35 Hospital Course: 67-year-old female with past medical history of morbid obesity, chronic venous stasis dermatitis, history of prior chronic lower extremity wound who presented with worsening right lower extremity erythema, edema and pain. Patient was recently started on Keflex 4 days prior to admission. She presented to the emergency room because her redness in the right leg was worsening. In the emergency room, patient's vitals were stable. Her admitting blood work showed WBC count was 16.1, potassium was 3.2. Patient's physical exam was significant for right lower extremity cellulitis with blistering/thigh venous ulcers. Patient was started on IV Unasyn. Wound cultures from the venous ulcers done grew Morganella and gram-positive rods. Patient was transitioned to Levaquin. Infectious disease was consulted. Recommended to continue oral Levaquin. Patient had 5 more days of Levaquin to complete. She was seen by PT and OT and skilled for discharge to [facility] facility. Physical Exam Narrative Physical exam: General: Alert, Oriented x3, Cooperative, morbidly obese HEENT: Atraumatic Oral: Moist Mucosa Neck: Supple Lungs: Clear to auscultation Cardiovascular: HS I+II, regular, no murmurs Abdomen: Bowel Sounds Present, Soft, Non Tender Extremities: Bilateral lower extremity with Rupert wraps, trace cherelle, with erythema, dressing in place medial right lower extremity Skin: Chronic venous ulcers Neurological: Grossly intact Psych/Mental Status: Appropriate Weight / BMI Weight Weight: 130 kg Body Mass Index (BMI) 50.3 ABG / Lab / Microbiology Data Result Diagrams: 09/08/22 05:55 09/08/22 05:55 Microbiology: Microbiology 09/02/22 14:40 Wound - Leg Gram Stain - Final 09/02/22 14:40 Wound - Leg Wound Culture - Final Morganella morganii sp morgani Gram positive meka 09/04/22 08:59 Stool Stool Occult Blood (LAUREANO) - Final D/C Instructions Discharge Diet: No restrictions Meaningful Use Info Meaningful Use Diagnoses (Choose all that apply): None applicable Discharge Plan Admission Admit Date/Time: 09/02/22 14:15 Primary Reason for Your Visit: Acute cellulitis of right leg/venous ulcers Attending Provider: Madhuri Faria Primary Care Provider: Delfino Guillen Consulting Providers: Lee Morales ; Tesha Charlton ; Winston Meyers ; Roosevelt Alvarez Discharge Orders/Prescriptions Prescriptions: New Rene (with collagen) 7-7-1.5 gram Powder In Packet 1 packet PO BIDCM 15 Days Qty: 0 0RF acidophilus-pectin, citrus 25 million cell -100 mg Tablet 2 tab PO 4X/DAY 7 Days Qty: 0 0RF losartan 50 mg Tablet 50 mg PO DAILY 30 Days Qty: 0 0RF levofloxacin 500 mg Tablet 500 mg PO DAILY@0600 5 Days Qty: 0 0RF Rx Instructions: last dose is 09/14/22 Continued ergocalciferol (vitamin D2) [Vitamin D2] 50,000 UNIT capsule 50,000 unit PO MOFR Label Comments: TWICE A WEEK multivitamin [Daily Multiple] 1 EACH tablet 1 ea PO DAILY PreserVision AREDS-2 1 EACH capsule 1 ea PO DAILY calcium carbonate 600 MG tablet 600 mg PO DAILY collagenase clostridium histo. 1 APPLIC ointment 1 applic topical DAILY Citrucel (sucrose) Powder 1 tbsp PO DAILY Referrals / Follow Up: Delfino Guillen MD [Primary Care Provider] - In 1 Week Disposition Disposition (needs filled in before D/C Order can be placed): [facility] Facility Charges/Coding Visit Charges Inpatient E&M: 19938 Disch Hosp
[2022-09-09 13:58] VITALS: BP 150/58; PULSE 82; RESP 18; TEMP 36.6; O2SAT 95
--- NOTE | 2022-09-09 14:13 | CASEMGMT ---
Social Work Precert has been obtained and pt can discharge to [facility] today. Physician notified and feels pt is ready for discharge. SW met with pt and informed that pt will be able to discharge today. Pt is agreeable to discharge and states she would like her son to transport and she will call him with discharge plan. 7000 exemption form completed in [facility] and sent along with discharge orders and covid results to [facility] via [employer]. Son to transport. Nursing updated. Plan: [facility], skilled level of care under convalescent stay. ESTEFANI Castellano
--- NOTE | 2022-09-09 14:17 | NURSING ---
report called to nurse Aylin at [facility] [id number]
== END 2022-09-09 15:18 | disposition skilled nursing facility (03) | DRG 264 ==
LOC: ED 13:50 → MS3 14:35
PROVIDERS: Internal Medicine; Admitting Provider Family Medicine; Emergency Provider Emergency Medicine; PCP Family Medicine; Visit Provider Internal Medicine
DX: E11.59 Type 2 diabetes mellitus with other circulatory complications (principal); I87.311 Chronic venous hypertension (idiopathic) with ulcer of right lower extremity; L03.115 Cellulitis of right lower limb; Z68.43 Body mass index [BMI] 50.0-59.9, adult; L97.212 Non-pressure chronic ulcer of right calf with fat layer exposed; L03.116 Cellulitis of left lower limb; D63.8 Anemia in other chronic diseases classified elsewhere; I83.012 Varicose veins of right lower extremity with ulcer of calf; E11.51 Type 2 diabetes mellitus with diabetic peripheral angiopathy without gangrene; E66.01 Morbid (severe) obesity due to excess calories; E87.6 Hypokalemia; I83.11 Varicose veins of right lower extremity with inflammation; Z79.899 Other long term (current) drug therapy; B96.89 Other specified bacterial agents as the cause of diseases classified elsewhere
CPT/HCPCS: 36415; 73590; 80048; 80053; 82274; 82728; 83540; 83550; 83735; 84100; 85025; 87070; 87077; 87186; 87205; 87426; 87640; 93922; 93971; 97110; 97116; 97162; 97166; 97530; 97535; 97802; 99251; 99284; J7030; J7050; A4216; G0463; J0295; J1940

== ENCOUNTER 2022-10-28 08:45 | Outpatient (RCR) | payer BC, SELFPAY ==
[2022-10-07 10:08] VITALS: BP 164/75; PULSE 76; RESP 20; TEMP 36.1
--- NOTE | 2022-10-07 11:34 | PCM.WC.HP ---
History of Present Illness Date of Service: 10/07/22 Chief Complaint: Right Non healing lower extremity ulcer. History of Wound: Ms. Antony is a 65yo with PMH of venous insufficiency and reports she has had a vein stripped in the past. She presents for evaluation of a right lower extremity nonhealing ulcer. She has been evaluated at this wound care center in the past for similar wounds. She has had lower extremity edema and varicose veins for many years. On 09/02/2022 patient presented to the emergency room with right lower extremity cellulitis and ipsilateral venous ulcers. She was hospitalized and wound cultures grew Morganella and gram-positive rods. She was started on IV Unasyn and later transitioned to Levaquin under the direction of infectious disease. She was discharged to SNF 09/09/2022 where she received further PT/OT and was discharged on 09/20/2022. The ulcers which were present at the time of this admission have since healed. She denies any recent wounds on her left leg. She reports that the wound she has today is the result of bumping her right leg against a piece of furniture about 2 weeks ago. She has been treating this wound with Santyl covered with Adaptic. She has been wearing Tubigrip's, double on the right, single on the left. She has been elevating her legs at night. She notes that her swelling reduces significantly by the morning. With respect to the cellulitis, she states her leg is much improved from what it was at the time of her admission and the pain she had at that time has completely resolved. She denies fevers, chills, nausea, vomiting, increased pain or redness in the lower extremity. She admits that in the past she has been inconsistent with wearing compression. Although she is currently off work she typically works at [employer] where she is up on her feet for nearly 12 hours every day and previously without any compression in the absence of active wounds. She was seen by her PCP who ordered venous and arterial studies. She reports that she has another circulatory study to be completed next week at the [facility] location here in [place]. She is unsure what this test is. [facility] Medical History Chronic cutaneous venous stasis ulcer Morbid obesity Venous insufficiency Home Medications ergocalciferol (vitamin D2) 1,250 mcg (50,000 unit) capsule (Vitamin D2) 50,000 unit PO MOFR supplement 11/16/16 [History Last Taken 08/26/22] multivitamin (Daily Multiple tablet) 1 ea PO DAILY 10/19/17 [History Last Taken 08/28/22] vit C 250 mg-vit E 90 mg-zinc 40 mg-copper 1 [id number] capsule (PreserVision AREDS-2) 1 ea PO DAILY 10/19/17 [History Last Taken 08/28/22] calcium carbonate 600 mg calcium (1,500 mg) tablet 600 mg PO DAILY 04/15/20 [History Last Taken 08/28/22] collagenase clostridium histo. 250 unit/gram topical ointment 1 applic topical DAILY leg 04/15/20 [History Last Taken 09/02/22] methylcellulose (with sugar) oral powder (Citrucel (sucrose) oral powder) 1 tbsp PO DAILY SUPPLEMENT 09/02/22 [History Last Taken 08/31/22] acidophilus 25 million cell-pectin, citrus 100 mg tablet 2 tab PO 4X/DAY 7 days #0 tabs 09/09/22 [Rx Last Taken Unknown] arginine 7 gram-glutam 7 gram-CaHMB 1.5 bjha-ktoip-ly-min oral pwd pkt (Rene (with collagen)) 1 packet PO BIDCM 15 days #0 ea 09/09/22 [Rx Last Taken Unknown] levofloxacin 500 mg tablet 500 mg PO DAILY@0600 5 days #0 tabs 09/09/22 [Rx Last Taken Unknown] losartan 50 mg tablet 50 mg PO DAILY 30 days #0 tabs 09/09/22 [Rx Last Taken Unknown] Allergy/AdvReac Type Severity Reaction Status Date / Time No Known Allergies Allergy Verified 09/02/22 13:19 Family History (Updated 09/02/22 @ 14:[address] Tesha Charlton MD) Mother Hypertension Uterine cancer Father CAD (coronary artery disease) CVA (cerebral vascular accident) Surgical History (Updated 09/02/22 @ 14:[address] Tesha Charlton MD) H/O total hysterectomy Hx of repair of rotator cuff Social History (Updated 09/02/22 @ 14:[address] Tesha Charlton MD) household members: none Smoking Status: Never smoker alcohol intake: never substance use type: does not use ROS Constitutional Constitutional: Denies anorexia, body ache(s), chills, fever(s) or malaise Eyes Eyes: Denies blurry vision, diplopia or erythema ENT HEENT: Denies dysphagia, nasal discharge, sore throat or throat swelling Cardiovascular Cardiovascular: Denies chest pain, claudication or dyspnea Respiratory/Chest Respiratory/Chest: Denies chest tightness, cough, dyspnea or wheezing Gastrointestinal Gastrointestinal: Denies abdominal pain, constipation, diarrhea, nausea or vomiting Genitourinary Genitourinary: Denies urinary frequency, urinary hesitancy, urinary incontinence or urinary urgency Musculoskeletal Musculoskeletal: Denies joint pain, joint stiffness or joint swelling Integumentary Integumentary: Denies lesions, pruritus or rash Neurologic Neurologic: Denies confusion, dizziness or seizures Endocrine Endocrinology: Denies polydipsia, polyphagia or polyuria Vital Signs Vital Signs Vital Signs: 10/07/22 10:08 Temperature 97 F L Temperature Source Temporal Pulse Rate 76 Respiratory Rate 20 H Blood Pressure 164/75 H Blood Pressure Mean 104 Blood Pressure Source Monitor Blood Pressure Position Sitting Blood Pressure Location Left Arm Oxygen Delivery Method Room Air Physical Exam Const alert, oriented x3, no apparent distress and healthy appearing General Appearance: cooperative and comfortable Exam Limitations: no limitations HEENT normocephalic, head/scalp atraumatic, hearing grossly normal bilaterally and external nose normal Eyes EOMs intact bilaterally General Eye: normal appearance of both eyes Neck full ROM General: normal visual inspection and trachea midline Resp normal respiratory effort, no use of accessory muscles and clear to auscultation bilaterally Effort and Inspection: able to speak in complete sentences and symmetric chest movement; Negative for labored, stridor or audible wheezes Cardio regular rate and regular rhythm Peripheral Pulses: radial pulses present, ulnar pulses present, posterior tibial pulses present and dorsalis pedis pulses present Extremity normal capillary refill and no calf tenderness Extremity Narrative: Bilateral lower extremity edema, appears slightly worse right compared to left Multiple varicose veins and reticular veins noted bilaterally. Skin Skin Narrative: Discoloration of skin, venous stasis dermatitis noted bilaterally but worse on the right compared to the left. General Skin Exam: Negative for ecchymosis, eschar or excoriation(s) Rashes: no rashes Trauma: no lacerations or abrasions Wound Narrative: Wound cluster noted to the medial right calf. The wound has a significant amount of slough. There is some induration noted but no increased warmth and no pain to palpation of the right lower extremity or periwound area. No purulent or foul-smelling drainage noted. Neuro oriented x3, CN's II-XII intact bilaterally, moves all extremities, no focal motor deficits, no sensory deficits noted and gait normal Psych mental status grossly normal, thought process normal, cooperative, affect normal, speech normal and activity/motor behavior normal Debridement Note Debridement Note Wound debrided: Right medial calf ulcer cluster Laterality: Right Type of Debridement: Excisional debridement Anesthesia Used: 5% Lidocaine Gel Depth: Down to and including healthy tissue and in the subcutaneous layer Percentage of wound debrided: 100 Instrument Used: 3mm curette Tissue Removed: Slough, devitalized tissue Severity: Fat Layer Exposed Amount of bleeding with debridement: Mild Bleeding Controlled with: Pressure Patient tolerated procedure: Patient tolerated procedure well Post-Debridement Measurements and Additional Note: Post-Debridement Measurements/Treatment - Nurse 1 - General Ulcer Assessment Start: 10/07/22 10:07 Freq: Status: Active Protocol: EVELIA Activity Type Activity Date Activity User E-sign Co-sign Detail Recorded Client Recorded Date Recorded By Document 10/07/22 10:08 NH [id number] 10/07/22 10:16 NH 10/07/22 10:08 - Today's Visit Information Type of service Follow-up Visit (Physician/[employer] ) Arrival Mode Ambulatory Patient Identification Verified (Name & Yes ) Vital Signs Temperature (97.8 F-99.1 F) 97 F L Temperature Source Temporal Pulse Rate (60-100) 76 Pulse Location Monitor Respiratory Rate (12-18) 20 H Respiratory rate source Observation Oxygen Delivery Method Room Air Blood Pressure (90/60-120/80) 164/75 H Blood Pressure Mean 104 Source Monitor Position Sitting Blood Pressure Location Left Arm History Since Last Visit- (Skip if this is Patient's initial visit) Has dressing in place as prescribed Yes Has compression in place as prescribed Yes Has offloadiing in place as prescribed Yes Experienced any changes in pain level or Yes management Left Footwear Regular Shoe Right Footwear Regular Shoe Pain Scale: 0-10 Numeric Is Patient Pain Free? Yes - Nurse 1 - General Ulcer Measurement Start: 10/07/22 10:07 Freq: Status: Active Protocol: Activity Type Activity Date Activity User E-sign Co-sign Detail Recorded Client Recorded Date Recorded By Document 10/07/22 10:08 NH [id number] 10/07/22 10:16 NH 10/07/22 10:08 Wound Center Nurse 1 #5 right calf -Current Size (cm) - Length 1.2 -Current Size (cm) - Width 0.7 -Current Size (cm) - Depth 0.2 -Total Square Cm 0.84 -Exudate Amt Medium -Exudate Type Serosanguineous -Wound Margin Flat & Intact -Granulation Amt Medium (34-66%) -Granulation Quality Pale,Fords -Necrosis Amt Medium (34-66%) -Necrotic Tissue Type Adherent Slough -Texture (Jessica-wound Skin Appearance) Assessed, Localized Edema -Moisture (Jessica-wound Skin Appearance) Assessed, Maceration -Color (Jessica-wound Skin Appearance) Assessed, Hemosiderin Staining -Temperature (Jessica-wound Skin No Abnormality Appearance) (Pt Warm) -Tenderness on Palpation (Jessica-wound No Skin Appearance) -Ulcer Cleansing Rinsed/ Irrigated with Saline -Foul Odor after Cleansing No -Anesthetic Used 5% Lidocaine Gel #4 R Medial Leg cluster -Current Size (cm) - Length 3 -Current Size (cm) - Width 2.4 -Current Size (cm) - Depth 0.9 -Total Square Cm 7.2 -Exudate Amt Medium -Exudate Type Serosanguineous -Wound Margin Flat & Intact -Granulation Amt Medium (34-66%) -Granulation Quality Pale,Fords -Necrosis Amt Small (1-33%) -Necrotic Tissue Type Adherent Slough -Texture (Jessica-wound Skin Appearance) Assessed -Moisture (Jessica-wound Skin Appearance) Assessed -Color (Jessica-wound Skin Appearance) Assessed -Temperature (Jessica-wound Skin Hot Appearance) -Tenderness on Palpation (Jessica-wound No Skin Appearance) -Ulcer Cleansing Rinsed/ Irrigated with Saline -Foul Odor after Cleansing No -Anesthetic Used 5% Lidocaine Gel Right Calf (cm) 40.5 Right Ankle (cm) 24.7 Left Calf (cm) 43.2 Left Ankle (cm) 27.7 WC - Nurse 3 - General Ulcer D/C NN Start: 10/07/22 10:07 Freq: Status: Active Protocol: Activity Type Activity Date Activity User E-sign Co-sign Detail Recorded Client Recorded Date Recorded By Document 10/07/22 11:13 WILLIAM [id number] 10/07/22 11:14 WILLIAM 10/07/22 11:13 Wound Care Nurse 3 #5 right calf -Ulcer Cleansing Rinsed/ Irrigated with Saline -Foul Odor after Cleansing No -Primary Dressing Applied Mepilex Border -Other Dressing santyl -Mepilex Border 1 #4 R Medial Leg cluster -Ulcer Cleansing Rinsed/ Irrigated with Saline -Foul Odor after Cleansing No -Primary Dressing Applied Mepilex Border -Other Dressing santyl -Mepilex Border 0 Right -Tubular Bandage Double Layer -Size of Tubigrip Used Size D -Size D ($) 2 Left -Tubular Bandage Double Layer -Size of Tubigrip Used Size D -Size D ($) 2 Pain Scale: 0-10 Numeric Is Patient Pain Free? Yes WC - Visit Discharge Discharge Condition Stable Ambulatory Status Ambulatory Transportation Private Auto Medication Reconcilliation completed & Yes provided to patient/care provider Clinical Summary of Care Provided Yes Charges/Coding Wound Center CF Procedures [id number]: [id number] RMVL DEVITAL TIS 20 CM/< Multi Select Codes Wound Center CF Procedures [id number]: [id number] RMVL DEVITAL TIS 20 CM/< Assessment/Plan Assessment/Plan (1) Ulcer of right lower extremity with fat layer exposed: CODE(S): L97.912 - Non-pressure chronic ulcer of unspecified part of right lower leg with fat layer exposed (2) 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 Given significant amount of slough in the wound we will continue with daily application of Santyl covered with Adaptic and absorbent dry dressing. We will continue with 30 to 40 mmHg compression with Tubigrips bilaterally. Patient will change her dressing daily and keep it clean and dry. She will continue to elevate her legs while in bed at night. I feel that the induration in the surrounding area is the result of her recent significant cellulitis in this leg and this can take several weeks to resolve. No signs or symptoms of active infection. I was able to view the results from her recent arterial and venous studies. Her PVRs were normal or nearly normal with triphasic Doppler throughout bilateral extremities. No signs of significant arterial compromise. Her venous study from 09/02/22 showed no DVT present, did not appear to evaluate for superficial venous incompetency. Will wait and see what the remaining vascular test is/shows, they will fax over those results. Discussed with the patient the importance of compression, elevating her legs when she is sitting or in bed, and increasing protein in her diet to promote healing. She will return in 1 week for follow-up. She will return sooner or present to the ED should she begin to have signs or symptoms of infection.
[2022-10-14 10:01] VITALS: BP 148/76; PULSE 77; RESP 18; TEMP 35.9
--- NOTE | 2022-10-14 11:01 | PN.PCM_ITS ---
History of Present Illness Date of Service: 10/14/22 Chief Complaint: Right Non healing lower extremity ulcer. History of Wound: Ms. Antony is a 65yo with PMH of venous insufficiency and reports she has had a vein stripped in the past. She presents for evaluation of a right lower extremity nonhealing ulcer. She has been evaluated at this wound care center in the past for similar wounds. She has had lower extremity edema and varicose veins for many years. On 09/02/2022 patient presented to the emergency room with right lower extremity cellulitis and ipsilateral venous ulcers. She was hospitalized and started on IV abx. She was discharged to SNF 09/09/2022 where she received further PT/OT an d was discharged on 09/20/2022. The ulcers which were present at the time of this admission have since healed. She denies any recent wounds on her left leg. She reports that the wound she has today is the result of bumping her right leg against a piece of furniture about 2 weeks ago. She admits that in the past she has been inconsistent with wearing compression. Although she is currently off work she typically works at [employer] where she is up on her feet for nearly 12 hours every day and previously without any compression in the absence of active wounds. She was seen by her PCP who o rdered venous and arterial studies. Subjective Subjective Patient is doing well overall. She has been changing her dressings once daily, she reports no significant drainage. No signs/symptoms of infection. She has been tolerating the knee-high compression well, but does complain that now her knees are more swollen. She also has a new skin tear on the anterior aspect of her right lower leg. She reports she noticed a very small tear with what looked like skin hanging on. She decided to pull the skin off and subsequently enlarged the initial tear. She also states that she had all of her circulatory studies done and asked that they fax the results over here. She is curious to know what these reveal. Objective Data Objective Data Vital Signs: Vital Signs Temp Pulse Resp BP O2 Del Method 96.7 F L 77 18 148/76 H Room Air 10/14/22 10:01 10/14/22 10:01 10/14/22 10:01 10/14/22 10:01 10/14/22 10:01 Oxygen Delivery Method Room Air Charges/Coding Wound Center CF Procedures [id number]: 11551 RMVL DEVITAL TIS 20 CM/< Multi Select Codes Wound Center CF Procedures [id number]: 70440 RMVL DEVITAL TIS 20 CM/< Physical Exam Const alert, oriented x3, no apparent distress and healthy appearing General Appearance: cooperative and comfortable Exam Limitations: no limitations HEENT normocephalic, head/scalp atraumatic, hearing grossly normal bilaterally and external nose normal Eyes EOMs intact bilaterally General Eye: normal appearance of both eyes Neck full ROM General: normal visual inspection and trachea midline Resp normal respiratory effort, no use of accessory muscles and clear to auscultation bilaterally Effort and Inspection: able to speak in complete sentences and symmetric chest movement; Negative for labored, stridor or audible wheezes Cardio regular rate and regular rhythm Peripheral Pulses: radial pulses present, ulnar pulses present, posterior tibial pulses present and dorsalis pedis pulses present Extremity normal capillary refill and no calf tenderness Extremity Narrative: Bilateral lower extremity edema, appears slightly worse right compared to left Multiple varicose veins and reticular veins noted bilaterally. Skin Skin Narrative: Discoloration of skin, venous stasis dermatitis noted bilaterally but worse on the right compared to the left. General Skin Exam: Negative for ecchymosis, eschar or excoriation(s) Rashes: no rashes Trauma: no lacerations or abrasions Wound Narrative: Wound cluster noted to the medial right calf. The wound has a significant am ount of slough. There is some induration noted but no increased warmth and no pain to palpation of the right lower extremity or periwound area. No purulent or foul-smelling drainage noted. There is a skin tear to the anterior aspect of her lower leg. This is very superficial, wound bed is pink and no signs of infection. Neuro oriented x3, CN's II-XII intact bilaterally, moves all extremities, no focal motor deficits, no sensory deficits noted and gait normal Psych mental status grossly normal, thought process normal, cooperative, affect normal, speech normal and activity/motor behavior normal Debridement Note Debridement Note Wound debrided: Right medial calf ulcer cluster Laterality: Right Type of Debridement: Excisional debridement Anesthesia Used: 5% Lidocaine Gel Depth: Down to and including healthy tissue and in the subcutaneous layer Percentage of wound debrided: 100 Instrument Used: 3mm curette Tissue Removed: Slough, devitalized tissue Severity: Fat Layer Exposed Amount of bleeding with debridement: Mild Bleeding Controlled with: Pressure Patient tolerated procedure: Patient tolerated procedure well Post-Debridement Measurements and Additional Note: Post-Debridement Measurements/Treatment - Nurse 1 - General Ulcer Assessment Start: 10/07/22 10:07 Freq: Status: Active Protocol: EVELIA Activity Type Activity Date Activity User E-sign Co-sign Detail Recorded Client Recorded Date Recorded By Document 10/07/22 10:08 [place] [id number] 10/07/22 10:16 [place] Document 10/14/22 10:01 [facility] [id number] 10/14/22 10:07 [facility] 10/07/22 10/14/22 10:08 10:01 - Today's Visit Information Type of service Follow-up Visit Follow-up Visit (Physician/DIRECTOR SUPPLIER QUALITY (Physician/DIRECTOR SUPPLIER QUALITY ) ) Arrival Mode Ambulatory Ambulatory Transfer Assistance None Patient Identification Verified (Name & Yes Yes ) Patient Requires Transmission-Based No Precautions Vital Signs Temperature (97.8 F-99.1 F) 97 F L 96.7 F L Temperature Source Temporal Temporal Pulse Rate (60-100) 76 77 Pulse Location Monitor Monitor Respiratory Rate (12-18) 20 H 18 Respiratory rate source Observation Observation Oxygen Delivery Method Room Air Room Air Blood Pressure (90/60-120/80) 164/75 H 148/76 H Blood Pressure Mean (mm Hg) 104 100 Source Monitor Monitor Position Sitting Sitting Blood Pressure Location Left Arm History Since Last Visit- (Skip if this is Patient's initial visit) Have you changed medications since your No last visit? Any new allergies or adverse reactions No Had a fall/change in ADL's that may No increase risk of falls Signs or symptoms of abuse and/or No neglect since last visit Have you been in the hospital since your No last visit? Has dressing in place as prescribed Yes Yes Has compression in place as prescribed Yes Yes Has offloadiing in place as prescribed Yes N/A Experienced any changes in pain level or Yes No management Left Footwear Regular Shoe Regular Shoe Right Footwear Regular Shoe Regular Shoe Pain Scale: 0-10 Numeric Is Patient Pain Free? Yes Yes MAGNOLIA - Nurse 1 - General Ulcer Measurement Start: 10/07/22 10:07 Freq: Status: Active Protocol: Activity Type Activity Date Activity User E-sign Co-sign Detail Recorded Client Recorded Date Recorded By Document 10/07/22 10:08 [place] [id number] 10/07/22 10:16 [place] Document 10/14/22 10:01 [facility] [id number] 10/14/22 10:07 [facility] 10/07/22 10/14/22 10:08 10:01 Wound Center Nurse 1 #4 R Medial Leg cluster -Current Size (cm) - Length 3 -Current Size (cm) - Width 2.4 -Current Size (cm) - Depth 0.9 -Total Square Cm 7.2 -Exudate Amt Medium -Exudate Type Serosanguineous -Wound Margin Flat & Intact -Granulation Amt Medium (34-66%) -Granulation Quality Pale,Ranson -Necrosis Amt Small (1-33%) -Necrotic Tissue Type Adherent Slough -Texture (Jessica-wound Skin Appearance) Assessed -Moisture (Jessica-wound Skin Appearance) Assessed -Color (Jessica-wound Skin Appearance) Assessed -Temperature (Jessica-wound Skin Hot Appearance) -Tenderness on Palpation (Jessica-wound No Skin Appearance) -Ulcer Cleansing Rinsed/ Irrigated with Saline -Foul Odor after Cleansing No -Anesthetic Used 5% Lidocaine Gel #6- R MURRELL -Combined with other wound No -Current Size (cm) - Length 1.5 -Current Size (cm) - Width 2.5 -Current Size (cm) - Depth 0.1 -Total Square Cm 3.75 -Date of Last Picture (Recall this 10/14/22 field) -Photo Taken Yes -Epithelialization None Present -Tunneling No -Undermining/Tunneling No -Circular Undermining No -Exudate Amt Medium -Exudate Type Serosanguineous -Wound Margin Flat & Intact -Granulation Amt Large (67-100%) -Granulation Quality Red -Slough/Fibrin No -Necrosis Amt None Present (0 %) -Texture (Jessica-wound Skin Appearance) Assessed -Moisture (Jessica-wound Skin Appearance) Assessed -Color (Jessica-wound Skin Appearance) Assessed -Temperature (Jessica-wound Skin No Abnormality Appearance) (Pt Warm) -Tenderness on Palpation (Jessica-wound No Skin Appearance) -Ulcer Cleansing Soap and Water -Foul Odor after Cleansing No -Anesthetic Used 4% Lidocaine Solution #5 right calf -Combined with other wound No -Current Size (cm) - Length 1.2 2 -Current Size (cm) - Width 0.7 1.7 -Current Size (cm) - Depth 0.2 0.1 -Total Square Cm 0.84 3.4 -Date of Last Picture (Recall this 10/14/22 field) -Photo Taken Yes -Epithelialization None Present -Tunneling No -Undermining/Tunneling No -Circular Undermining No -Exudate Amt Medium Medium -Exudate Type Serosanguineous Serosanguineous -Wound Margin Flat & Intact Distinct, Outline Attached -Granulation Amt Medium (34-66%) Small (1-33%) -Granulation Quality Pale,Ranson Red -Slough/Fibrin Yes -Necrosis Amt Medium (34-66%) Large (67-100%) -Necrotic Tissue Type Adherent Slough Adherent Slough -Texture (Jessica-wound Skin Appearance) Assessed, Assessed, Localized Edema Scarring -Moisture (Jessica-wound Skin Appearance) Assessed, Assessed Maceration -Color (Jessica-wound Skin Appearance) Assessed, Assessed Hemosiderin Staining -Temperature (Jessica-wound Skin No Abnormality No Abnormality Appearance) (Pt Warm) (Pt Warm) -Tenderness on Palpation (Jessica-wound No No Skin Appearance) -Ulcer Cleansing Rinsed/ Rinsed/ Irrigated with Irrigated with Saline Saline -Foul Odor after Cleansing No No -Anesthetic Used 5% Lidocaine 5% Lidocaine Gel Gel Lower Limb Edema Present Yes Right Calf (cm) 40.5 41.2 Right Ankle (cm) 24.7 24 Left Calf (cm) 43.2 Left Ankle (cm) 27.7 WC - Nurse 2 - General Ulcer CM Notes Start: 10/07/22 10:07 Freq: Status: Active Protocol: Activity Type Activity Date Activity User E-sign Co-sign Detail Recorded Client Recorded Date Recorded By Document 10/07/22 12:32 PL [id number] 10/07/22 12:34 PL 10/07/22 12:32 Wound Center Nurse 2 #5 right calf -Time 10:29 -Correct Patient Yes -Correct Side, Site, Position Yes -Correct Procedure Yes -Procedure Performed Yes -Type of Procedure Debridement -Clinical Debridement Subcutaneous -Tissue Removed Subcutaneous -Post Debridement (cm) - Length 4.3 -Post Debridement (cm) - Width 3.5 -Post Debridement (cm) - Depth 0.5 -Total Square (Post) (cm) 15.05 -Area of Debridement (cm) - Length 4.3 -Area of Debridement (cm) - Width 3.5 -Total Square (Area) (cm) 15.05 -Tunneling No -Undermining/Tunneling No -Circular Undermining No -Wound/Ulcer Outcome Not Healed -Ulcer Cleansing Rinsed/ Irrigated with Saline -Foul Odor after Cleansing No -Bioengineered Tissue No -Bleeding Controlled with Pressure -Treatment Response Procedure Tolerated Well -Debridement - Subq, 1st 20sq cm Yes Pain Scale: 0-10 Numeric Is Patient Pain Free? Yes - Nurse 3 - General Ulcer D/C NN Start: 10/07/22 10:07 Freq: Status: Active Protocol: Activity Type Activity Date Activity User E-sign Co-sign Detail Recorded Client Recorded Date Recorded By Document 10/07/22 11:13 WILLIAM [id number] 10/07/22 11:14 Document 10/14/22 10:45 [place] [id number] 10/14/22 10:46 [place] 10/07/22 10/14/22 11:13 10:45 Wound Care Nurse 3 #4 R Medial Leg cluster -Ulcer Cleansing Rinsed/ Irrigated with Saline -Foul Odor after Cleansing No -Primary Dressing Applied Mepilex Border -Other Dressing santyl -Mepilex Border 0 #6- R MURRELL -Ulcer Cleansing Rinsed/ Irrigated with Saline -Foul Odor after Cleansing No -Negative Pressure Wound Therapy N/A -Other Dressing hydrogel -Primary Dressing Covered/Secured with Dry Gauze & Roll Gauze, Secured with Tape #5 right calf -Ulcer Cleansing Rinsed/ Rinsed/ Irrigated with Irrigated with Saline Saline -Foul Odor after Cleansing No No -Negative Pressure Wound Therapy N/A -Primary Dressing Applied Mepilex Border -Other Dressing santyl hydrogel -Primary Dressing Covered/Secured with Dry Gauze & Roll Gauze, Secured with Tape -Mepilex Border 1 bilateral -Other own tubi Right -Tubular Bandage Double Layer -Size of Tubigrip Used Size D -Size D ($) 2 Left -Tubular Bandage Double Layer -Size of Tubigrip Used Size D -Size D ($) 2 Pain Scale: 0-10 Numeric Is Patient Pain Free? Yes Yes - Visit Discharge Discharge Condition Stable Ambulatory Status Ambulatory Transportation Private Auto Medication Reconcilliation completed & Yes provided to patient/care provider Clinical Summary of Care Provided Yes Assessment/Plan Assessment/Plan (1) Ulcer of right lower extremity with fat layer exposed: CODE(S): L97.912 - Non-pressure chronic ulcer of unspecified part of right lower leg with fat layer exposed (2) 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 Given significant amount of slough in the right medial calf wounds we will continue with daily application of Santyl covered with Adaptic and absorbent dry dressing. We will apply collagen hydrogel covered by adaptic to the anterior murrell skin tear. We will continue with 30 to 40 mmHg compression with Tubigrips bilaterally. Patient will change her dressing daily or more often as needed to keep it clean and dry. She will continue to elevate her legs while in bed at night. No signs or symptoms of active infection. Erythema and induration from prior cellulitis continue to improve. I was able to view the results from her recent arterial and venous studies. No signs of significant arterial compromise. Her venous study from 09/02/22 showed no DVT present, did not appear to evaluate for superficial venous incompetency. Have not yet received the results of the other vascular test she had done recently, will await those results. Discussed with the patient the importance of compression, elevating her legs when she is sitting or in bed, and increasing protein in her diet to promote healing. She will return in 1 week for follow-up. She will return sooner or present to the ED should she begin to have signs or symptoms of infection.
[2022-10-28 08:38] VITALS: BP 148/76; PULSE 76; RESP 18; TEMP 36.4
--- NOTE | 2022-10-28 09:52 | PCM.WC.PN ---
History of Present Illness Date of Service: 10/28/22 Chief Complaint: Right Non healing lower extremity ulcer. History of Wound: Ms. Antony is a 65yo with PMH of venous insufficiency and reports she has had a vein stripped in the past. She presents for evaluation of a right lower extremity nonhealing ulcer. She has been evaluated at this wound care center in the past for similar wounds. She has had lower extremity edema and varicose veins for many years. Her current wound is the result of bumping her right leg against a piece of furniture about 2 weeks ago. She admits that in the past she has been inconsistent with wearing compression. Although she is currently off work she typically works at [employer] where she is up on her feet for nearly 12 hours every day and previously without any compression in the absence of active wounds. I was able to view the results from her recent arterial and venous studies. No signs of significant arterial compromise. Her venous study from 09/02/22 showed no DVT present, did not appear to evaluate for superficial venous incompetency. Subjective Subjective Patient is doing well overall. She has been changing her dressings once daily, she reports no significant drainage. No signs/symptoms of infection. No increased pain. She has been tolerating the knee-high compression well. No new wounds or skin tears this week. Objective Data Objective Data Vital Signs: Vital Signs Temp Pulse Resp BP O2 Del Method 97.6 F L 76 18 148/76 H Room Air 10/28/22 08:38 10/28/22 08:38 10/28/22 08:38 10/28/22 08:38 10/14/22 10:01 Oxygen Delivery Method Room Air Charges/Coding Wound Center CF Procedures [id number]: [id number] RMVL DEVITAL TIS 20 CM/< Multi Select Codes Wound Center CF Procedures [id number]: [id number] RMVL DEVITAL TIS 20 CM/< Physical Exam Const alert, oriented x3, no apparent distress and healthy appearing General Appearance: cooperative and comfortable Exam Limitations: no limitations HEENT normocephalic, head/scalp atraumatic, hearing grossly normal bilaterally and external nose normal Eyes EOMs intact bilaterally General Eye: normal appearance of both eyes Neck full ROM General: normal visual inspection and trachea midline Resp normal respiratory effort, no use of accessory muscles and clear to auscultation bilaterally Effort and Inspection: able to speak in complete sentences and symmetric chest movement; Negative for labored, stridor or audible wheezes Cardio regular rate and regular rhythm Peripheral Pulses: radial pulses present, ulnar pulses present, posterior tibial pulses present and dorsalis pedis pulses present Extremity normal capillary refill and no calf tenderness Extremity Narrative: Bilateral lower extremity edema, appears slightly worse right compared to left Multiple varicose veins and reticular veins noted bilaterally. Skin Skin Narrative: Discoloration of skin, venous stasis dermatitis noted bilaterally but worse on the right compared to the left. General Skin Exam: Negative for ecchymosis, eschar or excoriation(s) Rashes: no rashes Trauma: no lacerations or abrasions Wound Narrative: Wound cluster noted to the medial right calf. Moderate amount of slough still present in wound, but less than last week. No erythema, warmth, foul-smelling drainage, fluctuance. There is a skin tear to the anterior aspect of her right lower leg. This is very superficial, wound bed is pink and no signs of infection. Neuro oriented x3, CN's II-XII intact bilaterally, moves all extremities, no focal motor deficits, no sensory deficits noted and gait normal Psych mental status grossly normal, thought process normal, cooperative, affect normal, speech normal and activity/motor behavior normal Debridement Note Debridement Note Wound debrided: Right medial calf ulcer cluster Laterality: Right Type of Debridement: Excisional debridement Anesthesia Used: 5% Lidocaine Gel Depth: Down to and including healthy tissue and in the subcutaneous layer Percentage of wound debrided: 100 Instrument Used: 3mm curette Tissue Removed: Slough, devitalized tissue Severity: Fat Layer Exposed Amount of bleeding with debridement: Mild Bleeding Controlled with: Pressure Patient tolerated procedure: Patient tolerated procedure well Post-Debridement Measurements and Additional Note: Post-Debridement Measurements/Treatment MAGNOLIA - Nurse 1 - General Ulcer Assessment Start: 10/07/22 10:07 Freq: Status: Active Protocol: EVELIA Activity Type Activity Date Activity User E-sign Co-sign Detail Recorded Client Recorded Date Recorded By Document 10/07/22 10:08 [place] [id number] 10/07/22 10:16 [place] Document 10/14/22 10:[address] [facility] [id number] 10/14/22 10:[address] [facility] Document 10/28/22 08:38 ML [id number] 10/28/22 08:43 ML 10/07/22 10/14/22 10/28/22 10:08 10:01 08:38 - Today's Visit Information Type of service Follow-up Visit Follow-up Visit Follow-up Visit (Physician/SALESPERSON [employer] (Physician/SALESPERSON [employer] (Physician/[employer]ESPERSON [employer] ) ) ) Arrival Mode Ambulatory Ambulatory Ambulatory Transfer Assistance None None Patient Identification Verified (Name & Yes Yes Yes ) Patient Requires Transmission-Based No No Precautions Vital Signs Temperature (97.8 F-99.1 F) 97 F L 96.7 F L 97.6 F L Temperature Source Temporal Temporal Temporal Pulse Rate (60-100) 76 77 76 Pulse Location Monitor Monitor Monitor Respiratory Rate (12-18) 20 H 18 18 Respiratory rate source Observation Observation Observation Oxygen Delivery Method Room Air Room Air Blood Pressure (90/60-120/80) 164/75 H 148/76 H 148/76 H Blood Pressure Mean (mm Hg) 104 100 100 Source Monitor Monitor Monitor Position Sitting Sitting Sitting Blood Pressure Location Left Arm Left Arm History Since Last Visit- (Skip if this is Patient's initial visit) Have you changed medications since your No No last visit? Any new allergies or adverse reactions No No Had a fall/change in ADL's that may No No increase risk of falls Signs or symptoms of abuse and/or No No neglect since last visit Have you been in the hospital since your No No last visit? Has dressing in place as prescribed Yes Yes Yes Has compression in place as prescribed Yes Yes N/A Has offloadiing in place as prescribed Yes N/A N/A Experienced any changes in pain level or Yes No No management Left Footwear Regular Shoe Regular Shoe Regular Shoe Right Footwear Regular Shoe Regular Shoe Regular Shoe Pain Scale: 0-10 Numeric Is Patient Pain Free? Yes Yes Yes - Nurse 1 - General Ulcer Measurement Start: 10/07/22 10:07 Freq: Status: Active Protocol: Activity Type Activity Date Activity User E-sign Co-sign Detail Recorded Client Recorded Date Recorded By Document 10/07/22 10:08 [place] [id number] 10/07/22 10:16 [place] Document 10/14/22 10:[address] [facility] [id number] 10/14/22 10:07 [facility] Document 10/28/22 08:38 ML [id number] 10/28/22 08:43 ML 10/07/22 10/14/22 10/28/22 10:08 10:01 08:38 Wound Center Nurse 1 #4 R Medial Leg cluster -Current Size (cm) - Length 3 -Current Size (cm) - Width 2.4 -Current Size (cm) - Depth 0.9 -Total Square Cm 7.2 -Exudate Amt Medium -Exudate Type Serosanguineous -Wound Margin Flat & Intact -Granulation Amt Medium (34-66%) -Granulation Quality Pale,Ava -Necrosis Amt Small (1-33%) -Necrotic Tissue Type Adherent Slough -Texture (Jessica-wound Skin Appearance) Assessed -Moisture (Jessica-wound Skin Appearance) Assessed -Color (Jessica-wound Skin Appearance) Assessed -Temperature (Jessica-wound Skin Hot Appearance) -Tenderness on Palpation (Jessica-wound No Skin Appearance) -Ulcer Cleansing Rinsed/ Irrigated with Saline -Foul Odor after Cleansing No -Anesthetic Used 5% Lidocaine Gel #6- R MURRELL -Combined with other wound No -Current Size (cm) - Length 1.5 2.5 -Current Size (cm) - Width 2.5 3 -Current Size (cm) - Depth 0.1 0.1 -Total Square Cm 3.75 7.5 -Date of Last Picture (Recall this 10/14/22 field) -Photo Taken Yes -Epithelialization None Present -Tunneling No -Undermining/Tunneling No -Circular Undermining No -Exudate Amt Medium Small -Exudate Type Serosanguineous Serosanguineous -Wound Margin Flat & Intact -Granulation Amt Large (67-100%) Medium (34-66%) -Granulation Quality Red -Slough/Fibrin No Yes -Necrosis Amt None Present (0 Medium (34-66%) %) -Necrotic Tissue Type Adherent Slough -Texture (Jessica-wound Skin Appearance) Assessed Assessed -Moisture (Jessica-wound Skin Appearance) Assessed Assessed -Color (Jessica-wound Skin Appearance) Assessed Assessed -Temperature (Jessica-wound Skin No Abnormality Appearance) (Pt Warm) -Tenderness on Palpation (Jessica-wound No No Skin Appearance) -Ulcer Cleansing Soap and Water Rinsed/ Irrigated with Saline -Foul Odor after Cleansing No No -Anesthetic Used 4% Lidocaine 5% Lidocaine Solution Gel #5 right calf -Combined with other wound No -Current Size (cm) - Length 1.2 2 1.5 -Current Size (cm) - Width 0.7 1.7 0.5 -Current Size (cm) - Depth 0.2 0.1 0.1 -Total Square Cm 0.84 3.4 0.75 -Date of Last Picture (Recall this 10/14/22 field) -Photo Taken Yes -Epithelialization None Present -Tunneling No -Undermining/Tunneling No -Circular Undermining No -Exudate Amt Medium Medium Small -Exudate Type Serosanguineous Serosanguineous Serosanguineous -Wound Margin Flat & Intact Distinct, Distinct, Outline Outline Attached Attached -Granulation Amt Medium (34-66%) Small (1-33%) -Granulation Quality Pale,Ava Red -Slough/Fibrin Yes Yes -Necrosis Amt Medium (34-66%) Large (67-100%) -Necrotic Tissue Type Adherent Slough Adherent Slough Adherent Slough -Texture (Jessica-wound Skin Appearance) Assessed, Assessed, Assessed Localized Edema Scarring -Moisture (Jessica-wound Skin Appearance) Assessed, Assessed Assessed Maceration -Color (Jessica-wound Skin Appearance) Assessed, Assessed Assessed Hemosiderin Staining -Temperature (Jessica-wound Skin No Abnormality No Abnormality No Abnormality Appearance) (Pt Warm) (Pt Warm) (Pt Warm) -Tenderness on Palpation (Jessica-wound No No No Skin Appearance) -Ulcer Cleansing Rinsed/ Rinsed/ Rinsed/ Irrigated with Irrigated with Irrigated with Saline Saline Saline -Foul Odor after Cleansing No No No -Anesthetic Used 5% Lidocaine 5% Lidocaine 5% Lidocaine Gel Gel Gel Lower Limb Edema Present Yes Right Calf (cm) 40.5 41.2 Right Ankle (cm) 24.7 24 Left Calf (cm) 43.2 Left Ankle (cm) 27.7 WC - Nurse 2 - General Ulcer CM Notes Start: 10/07/22 10:07 Freq: Status: Active Protocol: Activity Type Activity Date Activity User E-sign Co-sign Detail Recorded Client Recorded Date Recorded By Document 10/07/22 12:32 PL [id number] 10/07/22 12:34 PL Document 10/14/22 11:25 PL [id number] 10/14/22 11:27 PL 10/07/22 10/14/22 12:32 11:25 Wound Center Nurse 2 #6- R MURRELL -Time 10:10 -Correct Patient Yes -Correct Side, Site, Position Yes -Correct Procedure Yes -Procedure Performed No -Post Debridement (cm) - Length 3.9 -Post Debridement (cm) - Width 1.3 -Post Debridement (cm) - Depth 0.1 -Total Square (Post) (cm) 5.07 -Wound/Ulcer Outcome Not Healed -Ulcer Cleansing Rinsed/ Irrigated with Saline -Foul Odor after Cleansing No #5 right calf -Time 10:29 10:10 -Correct Patient Yes Yes -Correct Side, Site, Position Yes Yes -Correct Procedure Yes Yes -Procedure Performed Yes Yes -Type of Procedure Debridement Debridement -Clinical Debridement Subcutaneous Subcutaneous -Tissue Removed Subcutaneous Subcutaneous -Post Debridement (cm) - Length 4.3 1.6 -Post Debridement (cm) - Width 3.5 2.0 -Post Debridement (cm) - Depth 0.5 0.4 -Total Square (Post) (cm) 15.05 3.20 -Area of Debridement (cm) - Length 4.3 1.6 -Area of Debridement (cm) - Width 3.5 2.0 -Total Square (Area) (cm) 15.05 3.20 -Tunneling No No -Undermining/Tunneling No No -Circular Undermining No No -Wound/Ulcer Outcome Not Healed Not Healed -Ulcer Cleansing Rinsed/ Rinsed/ Irrigated with Irrigated with Saline Saline -Foul Odor after Cleansing No No -Bioengineered Tissue No No -Bleeding Controlled with Pressure Pressure -Treatment Response Procedure Procedure Tolerated Well Tolerated Well -Debridement - Subq, 1st 20sq cm Yes Yes Pain Scale: 0-10 Numeric Is Patient Pain Free? Yes Yes WC - Nurse 3 - General Ulcer D/C NN Start: 10/07/22 10:07 Freq: Status: Active Protocol: Activity Type Activity Date Activity User E-sign Co-sign Detail Recorded Client Recorded Date Recorded By Document 10/07/22 11:13 WILLIAM [id number] 10/07/22 11:14 WILLIAM Document 10/14/22 10:45 [place] [id number] 10/14/22 10:46 [place] 10/07/22 10/14/22 11:13 10:45 Wound Care Nurse 3 #4 R Medial Leg cluster -Ulcer Cleansing Rinsed/ Irrigated with Saline -Foul Odor after Cleansing No -Primary Dressing Applied Mepilex Border -Other Dressing santyl -Mepilex Border 0 #6- R MURRELL -Ulcer Cleansing Rinsed/ Irrigated with Saline -Foul Odor after Cleansing No -Negative Pressure Wound Therapy N/A -Other Dressing hydrogel -Primary Dressing Covered/Secured with Dry Gauze & Roll Gauze, Secured with Tape #5 right calf -Ulcer Cleansing Rinsed/ Rinsed/ Irrigated with Irrigated with Saline Saline -Foul Odor after Cleansing No No -Negative Pressure Wound Therapy N/A -Primary Dressing Applied Mepilex Border -Other Dressing santyl hydrogel -Primary Dressing Covered/Secured with Dry Gauze & Roll Gauze, Secured with Tape -Mepilex Border 1 bilateral -Other own tubi Right -Tubular Bandage Double Layer -Size of Tubigrip Used Size D -Size D ($) 2 Left -Tubular Bandage Double Layer -Size of Tubigrip Used Size D -Size D ($) 2 Pain Scale: 0-10 Numeric Is Patient Pain Free? Yes Yes WC - Visit Discharge Discharge Condition Stable Ambulatory Status Ambulatory Transportation Private Auto Medication Reconcilliation completed & Yes provided to patient/care provider Clinical Summary of Care Provided Yes Assessment/Plan Assessment/Plan (1) Ulcer of right lower extremity with fat layer exposed: CODE(S): L97.912 - Non-pressure chronic ulcer of unspecified part of right lower leg with fat layer exposed (2) 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 Will continue with daily application of Santyl covered with Adaptic and absorbent dry dressing. Will apply collagen hydrogel covered by adaptic to the anterior murrell skin tear. We will continue with 30 to 40 mmHg compression with Tubigrips bilaterally. Patient will change her dressing daily or more often as needed to keep it clean and dry. She will continue to elevate her legs while in bed at night. No signs or symptoms of active infection. She will return in 1 week for follow-up. She will return sooner or present to the ED should she begin to have signs or symptoms of infection.
== END 2022-10-29 23:59 | disposition home or self-care (01) ==
LOC: WC 08:45
PROVIDERS: PCP Family Medicine; Visit Provider Physician Assistant
DX: I83.212 Varicose veins of right lower extremity with both ulcer of calf and inflammation (principal); L97.212 Non-pressure chronic ulcer of right calf with fat layer exposed; E66.01 Morbid (severe) obesity due to excess calories; Z79.899 Other long term (current) drug therapy
CPT/HCPCS: 11042; 99213; G0463

== ENCOUNTER 2022-11-16 10:00 | Outpatient (RCR) | payer BC, SELFPAY ==
[2022-10-30 00:05] VITALS: BP 148/76; PULSE 76; RESP 18; TEMP 36.4
[2022-11-04 10:46] VITALS: BP 140/69; PULSE 69; TEMP 36.6
--- NOTE | 2022-11-04 13:34 | PN.PCM_ITS ---
History of Present Illness Date of Service: 11/04/22 Chief Complaint: Right Non healing lower extremity ulcer. History of Wound: Ms. Antony is a 65yo with PMH of venous insufficiency and reports she has had a vein stripped in the past. She presents for evaluation of a right lower extremity nonhealing ulcer. She has been evaluated at this wound care center in the past for similar wounds. She has had lower extremity edema and varicose veins for many years. Her current wound is the result of bumping her right leg against a piece of furniture in mid-August. She admits that in the past she has been inconsistent with wearing compression. Although she is currently off work she typically works at [employer] where she is up on her feet for nearly 12 hours every day and previously without any compression in the absence of active wounds. I was able to view the results from her recent arterial and venous studies. No signs of significant arterial compromise. Her venous study from 09/02/22 showed no DVT present, did not appear to evaluate for superficial venous incompetency. Subjective Subjective Patient is doing well overall. She has been changing her dressings once daily. She reports no significant drainage, no signs/symptoms of infection, no increased pain. She has been tolerating the knee-high compression well. No new wounds or skin tears this week. 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 Unfortunately, her schedule will no longer allow her to come to the [facility] on Fridays. She will have to change to Wednesdays moving forward. Objective Data Objective Data Vital Signs: Vital Signs Temp Pulse Resp BP 97.9 F 69 18 140/69 H 11/04/22 10:46 11/04/22 10:46 10/30/22 00:05 11/04/22 10:46 Charges/Coding Wound Center CF Procedures [id number]: [id number] RMVL DEVITAL TIS 20 CM/< Multi Select Codes Wound Center CF Procedures [id number]: [id number] RMVL DEVITAL TIS 20 CM/< Physical Exam Const alert, oriented x3, no apparent distress and healthy appearing General Appearance: cooperative and comfortable Exam Limitations: no limitations HEENT normocephalic, head/scalp atraumatic, hearing grossly normal bilaterally and external nose normal Eyes EOMs intact bilaterally General Eye: normal appearance of both eyes Neck full ROM General: normal visual inspection and trachea midline Resp normal respiratory effort and no use of accessory muscles Effort and Inspection: able to speak in complete sentences and symmetric chest movement; Negative for labored, stridor or audible wheezes Cardio regular rate and regular rhythm Peripheral Pulses: radial pulses present, ulnar pulses present, posterior tibial pulses present and dorsalis pedis pulses present Extremity normal capillary refill and no calf tenderness Extremity Narrative: Bilateral lower extremity edema, appears slightly worse right compared to left. Multiple varicose veins and reticular veins noted bilaterally. Skin Skin Narrative: Discoloration of skin, venous stasis dermatitis noted bilaterally but worse on the right compared to the left. General Skin Exam: Negative for ecchymosis, eschar or excoriation(s) Rashes: no rashes Trauma: no lacerations or abrasions Wound Narrative: Wound cluster noted to the medial right calf. Some slough noted in wound beds, much improved from previous weeks. Wounds appear overall smaller in circumference from last week. No erythema, warmth, foul-smelling drainage, fluctuance. There is a skin tear to the anterior aspect of her right lower leg. This is very superficial, wound bed is pink and no signs of infection. Appears to be healing well, smaller than previous weeks. Neuro oriented x3, CN's II-XII intact bilaterally, moves all extremities, no focal motor deficits, no sensory deficits noted and gait normal Psych mental status grossly normal, thought process normal, cooperative, affect normal, speech normal and activity/motor behavior normal Debridement Note Debridement Note Wound debrided: Right medial calf ulcer cluster Laterality: Right Type of Debridement: Excisional debridement Anesthesia Used: 5% Lidocaine Gel Depth: Down to and including healthy tissue and in the subcutaneous layer Percentage of wound debrided: 100 Instrument Used: 3mm curette Tissue Removed: Slough, devitalized tissue Severity: Fat Layer Exposed Amount of bleeding with debridement: Mild Bleeding Controlled with: Pressure Patient tolerated procedure: Patient tolerated procedure well Post-Debridement Measurements and Additional Note: Post-Debridement Measurements/Treatment MAGNOLIA - Nurse 1 - General Ulcer Assessment Start: 11/04/22 10:46 Freq: Status: Active Protocol: EVELIA Activity Type Activity Date Activity User E-sign Co-sign Detail Recorded Client Recorded Date Recorded By Document 11/04/22 10:46 AIDAN [id number] 11/04/22 10:49 AIDAN 11/04/22 10:46 - Today's Visit Information Type of service Follow-up Visit (Physician/ASSOCIATE DIRECTOR OF NURSING ) Arrival Mode Ambulatory Patient Identification Verified (Name & Yes ) Patient Requires Transmission-Based No Precautions Safety Precautions NA Vital Signs Temperature (97.8 F-99.1 F) 97.9 F Temperature Source Temporal Pulse Rate (60-100) 69 Blood Pressure (90/60-120/80) 140/69 H Blood Pressure Mean (mm Hg) 92 Source Monitor History Since Last Visit- (Skip if this is Patient's initial visit) Have you changed medications since your No last visit? Any new allergies or adverse reactions No Had a fall/change in ADL's that may No increase risk of falls Signs or symptoms of abuse and/or No neglect since last visit Have you been in the hospital since your No last visit? Has dressing in place as prescribed Yes Has compression in place as prescribed Yes Has offloadiing in place as prescribed N/A Experienced any changes in pain level or No management Left Footwear Regular Shoe Right Footwear Regular Shoe Pain Scale: 0-10 Numeric Is Patient Pain Free? Yes - Nurse 1 - General Ulcer Measurement Start: 11/04/22 10:46 Freq: Status: Active Protocol: Activity Type Activity Date Activity User E-sign Co-sign Detail Recorded Client Recorded Date Recorded By Document 11/04/22 10:46 AIDAN [id number] 11/04/22 10:49 AIDAN 11/04/22 10:46 Wound Center Nurse 1 #6- R MURRELL -Combined with other wound No -Current Size (cm) - Length 0.3 -Current Size (cm) - Width 1.2 -Current Size (cm) - Depth 0.1 -Total Square Cm 0.36 -Date of Last Picture (Recall this 11/04/22 field) -Photo Taken Yes -Tunneling No -Undermining/Tunneling No -Circular Undermining No -Change in Wound Grade/Stage No -Exudate Amt Medium -Exudate Type Serosanguineous -Wound Margin Distinct, Outline Attached -Granulation Amt None Present (0 %) -Granulation Quality N/A -Slough/Fibrin Yes -Necrosis Amt Large (67-100%) -Necrotic Tissue Type Adherent Slough -Structure Exposed N/A -Texture (Jessica-wound Skin Appearance) No Abnormality, Assessed -Moisture (Jessica-wound Skin Appearance) No Abnormality, Assessed -Color (Jessica-wound Skin Appearance) No Abnormality, Assessed -Temperature (Jessica-wound Skin No Abnormality Appearance) (Pt Warm) -Tenderness on Palpation (Jessica-wound No Skin Appearance) -Ulcer Cleansing Rinsed/ Irrigated with Saline -Foul Odor after Cleansing No -Anesthetic Used 5% Lidocaine Gel #5 right calf -Combined with other wound No -Current Size (cm) - Length 0.2 -Current Size (cm) - Width 0.2 -Current Size (cm) - Depth 0.1 -Total Square Cm 0.04 -Photo Taken No -Tunneling No -Undermining/Tunneling No -Circular Undermining No -Change in Wound Grade/Stage No -Exudate Amt Medium -Exudate Type Serosanguineous -Wound Margin Distinct, Outline Attached -Granulation Amt None Present (0 %) -Granulation Quality N/A -Slough/Fibrin Yes -Necrosis Amt Large (67-100%) -Necrotic Tissue Type Adherent Slough -Structure Exposed N/A -Texture (Jessica-wound Skin Appearance) No Abnormality, Assessed -Moisture (Jessica-wound Skin Appearance) No Abnormality, Assessed -Color (Jessica-wound Skin Appearance) No Abnormality, Assessed -Temperature (Jessica-wound Skin No Abnormality Appearance) (Pt Warm) -Tenderness on Palpation (Jessica-wound No Skin Appearance) -Ulcer Cleansing Rinsed/ Irrigated with Saline -Foul Odor after Cleansing No -Anesthetic Used 5% Lidocaine Gel Lower Limb Edema Present No Right Calf (cm) 40 Right Ankle (cm) 24 WC - Nurse 2 - General Ulcer CM Notes Start: 11/04/22 10:46 Freq: Status: Active Protocol: Activity Type Activity Date Activity User E-sign Co-sign Detail Recorded Client Recorded Date Recorded By Document 11/04/22 12:35 PL [id number] 11/04/22 12:37 PL 11/04/22 12:35 Wound Center Nurse 2 #6- R MURRELL -Time 11:08 -Correct Patient Yes -Correct Side, Site, Position Yes -Correct Procedure Yes -Procedure Performed Yes -Type of Procedure Debridement -Clinical Debridement Subcutaneous -Tissue Removed Subcutaneous -Post Debridement (cm) - Length 1.4 -Post Debridement (cm) - Width 0.6 -Post Debridement (cm) - Depth 0.1 -Total Square (Post) (cm) 0.84 -Area of Debridement (cm) - Length 1.4 -Area of Debridement (cm) - Width 0.6 -Total Square (Area) (cm) 0.84 -Tunneling No -Undermining/Tunneling No -Circular Undermining No -Wound/Ulcer Outcome Not Healed -Ulcer Cleansing Rinsed/ Irrigated with Saline -Foul Odor after Cleansing No -Bioengineered Tissue No -Bleeding Controlled with Pressure -Treatment Response Procedure Tolerated Well -Debridement - Subq, 1st 20sq cm No #5 right calf -Time 11:08 -Correct Patient Yes -Correct Side, Site, Position Yes -Correct Procedure Yes -Procedure Performed Yes -Type of Procedure Debridement -Clinical Debridement Subcutaneous -Tissue Removed Subcutaneous -Post Debridement (cm) - Length 1.0 -Post Debridement (cm) - Width 2.7 -Post Debridement (cm) - Depth 0.8 -Total Square (Post) (cm) 2.70 -Area of Debridement (cm) - Length 1.0 -Area of Debridement (cm) - Width 2.7 -Total Square (Area) (cm) 2.70 -Tunneling No -Undermining/Tunneling No -Circular Undermining No -Wound/Ulcer Outcome Not Healed -Ulcer Cleansing Rinsed/ Irrigated with Saline -Foul Odor after Cleansing No -Bioengineered Tissue No -Bleeding Controlled with Pressure -Treatment Response Procedure Tolerated Well -Debridement - Subq, 1st 20sq cm Yes Pain Scale: 0-10 Numeric Is Patient Pain Free? Yes WC - Nurse 3 - General Ulcer D/C NN Start: 11/04/22 10:46 Freq: Status: Active Protocol: Activity Type Activity Date Activity User E-sign Co-sign Detail Recorded Client Recorded Date Recorded By Document 11/04/22 11:32 WILLIAM [id number] 11/04/22 11:33 WILLIAM 11/04/22 11:32 Wound Care Nurse 3 #6- R MURRELL -Ulcer Cleansing Rinsed/ Irrigated with Saline -Foul Odor after Cleansing No -Primary Dressing Applied C Hydrogel ($) -Primary Dressing Covered/Secured with Dry Gauze, Secured with Tape #5 right calf -Ulcer Cleansing Rinsed/ Irrigated with Saline -Foul Odor after Cleansing No -Primary Dressing Applied Promogran -Primary Dressing Covered/Secured with Dry Gauze, Secured with Tape -Other Covering silicon tape -Promogran 1 Right -Tubular Bandage Double Layer -Size of Tubigrip Used Size D -Size D ($) 2 Pain Scale: 0-10 Numeric Is Patient Pain Free? Yes WC - Visit Discharge Discharge Condition Stable Ambulatory Status Ambulatory Medication Reconcilliation completed & Yes provided to patient/care provider Clinical Summary of Care Provided Yes Assessment/Plan Assessment/Plan (1) Ulcer of right lower extremity with fat layer exposed: CODE(S): L97.912 - Non-pressure chronic ulcer of unspecified part of right lower leg with fat layer exposed (2) 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 Will switch to Promogram covered by adaptic and absorbent dry dressing to the right calf cluster. Will apply collagen hydrogel covered by adaptic to the anterior murrell skin tear. We will continue with current compression with tubigrips. Patient will change her dressing daily or more often as needed to keep it clean and dry. She will continue to elevate her legs while in bed at night. No signs or symptoms of active infection. Encouraged to increase protein intake and reduce carbohydrates/sugar to promote wound healing. Wound continues to make positive progress with local care and consistent compression, if stalling or regression would consider venous testing to evaluate for superficial reflux and possible consideration for ablation. Patient agreeable to holding off for now. She will return in 2 weeks for follow-up. She will be switching to Wednesdays and thus will be seeing a new provider from her next visit onward. She will return sooner or present to the ED should she begin to have signs or symptoms of infection.
--- NOTE | 2022-11-16 10:52 | HP.PCM_ITS ---
History of Present Illness Date of Service: 11/16/22 Chief Complaint: Right Non healing lower extremity ulcer. History of Wound: Ms. Antony is a 65yo with PMH of venous insufficiency and reports she has had a vein stripped in the past. She presents for evaluation of a right lower extremity nonhealing ulcer. She has been evaluated at this wound care center in the past for similar wounds. She has had lower extremity edema and varicose veins for many years. Her current wound is the result of bumping her right leg against a piece of furniture in mid-August. She admits that in the past she has been inconsistent with wearing compression. Although she is currently off work she typically works at [employer] where she is up on her feet for nearly 12 hours every day and previously without any compression in the absence of active wounds. I was able to view the results from her recent arterial and venous studies. No signs of significant arterial compromise. Her venous study from 09/02/22 showed no DVT present, did not appear to evaluate for superficial venous incompetency. Patient was transferred to my care and I agree with the above history [facility] Medical History Chronic cutaneous venous stasis ulcer Morbid obesity Venous insufficiency Home Medications ergocalciferol (vitamin D2) 1,250 mcg (50,000 unit) capsule (Vitamin D2) 50,000 unit PO MOFR supplement 11/16/16 [History Last Taken 08/26/22] multivitamin (Daily Multiple tablet) 1 ea PO DAILY 10/19/17 [History Last Taken 08/28/22] vit C 250 mg-vit E 90 mg-zinc 40 mg-copper 1 [id number]-fvbkgq-potkux capsule (PreserVision AREDS-2) 1 ea PO DAILY 10/19/17 [History Last Taken 08/28/22] calcium carbonate 600 mg calcium (1,500 mg) tablet 600 mg PO DAILY 04/15/20 [History Last Taken 08/28/22] collagenase clostridium histo. 250 unit/gram topical ointment 1 applic topical DAILY leg 04/15/20 [History Last Taken 09/02/22] methylcellulose (with sugar) oral powder (Citrucel (sucrose) oral powder) 1 tbsp PO DAILY SUPPLEMENT 09/02/22 [History Last Taken 08/31/22] acidophilus 25 million cell-pectin, citrus 100 mg tablet 2 tab PO 4X/DAY 7 days #0 tabs 09/09/22 [Rx Last Taken Unknown] arginine 7 gram-glutam 7 gram-CaHMB 1.5 onne-ldufz-td-min oral pwd pkt (Rene (with collagen)) 1 packet PO BIDCM 15 days #0 ea 09/09/22 [Rx Last Taken Unknown] levofloxacin 500 mg tablet 500 mg PO DAILY@0600 5 days #0 tabs 09/09/22 [Rx Last Taken Unknown] losartan 50 mg tablet 50 mg PO DAILY 30 days #0 tabs 09/09/22 [Rx Last Taken Unknown] Allergy/AdvReac Type Severity Reaction Status Date / Time No Known Allergies Allergy Verified 09/02/22 13:19 Family History Mother Hypertension Uterine cancer Father CAD (coronary artery disease) CVA (cerebral vascular accident) Surgical History H/O total hysterectomy Hx of repair of rotator cuff Social History household members: none Smoking Status: Never smoker alcohol intake: never substance use type: does not use ROS Constitutional Constitutional: Denies anorexia, body ache(s), chills, fever(s) or malaise Eyes Eyes: Denies blurry vision, diplopia or erythema ENT HEENT: Denies dysphagia, nasal discharge, sore throat or throat swelling Cardiovascular Cardiovascular: Denies chest pain, claudication or dyspnea Respiratory/Chest Respiratory/Chest: Denies chest tightness, cough, dyspnea or wheezing Gastrointestinal Gastrointestinal: Denies abdominal pain, constipation, diarrhea, nausea or vomiting Genitourinary Genitourinary: Denies urinary frequency, urinary hesitancy, urinary incontinence or urinary urgency Musculoskeletal Musculoskeletal: Denies joint pain, joint stiffness or joint swelling Integumentary Integumentary: Denies lesions, pruritus or rash Neurologic Neurologic: Denies confusion, dizziness or seizures Endocrine Endocrinology: Denies polydipsia, polyphagia or polyuria Physical Exam Const alert, oriented x3, no apparent distress and healthy appearing General Appearance: cooperative and comfortable Exam Limitations: no limitations HEENT normocephalic, head/scalp atraumatic, hearing grossly normal bilaterally and external nose normal Eyes EOMs intact bilaterally General Eye: normal appearance of both eyes Neck full ROM General: normal visual inspection and trachea midline Resp normal respiratory effort and no use of accessory muscles Effort and Inspection: able to speak in complete sentences and symmetric chest movement; Negative for labored, stridor or audible wheezes Cardio regular rate and regular rhythm Peripheral Pulses: radial pulses present, ulnar pulses present, posterior tibial pulses present and dorsalis pedis pulses present Extremity normal capillary refill and no calf tenderness Extremity Narrative: Bilateral lower extremity edema, appears slightly worse right compared to left. Multiple varicose veins and reticular veins noted bilaterally. Skin Skin Narrative: Discoloration of skin, venous stasis dermatitis noted bilaterally but worse on the right compared to the left. General Skin Exam: Negative for ecchymosis, eschar or excoriation(s) Rashes: no rashes Trauma: no lacerations or abrasions Wound Narrative: Wound cluster noted to the medial right calf. Some slough noted in wound beds, much improved from previous weeks. Wounds appear overall smaller in circumference from last week. No erythema, warmth, foul-smelling drainage, fluct uance. There is a skin tear to the anterior aspect of her right lower leg. This is very superficial, wound bed is pink and no signs of infection. Appears to be healing well, smaller than previous weeks. Neuro oriented x3, CN's II-XII intact bilaterally, moves all extremities, no focal motor deficits, no sensory deficits noted and gait normal Psych mental status grossly normal, thought process normal, cooperative, affect normal, speech normal and activity/motor behavior normal Debridement Note Debridement Note Wound debrided: Right medial superior cluster venous ulcers Type of Debridement: Excisional debridement Anesthesia Used: 5% Lidocaine Gel Depth: in the subcutaneous layer Percentage of wound debrided: 100 Instrument Used: 5mm curette Tissue Removed: Fibrin Severity: Fat Layer Exposed Amount of bleeding with debridement: Mild Bleeding Controlled with: Compression and gauze Patient tolerated procedure: Patient tolerated procedure well Post-Debridement Measurements and Additional Note: Post-Debridement Measurements/Treatment MAGNOLIA - Nurse 1 - General Ulcer Assessment Start: 11/04/22 10:46 Freq: Status: Active Protocol: EVELIA Activity Type Activity Date Activity User E-sign Co-sign Detail Recorded Client Recorded Date Recorded By Document 11/04/22 10:46 AIDAN [id number] 11/04/22 10:49 AR Document 11/16/22 10:06 AK [id number] 11/16/22 10:14 AK 11/04/22 11/16/22 10:46 10:06 - Today's Visit Information Type of service Follow-up Visit (Physician/BR[employer]LE DIPPER ) Arrival Mode Ambulatory Patient Identification Verified (Name & Yes ) Patient Requires Transmission-Based No Precautions Safety Precautions NA Vital Signs Temperature (97.8 F-99.1 F) 97.9 F Temperature Source Temporal Pulse Rate (60-100) 69 Blood Pressure (90/60-120/80) 140/69 H Blood Pressure Mean 92 Source Monitor History Since Last Visit- (Skip if this is Patient's initial visit) Have you changed medications since your No last visit? Any new allergies or adverse reactions No Had a fall/change in ADL's that may No increase risk of falls Signs or symptoms of abuse and/or No neglect since last visit Have you been in the hospital since your No last visit? Has dressing in place as prescribed Yes Has compression in place as prescribed Yes Has offloadiing in place as prescribed N/A Experienced any changes in pain level or No management Left Footwear Regular Shoe Right Footwear Regular Shoe Pain Scale: 0-10 Numeric Is Patient Pain Free? Yes Yes - Nurse 1 - General Ulcer Measurement Start: 11/04/22 10:46 Freq: Status: Active Protocol: Activity Type Activity Date Activity User E-sign Co-sign Detail Recorded Client Recorded Date Recorded By Document 11/04/22 10:46 AIDAN [id number] 11/04/22 10:49 AK Document 11/16/22 10:06 AK [id number] 11/16/22 10:14 AK 11/04/22 11/16/22 10:46 10:06 Wound Center Nurse 1 #6- R CROCKER -Combined with other wound No -Current Size (cm) - Length 0.3 0.1 -Current Size (cm) - Width 1.2 0.1 -Current Size (cm) - Depth 0.1 0.1 -Total Square Cm 0.36 0.01 -Date of Last Picture (Recall this 11/04/22 field) -Photo Taken Yes Yes -Tunneling No No -Undermining/Tunneling No No -Circular Undermining No No -Change in Wound Grade/Stage No No -Exudate Amt Medium None Present -Exudate Type Serosanguineous -Wound Margin Distinct, Outline Attached -Granulation Amt None Present (0 %) -Granulation Quality N/A -Slough/Fibrin Yes -Necrosis Amt Large (67-100%) -Necrotic Tissue Type Adherent Slough -Structure Exposed N/A -Texture (Jessica-wound Skin Appearance) No Abnormality, No Abnormality, Assessed Assessed -Moisture (Jessica-wound Skin Appearance) No Abnormality, No Abnormality, Assessed Assessed -Color (Jessica-wound Skin Appearance) No Abnormality, No Abnormality, Assessed Assessed -Temperature (Jessica-wound Skin No Abnormality No Abnormality Appearance) (Pt Warm) (Pt Warm) -Tenderness on Palpation (Jessica-wound No No Skin Appearance) -Ulcer Cleansing Rinsed/ Not Cleansed Irrigated with Saline -Foul Odor after Cleansing No No -Anesthetic Used 5% Lidocaine Gel #5 right medial cluster superior -Combined with other wound No No -Current Size (cm) - Length 0.2 1.5 -Current Size (cm) - Width 0.2 2 -Current Size (cm) - Depth 0.1 0.6 -Total Square Cm 0.04 3.0 -Date of Last Picture (Recall this 11/16/22 field) -Photo Taken No Yes -Tunneling No No -Undermining/Tunneling No No -Circular Undermining No No -Change in Wound Grade/Stage No No -Exudate Amt Medium Large -Exudate Type Serosanguineous Purulent -Wound Margin Distinct, Distinct, Outline Outline Attached Attached -Granulation Amt None Present (0 None Present (0 %) %) -Granulation Quality N/A -Slough/Fibrin Yes Yes -Necrosis Amt Large (67-100%) Large (67-100%) -Necrotic Tissue Type Adherent Slough Adherent Slough -Structure Exposed N/A N/A -Texture (Jessica-wound Skin Appearance) No Abnormality, No Abnormality, Assessed Assessed -Moisture (Jessica-wound Skin Appearance) No Abnormality, Assessed, Assessed Weeping -Color (Jessica-wound Skin Appearance) No Abnormality, No Abnormality, Assessed Assessed -Temperature (Jessica-wound Skin No Abnormality No Abnormality Appearance) (Pt Warm) (Pt Warm) -Tenderness on Palpation (Jessica-wound No No Skin Appearance) -Ulcer Cleansing Rinsed/ Rinsed/ Irrigated with Irrigated with Saline Saline -Foul Odor after Cleansing No No -Anesthetic Used 5% Lidocaine 5% Lidocaine Gel Gel Lower Limb Edema Present No Right Calf (cm) 40 43 Right Ankle (cm) 24 23 WC - Nurse 2 - General Ulcer CM Notes Start: 11/04/22 10:46 Freq: Status: Active Protocol: Activity Type Activity Date Activity User E-sign Co-sign Detail Recorded Client Recorded Date Recorded By Document 11/04/22 12:35 PL [id number] 11/04/22 12:37 PL Document 11/16/22 10:36 MW [id number] 11/16/22 10:51 MW 11/04/22 11/16/22 12:35 10:36 Wound Center Nurse 2 #6- R CROCKER -Time 11:08 -Correct Patient Yes -Correct Side, Site, Position Yes -Correct Procedure Yes -Procedure Performed Yes -Type of Procedure Debridement -Clinical Debridement Subcutaneous -Tissue Removed Subcutaneous -Post Debridement (cm) - Length 1.4 -Post Debridement (cm) - Width 0.6 -Post Debridement (cm) - Depth 0.1 -Total Square (Post) (cm) 0.84 -Area of Debridement (cm) - Length 1.4 -Area of Debridement (cm) - Width 0.6 -Total Square (Area) (cm) 0.84 -Tunneling No -Undermining/Tunneling No -Circular Undermining No -Wound/Ulcer Outcome Not Healed -Ulcer Cleansing Rinsed/ Irrigated with Saline -Foul Odor after Cleansing No -Bioengineered Tissue No -Bleeding Controlled with Pressure -Treatment Response Procedure Tolerated Well -Debridement - Subq, 1st 20sq cm No #7 right medial LE inferior -Time 10:50 -Correct Patient Yes -Correct Side, Site, Position Yes -Correct Procedure Yes -Procedure Performed Yes -Type of Procedure Debridement -Clinical Debridement Subcutaneous -Tissue Removed Subcutaneous -Post Debridement (cm) - Length 0.7 -Post Debridement (cm) - Width 0.5 -Post Debridement (cm) - Depth 0.1 -Total Square (Post) (cm) 0.35 -Area of Debridement (cm) - Length 0.7 -Area of Debridement (cm) - Width 0.5 -Total Square (Area) (cm) 0.35 -Tunneling No -Undermining/Tunneling No -Circular Undermining No -Wound/Ulcer Outcome Not Healed -Ulcer Cleansing Rinsed/ Irrigated with Saline -Foul Odor after Cleansing No -Bioengineered Tissue No -Bleeding Controlled with Pressure -Treatment Response Procedure Tolerated Well -Offloading No -Debridement - Subq, 1st 20sq cm No #5 right medial cluster superior -Time 11:08 10:49 -Correct Patient Yes Yes -Correct Side, Site, Position Yes Yes -Correct Procedure Yes Yes -Procedure Performed Yes Yes -Type of Procedure Debridement Debridement -Clinical Debridement Subcutaneous Subcutaneous -Tissue Removed Subcutaneous Subcutaneous -Post Debridement (cm) - Length 1.0 1.4 -Post Debridement (cm) - Width 2.7 2.2 -Post Debridement (cm) - Depth 0.8 0.5 -Total Square (Post) (cm) 2.70 3.08 -Area of Debridement (cm) - Length 1.0 1.4 -Area of Debridement (cm) - Width 2.7 2.2 -Total Square (Area) (cm) 2.70 3.08 -Tunneling No No -Undermining/Tunneling No No -Circular Undermining No No -Wound/Ulcer Outcome Not Healed Not Healed -Ulcer Cleansing Rinsed/ Rinsed/ Irrigated with Irrigated with Saline Saline -Foul Odor after Cleansing No No -Bioengineered Tissue No No -Bleeding Controlled with Pressure Pressure -Treatment Response Procedure Procedure Tolerated Well Tolerated Well -Offloading No -Debridement - Subq, 1st 20sq cm Yes Yes Pain Scale: 0-10 Numeric Is Patient Pain Free? Yes Yes WC - Nurse 3 - General Ulcer D/C NN Start: 11/04/22 10:46 Freq: Status: Active Protocol: Activity Type Activity Date Activity User E-sign Co-sign Detail Recorded Client Recorded Date Recorded By Document 11/04/22 11:32 WILLIAM [id number] 11/04/22 11:33 WILLIAM 11/04/22 11:32 Wound Care Nurse 3 #6- R CROCKER -Ulcer Cleansing Rinsed/ Irrigated with Saline -Foul Odor after Cleansing No -Primary Dressing Applied C Hydrogel ($) -Primary Dressing Covered/Secured with Dry Gauze, Secured with Tape #5 right medial cluster superior -Ulcer Cleansing Rinsed/ Irrigated with Saline -Foul Odor after Cleansing No -Primary Dressing Applied Promogran -Primary Dressing Covered/Secured with Dry Gauze, Secured with Tape -Other Covering silicon tape -Promogran 1 Right -Tubular Bandage Double Layer -Size of Tubigrip Used Size D -Size D ($) 2 Pain Scale: 0-10 Numeric Is Patient Pain Free? Yes WC - Visit Discharge Discharge Condition Stable Ambulatory Status Ambulatory Medication Reconcilliation completed & Yes provided to patient/care provider Clinical Summary of Care Provided Yes Additional Wound Wound debrided: Right medial ankle venous ulcer Type of Debridement: Excisional debridement Anesthesia Used: 5% Lidocaine Gel Depth: Down to and including healthy tissue Percentage of wound debrided: 100 Instrument Used: 5mm curette Tissue Removed: Fibrin Severity: Limited To Skin Breakdown Amount of bleeding with debridement: Mild Bleeding Controlled with: Pressure Patient tolerated procedure: Patient did not tolerate procedure well Assessment/Plan Assessment/Plan (1) Morbid (severe) obesity due to excess calories: CODE(S): E66.01 - Morbid (severe) obesity due to excess calories (2) Venous ulcer of right lower extremity with varicose veins: CODE(S): I83.019 - Varicose veins of right lower extremity with ulcer of unspecified site; L97.919 - Non-pressure chronic ulcer of unspecified part of right lower leg with unspecified severity (3) Ulcer of right lower leg: CODE(S): L97.919 - Non-pressure chronic ulcer of unspecified part of right lower leg with unspecified severity (4) Ulcer of right lower extremity with fat layer exposed: CODE(S): L97.912 - Non-pressure chronic ulcer of unspecified part of right lower leg with fat layer exposed (5) Chronic venous stasis dermatitis of right lower extremity: CODE(S): I83.11 - Varicose veins of right lower extremity with inflammation (6) Venous insufficiency: CODE(S): I87.2 - Venous insufficiency (chronic) (peripheral) PLAN: Plan Patient's wound was debrided today, she tolerated this well. Will switch to P romogram covered by adaptic and absorbent dry dressing to the right calf cluster. Continue compression with tubigrips. Patient will change her dressing daily or more often as needed to keep it clean and dry. She will continue to elevate her legs while in bed at night. No signs or symptoms of active infection. Encouraged to increase protein intake and reduce carbohydrates/sugar to promote wound healing. Wound continues to make positive progress with local care and consistent compression, if stalling or regression would consider venous testing to evaluate for superficial reflux and possible consideration for ablation. Patient agreeable to holding off for now. Patient is currently seeing Dr. Izquierdo a vascular doctor out of [facility] we will try to get records from her as to what she thinks and is doing. Cultures were obtained from wound base to make sure that she is being treated correctly Patient is to follow-up in 1 week
== END 2022-11-29 23:59 | disposition home or self-care (01) ==
LOC: WC 10:00
PROVIDERS: PCP Family Medicine; Visit Provider Nurse Practitioner
DX: I83.212 Varicose veins of right lower extremity with both ulcer of calf and inflammation (principal); L97.311 Non-pressure chronic ulcer of right ankle limited to breakdown of skin; L97.212 Non-pressure chronic ulcer of right calf with fat layer exposed; E66.01 Morbid (severe) obesity due to excess calories
CPT/HCPCS: 11042; 87070; 87075; 87077; 87186; 87205

== ENCOUNTER 2022-12-14 10:15 | Outpatient (RCR) | payer BC, SELFPAY ==
[2022-11-30 00:18] VITALS: BP 140/69; PULSE 69; RESP 18; TEMP 36.6
[2022-11-30 10:32] VITALS: BP 182/67; PULSE 66; TEMP 35.6
--- NOTE | 2022-11-30 12:29 | PCM.WC.PN ---
History of Present Illness Date of Service: 11/30/22 Chief Complaint: Right Non healing lower extremity ulcer. History of Wound: Ms. Antony is a 65yo with PMH of venous insufficiency and reports she has had a vein stripped in the past. She presents for evaluation of a right lower extremity nonhealing ulcer. She has been evaluated at this wound care center in the past for similar wounds. She has had lower extremity edema and varicose veins for many years. Her current wound is the result of bumping her right leg against a piece of furniture in mid-August. She admits that in the past she has been inconsistent with wearing compression. Although she is currently off work she typically works at [employer] where she is up on her feet for nearly 12 hours every day and previously without any compression in the absence of active wounds. I was able to view the results from her recent arterial and venous studies. No signs of significant arterial compromise. Her venous study from 09/02/22 showed no DVT present, did not appear to evaluate for superficial venous incompetency. Patient was transferred to my care and I agree with the above history Progress of Wound: So the same area on the left lower ankle area to mid calf area is erythematous not open dried crusted skin worried about being again cellulitis. Suggested not starting the antibiotics but we need to get vein studies and restart her on the Xeroform dressings with Adaptic over top Fermín and double layer Tubigrip's on them which will help with circulation. Patient has very bad stasis dermatitis also on both legs and probably has vein issues on the left lower leg from the vein stripping. Subjective Subjective Patient is concerned that is getting worse so his daughter. Objective Data Objective Data We will get the studies done on her lower extremities for arterial brachial and venous studies also continue the dressing changes of Xeroform with gauze and Fermín over top. Vital Signs: Vital Signs Temp Pulse Resp BP 96.1 F L 66 18 182/67 H 11/30/22 10:32 11/30/22 10:32 11/30/22 00:18 11/30/22 10:32 Physical Exam Const alert, oriented x3, no apparent distress and healthy appearing General Appearance: cooperative and comfortable Exam Limitations: no limitations HEENT normocephalic, head/scalp atraumatic, hearing grossly normal bilaterally and external nose normal Eyes EOMs intact bilaterally General Eye: normal appearance of both eyes Neck full ROM General: normal visual inspection and trachea midline Resp normal respiratory effort and no use of accessory muscles Effort and Inspection: able to speak in complete sentences and symmetric chest movement; Negative for labored, stridor or audible wheezes Cardio regular rate and regular rhythm Peripheral Pulses: radial pulses present, ulnar pulses present, posterior tibial pulses present and dorsalis pedis pulses present Extremity normal capillary refill and no calf tenderness Extremity Narrative: Bilateral lower extremity edema, appears slightly worse right compared to left. Multiple varicose veins and reticular veins noted bilaterally. Skin Skin Narrative: Discoloration of skin, venous stasis dermatitis noted bilaterally but worse on the right compared to the left. General Skin Exam: Negative for ecchymosis, eschar or excoriation(s) Rashes: no rashes Trauma: no lacerations or abrasions Wound Narrative: Wound cluster noted to the medial right calf. Some slough noted in wound beds, much improved from previous weeks. Wounds appear overall smaller in circumference from last week. No erythema, warmth, foul-smelling drainage, fluctuance. There is a skin tear to the anterior aspect of her right lower leg. This is very superficial, wound bed is pink and no signs of infection. Appears to be healing well, smaller than previous weeks. Neuro oriented x3, CN's II-XII intact bilaterally, moves all extremities, no focal motor deficits, no sensory deficits noted and gait normal Psych mental status grossly normal, thought process normal, cooperative, affect normal, speech normal and activity/motor behavior normal Debridement Note Debridement Note Wound debrided: Venous insufficiency left lower leg Laterality: Left Type of Debridement: Selective debridement Anesthesia Used: 5% Lidocaine Gel Depth: Down to and including healthy tissue and in the subcutaneous layer Percentage of wound debrided: 20 Instrument Used: - (Gauze) Tissue Removed: Devitalized tissue Amount of bleeding with debridement: None Bleeding Controlled with: Compression and gauze Patient tolerated procedure: Patient tolerated procedure well Post-Debridement Measurements and Additional Note: Post-Debridement Measurements/Treatment MAGNOLIA - Nurse 1 - General Ulcer Assessment Start: 11/30/22 10:32 Freq: Status: Active Protocol: EVELIA Activity Type Activity Date Activity User E-sign Co-sign Detail Recorded Client Recorded Date Recorded By Document 11/30/22 10:32 AIDAN [id number] 11/30/22 10:34 NH 11/30/22 10:32 - Today's Visit Information Type of service Follow-up Visit (Physician/PRESIDENT PRACTICING UROLOGIST ) Arrival Mode Ambulatory Patient Identification Verified (Name & Yes ) Patient Requires Transmission-Based No Precautions Vital Signs Temperature (97.8 F-99.1 F) 96.1 F L Temperature Source Temporal Pulse Rate (60-100) 66 Pulse Location Monitor Blood Pressure (90/60-120/80) 182/67 H Blood Pressure Mean (mm Hg) 105 Source Monitor History Since Last Visit- (Skip if this is Patient's initial visit) Have you changed medications since your No last visit? Any new allergies or adverse reactions No Had a fall/change in ADL's that may No increase risk of falls Signs or symptoms of abuse and/or No neglect since last visit Have you been in the hospital since your No last visit? Has dressing in place as prescribed Yes Has compression in place as prescribed Yes Has offloadiing in place as prescribed N/A Experienced any changes in pain level or No management Left Footwear Regular Shoe Right Footwear Regular Shoe Pain Scale: 0-10 Numeric Is Patient Pain Free? Yes - Nurse 1 - General Ulcer Measurement Start: 11/30/22 10:32 Freq: Status: Active Protocol: Activity Type Activity Date Activity User E-sign Co-sign Detail Recorded Client Recorded Date Recorded By Document 11/30/22 10:32 AIDAN [id number] 11/30/22 10:34 AIDAN 11/30/22 10:32 Wound Center Nurse 1 #7 right medial LE inferior -Combined with other wound No -Current Size (cm) - Length 0.1 -Current Size (cm) - Width 0.1 -Current Size (cm) - Depth 0.1 -Total Square Cm 0.01 #5 right medial cluster superior -Combined with other wound No -Current Size (cm) - Length 0.2 -Current Size (cm) - Width 0.2 -Current Size (cm) - Depth 0.1 -Total Square Cm 0.04 -Photo Taken No -Tunneling No -Undermining/Tunneling No -Circular Undermining No -Change in Wound Grade/Stage No -Exudate Amt Medium -Exudate Type Serosanguineous -Wound Margin Distinct, Outline Attached -Granulation Amt Medium (34-66%) -Granulation Quality [place] -Slough/Fibrin Yes -Necrosis Amt Medium (34-66%) -Necrotic Tissue Type Adherent Slough -Structure Exposed N/A -Texture (Jessica-wound Skin Appearance) No Abnormality, Assessed -Moisture (Jessica-wound Skin Appearance) No Abnormality, Assessed -Color (Jessica-wound Skin Appearance) No Abnormality, Assessed -Temperature (Jessica-wound Skin No Abnormality Appearance) (Pt Warm) -Tenderness on Palpation (Jessica-wound No Skin Appearance) -Ulcer Cleansing Rinsed/ Irrigated with Saline -Foul Odor after Cleansing No -Anesthetic Used 5% Lidocaine Gel Right Calf (cm) 43 Right Ankle (cm) 24.5 WC - Nurse 2 - General Ulcer CM Notes Start: 11/30/22 10:32 Freq: Status: Active Protocol: Activity Type Activity Date Activity User E-sign Co-sign Detail Recorded Client Recorded Date Recorded By Document 11/30/22 10:50 MW [id number] 11/30/22 10:52 MW 11/30/22 10:50 Wound Center Nurse 2 #7 right medial LE inferior -Time 10:51 -Correct Patient Yes -Correct Side, Site, Position Yes -Correct Procedure Yes -Procedure Performed No -Post Debridement (cm) - Length 0 -Post Debridement (cm) - Width 0 -Post Debridement (cm) - Depth 0 -Total Square (Post) (cm) 0 -Wound/Ulcer Outcome Healed- Epithelialized #5 right medial cluster superior -Time 10:51 -Correct Patient Yes -Correct Side, Site, Position Yes -Correct Procedure Yes -Procedure Performed Yes -Type of Procedure Debridement -Clinical Debridement Subcutaneous -Tissue Removed Subcutaneous -Post Debridement (cm) - Length 0.1 -Post Debridement (cm) - Width 0.1 -Post Debridement (cm) - Depth 0.1 -Total Square (Post) (cm) 0.01 -Area of Debridement (cm) - Length 0.1 -Area of Debridement (cm) - Width 0.1 -Total Square (Area) (cm) 0.01 -Tunneling No -Undermining/Tunneling No -Circular Undermining No -Wound/Ulcer Outcome Not Healed -Ulcer Cleansing Rinsed/ Irrigated with Saline -Foul Odor after Cleansing No -Bioengineered Tissue No -Bleeding Controlled with Pressure -Treatment Response Procedure Tolerated Well -Offloading No -Debridement - Subq, 1st 20sq cm Yes Pain Scale: 0-10 Numeric Is Patient Pain Free? Yes WC - Nurse 3 - General Ulcer D/C NN Start: 11/30/22 10:32 Freq: Status: Active Protocol: Activity Type Activity Date Activity User E-sign Co-sign Detail Recorded Client Recorded Date Recorded By Document 11/30/22 10:54 MW [id number] 11/30/22 10:55 MW 11/30/22 10:54 Wound Care Center Nurse 3 #5 right medial cluster superior -Ulcer Cleansing Rinsed/ Irrigated with Saline -Foul Odor after Cleansing No -Negative Pressure Wound Therapy N/A -Primary Dressing Applied Promogran -Primary Dressing Covered/Secured with Dry Gauze & Roll Gauze, Secured with Tape -Promogran 1 Right -Lotion applied to leg before No compression wrap -Other single layer tubigrip Treatment Response Procedure Tolerated Well Pain Scale: 0-10 Numeric Is Patient Pain Free? Yes Teaching: Wound Center Dressing Your Wound -Person Taught Patient -Teaching Method Discussion -Response to teaching Verbalize understanding WC - Visit Discharge Discharge Condition Stable Ambulatory Status Ambulatory Transportation Private Auto Accompanied by self Medication Reconcilliation completed & No provided to patient/care provider Clinical Summary of Care Provided Yes Assessment/Plan Assessment/Plan (1) Venous ulcer of left leg: CODE(S): I83.029 - Varicose veins of left lower extremity with ulcer of unspecified site; L97.929 - Non-pressure chronic ulcer of unspecified part of left lower leg with unspecified severity PLAN: Wash lower leg with antibacterial soap and water and apply Xeroform to the circumference of the leg cover with Adaptic and Fermín and double layer Tubigrip. Patient is scheduling for arterial brachial and venous studies Follow-up in 2 weeks (2) Morbid obesity: CODE(S): E66.01 - Morbid (severe) obesity due to excess calories
[2022-12-14 10:19] VITALS: BP 137/51; PULSE 57; RESP 16; TEMP 35.3
--- NOTE | 2022-12-14 11:14 | PCM.WC.PN ---
History of Present Illness Date of Service: 12/14/22 Chief Complaint: Right Non healing lower extremity ulcer. History of Wound: Ms. Antony is a 65yo with PMH of venous insufficiency and reports she has had a vein stripped in the past. She presents for evaluation of a right lower extremity nonhealing ulcer. She has been evaluated at this wound care center in the past for similar wounds. She has had lower extremity edema and varicose veins for many years. Her current wound is the result of bumping her right leg against a piece of furniture in mid-August. She admits that in the past she has been inconsistent with wearing compression. Although she is currently off work she typically works at [employer] where she is up on her feet for nearly 12 hours every day and previously without any compression in the absence of active wounds. I was able to view the results from her recent arterial and venous studies. No signs of significant arterial compromise. Her venous study from 09/02/22 showed no DVT present, did not appear to evaluate for superficial venous incompetency. Patient was transferred to my care and I agree with the above history Progress of Wound: So basically all the areas are closed now patient will be discharged from the wound center. She has a small open area probably from tape that reopened suggested she use her Promogran on that to cleared up. Did discuss with her that when she is up working or running running around the house she needs to be wearing compression stockings all the time. Patient also I suggested that she suffers from flatfeet and needs arch supports in her shoes with better cushioning in her feet. Subjective Subjective Patient was agreeable with all suggestions is planning on buying new tennis shoes I suggested buying her arch supports and fit them in while she is trying them on. Objective Data Objective Data All areas are healed patient will be discharged from the wound center follow-up as needed Vital Signs: Vital Signs Temp Pulse Resp BP O2 Del Method 95.5 F L 57 L 16 137/51 H Room Air 12/14/22 10:19 12/14/22 10:19 12/14/22 10:19 12/14/22 10:19 12/14/22 10:19 Oxygen Delivery Method Room Air Lab / Micro Data Attestation: I reviewed the patient's lab results. Physical Exam Const alert, oriented x3, no apparent distress and healthy appearing General Appearance: cooperative and comfortable Exam Limitations: no limitations HEENT normocephalic, head/scalp atraumatic, hearing grossly normal bilaterally and external nose normal Eyes EOMs intact bilaterally General Eye: normal appearance of both eyes Neck full ROM General: normal visual inspection and trachea midline Resp normal respiratory effort and no use of accessory muscles Effort and Inspection: able to speak in complete sentences and symmetric chest movement; Negative for labored, stridor or audible wheezes Cardio regular rate and regular rhythm Peripheral Pulses: radial pulses present, ulnar pulses present, posterior tibial pulses present and dorsalis pedis pulses present Extremity normal capillary refill and no calf tenderness Extremity Narrative: Bilateral lower extremity edema, appears slightly worse right compared to left. Multiple varicose veins and reticular veins noted bilaterally. Skin Skin Narrative: Discoloration of skin, venous stasis dermatitis noted bilaterally but worse on the right compared to the left. General Skin Exam: Negative for ecchymosis, eschar or excoriation(s) Rashes: no rashes Trauma: no lacerations or abrasions Wound Narrative: Wound cluster noted to the medial right calf. Some slough noted in wound beds, much improved from previous weeks. Wounds appear overall smaller in circumference from last week. No erythema, warmth, foul-smelling drainage, fluctuance. There is a skin tear to the anterior aspect of her right lower leg. This is very superficial, wound bed is pink and no signs of infection. Appears to be healing well, smaller than previous weeks. Neuro oriented x3, CN's II-XII intact bilaterally, moves all extremities, no focal motor deficits, no sensory deficits noted and gait normal Psych mental status grossly normal, thought process normal, cooperative, affect normal, speech normal and activity/motor behavior normal Debridement Note Debridement Note No debridement was completed: No debridement was completed today Post-Debridement Measurements and Additional Note: Post-Debridement Measurements/Treatment MAGNOLIA - Nurse 1 - General Ulcer Assessment Start: 11/30/22 10:32 Freq: Status: Active Protocol: EVELIA Activity Type Activity Date Activity User E-sign Co-sign Detail Recorded Client Recorded Date Recorded By Document 11/30/22 10:32 [place] [id number] 11/30/22 10:34 [place] Document 12/14/22 10:19 [facility] [id number] 12/14/22 10:23 [facility] 11/30/22 12/14/22 10:32 10:19 - Today's Visit Information Type of service Follow-up Visit Follow-up Visit (Physician/CONCRETE PRODUCTS DISPATCHER (Physician/CONCRETE PRODUCTS DISPATCHER ) ) Arrival Mode Ambulatory Ambulatory Transfer Assistance None Patient Identification Verified (Name & Yes Yes ) Patient Requires Transmission-Based No No Precautions Vital Signs Temperature (97.8 F-99.1 F) 96.1 F L 95.5 F L Temperature Source Temporal Temporal Pulse Rate (60-100) 66 57 L Pulse Location Monitor Monitor Respiratory Rate (12-18) 16 Respiratory rate source Observation Oxygen Delivery Method Room Air Blood Pressure (90/60-120/80) 182/67 H 137/51 H Blood Pressure Mean (mm Hg) 105 79 Source Monitor Monitor Position Sitting Blood Pressure Location Left Arm History Since Last Visit- (Skip if this is Patient's initial visit) Have you changed medications since your No No last visit? Any new allergies or adverse reactions No No Had a fall/change in ADL's that may No No increase risk of falls Signs or symptoms of abuse and/or No No neglect since last visit Have you been in the hospital since your No No last visit? Has dressing in place as prescribed Yes Yes Has compression in place as prescribed Yes Yes Has offloadiing in place as prescribed N/A N/A Experienced any changes in pain level or No No management Left Footwear Regular Shoe Regular Shoe Right Footwear Regular Shoe Regular Shoe Pain Scale: 0-10 Numeric Is Patient Pain Free? Yes Yes - Nurse 1 - General Ulcer Measurement Start: 11/30/22 10:32 Freq: Status: Active Protocol: Activity Type Activity Date Activity User E-sign Co-sign Detail Recorded Client Recorded Date Recorded By Document 11/30/22 10:32 [place] [id number] 11/30/22 10:34 [place] Document 12/14/22 10:19 [facility] [id number] 12/14/22 10:23 [facility] 11/30/22 12/14/22 10:32 10:19 Wound Center Nurse 1 #7 right medial LE inferior -Combined with other wound No -Current Size (cm) - Length 0.1 -Current Size (cm) - Width 0.1 -Current Size (cm) - Depth 0.1 -Total Square Cm 0.01 #5 right medial cluster superior -Combined with other wound No No -Current Size (cm) - Length 0.2 0.5 -Current Size (cm) - Width 0.2 0.5 -Current Size (cm) - Depth 0.1 0.1 -Total Square Cm 0.04 0.25 -Date of Last Picture (Recall this 12/14/22 field) -Photo Taken No Yes -Epithelialization None Present -Tunneling No No -Undermining/Tunneling No No -Circular Undermining No No -Change in Wound Grade/Stage No -Exudate Amt Medium Medium -Exudate Type Serosanguineous Serous -Wound Margin Distinct, Distinct, Outline Outline Attached Attached -Granulation Amt Medium (34-66%) None Present (0 %) -Granulation Quality [place] -Slough/Fibrin Yes Yes -Necrosis Amt Medium (34-66%) Large (67-100%) -Necrotic Tissue Type Adherent Slough Adherent Slough -Structure Exposed N/A -Texture (Jessica-wound Skin Appearance) No Abnormality, Assessed, Assessed Scarring -Moisture (Jessica-wound Skin Appearance) No Abnormality, Assessed Assessed -Color (Jessica-wound Skin Appearance) No Abnormality, Assessed Assessed -Temperature (Jessica-wound Skin No Abnormality No Abnormality Appearance) (Pt Warm) (Pt Warm) -Tenderness on Palpation (Jessica-wound No No Skin Appearance) -Ulcer Cleansing Rinsed/ Rinsed/ Irrigated with Irrigated with Saline Saline -Foul Odor after Cleansing No No -Anesthetic Used 5% Lidocaine 5% Lidocaine Gel Gel Lower Limb Edema Present Yes Right Calf (cm) 43 42 Right Ankle (cm) 24.5 25 WC - Nurse 2 - General Ulcer CM Notes Start: 11/30/22 10:32 Freq: Status: Active Protocol: Activity Type Activity Date Activity User E-sign Co-sign Detail Recorded Client Recorded Date Recorded By Document 11/30/22 10:50 MW [id number] 11/30/22 10:52 MW Document 12/14/22 10:31 MW [id number] 12/14/22 10:32 MW 11/30/22 12/14/22 10:50 10:31 Wound Center Nurse 2 #7 right medial LE inferior -Time 10:51 -Correct Patient Yes -Correct Side, Site, Position Yes -Correct Procedure Yes -Procedure Performed No -Post Debridement (cm) - Length 0 -Post Debridement (cm) - Width 0 -Post Debridement (cm) - Depth 0 -Total Square (Post) (cm) 0 -Wound/Ulcer Outcome Healed- Epithelialized #5 right medial cluster superior -Time 10:51 10:31 -Correct Patient Yes Yes -Correct Side, Site, Position Yes Yes -Correct Procedure Yes Yes -Procedure Performed Yes No -Type of Procedure Debridement -Clinical Debridement Subcutaneous -Tissue Removed Subcutaneous -Post Debridement (cm) - Length 0.1 0 -Post Debridement (cm) - Width 0.1 0 -Post Debridement (cm) - Depth 0.1 0 -Total Square (Post) (cm) 0.01 0 -Area of Debridement (cm) - Length 0.1 -Area of Debridement (cm) - Width 0.1 -Total Square (Area) (cm) 0.01 -Tunneling No -Undermining/Tunneling No -Circular Undermining No -Wound/Ulcer Outcome Not Healed Healed- Epithelialized -Ulcer Cleansing Rinsed/ Irrigated with Saline -Foul Odor after Cleansing No -Bioengineered Tissue No -Bleeding Controlled with Pressure -Treatment Response Procedure Tolerated Well -Offloading No -Debridement - Subq, 1st 20sq cm Yes Pain Scale: 0-10 Numeric Is Patient Pain Free? Yes Yes WC - Nurse 3 - General Ulcer D/C NN Start: 11/30/22 10:32 Freq: Status: Active Protocol: Activity Type Activity Date Activity User E-sign Co-sign Detail Recorded Client Recorded Date Recorded By Document 11/30/22 10:54 MW [id number] 11/30/22 10:55 MW Document 12/14/22 10:47 [facility] [id number] 12/14/22 10:49 BMF 11/30/22 12/14/22 10:54 10:47 Wound Care Center Nurse 3 #5 right medial cluster superior -Ulcer Cleansing Rinsed/ Rinsed/ Irrigated with Irrigated with Saline Saline -Foul Odor after Cleansing No No -Negative Pressure Wound Therapy N/A -Primary Dressing Applied Promogran Promogran -Primary Dressing Covered/Secured with Dry Gauze & Dry Gauze, Roll Gauze, Secured with Secured with Tape Tape -Promogran 1 1 Right -Lotion applied to leg before No compression wrap -Tubular Bandage Single Layer -Size of Tubigrip Used Size D -Size D ($) 2 -Other single layer sent an extra tubigrip per pt request Treatment Response Procedure Procedure Tolerated Well Tolerated Well Pain Scale: 0-10 Numeric Is Patient Pain Free? Yes Yes Teaching: Wound Center Dressing Your Wound -Person Taught Patient -Teaching Method Discussion -Response to teaching Verbalize understanding WC - Visit Discharge Discharge Condition Stable Stable Ambulatory Status Ambulatory Ambulatory Transportation Private Auto Accompanied by self Medication Reconcilliation completed & No provided to patient/care provider Clinical Summary of Care Provided Yes Assessment/Plan Assessment/Plan (1) Venous ulcer of left leg: CODE(S): I83.029 - Varicose veins of left lower extremity with ulcer of unspecified site; L97.929 - Non-pressure chronic ulcer of unspecified part of left lower leg with unspecified severity PLAN: Continue using Promogran on the new area just below where the healing ulcers are for 1 week. Continue using the Tubigrip's daily while at work and at home By yourself some arches and put them in your shoes for walking purposes she wants to start exercising and losing weight. Follow-up in the wound center as needed (2) Morbid obesity: CODE(S): E66.01 - Morbid (severe) obesity due to excess calories
== END 2022-12-14 15:01 | disposition home or self-care (01) ==
LOC: WC 10:15
PROVIDERS: PCP Family Medicine; Visit Provider Nurse Practitioner
DX: I83.212 Varicose veins of right lower extremity with both ulcer of calf and inflammation (principal); L97.822 Non-pressure chronic ulcer of other part of left lower leg with fat layer exposed; E66.01 Morbid (severe) obesity due to excess calories
CPT/HCPCS: 11042; 99213; G0463

== ENCOUNTER 2023-11-13 15:41 | Emergency (ER) | payer BC, SELFPAY ==
[2023-11-13 15:42] VITALS: BP 158/76; PULSE 51; RESP 18; TEMP 35.9; O2SAT 99
--- NOTE | 2023-11-13 15:50 | RAD_ITS ---
EXAM: XR LEFT FOOT COMPLETE, 3 OR MORE VIEWS CLINICAL INDICATION: swelling/pain TECHNIQUE: Frontal, lateral and oblique views of the left foot. COMPARISON: No relevant prior studies available. FINDINGS: BONES/JOINTS: Degenerative changes in the metatarsal phalangeal and interphalangeal joints. Dorsal midfoot spurring. Calcaneal spurs. Apparent bone island in the fourth metatarsal. No acute fracture. No subluxation. Normal alignment. SOFT TISSUES: Soft tissue swelling throughout the foot and ankle. No radiopaque foreign body. RAD/Foot min 3 Views IMPRESSION: Degenerative changes and soft tissue swelling. No acute osseous abnormalities. Electronically Signed: Filiberto Richardson DO at 16:07 EST ,
--- NOTE | 2023-11-13 18:53 | EX.ED.DYSGE1 ---
HPI History of Present Illness Chief Complaint: Lower Extremity Injury [facility] Medical History Chronic cutaneous venous stasis ulcer Morbid obesity Venous insufficiency Home Medications ergocalciferol (vitamin D2) 1,250 mcg (50,000 unit) capsule (Vitamin D2) 50,000 unit PO MOFR supplement 11/16/16 [History Last Taken 08/26/22] multivitamin (Daily Multiple tablet) 1 ea PO DAILY 10/19/17 [History Last Taken 08/28/22] vit C 250 mg-vit E 90 mg-zinc 40 mg-copper 1 [id number] capsule (PreserVision AREDS-2) 1 ea PO DAILY 10/19/17 [History Last Taken 08/28/22] calcium carbonate 600 mg calcium (1,500 mg) tablet 600 mg PO DAILY 04/15/20 [History Last Taken 08/28/22] collagenase clostridium histo. 250 unit/gram topical ointment 1 applic topical DAILY leg 04/15/20 [History Last Taken 09/02/22] methylcellulose (with sugar) oral powder (Citrucel (sucrose) oral powder) 1 tbsp PO DAILY SUPPLEMENT 09/02/22 [History Last Taken 08/31/22] acidophilus 25 million cell-pectin, citrus 100 mg tablet 2 tab PO 4X/DAY 7 days #0 tabs 09/09/22 [Rx Last Taken Unknown] arginine 7 gram-glutam 7 gram-CaHMB 1.5 serz-knrgq-cw-min oral pwd pkt (Rene (with collagen)) 1 packet PO BIDCM 15 days #0 ea 09/09/22 [Rx Last Taken Unknown] levofloxacin 500 mg tablet 500 mg PO DAILY@0600 5 days #0 tabs 09/09/22 [Rx Last Taken Unknown] losartan 50 mg tablet 50 mg PO DAILY 30 days #0 tabs 09/09/22 [Rx Last Taken Unknown] Allergy/AdvReac Type Severity Reaction Status Date / Time No Known Allergies Allergy Verified 11/13/23 15:42 Family History Mother Hypertension Uterine cancer Father CAD (coronary artery disease) CVA (cerebral vascular accident) Surgical History H/O total hysterectomy Hx of repair of rotator cuff Social History household members: none Smoking Status: Never smoker alcohol intake: never substance use type: does not use EXAM Physical Exam Const Vital Signs: 11/13/23 15:42 Temperature 96.6 F L Temperature Source Temporal Pulse Rate 51 L Respiratory Rate 18 Blood Pressure 158/76 H Blood Pressure Mean 103 Pulse Ox 99 Oxygen Delivery Method Room Air [facility] Narrative Medical decision making narrative: HISTORY OF PRESENT ILLNESS: 68-year-old female presents with left foot/toe. No injury, no fall, left toe pain. Patient denies active cancer, being bedridden for greater than 3 days, denies unilateral leg swelling, denies any varicose veins, denies any calf tenderness, denies tenderness along deep venous system. Denies major surgery within 12 weeks, recent paralysis, previous DVT. No history of gout REVIEW OF SYSTEMS: Pertinent positives: Left foot pain, toe pain Pertinent negatives: Fall, loss sensation, pain, fever PHYSICAL EXAM: Nursing triage notes reviewed, Vital signs reviewed Constitutional: please see mdm Extremities: No edema, TTP over left toe, intact range of motion of left toe, no sign of joint swelling Neuro: Intact sensation L1-S1 dermatomal distributions. Intact 5/5 strength in hip flexion (T12-L3). Knee extension (L2-L4). Ankle dorsiflexion (L4-L5). Ankle plantar flexion (S1). Great toe extension (L5). 2+ patellar and Achilles DTRs. Skin: No rash or lesions noted, dry skin, no redness, no fluctuance, induration MEDICAL DECISION MAKING: Chief Complaint: Foot pain External records reviewed: No recent advanced imaging of the involved extremity MDM Narrative: The patient was hemodynamically stable, afebrile, nontoxic-appearing. Exam without signs of cellulitis, septic arthritis, image showed no evidence of fracture dislocation etiology is unclear. Recommended podiatry follow-up I considered the following differential diagnosis: Osteomyelitis, fracture dislocation, gouty arthritis, septic arthritis, ankle fracture, contusion ALL IMAGES (IF OBTAINED) HAVE BEEN PERSONALLY REVIEWED AND INTERPRETED BY MYSELF. X-ray of the patient's left foot was read reviewed myself shows no evidence of obvious bone abnormality, osteomyelitic changes etc. The patient and/or family, caregivers express understanding. The patient and/or family, caregivers agrees with the plan. Shared decision making: I will have a discussion with the patient and or visitors regarding risk/benefits of further testing or admission. They will be made aware of of the risk/benefits inherent in this decision they will be given the opportunity to voice understanding. Total critical care time today provided was at least 0 minutes. This excludes separately billable procedures. Critical care time (if documented) is secondary to the patient having high probability of clinically significant/life threatening deterioration in the patient's condition which required my urgent intervention. Impression: 1. Left great toe pain Dispo: Discharge Radiography Diagnostic Testing: Clinical Impression(s) from Imaging Studies Foot X-Ray 11/13/23 15:50 IMPRESSION: Degenerative changes and soft tissue swelling. No acute osseous abnormalities. Electronically Signed: Filiberto Richardson DO at 16:07 EST , Discharge Plan Triage Chief Complaint: Lower Extremity Injury ED Provider: Lawrence Teresa Dx/Rx/DC Orders Clinical Impression: Great toe pain Prescriptions: No Action ergocalciferol (vitamin D2) [Vitamin D2] 50,000 UNIT capsule 50,000 unit PO MOFR Patient Comments: TWICE A WEEK multivitamin [Daily Multiple] 1 EACH tablet 1 ea PO DAILY PreserVision AREDS-2 1 EACH capsule 1 ea PO DAILY calcium carbonate 600 MG tablet 600 mg PO DAILY collagenase clostridium histo. 1 APPLIC ointment 1 applic topical DAILY Citrucel (sucrose) Powder 1 tbsp PO DAILY Rene (with collagen) 7-7-1.5 gram Powder In Packet 1 packet PO BIDCM 15 Days Qty: 0 0RF acidophilus-pectin, citrus 25 million cell -100 mg Tablet 2 tab PO 4X/DAY 7 Days Qty: 0 0RF losartan 50 mg Tablet 50 mg PO DAILY 30 Days Qty: 0 0RF levofloxacin 500 mg Tablet 500 mg PO DAILY@0600 5 Days Qty: 0 0RF Rx Instructions: last dose is 09/14/22 Primary Care Provider: Delfino Guillen Referrals: Jason Hernández DPM [Med Staff - Active Staff] - Delfino Guillen MD [Primary Care Provider] - Activity Restrictions/Additional Instructions: Thank you for trusting us with your care today! Please take Tylenol (2 pills, 650 mg), ibuprofen (2 pills, 400 mg) every 6 hours as needed for pain and fever control. Please use ice regularly. Please return to the emergency department if your symptoms change or worsen. Specifically develop worsening redness, worsening pain, discoloration, redness, warmth, white-yellow discharge. Please follow with your primary care physician for further outpatient evaluation and management. Disposition Disposition: Home, Self Care Discharge Date/Time: 11/13/23 20:00 Capacity Legal Youth Minister Reflex Medical hold order details:: IF a medical hold is selected below, a suggested order for a MEDICAL HOLD will reflex upon signing the document. Next of kin: [place] law dictates a PRIORITY LIST for identifying legal decision-maker/legal next of kin in the following order (LNOK): 1st: The patient?s legal guardian, if any 2nd: The patient's spouse (if status is questionable, consult Risk Management) 3rd: The patient?s adult child(eulalio) (majority, if multiple children) 4th: The patient?s parents 5th: The patient?s adult siblings (majority, if multiple children siblings)
== END 2023-11-13 20:00 | disposition home or self-care (01) ==
PROVIDERS: Emergency Provider Emergency Medicine; PCP Family Medicine; Referring Provider Emergency Medicine; Visit Provider Emergency Medicine
DX: M79.675 Pain in left toe(s) (principal)
CPT/HCPCS: 73630; 99282

== ENCOUNTER 2025-03-04 10:34 | Day surgery (SDC) | payer BC, SELFPAY ==
[2025-03-03 08:22] VITALS: BMI 50.3
--- NOTE | 2025-03-04 13:20 | CL.D_ITS ---
Patient Name: ALLISON GILMORE Study Date: 03/04/2025 Performing: Kannan Raman MD Ht: 64 inches 162.56 cm : 1955 Wt: 292.99 lbs 132.9 kg Age: 70 Gender: female BSA: 2.3 PROCEDURE(S) PERFORMED DC01-([id number])LHC/COR/LV CLINICAL PROFILE AND INDICATIONS Indications: Suspected CAD Heart Failure: None Stress/Imaging Date: 01/20/25Stress Test with SPECT MPI: Positive Intermediate Risk CAD Presentations: Stable angina. CONCLUSIONS Normal coronary arteries Normal LV size, wall motion,and systolic function RECOMMENDATIONS Medical therapy DESCRIPTION OF PROCEDURE The patient arrived to the procedure lab. The risks and benefits of the procedure as well as a full description of our services here and current unavailability of surgical backup were fully explained to the patient and/or their significant other prior to the catheterization. The Timeout was completed, verifying the correct patient and procedure. The patient's procedural site was prepped and draped in the usual fashion. Local anesthetic was given subcutaneously to right radial region with Lidocaine 2%. Using a modified Seldinger technique, arterial access was obtained via the right radial artery, a 6Fr sheath was inserted. Left Coronary Artery selective angiography was performed in multiple views using a 5 Fr. 4.0 [place] catheter. Right Coronary Artery selective angiography was then performed in multiple views using a 5 Fr. 4.0 [place] catheter. Left Ventriculography was performed in ALATORRE projection using a 5 Fr. Pigtail catheter. LV to AO pullback pressures were then recorded.The arterial sheath was pulled and a TR Band was applied for hemostasis CORONARY ANGIOGRAPHY DOMINANCE: Right Dominant LEFT HEART ASSESSMENT Left Ventricular Ejection Fraction: by LV Gram 60 % Normal LV wall motion Normal Left Ventricular systolic function Normal Left Ventricular systolic function LEFT MAIN: Angiographically normal LEFT ANTERIOR DESCENDING ARTERY: Angiographically normal CIRCUMFLEX ARTERY: Angiographically normal RIGHT CORONARY ARTERY: Angiographically normal COMPLICATIONS No Complications PROCEDURE MEDICATIONS Versed 1 mg IV Fentanyl 50 mcg IV Versed 1 mg IV Oxygen: 2 L/min via nasal cannula Heparin given IA 03/04/2025 13:04:39 Verapamil 2.5mg, Ntg 200mcgs, 2000 units of Heparin given IA 03/04/2025 13:04:39 SUMMARY OF HEMODYNAMIC DATA Time AIR REST ECG 11:00:56 LV 147/12, 21 13:11:10 LV 143/10, 17 13:11:17 LV 150/22, 33 13:11:54 Signed By Kannan Raman MD On 03/04/2025 13:20:11 Kannan Raman MD
== END 2025-03-04 14:45 | disposition home or self-care (01) ==
PROVIDERS: PCP Family Medicine; Referring Provider Internal Medicine Cardiovascular Disease; Visit Provider Internal Medicine Cardiovascular Disease
DX: R07.89 Other chest pain (principal); E66.01 Morbid (severe) obesity due to excess calories; Z68.43 Body mass index [BMI] 50.0-59.9, adult; R94.39 Abnormal result of other cardiovascular function study; I10 Essential (primary) hypertension; I87.2 Venous insufficiency (chronic) (peripheral); I73.9 Peripheral vascular disease, unspecified; M85.80 Other specified disorders of bone density and structure, unspecified site; Z79.82 Long term (current) use of aspirin; Z79.899 Other long term (current) drug therapy
CPT/HCPCS: 93458; 99152; 99153; Q9967

== ENCOUNTER → 2025-07-29 | Outpatient (CLI) | payer BC, SELFPAY ==
--- NOTE | 2025-07-29 08:30 | PET_ITS ---
PROCEDURE: PET/CT TUMOR BASE -THIGH INIT 07/29/2025 REASON FOR EXAM: 70 y/o F with ABNORMAL FINDINGS IN LUNG FIELD, including right upper lobe and left lower lobe nodules. TECHNIQUE: Procedure Code: PETPTCTINIT Modality: PT Procedure: PET/CT TUMOR BASE -THIGH INIT Following the intravenous administration of radionucleotide, image acquisition on a dedicated PET/CT unit was performed at one hour post injection. A preliminary CT study encompassing the Skull base, neck, chest, abdomen, pelvis, and proximal thighs was performed for purposes of attenuation correction and anatomic localization. The proximal thighs were also included. The patient's blood glucose level was 105 mg/dL (allowable range: 50-180 mg/dL). RADIOPHARMACEUTICAL: 13.53 mCi 18F-FDG (Fluorodeoxyglucose F18) IV was injected into he patient. RADIATION DOSE SUMMARY: Effective Dose: Approximately 7 mSv for a standard whole-body PET scan Organ Doses: Varies by organ, with higher doses typically to the bladder, liver, and brain COMPARISON: COMPARISON FROM CT, PET OR OTHER PERTINENT EXAMS: None provided. FINDINGS: Physiologic uptake: There may be expected metabolic uptake within the brain, tongue and floor of the mouth and larynx/vocal cords, heart, katie (many normal individuals have hilar uptake in less than 3 nodes with mildly avid hilar nodes less than 2.7 SUV), liver and spleen, system, and GI tract and symmetric muscle uptake. FDG AVID AND NON-AVID LESIONS. Reported avid SUV values (g/mL*) are maximum SUV. Head and NECK: Moderate nasal septal deviation to the left is noted. There are no significant neck abnormalities. CHEST: In the right mediastinum, few small densely calcified lymph nodes are seen, consistent with old granulomatous disease. Prominent right hemidiaphragm eventration is noted. Chest wall- There are no significant chest wall abnormalities. Axilla- There are no significant axillary abnormalities. Lung parenchyma- Hypermetabolic activity of the previously noted area right upper lobe nodule is seen, with SUV max of 5.6. Hypermetabolic activity in the previously noted area of left lower lobe nodule is seen, with SUV max of 5.1. Mediastinum- There are no significant hilar or mediastinal adenopathy. Pleura- There are no significant pleural abnormalities. ABDOMEN: In the anterior lower abdomen, a left paracentral white matter fat containing ventral hernia is noted. [id number] aortic calcification; no evidence of abdominal aortic aneurysm. Stomach- No significant abnormalities. Liver- No significant abnormalities. Spleen- No significant abnormalities. Pancrease- No significant abnormalities. Kidneys- No significant abnormalities. Bowel- Normal bowel activity. Spine- No significant abnormalities. PELVIS: Bowel- Normal physiologic bowel activity is identified. Masses- There are no pelvic masses. LOWER EXTREMITIES: At the bilateral thighs, varicose veins are noted. Bones- Prominent degenerative changes seen throughout the spine. Thoracolumbar levoscoliosis also noted. With the use of bone window settings, there are no osteolytic or osteoblastic lesions. There are no FDG avid lesions within the visualized portion of the axial skeleton. PET/PET/CT Tumor Base -Thigh Init IMPRESSION: FDG avid- Hypermetabolic foci in the previously noted right upper lobe and left lower lob e nodules, concerning for the possible presence of malignancy at both locations. Other: In the anterior lower abdomen, a left paracentral white matter fat containing v entral hernia is noted. Please note the low-dose CT scan was performed to facilitate PET image reconstr uction and anatomic localization and does not replace a diagnostic CT. Any diagnostic CT requested and performed at the time of the PET will be reported separately. Reading Location: [id number]
== END | disposition home or self-care (01) ==
LOC: ONC 08:02
PROVIDERS: PCP Family Medicine
DX: R91.8 Other nonspecific abnormal finding of lung field (principal)
CPT/HCPCS: 78815; A9552

== ENCOUNTER 2025-08-17 18:50 | Emergency (ER) | payer BC, SELFPAY ==
[2025-08-17 18:52] VITALS: BP 166/67; PULSE 78; RESP 16; TEMP 36.2; O2SAT 99
[2025-08-17 21:44] VITALS: BP 166/67; PULSE 78; RESP 16; TEMP 36.2; O2SAT 99
== END 2025-08-17 21:46 | disposition home or self-care (01) ==
PROVIDERS: Emergency Provider Emergency Medicine; PCP Family Medicine; Visit Provider Emergency Medicine
DX: I87.2 Venous insufficiency (chronic) (peripheral) (principal); I73.9 Peripheral vascular disease, unspecified; I10 Essential (primary) hypertension; M85.80 Other specified disorders of bone density and structure, unspecified site; Z79.82 Long term (current) use of aspirin; Z79.899 Other long term (current) drug therapy
CPT/HCPCS: 99282